=== PATIENT | male | born 1940 | race Caucasian/White ===

== ENCOUNTER 2017-09-29 17:19 | Inpatient (IN) | payer OTHER ==
[2017-09-29] MEDS ORDERED: METHYLPREDNISOLONE 125 MG INJ ONE (17:29)
[2017-09-29] MEDS ORDERED: ASPIRIN 81 MG CHEWABLE TABLET ONE (17:29)
[2017-09-29] MEDS ORDERED: ALBUTEROL 2.5 MG/3 ML NEB SOL ONE (17:29)
[2017-09-29] MEDS ORDERED: IPRATROPIUM BROM 0.5MG/2.5ML ONE (17:30)
[2017-09-29 18:16] LABS: Glucose Level 214 mg/dL (65-120)
[2017-09-29 18:19] LABS: Absolute Lymphocytes (CBC) 0.4 K/uL (0.7-4.9); Absolute Monocytes 0.5 K/uL (0.1-1.3); Absolute Neutrophil 9.7 K/uL (1.8-8.0); Basophils % 0.2 % (0-1.3); Eosinophils % 0.2 % (0-4.4); Hematocrit 40.8 % (39.6-49.0); Lymphocytes % 4.1 % (15.3-44.8); MCH 27.5 pg (27.0-35.0); MCV 87.6 fL (80-100); Monocytes % 4.4 % (3.3-12.3); RBC Red Blood Cell Count 4.66 M/uL (4.33-5.43)
[2017-09-29 18:22] LABS: ALT/SGPT 31 IU/L (10-60); AST/SGOT 24 IU/L (10-42); Albumin 3.8 g/dL (3.2-5.5); Alkaline Phosphatase 102 IU/L (42-121); BUN Blood Urea Nitrogen 16 mg/dL (6-20); Bilirubin Direct < 0.1 mg/dL (0-0.2); Bilirubin Total 0.3 mg/dL (0.3-1.2); Creatine Phosphokinase 76 IU/L (22-269); Magnesium 2.2 mg/dL (1.8-2.5); Protein, Total 8.3 g/dL (6.0-8.3)
[2017-09-29 18:25] LABS: CKMB Creatine Kinase MB 4.7 ng/ml (0.3-4.0)
[2017-09-29 18:26] LABS: Potassium 4.6 mEq/L (3.6-5.0); Sodium Level 143 mEq/L (135-145)
[2017-09-29 18:33] LABS: Bicarbonate 45 mEq/L (21-31)
[2017-09-29 19:01] LABS: Platelet Estimate ADEQ; Urine White Blood Cell Casts OK
[2017-09-29 19:02] LABS: Blood Morphology Comment NOT SEEN (NOT SEEN)
[2017-09-29 19:15] LABS: Arterial Blood Carboxyhemoglob 1.4 % (0-1.5); Blood Gas Oxyhemoglobin 83.7 % (94-97); Blood O2 Saturation 85.5 % (92-98.5)
--- NOTE | 2017-09-29 19:25 | RAD REPORT ---
EXAM DESCRIPTION: RAD - Chest Single View - 09/29/2017 6:45 pm CLINICAL HISTORY: Shortness of breath COMPARISON: October 2016 TECHNIQUE: AP portable chest image was obtained 1752 hours . FINDINGS: Interstitial and alveolar opacification present in the right base along with a small right pleural effusion. Patient has an overall increase in interstitial markings above an already prominen t baseline pattern. Heart size is normal. Pulmonary vasculature within normal limits. Mediastinum is distorted slightly by rotation. Trachea is in the midline. No pneumothorax. No gross bony abnormality seen. No acute aortic findings suspected. IMPRESSION: Increased interstitial and alveolar opacification and small right pleural effusion. Right lung base pneumonia superimposed on chronic interstitial lung disease suspected.
[2017-09-29 19:48] LABS: Urine Blood TRACE (NEG); Urine Glucose 2+ (NEG); Urine Protein 1+ (NEG); Urine Specific Gravity >1.030 (1.005-1.030)
[2017-09-29] MEDS ORDERED: Levofloxacin 750mg IV 750 MG/150 ML BAG IV ONE (20:00)
--- NOTE | 2017-09-29 20:47 | EDPHYS ---
Physician Documentation [facility] Name: Idris San Age: 76 yrs Sex: Male : 1940 Arrival Date: 09/29/2017 Time: 17:25 Bed 6 Private MD: ED Physician Lazaro Nogueira HPI: 09/29 17:35 This 76 yrs old Male presents to ER via EMS with complaints of Respiratory cp Distress. 17:35 The patient has shortness of breath at rest. cp 17:35 Onset: The symptoms/episode began/occurred last 2-3 days. Duration: The symptoms are cp continuous, and are steadily getting worse. Associated signs and symptoms: Pertinent negatives: chest pain, fever, hemoptysis. The patient has experienced similar episodes in the past, multiple times. EMS reports patient oxygen sats were 80 percent on arrival after they were called by patient. Historical: - Allergies: 17:33 Codeine; ae1 - Home Meds: 17:33 Albuterol Inhl [Active]; Prednisone Oral [Active]; ae1 19:08 furosemide 20 mg Oral tab 1 tab once daily [Active]; tamsulosin 0.4 mg Oral cp24 1 cap ak1 twice a day [Active]; finasteride 5 mg Oral tab 1 tab once daily [Active]; - PMHx: 17:33 CHF; COPD; enlarged prostate; Lung Cancer; Pt reports that it cleared up; ae1 - PSHx: 19:08 Appendectomy; ak1 - Immunization history:: Adult Immunizations not up to date. - Social history:: Smoking status: Patient uses tobacco products, smokes one-half pack cigarettes per day. ROS: 17:40 Constitutional: Negative for body aches, chills, fever, poor PO intake. cp 17:40 Eyes: Negative for injury, pain, redness, and discharge. cp 17:40 ENT: Negative for drainage from ear(s), sore throat, difficulty swallowing, difficulty handling secretions. 17:40 Cardiovascular: Negative for chest pain, edema. 17:40 Respiratory: Positive for cough, shortness of breath, at rest. 17:40 Abdomen/GI: Negative for abdominal pain, vomiting, diarrhea, constipation, black/tarry stool, rectal bleeding. 17:40 Skin: Negative for cellulitis, rash. 17:40 Neuro: Negative for altered mental status, seizure activity, speech changes, weakness. 17:40 All other systems are negative. Exam: 17:40 Head/Face: Normocephalic, atraumatic. cp 17:40 Constitutional: The patient appears alert, awake, non-diaphoretic, well developed, well nourished, in obvious distress, moderately distressed. 17:40 Eyes: Periorbital structures: appear normal, Pupils: equal, round, and reactive to light and accomodation, Extraocular movements: intact throughout, Conjunctiva: normal, no exudate, no injection, Sclera: no appreciated abnormality, Lids and lashes: appear normal, bilaterally. 17:40 ENT: External ear(s): are unremarkable, Ear canal(s): are normal, clear, TM's: dullness, bilaterally, Nose: is normal, Mouth: Lips: moist, Oral mucosa: moist, Posterior pharynx: is normal, airway is patent, no erythema, no exudate. 17:40 Neck: ROM/movement: is normal, is supple, without pain, no range of motions limitations, no meningismus, no nuchal rigidity. 17:40 Chest/axilla: Inspection: normal, Palpation: is normal, no crepitus, no tenderness. 17:40 Cardiovascular: Rate: tachycardic, Rhythm: regular, Pulses: Pulses are 2+ in right radial artery and left radial artery. Edema: is not appreciated, JVD: is not appreciated. 17:40 Respiratory: moderate respiratory distress is noted, Respirations: normal, labored breathing, that is moderate, shallow respirations, that is moderate, tachypnea, Breath sounds: decreased breath sounds, that are moderate, throughout, stridor, is not appreciated, wheezing: that is mild, is heard diffusely. 17:40 Abdomen/GI: Inspection: abdomen appears normal, Bowel sounds: active, all quadrants, Palpation: abdomen is soft and non-tender, in all quadrants, rebound tenderness, is not appreciated, voluntary guarding, is not appreciated, involuntary guarding, is not appreciated. 17:40 Back: pain, is absent, ROM is normal. 17:40 Skin: cellulitis, is not appreciated, no rash present. 17:40 Neuro: Orientation: to person, place \T\ time. Mentation: lucid, able to follow commands, Cerebellar function: is grossly normal, Motor: moves all fours, strength is normal, Sensation: no obvious gross deficits. 17:50 ECG was reviewed by the Attending Physician. Vital Signs: 17:28 BP 152 / 61; Pulse 101; Resp 27 S; Pulse Ox 100% on Nebulizer Mask; Weight 65.77 kg ae1 (R); Pain 0/10; 18:00 BP 149 / 73; Pulse 102; Resp 22 A; Pulse Ox 100% on BiPAP; jl7 18:30 BP 145 / 68; Pulse 90; Resp 98 A; Pulse Ox 100% on BiPAP; jl7 18:58 BP 127 / 58; Pulse 90; Resp 22 A; Pulse Ox 100% on BiPAP; jl7 19:03 Temp 99(O); jl7 19:15 BP 123 / 59; Pulse 84; Resp 22; Pulse Ox 96% ; bp 20:00 BP 118 / 60; Pulse 82; Resp 25; Pulse Ox 97% ; bp 20:40 BP 117 / 58; Pulse 88; Resp 23; Pulse Ox 98% on BiPAP; mt 21:30 BP 112 / 56; Pulse 76; Resp 21; Pulse Ox 97% ; bp MDM: 17:26 Patient medically screened. jr8 18:00 Differential diagnosis: Bronchitis CHF exacerbation, Chronic Obstructive Pulmonary cp Disease Myocardial Infarction pneumonia, pulmonary edema, Pulmonary Embolism reactive airway disease, Sepsis Unstable Angina. 20:10 Data reviewed: vital signs, nurses notes, lab test result(s), EKG, radiologic studies, cp plain films. 20:14 Physician consultation: Sameer Roberts MD was called at 20:14, was contacted at 20:14, regarding admission, to the telemetry unit. patient's condition. 09/29 17:30 Order name: Blood Culture Adult (2) 09/29 17:30 Order name: Influenza Screen (a \T\ B); Complete Time: 19:54 cp 09/29 17:30 Order name: Basic Metabolic Panel; Complete Time: 18:53 09/29 17:30 Order name: BNP 09/29 17:30 Order name: CBC with Diff; Complete Time: 19:54 09/29 18:53 Interpretation: Normal except: HGB 12.8; MCV 87.6; MCH 27.5; MCHC 31.5; RDW 18.1; GLADYS% cp 91.1; LYM% 4.1; LYMA 0.4; NEUT A 9.7. 09/29 17:30 Order name: Ckmb; Complete Time: 18:53 cp 09/29 17:30 Order name: CPK; Complete Time: 18:53 cp 09/29 17:30 Order name: LFT's; Complete Time: 18:53 cp 09/29 17:30 Order name: Magnesium; Complete Time: 18:53 cp 09/29 17:30 Order name: PT-INR; Complete Time: 18:53 cp 09/29 17:30 Order name: Ptt, Activated; Complete Time: 18:53 cp 09/29 17:30 Order name: Troponin (emerg Dept Use Only); Complete Time: 18:53 cp 09/29 18:28 Order name: CBC Smear Scan; Complete Time: 19:54 EDMS 09/29 18:54 Order name: ABG cp 09/29 17:30 Order name: XRAY Chest (1 view); Complete Time: 19:54 cp 09/29 17:56 Order name: BIPAP ag 09/29 19:21 Order name: Urine Dipstick--Ancillary (enter results); Complete Time: 19:54 rg2 09/29 19:54 Interpretation: Normal except: USPGR >1.030; UBLD TRACE; UPROT 1+. cp 09/29 20:56 Order name: Basic Metabolic Panel EDMS 09/29 20:56 Order name: Basic Metabolic Panel EDMS 09/29 20:57 Order name: Troponin I EDMS 09/29 20:57 Order name: Troponin I EDMS 09/29 20:57 Order name: Troponin I EDMS 09/29 20:57 Order name: Troponin I EDMS 09/29 20:57 Order name: CBC with Automated Diff EDMS 09/29 20:57 Order name: CBC with Automated Diff EDMS 09/29 20:57 Order name: Lipid Profile EDMS 09/29 20:57 Order name: Lipid Profile EDMS 09/29 20:57 Order name: Magnesium EDMS 09/29 20:57 Order name: Magnesium EDMS 09/29 17:30 Order name: EKG; Complete Time: 17:38 cp 09/29 17:30 Order name: Cardiac monitoring; Complete Time: 17:35 cp 09/29 17:30 Order name: EKG - Nurse/Tech; Complete Time: 19:02 cp 09/29 17:30 Order name: IV Saline Lock; Complete Time: 17:35 cp 09/29 17:30 Order name: Labs collected and sent; Complete Time: 17:35 cp 09/29 17:30 Order name: O2 Per Protocol; Complete Time: 17:35 cp 09/29 17:30 Order name: O2 Sat Monitoring; Complete Time: 17:35 cp 09/29 17:30 Order name: Urine Dipstick-Ancillary (obtain specimen); Complete Time: 19:19 cp 09/29 20:57 Order name: Heart Healthy EDMS 09/29 20:57 Order name: Respiratory Therapy Consult EDMS EC:50 Rate is 104 beats/min. Rhythm is regular. MO interval is normal. QRS interval is cp normal. QT interval is normal. Interpreted by me. Reviewed by me. Administered Medications: 17:35 Drug: Albuterol - atroVENT (3:1) (2.5 mg - 0.5 mg) 3 ml Route: Nebulizer; ae1 19:02 Follow up: Response: No adverse reaction; Marked relief of symptoms jl7 17:35 Drug: Aspirin Chewable Tablet 324 mg Route: PO; ae1 19:03 Follow up: Response: No adverse reaction jl7 17:36 Drug: SOLU-Medrol 125 mg Route: IVP; Site: right antecubital; ae1 19:01 Follow up: Response: No adverse reaction; Marked relief of symptoms jl7 19:05 Drug: NS 0.9% 500 ml Route: IV; Rate: bolus; Site: right antecubital; ak1 20:05 Follow up: IV Status: Completed infusion ak1 20:05 Drug: LevaQUIN 750 mg Volume: 150 ml; Route: IVPB; Infused Over: 90 mins; Site: right ak1 antecubital; 21:36 Follow up: IV Status: Completed infusion bp 21:10 Drug: Magnesium Sulfate 1 grams Route: IVPB; Infused Over: 1 hrs; Site: right bp antecubital; 21:41 Follow up: IV Status: Completed infusion bp Disposition: 23:30 Co-signature as Attending Physician, Lazaro Nogueira MD I agree with the assessment and kdr plan of care. Disposition: 09/29/17 20:46 Hospitalization ordered by Sameer Roberts for Inpatient Admission. Preliminary diagnosis are Pneumonia due to other specified bacteria, Respiratory failure, unspecified with hypoxia, Respiratory failure, unspecified with hypercapnia. - Bed requested for Telemetry/MedSurg (Inpatient). - Status is Inpatient Admission. bp - Condition is Stable. - Problem is new. - Symptoms have improved. UTI on Admission? No Signatures: Dispatcher [employer] EDMS Trinity Trinidad RN RN Lazaro Nogueira MD MD kdr Roszak, Josh, PA PA jr8 Britany Pacheco RN RN ak1 Jeff Henderson PA PA cp Elliott, Andrea, RN RN ae1 Leonides Fuentes RN RN Judy Kaye RN jl7 Corrections: (The following items were deleted from the chart) 18:53 18:53 Normal except: HGB 12.8; MCV 87.6; MCH 27.5; MCHC 31.5; RDW 18.1; GLADYS% 91.1; LYM% cp 4.1. cp
--- NOTE | 2017-09-29 20:47 | ER ---
Nurse's Notes [facility] Name: Idris San Age: 76 yrs Sex: Male : 1940 Arrival Date: 09/29/2017 Time: 17:25 Bed 6 Private MD: Diagnosis: Pneumonia due to other specified bacteria;Respiratory failure, unspecified with hypoxia;Respiratory failure, unspecified with hypercapnia Presentation: 09/29 17:26 Presenting complaint: EMS states: EMS states patient called 911 for not being able to ae1 breathe. Hx of COPD. Transition of care: patient was not received from another setting of care. Onset of symptoms is unknown. Care prior to arrival: Medication(s) given: Albuterol Neb x 1, Atrovent Neb x 1. 17:26 Acuity: LISBETH 2 ae1 17:26 Method Of Arrival: EMS: [facility] ae1 Triage Assessment: 17:33 General: Appears distressed, uncomfortable, Behavior is cooperative, agitated, anxious, ae1 restless. Respiratory: Reports shortness of breath air hunger labored breathing Onset: The symptoms/episode began/occurred gradually, the patient has severe shortness of breath. Historical: - Allergies: 17:33 Codeine; ae1 - Home Meds: 17:33 Albuterol Inhl [Active]; Prednisone Oral [Active]; ae1 19:08 furosemide 20 mg Oral tab 1 tab once daily [Active]; tamsulosin 0.4 mg Oral cp24 1 cap ak1 twice a day [Active]; finasteride 5 mg Oral tab 1 tab once daily [Active]; - PMHx: 17:33 CHF; COPD; enlarged prostate; Lung Cancer; Pt reports that it cleared up; ae1 - PSHx: 19:08 Appendectomy; ak1 - Immunization history:: Adult Immunizations not up to date. - Social history:: Smoking status: Patient uses tobacco products, smokes one-half pack cigarettes per day. Screenin:34 Abuse screen: Denies threats or abuse. Nutritional screening: No deficits noted. ae1 Tuberculosis screening: No symptoms or risk factors identified. Fall Risk None identified. Assessment: 17:20 Reassessment: Respiratory therapy paged to apply Bipap. ae1 17:29 Pain: Denies pain. Neuro: Level of Consciousness is awake, alert, obeys commands, ae1 Oriented to person, place, time, situation. Cardiovascular: Rhythm is regular. Respiratory: Airway is patent Respiratory effort is labored, with nasal flaring, with retractions, shallow, Respiratory pattern is symmetrical, Breath sounds are diminished bilaterally. Breath sounds with wheezes bilaterally. GI: No signs and/or symptoms were reported involving the gastrointestinal system. : No signs and/or symptoms were reported regarding the genitourinary system. EENT: No signs and/or symptoms were reported regarding the EENT system. Derm: Skin is pale. Musculoskeletal: No signs and/or symptoms reported regarding the musculoskeletal system. 18:30 Reassessment: Patient and/or family updated on plan of care and expected duration. Pain jl7 level reassessed. Patient is alert, oriented x 3, equal unlabored respirations, skin warm/dry/pink. Patient states symptoms have improved. 19:00 Reassessment: RECD REPORT FROM PAULIE EVANS. 76YO WM P/W SOB, H/O COPD. PT ON BIPAP, ALL bp CURRENT ORDERS COMPLETED. 20:07 Reassessment: INITIAL ABX INFUSING AFTER BLOOD CX, DISPO PENDING. bp 20:45 Reassessment: ADMIT IN PROCESS, VS STABLE ON MONITOR, PT TOLERATING BIPAP. bp Vital Signs: 17:28 BP 152 / 61; Pulse 101; Resp 27 S; Pulse Ox 100% on Nebulizer Mask; Weight 65.77 kg ae1 (R); Pain 0/10; 18:00 BP 149 / 73; Pulse 102; Resp 22 A; Pulse Ox 100% on BiPAP; jl7 18:30 BP 145 / 68; Pulse 90; Resp 98 A; Pulse Ox 100% on BiPAP; jl7 18:58 BP 127 / 58; Pulse 90; Resp 22 A; Pulse Ox 100% on BiPAP; jl7 19:03 Temp 99(O); jl7 19:15 BP 123 / 59; Pulse 84; Resp 22; Pulse Ox 96% ; bp 20:00 BP 118 / 60; Pulse 82; Resp 25; Pulse Ox 97% ; bp 20:40 BP 117 / 58; Pulse 88; Resp 23; Pulse Ox 98% on BiPAP; mt 21:30 BP 112 / 56; Pulse 76; Resp 21; Pulse Ox 97% ; bp ED Course: 17:20 Initial lab(s) drawn, by me, sent to lab. Inserted saline lock: 20 gauge in right jl7 antecubital area, using aseptic technique. Blood collected. 17:25 Patient arrived in ED. ae1 17:26 Mike Zayas PA is PHCP. jr8 17: Lazaro Nogueira MD is Attending Physician. jr8 17:27 PHCP role handed off by Mike Zayas PA jr8 17:27 Jeff Henderson PA is PHCP. jr8 17:28 Triage completed. ae1 17:30 Bed in low position. Call light in reach. Side rails up X 1. library monitor on. Pulse ae1 ox on. NIBP on. 17:30 EKG done, by ED staff, reviewed by Lazaro Nogueira MD. jl7 17:36 Lane Kessler RN is Primary Nurse. ae1 18:45 XRAY Chest (1 view) In Process Unspecified. EDMS 18:49 Flu and/or RSV swab sent to lab. jl7 19:01 Report given to CRISTINA Garg. jl7 19:06 Arm band placed on Patient placed in an exam room, on a stretcher, Patient notified of ak1 wait time. 19:17 BIPAP Sent. bp 20:45 Sameer Roberts MD is Hospitalizing Provider. cp 21:24 No provider procedures requiring assistance completed. Patient admitted, IV remains in bp place. Administered Medications: 17:35 Drug: Albuterol - atroVENT (3:1) (2.5 mg - 0.5 mg) 3 ml Route: Nebulizer; ae1 19:02 Follow up: Response: No adverse reaction; Marked relief of symptoms jl7 17:35 Drug: Aspirin Chewable Tablet 324 mg Route: PO; ae1 19:03 Follow up: Response: No adverse reaction jl7 17:36 Drug: SOLU-Medrol 125 mg Route: IVP; Site: right antecubital; ae1 19:01 Follow up: Response: No adverse reaction; Marked relief of symptoms jl7 19:05 Drug: NS 0.9% 500 ml Route: IV; Rate: bolus; Site: right antecubital; ak1 20:05 Follow up: IV Status: Completed infusion ak1 20:05 Drug: LevaQUIN 750 mg Volume: 150 ml; Route: IVPB; Infused Over: 90 mins; Site: right ak1 antecubital; 21:36 Follow up: IV Status: Completed infusion bp 21:10 Drug: Magnesium Sulfate 1 grams Route: IVPB; Infused Over: 1 hrs; Site: right bp antecubital; 21:41 Follow up: IV Status: Completed infusion bp Outcome: 20:46 Decision to Hospitalize by Provider. cp 21:24 Condition: stable bp 21:24 Instructed on the need for admit. 21:42 Admitted to Tele accompanied by tech, family with patient, via wheelchair, room 405, bp with oxygen, with chart, Report called to ANTHONY EVANS 21:50 Patient left the ED. bp Signatures: Dispatcher [employer] EDMS Mike Zayas PA PA jr8 Britany Pacheco RN RN ak1 Jeff Henderson PA PA cp Elliott, Andrea, RN RN ae1 Judy Carlos RN RN jl7 Jaclyn Pope mt, Brian RN RN bp Corrections: (The following items were deleted from the chart) 19:00 18:58 BP 127 / 58; Pulse 90bpm; Resp 22bpm; Spontaneous; Pulse Ox 100% BiPAP; jl7 jl7 19:00 18:30 BP 145 / 68; Pulse 90bpm; Resp 98bpm; Spontaneous; Pulse Ox 100% BiPAP; jl7 jl7 19:00 18:00 BP 149 / 73; Pulse 102bpm; Resp 22bpm; Spontaneous; Pulse Ox 100% BiPAP; jl7 jl7
[2017-09-29] MEDS ORDERED: ONDANSETRON 4 MG/2 ML VIAL IV PRN (20:48)
[2017-09-29] MEDS: Levofloxacin 750mg IV 750 MG/150 ML BAG IV SCH (21:00)
[2017-09-29] MEDS ORDERED: MAGNESIUM SULFATE 1 gm IVPB 1 GM/100 ML BAG IV ONE (21:10)
[2017-09-29 22:16] VITALS: BMI 25.2
--- NOTE | 2017-09-29 22:30 | EKG ---
Test Date: 2017-09-29 Test Time: 17:45:30 [employer] Compounding Supervisor: GARIMA MEASUREMENT RESULTS: Intervals: Rate: 104 NM: 98 QRSD: 68 QT: 336 QTc: 441 Reinbeck: P: 88 NM: 98 QRS: 19 T: 61 INTERPRETIVE STATEMENTS: Sinus rhythm Normal ECG Compared to ECG 11/08/2016 no significant change from previous ECG Electronically Signed On 09-29-17 22:29:31 CDT by Nickolas Garibay
[2017-09-29] MEDS: ALBUTEROL 2.5 MG/3 ML NEB SOL NEB SCH (22:37)
[2017-09-30] MEDS: ALBUTEROL 2.5 MG/3 ML NEB SOL NEB SCH ×3 (03:13→08:06)
[2017-09-30 06:20] LABS: Absolute Lymphocytes (CBC) 0.5 K/uL (0.7-4.9); Absolute Monocytes 0.2 K/uL (0.1-1.3); Absolute Neutrophil 9.4 K/uL (1.8-8.0); Eosinophils % 0.1 % (0-4.4); Hematocrit 36.9 % (39.6-49.0); Lymphocytes % 4.5 % (15.3-44.8); MCH 27.1 pg (27.0-35.0); MCV 87.7 fL (80-100); MPV 10.2 fL (7.6-11.3); Monocytes % 1.8 % (3.3-12.3); RBC Red Blood Cell Count 4.21 M/uL (4.33-5.43)
[2017-09-30 06:32] LABS: Magnesium 2.2 mg/dL (1.8-2.5); Potassium 5.2 mEq/L (3.6-5.0)
[2017-09-30] MEDS: ENOXAPARIN 40 MG/0.4 ML SQ SCH (08:12)
[2017-09-30] MEDS ORDERED: MIDAZOLAM HCL 2 MG/2 ML INJ ONE (08:41)
[2017-09-30] MEDS ORDERED: FENTANYL CITR 100 MCG/2 ML ONE (08:41)
[2017-09-30] MEDS ORDERED: ASPIRIN EC 81 MG TAB PO SCH (09:00)
[2017-09-30 09:30] LABS: Anisocytosis SLIGHT; Blood Morphology Comment NOTED (NOT SEEN); Ovalocytes SLIGHT; Platelet Estimate ADEQ
[2017-09-30] MEDS ORDERED: ALBUTEROL 2.5 MG/3 ML NEB SOL IH PRN (10:47)
--- NOTE | 2017-09-30 11:11 | P.HP ---
Certification for Inpatient Patient admitted to: Inpatient With expected LOS: >2 Midnights Patient will require the following post-hospital care: None Practitioner: I am a practitioner with admitting privileges, knowledge of patient current condition, hospital course, and medical plan of care. Services: Services provided to patient in accordance with Admission requirements found in Title 42 Section 412.3 of the Code of Federal Regulations Patient History Date of Service: 09/30/17 Primary Care Provider: Tiffanie Belle Reason for admission: community aquired pneumonia History of Present Illness: Patient is a office patient of Tiffanie Belle. Has a history of lung cancer and severe copd. He has been having trouble getting servicing for his cpap. He was getting more short of breath. Came to the er. Was found to have an infiltrate on his right lower lung lobe. Was admitted on levaquin. He was not complaining of fever, chills or yellow or green sputum. Allergies codeine Allergy (Verified 11/06/16 08:44) AMS No Known Allergi Allergy (Uncoded 11/08/16 08:29) Unknown Home Medications: Albuterol Sulfate [Albuterol Sulfate 0.083% Neb Soln] 2.5 mg IH QIDP PRN Aspirin [Payton Chewable] 81 mg PO DAILY 09/30/17 Clonazepam [Klonopin] 0.5 mg PO DAILY 09/30/17 Cyanocobalamin (Vitamin B-12) [Vitamin B-12] 1,000 mcg PO DAILY 09/30/17 Ferrous Gluconate 324 mg PO DAILY 09/30/17 Fluticasone Propionate [Flovent Diskus] 50 mcg IH BID 09/30/17 Fluticasone/Salmeterol [Advair 250-50 Diskus] 1 each IH BID 09/30/17 Furosemide [Lasix] 20 mg PO DAILY 09/30/17 Montelukast [Singulair] 10 mg PO DAILY 09/30/17 Prednisone [Deltasone*] 10 mg PO BID 09/30/17 - Past Medical/Surgical History Has patient received pneumonia vaccine in the past: Yes Diabetic: No -: Lung cancer radiation treatments three years ago -: 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 -: Sleep Apnea -: Enlarged prostate -: CHF -: appendectomy -: cataract surgery - Family History Father -: Heart disease, Diabetes Notes: [place] Mother -: Lung disease, Cancer Notes: LUng Ca, Breast CA,Brain CA - Social History Smoking Status: Current some day smoker Alcohol use: No CD- Drugs: No Caffeine use: Yes Place of Residence: Home Review of Systems 10-point ROS is otherwise unremarkable Respiratory: SOB with Excertion (which is his baseline) Physical Examination - Vital Signs Temperature: 99 F Blood Pressure: 121/61 Pulse: 82 Respirations: 18 Pulse Ox (%): 99 - Physical Exam General: Alert, In no apparent distress HEENT: Atraumatic, PERRLA, Mucous membr. moist/pink, EOMI, Sclerae nonicteric Neck: Supple, 2+ carotid pulse no bruit, No LAD, Without JVD or thyroid abnormality Respiratory: Diminished, Expiratory wheezes Cardiovascular: Regular rate/rhythm, Normal S1 S2 Gastrointestinal: Normal bowel sounds, No tenderness Musculoskeletal: No tenderness Integumentary: No rashes Neurological: Normal gait, Normal speech, Normal strength at 5/5 x4 extr, Normal tone, Normal affect Lymphatics: No axilla or inguinal lymphadenopathy - Studies Laboratory Data (last 24 hrs) 09/29/17 17:30: PT 11.8, INR 1.00, APTT 29.5 09/29/17 17:30: WBC 10.7, Hgb 12.8 L, Hct 40.8, Plt Count 273 09/29/17 17:30: B-Natriuretic Peptide 296 H 09/29/17 17:30: Sodium 143, Potassium 4.6, BUN 16, Creatinine 0.85, Glucose 214 H, Magnesium 2.2, Total Bilirubin 0.3, AST 24, ALT 31, Alkaline Phosphatase 102 Microbiology Data (last 24 hrs): 09/29/17 18:45 Nasopharnyx Influenza Type A Antigen Screen - Final 09/29/17 18:45 Nasopharnyx Influenza Type B Antigen Screen - Final Assessment and Plan - Problems (Diagnosis) (1) PNA (pneumonia) Onset Date: 09/30/17 Current Visit: Yes Status: Acute Plan: Will continue levaquin. Will continue breathing treatment. Will await blood cultures. Qualifiers: Pneumonia type: due to unspecified organism Laterality: right Lung location: lower lobe of lung Qualified Code(s): J18.1 - Lobar pneumonia, unspecified organism (2) Acute exacerbation of chronic obstructive pulmonary disease (COPD) Current Visit: No Status: Acute Plan: Patient seems at baseline. Will consult Dr. Sanchez. Will continue breathing treatments and home medications (3) History of lung cancer Current Visit: No Status: Acute Plan: stable. Will continue levaquin and treat him as a post obst pneumonia Discharge Plan: Home Plan to discharge in: 48 Hours - Advance Directives Does patient have a Living Will: No Does patient have a Durable POA for Healthcare: No - Code Status/Comfort Care Code Status Assessed: No Code Status: Full Code Physician Review: Patient Assessed, Agree with Above Assessment and Plan Critical Care: No Time Spent Managing Pts Care (In Minutes): 45
--- NOTE | 2017-09-30 12:00 | P.CNS ---
Date of Consult: 09/30/17 Reason for Consult: COPD exacerbation Primary Care Provider: Tiffanie Belle Chief Complaint: COPD exacerbation History of Present Illness: Patient is 76 years of age she has terminal COPD having some problems with his oxygen concentrator became worse treated lack of oxygen and was admitted to the hospital he denies any fever chills cough sputum hemoptysis or chest pain back to his baseline patient is very dyspneic he was at 1 time on hospice care he does have BiPAP at home patient is compliant with his inhalers Allergies codeine Allergy (Verified 11/06/16 08:44) AMS No Known Allergi Allergy (Uncoded 11/08/16 08:29) Unknown Home Medications: Albuterol Sulfate [Albuterol Sulfate 0.083% Neb Soln] 2.5 mg IH QIDP PRN Aspirin [Payton Chewable] 81 mg PO DAILY 09/30/17 Clonazepam [Klonopin] 0.5 mg PO DAILY 09/30/17 Cyanocobalamin (Vitamin B-12) [Vitamin B-12] 1,000 mcg PO DAILY 09/30/17 Ferrous Gluconate 324 mg PO DAILY 09/30/17 Fluticasone Propionate [Flovent Diskus] 50 mcg IH BID 09/30/17 Fluticasone/Salmeterol [Advair 250-50 Diskus] 1 each IH BID 09/30/17 Furosemide [Lasix] 20 mg PO DAILY 09/30/17 Montelukast [Singulair] 10 mg PO DAILY 09/30/17 Prednisone [Deltasone*] 10 mg PO BID 09/30/17 - Past Medical/Surgical History Diabetic: No -: Lung cancer radiation treatments three years ago -: 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 -: Sleep Apnea -: Enlarged prostate -: CHF -: appendectomy -: cataract surgery - Family History Father Medical History: Heart disease, Diabetes Notes: [facility] Mother Medical History: Lung disease, Cancer Notes: LUng Ca, Breast CA,Brain CA - Social History Smoking Status: Current every day smoker Alcohol use: No CD- Drugs: No Caffeine use: Yes Place of Residence: Home Review of Systems General: Weakness Respiratory: Cough, Shortness of Breath Physical Examination Temp Pulse Resp BP Pulse Ox 99 F 82 18 121/61 99 09/30/17 11:11 09/30/17 11:11 09/30/17 11:11 09/30/17 11:11 09/30/17 11:11 General: Alert, Oriented x3, Moderate distress Respiratory: Expiratory wheezes Cardiovascular: No edema, Regular rate/rhythm, Normal S1 S2 Gastrointestinal: Soft and benign Laboratory Data (last 24 hrs) 09/29/17 17:30: PT 11.8, INR 1.00, APTT 29.5 09/29/17 17:30: WBC 10.7, Hgb 12.8 L, Hct 40.8, Plt Count 273 09/29/17 17:30: B-Natriuretic Peptide 296 H 09/29/17 17:30: Sodium 143, Potassium 4.6, BUN 16, Creatinine 0.85, Glucose 214 H, Magnesium 2.2, Total Bilirubin 0.3, AST 24, ALT 31, Alkaline Phosphatase 102 - Problems (1) COPD (chronic obstructive pulmonary disease) Current Visit: Yes Status: Acute Plan: Patient has terminal COPD was admitted to the hospital because problems with his oxygen concentrator labs show hypoxic hypercapnic respiratory failure which is chronic he has a home BiPAP chest x-ray is abnormal slight right lower lobe haziness will repeat a chest x-ray although he denies any symptoms of infection IV cough sputum hemoptysis chest pain fever or chills possible that he has an infection in the right lower lobe and can be discharged home on levofloxacin resume all its baseline home medication sent a note to social economist to check the status of his oxygen concentrator from his [employer] company Qualifiers: COPD type: chronic bronchitis
--- NOTE | 2017-09-30 13:55 | RAD REPORT ---
EXAM DESCRIPTION: RAD - Chest Single View - 09/30/2017 1:33 pm CLINICAL HISTORY: Abnormal chest film for followup, shortness of breath COMPARISON: Portable chest September 29, CT chest July 23, portable chest October 2016 TECHNIQUE: AP portable chest image was obtained 1322 hours . FINDINGS: Patient's baseline fibro emphysematous lung changes are again noted. The focal infiltrativ e changes in the right lung base has substantially improved. There is some remnant infiltrate present . Patient has not yet reached baseline appearance. Heart and vasculature are normal. No measurable pleural effusion and no pneumothorax. No gross bony abnormality seen. No acute aortic findings suspected. IMPRESSION: Significant clearing of the right base infiltrative process. No underlying mass lesions seen.
[2017-09-30] MEDS: predniSONE 10 MG TAB PO SCH (20:16)
[2017-09-30] MEDS: Levofloxacin 750mg IV 750 MG/150 ML BAG IV SCH (20:16)
[2017-09-30] MEDS ORDERED: HOME MED 1 EA UNK (Fluticasone Propionate [Flovent Diskus] 50 MCG) IH SCH (21:00)
[2017-10-01] MEDS: ENOXAPARIN 40 MG/0.4 ML SQ SCH (08:33)
[2017-10-01] MEDS: predniSONE 10 MG TAB PO SCH (08:35)
--- NOTE | 2017-10-01 08:44 | P.PN ---
Subjective Date of Service: 10/01/17 Primary Care Provider: Tiffanie Belle Chief Complaint: COPD exacerbation Subjective: No new changes Review of Systems 10-point ROS is otherwise unremarkable Respiratory: SOB with Excertion Physical Examination - Vital Signs Temperature: 97.7 F Blood Pressure: 132/62 Pulse: 65 Respirations: 16 Pulse Ox (%): 95 - Physical Exam General: Alert, In no apparent distress HEENT: Atraumatic, PERRLA, EOMI Neck: Supple, JVD not distended Respiratory: Clear to auscultation bilaterally, Normal air movement Cardiovascular: Regular rate/rhythm, Normal S1 S2 Gastrointestinal: Normal bowel sounds, No tenderness Musculoskeletal: No tenderness Integumentary: No rashes Neurological: Normal speech, Normal tone, Normal affect Lymphatics: No axilla or inguinal lymphadenopathy Assessment & Plan - Problems (Diagnosis) (1) PNA (pneumonia) Onset Date: 09/30/17 Current Visit: Yes Status: Acute Plan: Will continue levaquin. Will continue breathing treatment. 1 blood culture positive. However patient is asymptomatic. Will await sensitivity. 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 Once that is fixed he can go home (3) History of lung cancer Current Visit: No Status: Acute Plan: stable. Will continue levaquin and treat him as a post obst pneumonia Discharge Plan: Home Plan to discharge in: 24 Hours - Code Status/Comfort Care Code Status Assessed: No Code Status: Full Code Physician Review: Patient Assessed, Agree with Above Assessment and Plan Critical Care: No Time Spent Managing Pts Care (In Minutes): 25
[2017-10-01] MEDS ORDERED: FUROSEMIDE 20 MG TABLET PO SCH (09:00)
[2017-10-01] MEDS ORDERED: CYANOCOBALAMIN 1,000 MCG TAB PO SCH (09:00)
[2017-10-01] MEDS ORDERED: FERROUS GLUCONATE 300 MG TAB PO SCH (09:00)
[2017-10-01] MEDS ORDERED: ASPIRIN 81 MG CHEWABLE TABLET PO SCH (09:00)
[2017-10-01] MEDS ORDERED: clonazePAM 0.5 MG TAB PO SCH (09:00)
[2017-10-01] MEDS ORDERED: MONTELUKAST 10 MG TAB PO SCH (09:00)
[2017-10-01 10:12] VITALS: O2SAT 95
[2017-10-01 12:19] VITALS: BP 125/61; TEMP 98.3
--- NOTE | 2017-10-01 13:15 | P.DS ---
Admission Date: 09/29/17 Discharge Date: 10/01/17 Primary Care Provider: Tiffanie Belle Reason for Admission: COPD exacerbation - Problems (1) PNA (pneumonia) Onset Date: 09/30/17 Current Visit: Yes Status: Acute Qualifiers: Pneumonia type: due to unspecified organism Laterality: right Lung location: lower lobe of lung Qualified Code(s): J18.1 - Lobar pneumonia, unspecified organism (2) Acute exacerbation of chronic obstructive pulmonary disease (COPD) Current Visit: No Status: Acute (3) History of lung cancer Current Visit: No Status: Acute Brief History of Present Illness: Patient is a office patient of Tiffanie Belle. Has a history of lung cancer and severe copd. He has been having trouble getting servicing for his cpap. He was getting more short of breath. Came to the er. Was found to have an infiltrate on his right lower lung lobe. Was admitted on levaquin. He was not complaining of fever, chills or yellow or green sputum. Hospital Course: social sciences chair has gotten his home oxygenator company to come out and fix his machine. He has 1 culture bottle positive. Chest xray is improving. Will send home without antibiotics. Will have him follow up with Dr. Sanchez and Lars Belle. Vital Signs/Physical Exam: Temp Pulse Resp BP Pulse Ox 98.3 F 70 16 125/61 95 10/01/17 12:00 10/01/17 12:00 10/01/17 12:00 10/01/17 12:00 10/01/17 12:00 Laboratory Data at Discharge: WBC 10.1 K/uL (4.3-10.9) 09/30/17 05:24 Hgb 11.4 g/dL (13.6-17.9) L 09/30/17 05:24 Hct 36.9 % (39.6-49.0) L 09/30/17 05:24 Plt Count 269 K/uL (152-406) 09/30/17 05:24 PT 11.8 SECONDS (9.5-12.5) 09/29/17 17:30 INR 1.00 09/29/17 17:30 APTT 29.5 SECONDS (24.3-36.9) 09/29/17 17:30 Sodium 140 mEq/L (135-145) 09/30/17 05:24 Potassium 5.2 mEq/L (3.6-5.0) H 09/30/17 05:24 BUN 17 mg/dL (6-20) 09/30/17 05:24 Creatinine 0.85 mg/dL (0.61-1.24) 09/30/17 05:24 Glucose 214 mg/dL (65-120) H 09/30/17 05:24 Magnesium 2.2 mg/dL (1.8-2.5) 09/30/17 05:24 Total Bilirubin 0.3 mg/dL (0.3-1.2) 09/29/17 17:30 AST 24 IU/L (10-42) 09/29/17 17:30 ALT 31 IU/L (10-60) 09/29/17 17:30 Alkaline Phosphatase 102 IU/L (42-121) 09/29/17 17:30 Troponin I < 0.03 ng/mL (<0.03) 09/30/17 06:33 B-Natriuretic Peptide 296 pg/ml (<=100) H 09/29/17 17:30 Triglycerides 43 mg/dL (35-160) 09/30/17 05:24 Cholesterol 153 mg/dL (<200) 09/30/17 05:24 HDL Cholesterol 67 mg/dL (27-67) 09/30/17 05:24 Cholesterol/HDL Ratio 2.28 09/30/17 05:24 Home Medications: Albuterol Sulfate [Albuterol Sulfate 0.083% Neb Soln] 2.5 mg IH QIDP PRN Aspirin [Payton Chewable] 81 mg PO DAILY 09/30/17 Clonazepam [Klonopin] 0.5 mg PO DAILY 09/30/17 Cyanocobalamin (Vitamin B-12) [Vitamin B-12] 1,000 mcg PO DAILY 09/30/17 Ferrous Gluconate 324 mg PO DAILY 09/30/17 Fluticasone Propionate [Flovent Diskus] 50 mcg IH BID 09/30/17 Fluticasone/Salmeterol [Advair 250-50 Diskus] 1 each IH BID 09/30/17 Furosemide [Lasix] 20 mg PO DAILY 09/30/17 Montelukast [Singulair] 10 mg PO DAILY 09/30/17 Prednisone [Deltasone*] 10 mg PO BID 09/30/17 Diet: Regular Followup: Dayton Valdivia MD [ACTIVE - CAN ADMIT] - (follow up in week, call to schedule appointment) Tiffanie Belle NP [ALLIED HEALTH PROFESSIONAL] - (follow up in one week, call to schedule appointment)
== END 2017-10-01 13:55 | disposition home health service (06) | DRG 190 ==
LOC: ER 17:19 → ERHOLD 20:49 → 4TH 21:24
PROVIDERS: ADMIT Internal Medicine; ATTEND Internal Medicine
PROC: 5A09457 Assistance with Respiratory Ventilation, 24-96 Consecutive Hours, Continuous Positive Airway Pressure (ICD-10-PCS; principal; 2017-09-29)
DX: J44.0 Chronic obstructive pulmonary disease with (acute) lower respiratory infection (principal); J18.9 Pneumonia, unspecified organism; J96.12 Chronic respiratory failure with hypercapnia; J44.1 Chronic obstructive pulmonary disease with (acute) exacerbation; Z85.118 Personal history of other malignant neoplasm of bronchus and lung; I50.9 Heart failure, unspecified; N40.0 Benign prostatic hyperplasia without lower urinary tract symptoms; G47.30 Sleep apnea, unspecified
CPT/HCPCS: 36415; 71045; 80048; 80061; 80076; 81003; 82550; 82553; 82805; 83735; 83880; 84484; 85025; 85610; 85730; 87040; 87205; 87804; 93005; 94640; 94660; 96361; 96365; 96375; 99285; J1650; J2250; J2930; J3010; J3475; J7512

== ENCOUNTER 2017-12-22 20:36 | Inpatient (IN) | payer OTHER ==
--- OUTSIDE RECORDS SUMMARY | 2017-12-22 20:38 | XMS REPORT ---
:1940 Author Organization [employer] Care Team Providers Name Role Phone Sameer Roberts Provider Role Unavailable Allergies No Known Allergies Problems Problem Type Condition Code Onset Dates Condition Status Assessment Osteoarthritis of cervical spine, M47.812 Active unspecified spinal osteoarthritis complication status Problem Dependence on supplemental oxygen Z99.81 Active Problem Chronic obstructive pulmonary J44.9 Active disease, unspecified Problem History of lung cancer Z85.118 Active Assessment Chronic obstructive pulmonary J44.9 Active disease, unspecified Assessment History of lung cancer Z85.118 Active Problem Pulmonary emphysema, unspecified J43.9 Active emphysema type Problem Osteoarthritis of cervical spine, M47.812 Active unspecified spinal osteoarthritis complication status Medications Medication Code Code Instructions Start End Status Dosage System Date Date Ipratropium [facility] [address]-56 0.06 % Nasally Active 2 sprays in [place] Four times a each day nostril Clonazepam [facility] 01384149996 0.5 MG Orally Active 1 tablet at Once a day bedtime Vitamin D3 [facility] 02963197261 2000 UNIT Active 1 capsule Orally Once a day Albuterol [facility] 83232993280 (2.5 MG/3ML) Active 3 ml as Sulfate 0.083% needed Inhalation Three times a day ProAir [facility] 59230167510 108 (90 Base) Active 2 puffs as RespiClick MCG/ACT needed Inhalation every 6 hrs Advair Diskus [facility] 69757557193 500-50 MCG/DOSE Active 1 puff Inhalation Twice a day Flutter ND 0 three times a Active as directed day Furosemide ND 46671535205 20 MG Orally Active 1 tablet Once a day Aspir-81 [facility] 82637200220 81 MG Orally Active 1 tablet Once a day Spiriva [facility] 98666890901 18 MCG Active 1 capsule HandiHaler Inhalation Once a day PredniSONE ND 76011498271 10 MG Orally Active 1 tablet Once a day Results No Known Results Summary Purpose [employer] Submission
--- OUTSIDE RECORDS SUMMARY | 2017-12-22 20:38 | XMS REPORT ---
:1940 Author Organization [employer] Care Team Providers Name Role Phone Pily Belle Provider Role Unavailable Allergies, Adverse Reactions, Alerts Substance Reaction Event Type N.K.D.A. Info Not Available Non Drug Allergy Problems Problem Type Condition Code Onset Dates Condition Status Assessment Rib pain on left side R07.81 Active Problem Dependence on supplemental oxygen Z99.81 Active Problem Chronic obstructive pulmonary J44.9 Active disease, unspecified Problem History of lung cancer Z85.118 Active Assessment Cough R05 Active Problem Pulmonary emphysema, unspecified J43.9 Active emphysema type Problem Osteoarthritis of cervical spine, M47.812 Active unspecified spinal osteoarthritis complication status Medications Medication Code Code Instructions Start End Status Dosage System Date Date Spiriva [facility] 42157243620 18 MCG Active 1 capsule HandiHaler Inhalation Once a day PredniSONE [facility] 30657714924 10 MG Orally Active 1 tablet Once a day ProAir [facility] 37870907362 108 (90 Base) Active 2 puffs as RespiClick MCG/ACT needed Inhalation every 6 hrs Ipratropium [facility] 91864384078 0.06 % Nasally Active 2 sprays in [place] Four times a each day nostril Albuterol ND 73603168501 (2.5 MG/3ML) Active 3 ml as Sulfate 0.083% needed Inhalation Three times a day Vitamin D3 [facility] 09530950360 2000 UNIT Active 1 capsule Orally Once a day Advair Diskus [facility] 96341458659 500-50 MCG/DOSE Active 1 puff Inhalation Twice a day Clonazepam ND 08882203788 0.5 MG Orally Active 1 tablet at Once a day bedtime Furosemide ND 05457032076 20 MG Orally Active 1 tablet Once a day Flutter NDC 0 three times a Active as directed day - [facility] 97934918821 81 MG Orally Active 1 tablet Once a day Montelukast ND 54871227964 10 MG Orally November 07, Active 1 tablet in Sodium Once a day 2018 the evening Results Name Result Date Reference Range Unit Abnormality Flag Ribs Bilateral W/Chest Summary Purpose [employer] Submission
--- OUTSIDE RECORDS SUMMARY | 2017-12-22 20:38 | XMS REPORT ---
:1940 Author Organization [employer] Care Team Providers Name Role Phone Sameer Roberts Provider Role Unavailable Allergies No Known Allergies Problems Problem Type Condition Code Onset Dates Condition Status Problem Dependence on supplemental oxygen Z99.81 Active Problem Chronic obstructive pulmonary J44.9 Active disease, unspecified Problem History of lung cancer Z85.118 Active Problem Pulmonary emphysema, unspecified J43.9 Active emphysema type Problem Osteoarthritis of cervical spine, M47.812 Active unspecified spinal osteoarthritis complication status Medications Medication Code Code Instructions Start End Status Dosage System Date Date Montelukast [facility] 96798514468 10 MG Orally November 07, Active 1 tablet Sodium Once a day 2018 in the evening Results No Known Results Summary Purpose [employer] Submission
--- OUTSIDE RECORDS SUMMARY | 2017-12-22 20:38 | XMS REPORT ---
[...] Active unspecified spinal osteoarthritis complication status Medications No Known Medications Results No Known Results Summary Purpose [employer] Submission
--- OUTSIDE RECORDS SUMMARY | 2017-12-22 20:38 | XMS REPORT ---
:1940 Author Organization [employer] Care Team Providers Name Role Phone Pily Belle Provider Role Unavailable Allergies No Known Allergies [...] Medications Medication Code Code Instructions Start End Date Status Dosage System Date Diclofenac [facility] 40967520696 100 MG Orally November 26, Active 1 tablet Sodium ER Once a day 2018 with food or milk Results No Known Results Summary Purpose [employer] Submission
[2017-12-22] MEDS ORDERED: LEVALBUTEROL 1.25 MG/3 ML NEB ONE (20:45)
[2017-12-22] MEDS ORDERED: IPRATROPIUM BROM 0.5MG/2.5ML ONE (20:45)
[2017-12-22 21:03] LABS: Absolute Lymphocytes (CBC) 1.6 K/uL (0.7-4.9); Absolute Monocytes 1.2 K/uL (0.1-1.3); Absolute Neutrophil 8.9 K/uL (1.8-8.0); Basophils % 0.5 % (0-1.3); Hematocrit 42.1 % (39.6-49.0); MCH 27.7 pg (27.0-35.0); MCV 88.2 fL (80-100); MPV 9.7 fL (7.6-11.3); Monocytes % 9.7 % (3.3-12.3); RBC Red Blood Cell Count 4.77 M/uL (4.33-5.43)
[2017-12-22 21:04] LABS: Protime INR 0.96
[2017-12-22 21:08] LABS: Arterial Blood Carboxyhemoglob 1.3 % (0-1.5); Blood Gas Oxyhemoglobin 95.4 % (94-97); Blood O2 Saturation 97.5 % (92-98.5)
[2017-12-22 21:20] LABS: ALT/SGPT 49 U/L (12-78); AST/SGOT 37 U/L (15-37); Albumin 3.5 g/dL (3.4-5.0); Alkaline Phosphatase 98 U/L (45-117); BUN Blood Urea Nitrogen 17 mg/dL (7-18); Bilirubin Direct < 0.1 mg/dL (0-0.2); Bilirubin Total 0.3 mg/dL (0.2-1.0); CKMB Creatine Kinase MB 2.3 ng/mL (0.3-3.6); Creatine Phosphokinase 70 U/L (39-308); Glucose Level 113 mg/dL (74-106); Magnesium 2.4 mg/dL (1.8-2.4); NT PRO-BNP 113 pg/mL (<450); Potassium 4.8 mmol/L (3.5-5.1); Protein, Total 7.8 g/dL (6.4-8.2); Sodium Level 142 mmol/L (136-145)
[2017-12-22 21:24] LABS: Bicarbonate 41 mmol/L (21-32)
--- NOTE | 2017-12-22 21:42 | RAD REPORT ---
EXAM DESCRIPTION: RAD - Chest Single View - 12/22/2017 9:30 pm CLINICAL HISTORY: Cough;Dyspnea Chest pain. COMPARISON: Chest Single View dated 09/30/2017; Chest Single View dated 09/29/2017; Chest Single View dated 11/08/2016; Chest Pa And Lat (2 Views) dated 09/18/2016; Thorax W/ Con dated 07/23/2017 FINDINGS: Portable technique limits examination quality. Prominent emphysematous changes are again noted with linear scarring in the left mid lung and left hi lar region. No focal infiltrate is detected. The heart is upper limit normal in size. No displaced fr actures. IMPRESSION: Prominent COPD.
[2017-12-22] MEDS ORDERED: CEFTRIAXONE/SWI 1gm 1 GM/10 ML SYR ONE (21:43)
[2017-12-22] MEDS ORDERED: AZITHROMYCIN 500 MG/250 ML BAG ONE (21:43)
[2017-12-22 21:44] LABS: Urine Blood 2+ (NEG); Urine Glucose NEGATIVE (NEG); Urine Protein TRACE (NEG)
--- NOTE | 2017-12-22 21:44 | ER ---
Nurse's Notes [facility] Name: Idris San Age: 77 yrs Sex: Male : 1940 Arrival Date: 12/22/2017 Time: 20:37 Bed 4 Private MD: Diagnosis: Chronic obstructive pulmonary disease with (acute) exacerbation;Pneumonia due to other specified bacteria;Acute respiratory failure Presentation: 12/22 20:35 Presenting complaint: EMS states: that pt has been having resp distress x 3 days. On fc his home bipap he was having sats of 79%. EMS placed pt on there CPAP and he was 98%. Also had heart rate initially of 90-130 but is currently SR of 92. BP 156/91. Transition of care: patient was not received from another setting of care. Onset of symptoms was December 19, 2017. Risk Assessment: Do you want to hurt yourself or someone else? Patient reports no desire to harm self or others. Initial Sepsis Screen: Does the patient meet any 2 criteria? RR > 20 per min. HR > 90 bpm. Does the patient have a suspected source of infection? Yes: Productive cough/pneumonia. Care prior to arrival: Medication(s) given: Normal saline infusion, 100 ml SoluMedrol 125 mg ivp IV initiated. 20 GA, in the left hand. 20:35 Method Of Arrival: EMS: [facility] 20:35 Acuity: LISBETH 2 fc Historical: - Allergies: 21:02 Codeine; fc - Home Meds: 21:02 aspirin 81 mg Oral TbEC 1 tab once daily [Active]; clonazepam 0.5 mg Oral tab 1 tab fc daily [Active]; albuterol sulfate 2.5 mg /3 mL (0.083 %) Nebulizer nebu qid prn [Active]; Vitamin B-12 1,000 mcg Oral tab daily [Active]; furosemide 20 mg Oral tab 1 tab once daily [Active]; Singulair 10 mg Oral tab 1 tab once daily [Active]; prednisone 10 mg Oral tab 1 tab 2 times per day [Active]; Advair Diskus 250-50 mcg/dose Inhl dsdv 1 puff 2 times per day [Active]; - PMHx: 21:02 CHF; enlarged prostate; Lung Cancer; Pt reports that it cleared up; COPD; Emphysema; fc Pneumonia; Anemia; Sleep Apnea; femur fracture; - PSHx: 21:02 Appendectomy; bladder / prostate surg; fc - Immunization history:: Last tetanus immunization: unknown. - Social history:: Smoking status: Patient uses tobacco products, denies chronic smoking, but will smoke occasionally. - Ebola Screening: : Patient negative for fever greater than or equal to 101.5 degrees Fahrenheit, and additional compatible Ebola Virus Disease symptoms Patient denies exposure to infectious person Patient denies travel to an Ebola-affected area in the 21 days before illness onset. Screenin:45 Abuse screen: Denies threats or abuse. Nutritional screening: No deficits noted. fc Tuberculosis screening: No symptoms or risk factors identified. Fall Risk No fall in past 12 months (0 pts). Secondary diagnosis (15 points) impaired mobility, IV access (20 points). Ambulatory Aid- None/Bed Rest/Nurse Assist (0 pts). Gait- Weak (10 pts.). Mental Status- Overestimates/Forgets Limitations (15 pts.). Total [place] Fall Scale indicates High Risk Score (45 or more points). Fall prevention measures have been instituted. Side Rails Up X 2 Placed Close to Nursing Station Frequent Obs/Assessments Occuring As available patient and family educated on Fall Prevention Program and Strategies. Assessment: 20:35 General: Appears distressed, Behavior is calm, cooperative. Pain: Denies pain. Neuro: ak1 No deficits noted. Cardiovascular: No deficits noted. Respiratory: Airway is patent Breath sounds are diminished Onset: The symptoms/episode began/occurred today. GI: No signs and/or symptoms were reported involving the gastrointestinal system. : No signs and/or symptoms were reported regarding the genitourinary system. EENT: No signs and/or symptoms were reported regarding the EENT system. Derm: No signs and/or symptoms reported regarding the dermatologic system. Musculoskeletal: No signs and/or symptoms reported regarding the musculoskeletal system. 22:00 Reassessment: Mamie [phone] notified that pt was being admitted. Vital Signs: 20:35 BP 148 / 80; Pulse 94; Resp 26; Temp 97.6(O); Pulse Ox 97% on 40% BiPAP; Weight 68.04 fc kg (R); Height 5 ft. 6 in. (167.64 cm) (R); Pain 0/10; 20:35 BP 123 / 65; Pulse 89; Resp 22; Temp 98.1(A); Pain 0/10; ak1 22:22 Pulse Ox 88% on BiPAP- resp contacted; ak1 22:29 Pulse Ox 92% on BiPAP resp increased bipap setting.; ak1 20:35 Body Mass Index 24.21 (68.04 kg, 167.64 cm) fc ED Course: 20:35 Arm band placed on Patient placed in an exam room, on a stretcher. fc 20:35 O2 via Bipap. fc 20:37 Patient arrived in ED. rg2 20:38 Jeff Hanley MD is Attending Physician. pricilla 20:40 Mike Zayas PA is PHCP. jr8 20:44 Triage completed. fc 20:45 Patient has correct armband on for positive identification. Bed in low position. Call fc light in reach. Side rails up X2. nuclear monitoring technician on. Pulse ox on. NIBP on. 20:45 Maintain EMS IV. Dressing intact. Good blood return noted. Site clean \T\ dry. Gauge \T\ fc site: 20 gauge to left hand . 21:07 Britany Pacheco, RN is Primary Nurse. ak1 21:28 XRAY Chest (1 view) In Process Unspecified. EDMS 21:43 Sameer Roberts MD is Hospitalizing Provider. jr8 22:35 No provider procedures requiring assistance completed. Patient admitted, IV remains in ak1 place. Administered Medications: 20:41 CANCELLED (Physician Discretion): SOLU-Medrol 125 mg IVP once jr8 20:41 CANCELLED (Physician Discretion): Albuterol - atroVENT (3:1) (2.5 mg - 0.5 mg) 3 ml jr8 Nebulizer once 21:08 Drug: Xopenex 3.75 mg {Note: resp adminitered via bipap.} Route: Inhalation; ak1 21:08 Drug: AtroVENT Aerosol 0.5 mg {Note: resp adminitered via bipap.} Route: Inhalation; ak1 21:45 Drug: Zithromax 500 mg Route: IVPB; Infused Over: 1 hrs; Site: left hand; ak1 22:47 Follow up: IV Status: Completed infusion ak1 21:46 Drug: Rocephin - (cefTRIAXone) 1 grams Route: IVPB; Infused Over: 30 mins; Site: left ak1 hand; 21:46 Follow up: IV Status: Completed infusion ak1 Outcome: 21:43 Decision to Hospitalize by Provider. kenneth 22:35 Condition: stable ak1 22:35 Instructed on the need for admit. 23:09 Admitted to Med/surg accompanied by tech, room 219, with oxygen, with chart, Report ak1 called to myriam junior 23:14 Patient left the ED. ak1 Signatures: Dispatcher [employer] EDMS Ilana Wang rg2 Jeff Hanley MD MD cha Chretien, Felicia, RN RN fc Mike Zayas PA PA jr8 Britany Pacheco RN RN ak1
--- NOTE | 2017-12-22 21:44 | EDPHYS ---
Physician Documentation [facility] Name: Idris San Age: 77 yrs Sex: Male : 1940 Arrival Date: 12/22/2017 Time: 20:37 Bed 4 Private MD: ED Physician Jeff Hanley HPI: 12/22 21:39 This 77 yrs old Male presents to ER via EMS with complaints of shortness of jr8 breath. 21:39 The patient has shortness of breath at rest. Onset: The symptoms/episode began/occurred jr8 gradually, 3 day(s) ago, and became worse and became persistent. Duration: The symptoms are continuous. The patient's shortness of breath is aggravated by talking, walking. Associated signs and symptoms: The patient has no apparent associated signs or symptoms. Severity of symptoms: At their worst the symptoms were moderate in the emergency department the symptoms are unchanged. It is unknown whether or not the patient has had similar symptoms in the past. The patient has not recently seen a physician. EMS reported room air of 79%. Historical: - Allergies: 21:02 Codeine; fc - Home Meds: 21:02 aspirin 81 mg Oral TbEC 1 tab once daily [Active]; clonazepam 0.5 mg Oral tab 1 tab fc daily [Active]; albuterol sulfate 2.5 mg /3 mL (0.083 %) Nebulizer nebu qid prn [Active]; Vitamin B-12 1,000 mcg Oral tab daily [Active]; furosemide 20 mg Oral tab 1 tab once daily [Active]; Singulair 10 mg Oral tab 1 tab once daily [Active]; prednisone 10 mg Oral tab 1 tab 2 times per day [Active]; Advair Diskus 250-50 mcg/dose Inhl dsdv 1 puff 2 times per day [Active]; - PMHx: 21:02 CHF; enlarged prostate; Lung Cancer; Pt reports that it cleared up; COPD; Emphysema; fc Pneumonia; Anemia; Sleep Apnea; femur fracture; - PSHx: 21:02 Appendectomy; bladder / prostate surg; fc - Immunization history:: Last tetanus immunization: unknown. - Social history:: Smoking status: Patient uses tobacco products, denies chronic smoking, but will smoke occasionally. - Ebola Screening: : Patient negative for fever greater than or equal to 101.5 degrees Fahrenheit, and additional compatible Ebola Virus Disease symptoms Patient denies exposure to infectious person Patient denies travel to an Ebola-affected area in the 21 days before illness onset. ROS: 21:39 ENT: Negative for injury, pain, and discharge, Neck: Negative for injury, pain, and jr8 swelling, Cardiovascular: Negative for chest pain, palpitations, and edema, Abdomen/GI: Negative for abdominal pain, nausea, vomiting, diarrhea, and constipation, Back: Negative for injury and pain, MS/Extremity: Negative for injury and deformity, Skin: Negative for injury, rash, and discoloration, Neuro: Negative for headache, weakness, numbness, tingling, and seizure. 21:39 Respiratory: Positive for cough, dyspnea on exertion, shortness of breath, wheezing. Exam: 21:39 Eyes: Pupils equal round and reactive to light, extra-ocular motions intact. Lids and jr8 lashes normal. Conjunctiva and sclera are non-icteric and not injected. Cornea within normal limits. Periorbital areas with no swelling, redness, or edema. ENT: Nares patent. No nasal discharge, no septal abnormalities noted. Tympanic membranes are normal and external auditory canals are clear. Oropharynx with no redness, swelling, or masses, exudates, or evidence of obstruction, uvula midline. Mucous membranes moist. Neck: Trachea midline, no thyromegaly or masses palpated, and no cervical lymphadenopathy. Supple, full range of motion without nuchal rigidity, or vertebral point tenderness. No Meningismus. Cardiovascular: Regular rate and rhythm with a normal S1 and S2. No gallops, murmurs, or rubs. Normal PMI, no JVD. No pulse deficits. Abdomen/GI: Soft, non-tender, with normal bowel sounds. No distension or tympany. No guarding or rebound. No evidence of tenderness throughout. Back: No spinal tenderness. No costovertebral tenderness. Full range of motion. Skin: Warm, dry with normal turgor. Normal color with no rashes, no lesions, and no evidence of cellulitis. MS/ Extremity: Pulses equal, no cyanosis. Neurovascular intact. Full, normal range of motion. Neuro: Awake and alert, GCS 15, oriented to person, place, time, and situation. Cranial nerves II-XII grossly intact. Motor strength 5/5 in all extremities. Sensory grossly intact. Cerebellar exam normal. Normal gait. 21:39 Respiratory: moderate respiratory distress is noted, Respirations: labored breathing, tachypnea, Breath sounds: decreased breath sounds, are located in both bases, wheezing: expiratory that is mild, is heard diffusely. Vital Signs: 20:35 BP 148 / 80; Pulse 94; Resp 26; Temp 97.6(O); Pulse Ox 97% on 40% BiPAP; Weight 68.04 fc kg (R); Height 5 ft. 6 in. (167.64 cm) (R); Pain 0/10; 20:35 BP 123 / 65; Pulse 89; Resp 22; Temp 98.1(A); Pain 0/10; ak1 22:22 Pulse Ox 88% on BiPAP- resp contacted; ak1 22:29 Pulse Ox 92% on BiPAP resp increased bipap setting.; ak1 20:35 Body Mass Index 24.21 (68.04 kg, 167.64 cm) fc MDM: 20:38 Patient medically screened. [facility] 21:39 Data reviewed: vital signs, nurses notes, lab test result(s), EKG, radiologic studies, jr8 plain films, and as a result, I will admit patient. Data interpreted: Pulse oximetry: on room air is 79 %. Interpretation: hypoxia. Counseling: I had a detailed discussion with the patient and/or guardian regarding: the historical points, exam findings, and any diagnostic results supporting the discharge/admit diagnosis, lab results, radiology results, the need for further work-up and treatment in the hospital. Physician consultation: Sameer Robetrs MD was called at 21:42, was contacted at 21:42, regarding admission, to the telemetry unit. consult, patient's condition, and will see patient would like consultation with Dr. Valdivia. 12/22 20:41 Order name: Basic Metabolic Panel; Complete Time: 21:33 [facility] 12/22 20:41 Order name: CBC with Diff; Complete Time: 21: [facility] 12/22 20:41 Order name: Ckmb; Complete Time: :33 [facility] 12/22 20:41 Order name: CPK; Complete Time: :33 [facility] 12/22 20:41 Order name: LFT's; Complete Time: :33 [facility] 12/22 20:41 Order name: Magnesium; Complete Time: :33 [facility] 12/22 20:41 Order name: NT PRO-BNP; Complete Time: 21:33 [facility] 12/22 20:41 Order name: PT-INR; Complete Time: 21:19 [facility] 12/22 20:41 Order name: Ptt, Activated; Complete Time: 21:19 [facility] 12/22 20:41 Order name: Troponin (emerg Dept Use Only); Complete Time: 21:19 [facility] 12/22 20:41 Order name: Blood Culture Adult (2) [facility] 12/22 20:41 Order name: Urine Culture [facility] 12/22 20:42 Order name: TSH; Complete Time: 21:22 [facility] 12/22 21:08 Order name: ABG Arterial Blood Gas; Complete Time: 21:19 [facility] 12/22 20:41 Order name: XRAY Chest (1 view); Complete Time: 21:44 [facility] 12/22 20:41 Order name: EKG; Complete Time: 20:41 [facility] 12/22 20:41 Order name: Cardiac monitoring; Complete Time: 21:09 [facility] 12/22 20:41 Order name: EKG - Nurse/Tech; Complete Time: 21:24 [facility] 12/22 20:41 Order name: IV Saline Lock; Complete Time: 21:09 [facility] 12/22 20:41 Order name: Labs collected and sent; Complete Time: 21:09 [facility] 12/22 20:41 Order name: O2 Per Protocol; Complete Time: 21:09 [facility] 12/22 21:35 Order name: Urine Dipstick--Ancillary (enter results) 12/22 21:35 Order name: Urine Dipstick-Ancillary; Complete Time: 21:45 [facility] 12/22 21:47 Order name: CONS Physician Consult [facility] 12/22 20:41 Order name: O2 Sat Monitoring; Complete Time: 21:09 [facility] 12/22 20:41 Order name: Urine Dipstick-Ancillary (obtain specimen); Complete Time: 21:24 [facility] Administered Medications: 20:41 CANCELLED (Physician Discretion): SOLU-Medrol 125 mg IVP once jr8 20:41 CANCELLED (Physician Discretion): Albuterol - atroVENT (3:1) (2.5 mg - 0.5 mg) 3 ml jr8 Nebulizer once 21:08 Drug: Xopenex 3.75 mg {Note: resp adminitered via bipap.} Route: Inhalation; ak1 21:08 Drug: AtroVENT Aerosol 0.5 mg {Note: resp adminitered via bipap.} Route: Inhalation; ak1 21:45 Drug: Zithromax 500 mg Route: IVPB; Infused Over: 1 hrs; Site: left hand; ak1 22:47 Follow up: IV Status: Completed infusion ak1 21:46 Drug: Rocephin - (cefTRIAXone) 1 grams Route: IVPB; Infused Over: 30 mins; Site: left ak1 hand; 21:46 Follow up: IV Status: Completed infusion ak1 Disposition: 12/23 09:29 Co-signature as Attending Physician, Jeff Hanley MD I agree with the assessment and [facility] plan of care. Disposition: 12/22/17 21:43 Hospitalization ordered by Sameer Roberts for Inpatient Admission. Preliminary diagnosis are Chronic obstructive pulmonary disease with (acute) exacerbation, Pneumonia due to other specified bacteria, Acute respiratory failure. - Bed requested for Telemetry/MedSurg (Inpatient). - Status is Inpatient Admission. ak1 - Condition is Fair. - Problem is new. - Symptoms have improved. UTI on Admission? No Signatures: Dispatcher [employer] EDMS Ilana Wang rg2 Jeff Hanley MD MD cha Chretien, Felicia, RN RN Mike Zayas [place] jr8 Britany Pacheco RN RN ak1 Corrections: (The following items were deleted from the chart) 12/22 20:41 20:41 SOLU-Medrol 125 mg IVP once ordered. jr8 jr8 20:41 20:41 Albuterol - atroVENT (3:1) (2.5 mg - 0.5 mg) 3 ml Nebulizer once ordered. jr8 jr8 21:43 21:43 Hospitalization Ordered by Sameer Roberts MD for Inpatient Admission. Preliminary jr8 diagnosis is Chronic obstructive pulmonary disease with (acute) exacerbation; Pneumonia due to other specified bacteria. Bed requested for Telemetry/MedSurg (Inpatient). Status is Inpatient Admission. Condition is Fair. Problem is new. Symptoms have improved. UTI on Admission? No. jr8 22:18 21:43 12/22/2017 21:43 Hospitalization Ordered by Sameer Roberts MD for Inpatient rg2 Admission. Preliminary diagnosis is Chronic obstructive pulmonary disease with (acute) exacerbation; Pneumonia due to other specified bacteria; Acute respiratory failure. Bed requested for Telemetry/MedSurg (Inpatient). Status is Inpatient Admission. Condition is Fair. Problem is new. Symptoms have improved. UTI on Admission? No. jr8 23:14 22:18 12/22/2017 21:43 Hospitalization Ordered by Sameer Roberts MD for Inpatient ak1 Admission. Preliminary diagnosis is Chronic obstructive pulmonary disease with (acute) exacerbation; Pneumonia due to other specified bacteria; Acute respiratory failure. Bed requested for Telemetry/MedSurg (Inpatient). Status is Inpatient Admission. Condition is Fair. Problem is new. Symptoms have improved. UTI on Admission? No. rg2
[2017-12-22] MEDS ORDERED: ALBUTEROL 2.5 MG/3 ML NEB SOL NEB PRN (23:36)
[2017-12-22] MEDS ORDERED: ACETAMINOPHEN 500 MG TAB PO PRN (23:36)
[2017-12-22] MEDS ORDERED: IPRATROPIUM BROM 0.5MG/2.5ML NEB PRN (23:36)
[2017-12-22] MEDS ORDERED: ONDANSETRON 4 MG/2 ML VIAL IV PRN (23:36)
[2017-12-23 00:14] VITALS: BMI 24.2
[2017-12-23] MEDS: METHYLPREDNISOLONE 40 MG INJ IV SCH ×2 (00:20→09:00)
[2017-12-23] MEDS ORDERED: Levofloxacin500mg IV 500 MG/100 ML BAG IV SCH (01:00)
[2017-12-23 05:56] LABS: Absolute Lymphocytes (CBC) 0.5 K/uL (0.7-4.9); Absolute Monocytes 0.1 K/uL (0.1-1.3); Absolute Neutrophil 6.7 K/uL (1.8-8.0); Basophils % 0.1 % (0-1.3); Eosinophils % 0.2 % (0-4.4); Hematocrit 38.4 % (39.6-49.0); Lymphocytes % 7.1 % (15.3-44.8); MCH 28.1 pg (27.0-35.0); MCV 87.6 fL (80-100); MPV 9.9 fL (7.6-11.3); Monocytes % 0.9 % (3.3-12.3); RBC Red Blood Cell Count 4.38 M/uL (4.33-5.43)
[2017-12-23 06:19] LABS: BUN Blood Urea Nitrogen 17 mg/dL (7-18); Bicarbonate 39 mmol/L (21-32); Glucose Level 182 mg/dL (74-106); NT PRO-BNP 106 pg/mL (<450); Potassium 5.2 mmol/L (3.5-5.1); Sodium Level 139 mmol/L (136-145)
--- NOTE | 2017-12-23 06:33 | EKG ---
Test Date: 2017-12-22 Test Time: 21:18:53 [employer] Pe[employer] Machine Operator: CHELSEA MEASUREMENT RESULTS: Intervals: Rate: 88 IA: 112 QRSD: 76 QT: 334 QTc: 404 Lane: P: 74 IA: 112 QRS: 52 T: 64 INTERPRETIVE STATEMENTS: Normal sinus rhythm Normal ECG Compared to ECG 09/29/2017 17:45:30 No significant changes Electronically Signed On 12-23-17 06:33:09 CDT by Nickolas Garibay
[2017-12-23 06:38] LABS: Blood Morphology Comment NOT SEEN (NOT SEEN); Platelet Estimate ADEQ; Urine White Blood Cell Casts OK
[2017-12-23] MEDS ORDERED: ASPIRIN EC 81 MG TAB PO SCH (09:00)
--- NOTE | 2017-12-23 09:16 | P.HP ---
Certification for Inpatient Patient admitted to: Inpatient With expected LOS: >2 Midnights Patient will require the following post-hospital care: None Practitioner: I am a practitioner with admitting privileges, knowledge of patient current condition, hospital course, and medical plan of care. Services: Services provided to patient in accordance with Admission requirements found in Title 42 Section 412.3 of the Code of Federal Regulations Patient History Date of Service: 12/23/17 Primary Care Provider: Lars Belle Reason for admission: COPD exacerbation History of Present Illness: Patient comes in with complaints of shortness of breath. He has been having this for the past few days. With a few tsp of sputum. The patient came to the Er and was found to have a pulse ox of 79%. He was put on a bipap and recovered. He is doing much better this morning. He has no complaints and is sitting up and eating well. Allergies codeine Allergy (Verified 11/06/16 08:44) AMS No Known Allergi Allergy (Uncoded 11/08/16 08:29) Unknown Home Medications: Albuterol Sulfate [Albuterol Sulfate 0.083% Neb Soln] 2.5 mg NEB QID PRN Aspirin [Aspir-Low] 81 mg PO DAILY 12/23/17 Cyanocobalamin (Vitamin B-12) [Vitamin B-12] 1,000 mcg PO DAILY 12/23/17 Fluticasone/Salmeterol [Advair 250-50 Diskus] 1 each IH BID 12/23/17 Furosemide 20 mg PO DAILY 12/23/17 Montelukast Sodium [Singulair] 10 mg PO DAILY 12/23/17 clonazePAM [Clonazepam] 0.5 mg PO DAILY 12/23/17 predniSONE [Deltasone*] 10 mg PO BID 12/23/17 - Past Medical/Surgical History Has patient received pneumonia vaccine in the past: Yes Diabetic: No -: Lung cancer radiation treatments three years ago -: 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 -: Sleep Apnea -: Enlarged prostate -: CHF -: appendectomy -: cataract surgery - Family History Father -: Heart disease, Diabetes Notes: [place] Mother -: Lung disease, Cancer Notes: LUng Ca, Breast CA,Brain CA - Social History Smoking Status: Current some day smoker Alcohol use: No CD- Drugs: No Caffeine use: Yes Place of Residence: Home Review of Systems 10-point ROS is otherwise unremarkable General: Weakness Respiratory: Shortness of Breath Physical Examination - Vital Signs Temperature: 97.2 F Blood Pressure: 109/55 Pulse: 70 Respirations: 20 Pulse Ox (%): 91 - Physical Exam General: Alert, In no apparent distress HEENT: Atraumatic, PERRLA, Mucous membr. moist/pink, EOMI, Sclerae nonicteric Neck: Supple, 2+ carotid pulse no bruit, No LAD, Without JVD or thyroid abnormality Respiratory: Clear to auscultation bilaterally, Normal air movement Cardiovascular: Regular rate/rhythm, Normal S1 S2 Gastrointestinal: Normal bowel sounds, No tenderness Musculoskeletal: No tenderness Integumentary: No rashes Neurological: Normal gait, Normal speech, Normal strength at 5/5 x4 extr, Normal tone, Normal affect Lymphatics: No axilla or inguinal lymphadenopathy - Studies Laboratory Data (last 24 hrs) 12/22/17 20:45: PT 11.3, INR 0.96, APTT 28.1 12/22/17 20:45: WBC 12.3 H, Hgb 13.2 L, Hct 42.1, Plt Count 260 12/22/17 20:45: Sodium 142, Potassium 4.8, BUN 17, Creatinine 0.90, Glucose 113 H, Magnesium 2.4, Total Bilirubin 0.3, AST 37, ALT 49, Alkaline Phosphatase 98 Assessment and Plan - Problems (Diagnosis) (1) Acute exacerbation of chronic obstructive pulmonary disease (COPD) Current Visit: No Status: Acute Plan: Will switch him to oral steroids and antibiotics. he is improving. Has been seen by Dr. Sanchez. Possible discharge tomorrow if he continues to improve. Discharge Plan: Home Plan to discharge in: 24 Hours - Advance Directives Does patient have a Living Will: No Does patient have a Durable POA for Healthcare: No - Code Status/Comfort Care Code Status Assessed: Yes Code Status: Full Code Physician Review: Patient Assessed, Agree with Above Assessment and Plan Critical Care: No Time Spent Managing Pts Care (In Minutes): 40
[2017-12-23] MEDS: ARFORMOTEROL TARTRATE 15 MCG/2 ML VIAL.NEB NEB SCH ×2 (12:06→20:00)
--- NOTE | 2017-12-23 12:08 | P.CNS ---
Date of Consult: 12/23/17 Reason for Consult: COPD exacerbation Primary Care Provider: Lars Belle Chief Complaint: COPD exacerbation History of Present Illness: Patient is 77 years of age well known to me with a history of terminal COPD became sick about 3 weeks ago started coughing up thick mucus no fever or chills denies any swelling of his lower extremity admitted to the hospital with an exacerbation he is back to his baseline complains of a blockage in his right nostril Allergies codeine Allergy (Verified 11/06/16 08:44) AMS No Known Allergi Allergy (Uncoded 11/08/16 08:29) Unknown Home Medications: Albuterol Sulfate [Albuterol Sulfate 0.083% Neb Soln] 2.5 mg NEB QID PRN Aspirin [Aspir-Low] 81 mg PO DAILY 12/23/17 Cyanocobalamin (Vitamin B-12) [Vitamin B-12] 1,000 mcg PO DAILY 12/23/17 Fluticasone/Salmeterol [Advair 250-50 Diskus] 1 each IH BID 12/23/17 Furosemide 20 mg PO DAILY 12/23/17 Montelukast Sodium [Singulair] 10 mg PO DAILY 12/23/17 clonazePAM [Clonazepam] 0.5 mg PO DAILY 12/23/17 predniSONE [Deltasone*] 10 mg PO BID 12/23/17 - Past Medical/Surgical History Diabetic: No -: Lung cancer radiation treatments three years ago -: 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 -: Sleep Apnea -: Enlarged prostate -: CHF -: appendectomy -: cataract surgery - Family History Father Medical History: Heart disease, Diabetes Notes: [place] Mother Medical History: Lung disease, Cancer Notes: LUng Ca, Breast CA,Brain CA - Social History Smoking Status: Current some day smoker Alcohol use: No CD- Drugs: No Caffeine use: Yes Place of Residence: Home Review of Systems 10-point ROS is otherwise unremarkable General: Weakness Respiratory: Cough, Shortness of Breath Physical Examination Temp Pulse Resp BP Pulse Ox 97.2 F 70 20 109/55 L 91 12/23/17 09:18 12/23/17 09:18 12/23/17 09:18 12/23/17 09:18 12/23/17 09:18 General: Alert, Oriented x3 HEENT: Atraumatic Neck: Supple Respiratory: Diminished, Expiratory wheezes Cardiovascular: No edema, Normal S1 S2 Gastrointestinal: Normal bowel sounds, Soft and benign, Non-distended Musculoskeletal: No clubbing, No swelling Laboratory Data (last 24 hrs) 12/22/17 20:45: PT 11.3, INR 0.96, APTT 28.1 12/22/17 20:45: WBC 12.3 H, Hgb 13.2 L, Hct 42.1, Plt Count 260 12/22/17 20:45: Sodium 142, Potassium 4.8, BUN 17, Creatinine 0.90, Glucose 113 H, Magnesium 2.4, Total Bilirubin 0.3, AST 37, ALT 49, Alkaline Phosphatase 98 - Problems (1) Acute and chronic respiratory failure ([id number]) Current Visit: No Status: Acute Plan: Patient is 77 years of age with a history of terminal COPD admitted with an exacerbation chest x-ray shows some chronic changes patient has hypoxic hypercapnic respiratory failure his white count is declined I recommend adding some Diamox to his Lasix vital signs all reviewed afebrile titrate sat to 90% Qualifiers: Respiratory failure complication: hypoxia and hypercapnia Qualified Code(s) : J96.21 - Acute and chronic respiratory failure with hypoxia
[2017-12-23] MEDS: FUROSEMIDE 20 MG TABLET PO SCH (12:42)
[2017-12-23] MEDS: PANTOPRAZOLE 40MG TABLET PO SCH (12:42)
[2017-12-23] MEDS: clonazePAM 0.5 MG TAB PO SCH (12:43)
[2017-12-23] MEDS: CYANOCOBALAMIN 1,000 MCG TAB PO SCH (12:43)
[2017-12-23] MEDS: MONTELUKAST 10 MG TAB PO SCH (12:43)
[2017-12-23] MEDS: ASPIRIN EC 81 MG TAB PO SCH (12:43)
[2017-12-23] MEDS: predniSONE 20 MG TAB PO SCH ×2 (12:43→20:13)
[2017-12-23] MEDS: IPRATROPIUM BROM 0.5MG/2.5ML NEB SCH ×2 (14:00→20:13)
[2017-12-23] MEDS ORDERED: ALBUTEROL 2.5 MG/3 ML NEB SOL NEB PRN (16:00)
[2017-12-23] MEDS ORDERED: ENOXAPARIN 40 MG/0.4 ML SQ SCH (17:00)
[2017-12-24] MEDS: IPRATROPIUM BROM 0.5MG/2.5ML NEB SCH ×3 (02:06→14:37)
[2017-12-24] MEDS: PANTOPRAZOLE 40MG TABLET PO SCH (05:20)
[2017-12-24] MEDS: ARFORMOTEROL TARTRATE 15 MCG/2 ML VIAL.NEB NEB SCH (08:50)
[2017-12-24] MEDS ORDERED: levoFLOXacin 500 MG TAB PO SCH (09:00)
[2017-12-24] MEDS ORDERED: acetaZOLAMIDE 250 MG TAB PO SCH (09:00)
[2017-12-24] MEDS: CYANOCOBALAMIN 1,000 MCG TAB PO SCH (09:07)
[2017-12-24] MEDS: ASPIRIN EC 81 MG TAB PO SCH (09:07)
[2017-12-24] MEDS: clonazePAM 0.5 MG TAB PO SCH (09:07)
[2017-12-24] MEDS: predniSONE 20 MG TAB PO SCH (09:08)
[2017-12-24] MEDS: FUROSEMIDE 20 MG TABLET PO SCH (09:08)
[2017-12-24] MEDS: MONTELUKAST 10 MG TAB PO SCH (09:08)
--- NOTE | 2017-12-24 12:46 | P.DS ---
Admission Date: 12/22/17 Discharge Date: 12/24/17 Primary Care Provider: Lars Belle Disposition: ROUTINE DISCHARGE Discharge Condition: GOOD Reason for Admission: COPD exacerbation - Problems (1) Acute exacerbation of chronic obstructive pulmonary disease (COPD) Onset Date: 12/24/17 Current Visit: Yes Status: Acute (2) Tobacco abuse counseling Current Visit: Yes Status: Acute Brief History of Present Illness: Patient comes in with complaints of shortness of breath. He has been having this for the past few days. With a few tsp of sputum. The patient came to the Er and was found to have a pulse ox of 79%. He was put on a bipap and recovered. He is doing much better this morning. He has no complaints and is sitting up and eating well. Hospital Course: Patient is here for copd exacerbation. His states he is still smoking. He has been smoking 1-2/week. He has been having sob on any exertion. So is class 4. He has been doing well in the hospital. Will discharge him home if ok with Dr. Sanchez. Vital Signs/Physical Exam: Temp Pulse Resp BP Pulse Ox 97.8 F 59 18 111/60 96 12/24/17 08:00 12/24/17 09:08 12/24/17 08:00 12/24/17 09:08 12/24/17 08:00 General: Alert, In no apparent distress HEENT: Atraumatic, PERRLA, EOMI Neck: Supple, JVD not distended Respiratory: Clear to auscultation bilaterally, Normal air movement Cardiovascular: Regular rate/rhythm, Normal S1 S2 Gastrointestinal: Normal bowel sounds, No tenderness Musculoskeletal: No tenderness Integumentary: No rashes Neurological: Normal speech, Normal tone, Normal affect Lymphatics: No axilla or inguinal lymphadenopathy Laboratory Data at Discharge: WBC 7.4 K/uL (4.3-10.9) D 12/23/17 05:21 Hgb 12.3 g/dL (13.6-17.9) L 12/23/17 05:21 Hct 38.4 % (39.6-49.0) L 12/23/17 05:21 Plt Count 243 K/uL (152-406) 12/23/17 05:21 PT 11.3 SECONDS (9.5-12.5) 07/08/18 20:45 INR 0.96 12/22/17 20:45 APTT 28.1 SECONDS (24.3-36.9) 12/22/17 20:45 Sodium 139 mmol/L (136-145) 12/23/17 05:21 Potassium 5.2 mmol/L (3.5-5.1) H 12/23/17 05:21 BUN 17 mg/dL (7-18) 12/23/17 05:21 Creatinine 0.80 mg/dL (0.55-1.3) 12/23/17 05:21 Glucose 182 mg/dL (74-106) H 12/23/17 05:21 Magnesium 2.4 mg/dL (1.8-2.4) 12/22/17 20:45 Total Bilirubin 0.3 mg/dL (0.2-1.0) 12/22/17 20:45 AST 37 U/L (15-37) 12/22/17 20:45 ALT 49 U/L (12-78) 12/22/17 20:45 Alkaline Phosphatase 98 U/L (45-117) 12/22/17 20:45 Troponin I < 0.02 ng/mL (0.0-0.045) 12/23/17 05:21 Home Medications: Albuterol Sulfate [Albuterol Sulfate 0.083% Neb Soln] 2.5 mg NEB QID PRN Aspirin [Aspir-Low] 81 mg PO DAILY 12/23/17 Cyanocobalamin (Vitamin B-12) [Vitamin B-12] 1,000 mcg PO DAILY 12/23/17 Fluticasone/Salmeterol [Advair 250-50 Diskus] 1 each IH BID 12/23/17 Furosemide 20 mg PO DAILY 12/23/17 Montelukast Sodium [Singulair] 10 mg PO DAILY 12/23/17 clonazePAM [Clonazepam] 0.5 mg PO DAILY 12/23/17 predniSONE [Deltasone*] 10 mg PO BID 12/23/17 Diet: ADA Activity: Ad luna Followup: Dayton Valdivia MD [ACTIVE - CAN ADMIT] - 1-2 Weeks Tiffanie Belle NP [ALLIED HEALTH PROFESSIONAL] - 1-2 Weeks Time spent managing pt's care (in minutes): 40
[2017-12-24 16:32] VITALS: O2SAT 93
[2017-12-24 17:42] VITALS: BP 116/64; TEMP 98.6
== END 2017-12-24 16:16 | disposition home or self-care (01) | DRG 189 ==
LOC: ER 20:36 → ERHOLD 21:46 → 2ND 22:24
PROVIDERS: ADMIT Internal Medicine; ATTEND Internal Medicine
PROC: 5A09357 Assistance with Respiratory Ventilation, Less than 24 Consecutive Hours, Continuous Positive Airway Pressure (ICD-10-PCS; principal; 2017-12-22)
DX: J96.21 Acute and chronic respiratory failure with hypoxia (principal); J44.1 Chronic obstructive pulmonary disease with (acute) exacerbation; J96.22 Acute and chronic respiratory failure with hypercapnia; I50.9 Heart failure, unspecified; N40.0 Benign prostatic hyperplasia without lower urinary tract symptoms; G47.30 Sleep apnea, unspecified; Z71.6 Tobacco abuse counseling; Z79.82 Long term (current) use of aspirin; Z79.52 Long term (current) use of systemic steroids; Z88.5 Allergy status to narcotic agent; Z85.118 Personal history of other malignant neoplasm of bronchus and lung; Z92.3 Personal history of irradiation
CPT/HCPCS: 36415; 71045; 80048; 80076; 81003; 82550; 82553; 82805; 83735; 83880; 84443; 84484; 85025; 85610; 85730; 87040; 87086; 87088; 87205; 93005; 94660; 94760; 96365; 96375; 99285; J0456; J0696; J1650; J2920; J7512; J7605

== ENCOUNTER 2018-01-21 17:39 | Inpatient (IN) | payer OTHER ==
--- OUTSIDE RECORDS SUMMARY | 2018-01-21 17:41 | XMS REPORT ---
[...] End Status Dosage System Date Date Spiriva [facility] [id number] 18 MCG Active 1 capsule HandiHaler Inhalation Once a day PredniSONE [facility] 42776863168 10 MG Orally Active 1 tablet Once a day ProAir [facility] 71690719055 108 (90 Base) Active 2 puffs as RespiClick MCG/ACT needed Inhalation every 6 hrs Ipratropium [facility] [id number] 0.06 % Nasally Active 2 sprays in [place] Four times a each day nostril Albuterol ND 31754432170 (2.5 MG/3ML) Active 3 ml as Sulfate 0.083% needed Inhalation Three times a day Vitamin D3 [facility] [id number] 2000 UNIT Active 1 capsule Orally Once a day Advair Diskus [facility] 23125073797 500-50 MCG/DOSE Active 1 puff Inhalation Twice a day Clonazepam ND 35518127910 0.5 MG Orally Active 1 tablet at Once a day bedtime Furosemide ND 36082915183 20 MG Orally Active 1 tablet Once a day Flutter NDC 0 three times a Active as directed day - [facility] 19513094265 81 MG Orally Active 1 tablet Once a day Montelukast ND 28428267704 10 MG Orally November 07, Active 1 tablet in Sodium Once a day 2018 the evening Results Name Result Date Reference Range Unit Abnormality Flag Ribs Bilateral W/Chest Summary Purpose eClinicalWorks Submission
--- OUTSIDE RECORDS SUMMARY | 2018-01-21 17:41 | XMS REPORT ---
[...] End Status Dosage System Date Date Ipratropium [facility] [id number] 0.06 % Nasally Active 2 sprays in [place] Four times a each day nostril Clonazepam [facility] [id number] 0.5 MG Orally Active 1 tablet at Once a day bedtime Vitamin D3 [facility] [id number] 2000 UNIT Active 1 capsule Orally Once a day Albuterol [facility] [id number] (2.5 MG/3ML) Active 3 ml as Sulfate 0.083% needed Inhalation Three times a day ProAir [facility] [id number] 108 (90 Base) Active 2 puffs as RespiClick MCG/ACT needed Inhalation every 6 hrs Advair Diskus [facility] [id number] 500-50 MCG/DOSE Active 1 puff Inhalation Twice a day Flutter ND 0 three times a Active as directed day Furosemide ND 88141105106 20 MG Orally Active 1 tablet Once a day Aspir-81 [facility] 21903035202 81 MG Orally Active 1 tablet Once a day Spiriva [facility] 27510072780 18 MCG Active 1 capsule HandiHaler Inhalation Once a day PredniSONE ND 63639353196 10 MG Orally Active 1 tablet Once a day Results No Known Results Summary Purpose eClinicalWorks Submission
--- OUTSIDE RECORDS SUMMARY | 2018-01-21 17:41 | XMS REPORT ---
[...] End Date Status Dosage System Date Diclofenac [facility] [id number] 100 MG Orally November 26, Active 1 tablet Sodium ER Once a day 2018 with food or milk Results No Known Results Summary Purpose ProxibleinicalBrandMaker Submission
--- OUTSIDE RECORDS SUMMARY | 2018-01-21 17:41 | XMS REPORT ---
[...] End Status Dosage System Date Date Montelukast [facility] [id number] 10 MG Orally November 07, Active 1 tablet Sodium Once a day 2018 in the evening Results No Known Results Summary Purpose eClinicalWorks Submission
--- NOTE | 2018-01-21 18:18 | EKG ---
Test Date: 2018-01-21 Test Time: 17:41:38 Vegetable I Farmworker: ELY MEASUREMENT RESULTS: Intervals: Rate: 102 UT: 126 QRSD: 74 QT: 322 QTc: 419 [place]: P: 83 UT: 126 QRS: 76 T: 64 INTERPRETIVE STATEMENTS: Sinus tachycardia Otherwise normal ECG Compared to ECG 12/22/2017 21:18:53 Sinus rhythm no longer present Electronically Signed On 01-21-18 18:17:45 CDT by Nickolas Garibay
[2018-01-21] MEDS ORDERED: IPRATROPIUM BROM 0.5MG/2.5ML ONE (18:33)
[2018-01-21] MEDS ORDERED: METHYLPREDNISOLONE 125 MG INJ ONE (18:33)
[2018-01-21] MEDS ORDERED: LEVALBUTEROL 1.25 MG/3 ML NEB ONE ×2 (18:33→21:33)
[2018-01-21 18:53] LABS: Absolute Lymphocytes (CBC) 0.8 K/uL (0.7-4.9); Absolute Neutrophil 11.4 K/uL (1.8-8.0); Basophils % 0.2 % (0-1.3); Eosinophils % 1.1 % (0-4.4); Hematocrit 39.3 % (39.6-49.0); MCH 28.5 pg (27.0-35.0); MCV 89.1 fL (80-100); MPV 9.9 fL (7.6-11.3); Monocytes % 7.7 % (3.3-12.3); RBC Red Blood Cell Count 4.41 M/uL (4.33-5.43)
[2018-01-21 18:54] LABS: Protime INR 1.02
[2018-01-21 19:19] LABS: Albumin 3.2 g/dL (3.4-5.0); Bilirubin Direct 0.1 mg/dL (0-0.2); Bilirubin Total 0.3 mg/dL (0.2-1.0); Magnesium 2.6 mg/dL (1.8-2.4); Potassium 4.4 mmol/L (3.5-5.1); Protein, Total 7.4 g/dL (6.4-8.2)
--- NOTE | 2018-01-21 19:30 | RAD REPORT ---
[facility] 6[facility]36 pm CLINICAL HISTORY: Shortness of breath COMPARISON: December 2016 FINDINGS: Bilateral interstitial lung opacities are without obvious change compatible with pulmonary fibrosis A lung consolidation is not seen. The lungs are hyperaerated. Left hilar lymphadenopathy is unchanged
--- NOTE | 2018-01-21 21:27 | EDPHYS ---
Physician Documentation [facility] Name: Idris San Age: 77 yrs Sex: Male : 1940 Arrival Date: 01/21/2018 Time: 17:41 Bed 3 Private MD: ED Physician David Alvarado HPI: 01/21 19:05 This 77 yrs old Male presents to ER via EMS with complaints of Breathing jr8 Difficulty. 19:05 The patient has shortness of breath at rest. Onset: The symptoms/episode began/occurred jr8 gradually, 2 day(s) ago. Duration: The symptoms are continuous. The patient's shortness of breath is aggravated by walking. Associated signs and symptoms: The patient has no apparent associated signs or symptoms. Severity of symptoms: At their worst the symptoms were moderate in the emergency department the symptoms are unchanged. The patient has experienced similar episodes in the past, a few times. The patient has not recently seen a physician. Patient stated that he has chronic shortness of breath but that for the last tow days has been having more trouble then normal . Historical: - Allergies: 17:46 Codeine; jl7 - Home Meds: 21:46 Advair Diskus 250-50 mcg/dose Inhl dsdv 1 puff 2 times per day [Active]; albuterol lp1 sulfate 2.5 mg /3 mL (0.083 %) Inhl nebu QID PRN [Active]; aspirin 81 mg Oral TbEC 1 tab once daily [Active]; clonazepam 0.5 mg Oral tab 1 tab daily [Active]; furosemide 20 mg Oral tab 1 tab once daily [Active]; prednisone 10 mg Oral tab 1 tab 2 times per day [Active]; Singulair 10 mg Oral tab 1 tab once daily [Active]; Vitamin B-12 1,000 mcg Oral tab daily [Active]; - PMHx: 17:46 Anemia; CHF; COPD; enlarged prostate; Emphysema; femur fracture; Lung Cancer; Pt jl7 reports that it cleared up; Pneumonia; Sleep Apnea; - Immunization history:: Adult Immunizations unknown. - Social history:: Smoking status: Patient/guardian denies using tobacco. - Ebola Screening: : No symptoms or risks identified at this time. ROS: 19:05 Eyes: Negative for injury, pain, redness, and discharge, ENT: Negative for injury, jr8 pain, and discharge, Neck: Negative for injury, pain, and swelling, Cardiovascular: Negative for chest pain, palpitations, and edema, Abdomen/GI: Negative for abdominal pain, nausea, vomiting, diarrhea, and constipation, Back: Negative for injury and pain, MS/Extremity: Negative for injury and deformity, Skin: Negative for injury, rash, and discoloration, Neuro: Negative for headache, weakness, numbness, tingling, and seizure. 19:05 Respiratory: Positive for dyspnea on exertion, shortness of breath, Negative for cough. Exam: 19:05 Eyes: Pupils equal round and reactive to light, extra-ocular motions intact. Lids and jr8 lashes normal. Conjunctiva and sclera are non-icteric and not injected. Cornea within normal limits. Periorbital areas with no swelling, redness, or edema. ENT: Nares patent. No nasal discharge, no septal abnormalities noted. Tympanic membranes are normal and external auditory canals are clear. Oropharynx with no redness, swelling, or masses, exudates, or evidence of obstruction, uvula midline. Mucous membranes moist. Neck: Trachea midline, no thyromegaly or masses palpated, and no cervical lymphadenopathy. Supple, full range of motion without nuchal rigidity, or vertebral point tenderness. No Meningismus. Cardiovascular: Regular rate and rhythm with a normal S1 and S2. No gallops, murmurs, or rubs. Normal PMI, no JVD. No pulse deficits. Abdomen/GI: Soft, non-tender, with normal bowel sounds. No distension or tympany. No guarding or rebound. No evidence of tenderness throughout. Back: No spinal tenderness. No costovertebral tenderness. Full range of motion. Skin: Warm, dry with normal turgor. Normal color with no rashes, no lesions, and no evidence of cellulitis. MS/ Extremity: Pulses equal, no cyanosis. Neurovascular intact. Full, normal range of motion. Neuro: Awake and alert, GCS 15, oriented to person, place, time, and situation. Cranial nerves II-XII grossly intact. Motor strength 5/5 in all extremities. Sensory grossly intact. Cerebellar exam normal. Normal gait. 19:05 Respiratory: the patient does not display signs of respiratory distress, Respirations: tachypnea, that is mild, Breath sounds: decreased breath sounds, that are mild, are scattered. Vital Signs: 17:46 BP 113 / 83; Pulse 95; Resp 24 S; Temp 99(O); Pulse Ox 93% on 4 lpm NC; jl7 19:47 BP 134 / 68; Pulse 101; Resp 24; Pulse Ox 89% on 3 lpm NC; lp1 19:56 Pulse Ox 93% on 40% Venturi mask; lp1 20:00 BP 134 / 66; Pulse 92; Resp 25; Pulse Ox 92% on 40% Venturi mask; lp1 20:49 Pulse Ox 91% on 3 lpm NC; lp1 21:00 BP 131 / 63; Pulse 86; Resp 26; Pulse Ox 91% on 3 lpm NC; lp1 22:15 BP 139 / 66; Pulse 97; Resp 24; Pulse Ox 93% on 3 lpm NC; lp1 MDM: 17:47 Patient medically screened. jr8 21:25 Data reviewed: vital signs, nurses notes, lab test result(s), EKG, radiologic studies, [facility] plain films, and as a result, I will admit patient. Data interpreted: Pulse oximetry: on 3L(s) per nasal canula, is 84 %. Interpretation: hypoxia. Counseling: I had a detailed discussion with the patient and/or guardian regarding: the historical points, exam findings, and any diagnostic results supporting the discharge/admit diagnosis, lab results, radiology results, the need for further work-up and treatment in the hospital. ED course: Patient stated that his baseline on oxygen is between 90-93%. Patient still tachypneic and sitting at 84% on NC. Will admit and continue treatments . 01/21 18:07 Order name: Basic Metabolic Panel [facility] 01/21 18:07 Order name: CBC with Diff [facility] 01/21 18:07 Order name: LFT's [facility] 01/21 18:07 Order name: Magnesium [facility] 01/21 18:07 Order name: NT PRO-BNP [facility] 01/21 18:07 Order name: PT-INR [facility] 01/21 18:07 Order name: Troponin (emerg Dept Use Only) [facility] 01/21 18:54 Order name: CBC with Automated Diff; Complete Time: 18:57 EDMS 01/21 18:55 Order name: Protime (+INR); Complete Time: 18:57 EDMS 01/21 19:12 Order name: Troponin (Emerg Dept Use Only); Complete Time: 19:13 EDMS 01/21 19:27 Order name: Basic Metabolic Panel; Complete Time: 19:45 EDMS 01/21 19:27 Order name: Liver (Hepatic) Function; Complete Time: 19:45 EDMS 01/21 19:27 Order name: NT PRO-BNP; Complete Time: 19:45 EDMS 01/21 19:27 Order name: Magnesium; Complete Time: 19:45 EDMS 01/21 18:07 Order name: XRAY Chest (1 view) 01/21 18:07 Order name: EKG; Complete Time: 18:08 01/21 18:07 Order name: Cardiac monitoring; Complete Time: 19:04 01/21 18:07 Order name: EKG - Nurse/Tech; Complete Time: 19:04 01/21 18:07 Order name: IV Saline Lock; Complete Time: 19:04 01/21 18:07 Order name: Labs collected and sent; Complete Time: 19:04 01/21 18:07 Order name: O2 Per Protocol; Complete Time: 19:04 01/21 18:07 Order name: O2 Sat Monitoring; Complete Time: 19:04 01/21 19:30 Order name: RAD; Complete Time: 19:45 EDMS Administered Medications: 18:30 Drug: AtroVENT Aerosol 0.5 mg Route: Inhalation; jl7 18:30 Drug: SOLU-Medrol 125 mg Route: IVP; Site: left forearm; jl7 19:00 Follow up: Response: No adverse reaction lp1 18:35 Drug: Xopenex (3) 1.25 mg Route: Inhalation; jl7 21:37 Drug: Xopenex (3) 1.25 mg Route: Inhalation; lp1 21:37 Drug: Ativan 0.5 mg Route: IVP; Site: left wrist; lp1 22:01 Follow up: Response: No adverse reaction; Marked relief of symptoms lp1 Disposition: 01/22 07:08 Co-signature as Attending Physician, David Alvarado MD. rn Disposition: 01/21/18 21:27 Hospitalization ordered by Sameer Roberts for Observation. Preliminary diagnosis are Chronic obstructive pulmonary disease with (acute) exacerbation, Chronic respiratory failure with hypoxia. - Bed requested for Telemetry/MedSurg (observation). - Status is Observation. lp1 - Condition is Fair. - Problem is new. - Symptoms have improved. UTI on Admission? No Signatures: Dispatcher [employer] EDIlana Tariq rg2 David Alvarado MD MD rn Pena, Laura RN RN lp1 Mike Zayas, PA PA jr8 Judy Carlos RN RN jl7 Corrections: (The following items were deleted from the chart) 01/21 21:45 21:27 Hospitalization Ordered by Sameer Roberts MD for Observation. Preliminary diagnosis rg2 is Chronic obstructive pulmonary disease with (acute) exacerbation; Chronic respiratory failure with hypoxia. Bed requested for Telemetry/MedSurg (observation). Status is Observation. Condition is Fair. Problem is new. Symptoms have improved. UTI on Admission? No. jr8 22:35 21:45 01/21/2018 21:27 Hospitalization Ordered by Sameer Roberts MD for Observation. lp1 Preliminary diagnosis is Chronic obstructive pulmonary disease with (acute) exacerbation; Chronic respiratory failure with hypoxia. Bed requested for Telemetry/MedSurg (observation). Status is Observation. Condition is Fair. Problem is new. Symptoms have improved. UTI on Admission? No. rg2
--- NOTE | 2018-01-21 21:27 | ER ---
Nurse's Notes [facility] Name: Idris San Age: 77 yrs Sex: Male : 1940 Arrival Date: 01/21/2018 Time: 17:41 Bed 3 Private MD: Diagnosis: Chronic obstructive pulmonary disease with (acute) exacerbation;Chronic respiratory failure with hypoxia Presentation: 01/21 17:41 Presenting complaint: EMS states: Toned out for difficulty breathing x2 days, he was jl7 88% on 4 lpm NC, we gave an A\T\A and came up to 99%. Transition of care: patient was not received from another setting of care. Onset of symptoms was January 19, 2018. Risk Assessment: Do you want to hurt yourself or someone else? Patient reports no desire to harm self or others. Care prior to arrival: IV initiated. 20 GA, in the left forearm, Med neb given. Oxygen administered. via nasal cannula, via a nebulizer mask. 17:41 Method Of Arrival: EMS: [facility] 17:41 Acuity: LISBETH 2 jl7 18:50 Initial Sepsis Screen: Does the patient meet any 2 criteria? No. Patient's initial jl7 sepsis screen is negative. Does the patient have a suspected source of infection? No. Patient's initial sepsis screen is negative. Triage Assessment: 18:50 General: Appears in no apparent distress. uncomfortable, Behavior is calm, cooperative, jl7 appropriate for age. Respiratory: Reports shortness of breath at rest Onset: The symptoms/episode began/occurred 2 days ago, the patient has moderate shortness of breath. Historical: - Allergies: 17:46 Codeine; jl7 - Home Meds: 21:46 Advair Diskus 250-50 mcg/dose Inhl dsdv 1 puff 2 times per day [Active]; albuterol lp1 sulfate 2.5 mg /3 mL (0.083 %) Inhl nebu QID PRN [Active]; aspirin 81 mg Oral TbEC 1 tab once daily [Active]; clonazepam 0.5 mg Oral tab 1 tab daily [Active]; furosemide 20 mg Oral tab 1 tab once daily [Active]; prednisone 10 mg Oral tab 1 tab 2 times per day [Active]; Singulair 10 mg Oral tab 1 tab once daily [Active]; Vitamin B-12 1,000 mcg Oral tab daily [Active]; - PMHx: 17:46 Anemia; CHF; COPD; enlarged prostate; Emphysema; femur fracture; Lung Cancer; Pt jl7 reports that it cleared up; Pneumonia; Sleep Apnea; - Immunization history:: Adult Immunizations unknown. - Social history:: Smoking status: Patient/guardian denies using tobacco. - Ebola Screening: : No symptoms or risks identified at this time. Screenin:00 Abuse screen: Denies threats or abuse. Denies injuries from another. Nutritional jl7 screening: No deficits noted. Tuberculosis screening: No symptoms or risk factors identified. Fall Risk IV access (20 points). Total [place] Fall Scale indicates No Risk (0-24 pts). Assessment: 18:00 General: Appears in no apparent distress. uncomfortable, Behavior is calm, cooperative. jl7 Pain: Denies pain. Neuro: Level of Consciousness is awake, alert, obeys commands, Oriented to person, place, time, situation. Cardiovascular: Rhythm is sinus rhythm. Respiratory: Airway is patent Respiratory effort is even, labored, Respiratory pattern is symmetrical, tachypnea Breath sounds are diminished bilaterally. GI: No signs and/or symptoms were reported involving the gastrointestinal system. : No signs and/or symptoms were reported regarding the genitourinary system. EENT: No signs and/or symptoms were reported regarding the EENT system. Derm: Skin is pink, warm \T\ dry. Musculoskeletal: No signs and/or symptoms reported regarding the musculoskeletal system. 19:46 Neuro: Level of Consciousness is awake, alert, obeys commands. Respiratory: Reports lp1 cough that is productive, Respiratory effort is even, Breath sounds with wheezes bilaterally. Derm: Skin is intact, Skin is dry, Skin is normal. 20:45 Reassessment: Patient appears in no apparent distress at this time. Patient and/or lp1 family updated on plan of care and expected duration. Pain level reassessed. Patient states feeling better. 21:30 Reassessment: Patient back to 3L on NC per provider; O2 dropped to 85% on 3L NC. lp1 Vital Signs: 17:46 BP 113 / 83; Pulse 95; Resp 24 S; Temp 99(O); Pulse Ox 93% on 4 lpm NC; jl7 19:47 BP 134 / 68; Pulse 101; Resp 24; Pulse Ox 89% on 3 lpm NC; lp1 19:56 Pulse Ox 93% on 40% Venturi mask; lp1 20:00 BP 134 / 66; Pulse 92; Resp 25; Pulse Ox 92% on 40% Venturi mask; lp1 20:49 Pulse Ox 91% on 3 lpm NC; lp1 21:00 BP 131 / 63; Pulse 86; Resp 26; Pulse Ox 91% on 3 lpm NC; lp1 22:15 BP 139 / 66; Pulse 97; Resp 24; Pulse Ox 93% on 3 lpm NC; lp1 ED Course: 17:41 Patient arrived in ED. jl7 17:45 Triage completed. jl7 17:47 Mike Zayas PA is PHCP. jr8 17:47 David Alvarado MD is Attending Physician. jr8 18:00 Maintain EMS IV. Dressing intact. Good blood return noted. Site clean \T\ dry. Gauge \T\ jl 7 site: 20 Left FA. 18:00 Patient has correct armband on for positive identification. Placed in gown. Bed in low jl7 position. Call light in reach. Side rails up X 1. laboratory monitor on. Pulse ox on. NIBP on. Warm blanket given. 18:05 EKG done, by plant technician. reviewed by Mike SANTANA. 3 18:33 X-ray completed. Portable x-ray completed in exam room. Patient tolerated procedure bb2 well. 18:35 Initial lab(s) drawn, by wv, sent to lab. jl7 18:51 Arm band placed on right wrist. jl7 19:04 Troponin (emerg Dept Use Only) Sent. jl7 19:04 NT PRO-BNP Sent. jl7 19:05 PT-INR Sent. jl7 19:05 Magnesium Sent. jl7 19:05 CBC with Diff Sent. jl7 19:05 LFT's Sent. jl7 19:05 Basic Metabolic Panel Sent. jl7 19:27 Notified Nurse Practitioner and/or Physician Safety Officer of a critical lab result(s), lp1 Bicarb 42. 19:46 Sol Bojorquez, CRISTINA is Primary Nurse. lp1 19:48 No provider procedures requiring assistance completed. lp1 21:26 Sameer Roberts MD is Hospitalizing Provider. jr8 21:38 Patient admitted, IV remains in place. lp1 Administered Medications: 18:30 Drug: AtroVENT Aerosol 0.5 mg Route: Inhalation; jl7 18:30 Drug: SOLU-Medrol 125 mg Route: IVP; Site: left forearm; jl7 19:00 Follow up: Response: No adverse reaction lp1 18:35 Drug: Xopenex (3) 1.25 mg Route: Inhalation; jl7 21:37 Drug: Xopenex (3) 1.25 mg Route: Inhalation; lp1 21:37 Drug: Ativan 0.5 mg Route: IVP; Site: left wrist; lp1 22:01 Follow up: Response: No adverse reaction; Marked relief of symptoms lp1 Outcome: 21:27 Decision to Hospitalize by Provider. jr8 21:38 Condition: stable lp1 21:38 Instructed on the need for admit. 21:57 Admitted to Med/surg via wheelchair, room 216, with oxygen, with chart, Report called lp1 to Loree Love RN 22:35 Patient left the ED. 1 Signatures: Sol Bojorquez RN RN lp1 Mike Zayas PA PA jr8 Judy Carlos RN RN jl7 Tamara Marcos 2 Julita Vazquez 3 Corrections: (The following items were deleted from the chart) 21:47 21:00 BP 131 / 63; Pulse 26bpm; Resp 26bpm; Pulse Ox 91% 3 lpm Nasal Cannula; lp1 lp1
[2018-01-21] MEDS ORDERED: LORazepam 2 MG/ML VIAL ONE (21:32)
[2018-01-21] MEDS ORDERED: ACETAMINOPHEN 500 MG TAB PO PRN (22:04)
[2018-01-21] MEDS ORDERED: ONDANSETRON 4 MG/2 ML VIAL IV PRN (22:04)
[2018-01-21] MEDS: ALBUTEROL 2.5 MG/3 ML NEB SOL NEB PRN (23:54)
[2018-01-21] MEDS: IPRATROPIUM BROM 0.5MG/2.5ML NEB PRN (23:54)
[2018-01-22] MEDS: METHYLPREDNISOLONE 40 MG INJ IV SCH ×3 (00:52→17:30)
[2018-01-22 01:24] VITALS: BMI 23.5
[2018-01-22 05:15] LABS: Absolute Lymphocytes (CBC) 0.3 K/uL (0.7-4.9); Absolute Monocytes 0.2 K/uL (0.1-1.3); Absolute Neutrophil 13.5 K/uL (1.8-8.0); Basophils % 0.1 % (0-1.3); Hematocrit 38.6 % (39.6-49.0); Lymphocytes % 2.2 % (15.3-44.8); MCH 28.7 pg (27.0-35.0); MCV 89.1 fL (80-100); MPV 10.4 fL (7.6-11.3); Monocytes % 1.1 % (3.3-12.3); RBC Red Blood Cell Count 4.33 M/uL (4.33-5.43)
[2018-01-22 05:53] LABS: Potassium 4.9 mmol/L (3.5-5.1)
[2018-01-22] MEDS: ALBUTEROL 2.5 MG/3 ML NEB SOL NEB PRN ×2 (07:56→13:54)
[2018-01-22] MEDS: IPRATROPIUM BROM 0.5MG/2.5ML NEB PRN ×2 (07:56→13:54)
[2018-01-22] MEDS ORDERED: ASPIRIN EC 81 MG TAB PO SCH (09:00)
[2018-01-22 10:25] LABS: Blood Morphology Comment NOT SEEN (NOT SEEN); Platelet Estimate ADEQ
--- NOTE | 2018-01-22 13:06 | P.HP ---
Certification for Inpatient Patient admitted to: Inpatient With expected LOS: >2 Midnights Patient will require the following post-hospital care: Home Health Services Practitioner: I am a practitioner with admitting privileges, knowledge of patient current condition, hospital course, and medical plan of care. Services: Services provided to patient in accordance with Admission requirements found in Title 42 Section 412.3 of the Code of Federal Regulations Patient History Date of Service: 01/22/18 Primary Care Provider: Lars Belle Reason for admission: Copd exacerbation. History of Present Illness: Patient is here with complaints of shortness of breath. The patient has a history of very advanced copd. Needs a bipap nightly. He states that it does not work. This is what happened last admission. He had his bipap evaluated and replaced at the time. Allergies codeine Allergy (Verified 11/06/16 08:44) AMS Home Medications: Albuterol Neb [Proventil 0.083% Neb Soln] 1 amp IH QID PRN 01/21/18 Aspirin [Aspir-Low] 1 tab PO DAILY 01/21/18 Fluticasone/Salmeterol [Advair 250-50 Diskus] 1 puff IH BID 01/21/18 Furosemide [Lasix*] 0.5 tab PO DAILY 01/21/18 Montelukast [Singulair*] 1 tab PO DAILY 01/21/18 Tiotropium [place] [Spiriva Respimat] 1 puff IH BID 01/21/18 Vit B Comp No.3/Folic/C/Biotin [Nephro-Saige Rx Tablet] 1 tab PO DAILY 01/21/18 predniSONE [Deltasone*] 1 tab PO TID 01/21/18 - Past Medical/Surgical History Has patient received pneumonia vaccine in the past: Yes Diabetic: No -: Lung cancer radiation treatments three years ago -: 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 -: Sleep Apnea -: Enlarged prostate -: CHF -: appendectomy -: cataract surgery - Family History Father -: Heart disease, Diabetes Notes: SD Mother -: Lung disease, Cancer Notes: LUng Ca, Breast CA,Brain CA - Social History Smoking Status: Former smoker Alcohol use: No CD- Drugs: No Caffeine use: Yes Place of Residence: Home Review of Systems 10-point ROS is otherwise unremarkable General: Weakness Respiratory: Shortness of Breath Physical Examination - Vital Signs Temperature: 97.5 F Blood Pressure: 132/67 Pulse: 90 Respirations: 18 Pulse Ox (%): 91 - Physical Exam General: Alert, In no apparent distress HEENT: Atraumatic, PERRLA, Mucous membr. moist/pink, EOMI, Sclerae nonicteric Neck: Supple, 2+ carotid pulse no bruit, No LAD, Without JVD or thyroid abnormality Respiratory: Clear to auscultation bilaterally, Diminished (chronic finding) Cardiovascular: Regular rate/rhythm, Normal S1 S2 Gastrointestinal: Normal bowel sounds, No tenderness Musculoskeletal: No tenderness Integumentary: No rashes Neurological: Normal gait, Normal speech, Normal strength at 5/5 x4 extr, Normal tone, Normal affect Lymphatics: No axilla or inguinal lymphadenopathy - Studies Laboratory Data (last 24 hrs) 01/21/18 18:37: PT 12.0, INR 1.02 01/21/18 18:37: WBC 13.4 H, Hgb 12.6 L, Hct 39.3 L, Plt Count 219 01/21/18 18:37: Sodium 139, Potassium 4.4, BUN 24 H, Creatinine 0.90, Glucose 155 H, Magnesium 2.6 H, Total Bilirubin 0.3, AST 20, ALT 21, Alkaline Phosphatase 84 Assessment and Plan - Problems (Diagnosis) (1) COPD exacerbation Onset Date: 01/22/18 Current Visit: Yes Status: Acute Plan: Patient on steroids and breathing treatments. Will consult Dr. Sanchez. Will have his machine evaluated. (2) Anxiety about health Current Visit: Yes Status: Acute Plan: Patient does have severe lung disease. Anxiety is normal when he can't breath. Will need some form of anxiolytic. Will start the patient on a low dose of seroquel. Will avoid and benzodiazepams. Discharge Plan: Home Plan to discharge in: 48 Hours - Advance Directives Does patient have a Living Will: Yes Does patient have a Durable POA for Healthcare: Yes - Code Status/Comfort Care Code Status Assessed: Yes Code Status: Full Code Physician Review: Patient Assessed, Agree with Above Assessment and Plan Critical Care: No Time Spent Managing Pts Care (In Minutes): 40
[2018-01-22] MEDS ORDERED: HOME MED 1 EA UNK (Tiotropium Bromide [Spiriva Respimat] 1 PUFF) IH SCH (21:00)
[2018-01-22] MEDS ORDERED: HOME MED 1 EA UNK (Fluticasone/Salmeterol [Advair 250-50 Diskus] 1 PUFF) IH SCH (21:00)
[2018-01-22] MEDS: QUETIAPINE 25 MG TAB PO SCH (21:36)
[2018-01-23] MEDS: METHYLPREDNISOLONE 40 MG INJ IV SCH ×3 (00:23→17:15)
[2018-01-23] MEDS: MULTIVITAMINS,THERAPEUT 1 TAB PO SCH (10:46)
[2018-01-23] MEDS: FUROSEMIDE 20 MG TABLET PO SCH (10:46)
[2018-01-23] MEDS: MONTELUKAST 10 MG TAB PO SCH (10:46)
[2018-01-23] MEDS: ASPIRIN EC 81 MG TAB PO SCH (10:47)
--- NOTE | 2018-01-23 10:58 | P.PN ---
Subjective Date of Service: 01/23/18 Primary Care Provider: Lars Belle Chief Complaint: Copd exacerbation. Subjective: Improving Review of Systems 10-point ROS is otherwise unremarkable General: Malaise Respiratory: Shortness of Breath Physical Examination - Vital Signs Temperature: 97.1 F Blood Pressure: 147/66 Pulse: 90 Respirations: 28 Pulse Ox (%): 90 - Physical Exam General: Alert, In no apparent distress HEENT: Atraumatic, PERRLA, EOMI Neck: Supple, JVD not distended Respiratory: Expiratory wheezes Cardiovascular: Regular rate/rhythm, Normal S1 S2 Gastrointestinal: Normal bowel sounds, No tenderness Musculoskeletal: No tenderness Integumentary: No rashes Neurological: Normal speech, Normal tone, Normal affect Lymphatics: No axilla or inguinal lymphadenopathy Assessment And Plan - Current Problems (Diagnosis) (1) COPD exacerbation Onset Date: 01/22/18 Current Visit: Yes Status: Acute Plan: Patient on steroids and breathing treatments. Will consult Dr. Sanchez. Will have his machine evaluated. (2) Anxiety about health Current Visit: Yes Status: Acute Plan: Patient does have severe lung disease. Anxiety is normal when he can't breath. Will need some form of anxiolytic. Will start the patient on a low dose of seroquel. Will avoid and benzodiazepams. Discharge Plan: Home Plan to discharge in: 48 Hours - Code Status/Comfort Care Code Status Assessed: No Code Status: Full Code Physician Review: Patient Assessed, Agree with Above Assessment and Plan Critical Care: No Time Spent Managing PTS Care (In Minutes): 20
[2018-01-23] MEDS: ALBUTEROL 2.5 MG/3 ML NEB SOL NEB PRN ×3 (13:59→22:19)
[2018-01-23] MEDS: IPRATROPIUM BROM 0.5MG/2.5ML NEB PRN ×3 (13:59→22:19)
[2018-01-23] MEDS: QUETIAPINE 25 MG TAB PO SCH (20:30)
[2018-01-24] MEDS: METHYLPREDNISOLONE 40 MG INJ IV SCH ×2 (00:36→08:52)
[2018-01-24] MEDS: IPRATROPIUM BROM 0.5MG/2.5ML NEB PRN (03:13)
[2018-01-24] MEDS: ALBUTEROL 2.5 MG/3 ML NEB SOL NEB PRN (03:13)
[2018-01-24 05:39] LABS: BUN Blood Urea Nitrogen 24 mg/dL (7-18); Glucose Level 200 mg/dL (74-106); Potassium 4.8 mmol/L (3.5-5.1); Sodium Level 139 mmol/L (136-145)
[2018-01-24 05:41] LABS: Bicarbonate 41 mmol/L (21-32)
--- NOTE | 2018-01-24 08:47 | P.DS ---
Admission Date: 01/23/18 Discharge Date: 01/24/18 Primary Care Provider: Lars Belle Disposition: ROUTINE DISCHARGE Discharge Condition: FAIR Reason for Admission: Copd exacerbation. - Problems (1) COPD exacerbation Onset Date: 01/22/18 Current Visit: Yes Status: Acute (2) Anxiety about health Onset Date: 01/24/18 Current Visit: Yes Status: Acute Brief History of Present Illness: Patient is here with complaints of shortness of breath. The patient has a history of very advanced copd. Needs a bipap nightly. He states that it does not work. This is what happened last admission. He had his bipap evaluated and replaced at the time. Hospital Course: Patient was admitted for copd exacerbation. He has multiple visits for this, has severe copd. He has a lot of anxiety. Was started on seroquel for this which may have made him a bit sleepy. He was seen by Dr. Sanchez. Patient was treated with steroids, breathing treatments and cpap. He has an elevated bicarb. However he chronically is in this range. Will have him follow up with Lars Belle his primary Vital Signs/Physical Exam: Temp Pulse Resp BP Pulse Ox 97.0 F 95 H 20 114/63 97 01/24/18 04:00 01/24/18 04:00 01/24/18 04:00 01/24/18 04:00 01/24/18 04:00 General: Alert, In no apparent distress HEENT: Atraumatic, PERRLA, EOMI Neck: Supple, JVD not distended Respiratory: Normal air movement, Expiratory wheezes (chronic) Cardiovascular: Regular rate/rhythm, Normal S1 S2 Gastrointestinal: Normal bowel sounds, No tenderness Musculoskeletal: No tenderness Integumentary: No rashes Neurological: Normal speech, Normal tone, Normal affect Lymphatics: No axilla or inguinal lymphadenopathy Laboratory Data at Discharge: WBC 14.0 K/uL (4.3-10.9) H 01/22/18 04:17 Hgb 12.4 g/dL (13.6-17.9) L 01/22/18 04:17 Hct 38.6 % (39.6-49.0) L 01/22/18 04:17 Plt Count 198 K/uL (152-406) 01/22/18 04:17 PT 12.0 SECONDS (9.5-12.5) 01/21/18 18:37 INR 1.02 01/21/18 18:37 Sodium 139 mmol/L (136-145) 01/24/18 05:00 Potassium 4.8 mmol/L (3.5-5.1) 01/24/18 05:00 BUN 24 mg/dL (7-18) H 01/24/18 05:00 Creatinine 0.70 mg/dL (0.55-1.3) 01/24/18 05:00 Glucose 200 mg/dL (74-106) H 01/24/18 05:00 Magnesium 2.6 mg/dL (1.8-2.4) H 01/21/18 18:37 Total Bilirubin 0.3 mg/dL (0.2-1.0) 01/21/18 18:37 AST 20 U/L (15-37) 01/21/18 18:37 ALT 21 U/L (12-78) 01/21/18 18:37 Alkaline Phosphatase 84 U/L (45-117) 01/21/18 18:37 Home Medications: Albuterol Neb [Proventil 0.083% Neb Soln] 1 amp IH QID PRN 01/21/18 Aspirin [Aspir-Low] 1 tab PO DAILY 01/21/18 Fluticasone/Salmeterol [Advair 250-50 Diskus] 1 puff IH BID 01/21/18 Furosemide [Lasix*] 0.5 tab PO DAILY 01/21/18 Montelukast [Singulair*] 1 tab PO DAILY 01/21/18 Tiotropium [place] [Spiriva Respimat] 1 puff IH BID 01/21/18 Vit B Comp No.3/Folic/C/Biotin [Nephro-Saige Rx Tablet] 1 tab PO DAILY 01/21/18 predniSONE [Deltasone*] 1 tab PO TID 01/21/18 Quetiapine [Seroquel*] 50 mg PO BEDTIME 30 Days #30 tab 01/24/18 New Medications: Quetiapine [Seroquel*] 50 mg PO BEDTIME 30 Days #30 tab Diet: Regular Activity: Ad luna Followup: Tiffanie Belle, QA TEST LEAD [[employer] HE[employer] PROFESSIONAL] - 1-2 Weeks Physician Review: Patient Assessed, Agree with Above Assessment and Plan Time spent managing pt's care (in minutes): 40
[2018-01-24] MEDS: MULTIVITAMINS,THERAPEUT 1 TAB PO SCH (08:49)
[2018-01-24] MEDS: FUROSEMIDE 20 MG TABLET PO SCH (08:49)
[2018-01-24] MEDS: MONTELUKAST 10 MG TAB PO SCH (08:49)
[2018-01-24] MEDS: ASPIRIN EC 81 MG TAB PO SCH (08:52)
[2018-01-24 08:57] VITALS: BP 153/67
[2018-01-24 09:50] VITALS: O2SAT 91
[2018-01-24 10:26] VITALS: TEMP 97.7
== END 2018-01-24 11:25 | disposition home health service (06) | DRG 191 ==
LOC: ER 17:39 → ERHOLD 21:33 → 2ND 21:49 → OBSVTOIN 01-23 08:19
PROVIDERS: ADMIT Internal Medicine; ATTEND Internal Medicine
PROC: 5A09357 Assistance with Respiratory Ventilation, Less than 24 Consecutive Hours, Continuous Positive Airway Pressure (ICD-10-PCS; principal; 2018-01-21)
DX: J44.1 Chronic obstructive pulmonary disease with (acute) exacerbation (principal); J96.11 Chronic respiratory failure with hypoxia; N40.0 Benign prostatic hyperplasia without lower urinary tract symptoms; I50.9 Heart failure, unspecified; G47.30 Sleep apnea, unspecified; F41.9 Anxiety disorder, unspecified; Z79.82 Long term (current) use of aspirin; Z79.52 Long term (current) use of systemic steroids; Z85.118 Personal history of other malignant neoplasm of bronchus and lung; Z92.3 Personal history of irradiation; Z87.891 Personal history of nicotine dependence
CPT/HCPCS: 36415; 71045; 80048; 80076; 83735; 83880; 84484; 85025; 85610; 93005; 94640; 94660; 94760; 99285; G0378; J2920; J2930

== ENCOUNTER 2018-11-15 18:18 | Inpatient (IN) | payer OTHER ==
--- OUTSIDE RECORDS SUMMARY | 2018-11-15 18:21 | XMS REPORT ---
:1940 [facility] Address [address] [place] [address] Dr. Jauregui [address] [place] [id number] Care Team Providers Name Role Phone Unavailable Unavailable Unavailable Problems This patient has no known problems. Allergies, Adverse Reactions, Alerts This patient has no known allergies or adverse reactions. Medications This patient has no known medications.
--- OUTSIDE RECORDS SUMMARY | 2018-11-15 18:21 | XMS REPORT ---
[...] End Status Dosage System Date Date Ipratropium [facility] [address]-97 0.06 % Nasally Active 2 sprays in [place] Four times a each day nostril Clonazepam [facility] 48896101705 0.5 MG Orally Active 1 tablet at Once a day bedtime Vitamin D3 [facility] 87601339295 2000 UNIT Active 1 capsule Orally Once a day Albuterol [facility] 74270742274 (2.5 MG/3ML) Active 3 ml as Sulfate 0.083% needed Inhalation Three times a day ProAir [facility] 07464533433 108 (90 Base) Active 2 puffs as RespiClick MCG/ACT needed Inhalation every 6 hrs Advair Diskus [facility] 64998391584 500-50 MCG/DOSE Active 1 puff Inhalation Twice a day Flutter ND 0 three times a Active as directed day Furosemide ND 45967278589 20 MG Orally Active 1 tablet Once a day Aspir-81 [facility] 91513980468 81 MG Orally Active 1 tablet Once a day Spiriva [facility] 84271516395 18 MCG Active 1 capsule HandiHaler Inhalation Once a day PredniSONE ND 56748588841 10 MG Orally Active 1 tablet Once a day Results No Known Results Summary Purpose [employer] Submission
--- OUTSIDE RECORDS SUMMARY | 2018-11-15 18:21 | XMS REPORT ---
[...] End Date Status Dosage System Date Diclofenac [facility] 60734736950 100 MG Orally November 26, Active 1 tablet Sodium ER Once a day 2018 with food or milk Results No Known Results Summary Purpose [employer] Submission
--- OUTSIDE RECORDS SUMMARY | 2018-11-15 18:21 | XMS REPORT ---
[...] End Status Dosage System Date Date Montelukast [facility] 18837673135 10 MG Orally November 07, Active 1 tablet Sodium Once a day 2018 in the evening Results No Known Results Summary Purpose [employer]ClinicalWorks Submission
--- OUTSIDE RECORDS SUMMARY | 2018-11-15 18:21 | XMS REPORT ---
[...] End Status Dosage System Date Date Spiriva [facility] 32194028762 18 MCG Active 1 capsule HandiHaler Inhalation Once a day PredniSONE [facility] 29149305122 10 MG Orally Active 1 tablet Once a day ProAir [facility] 21007958423 108 (90 Base) Active 2 puffs as RespiClick MCG/ACT needed Inhalation every 6 hrs Ipratropium [facility] 18454311764 0.06 % Nasally Active 2 sprays in [place] Four times a each day nostril Albuterol ND 04457968061 (2.5 MG/3ML) Active 3 ml as Sulfate 0.083% needed Inhalation Three times a day Vitamin D3 [facility] 37062020225 2000 UNIT Active 1 capsule Orally Once a day Advair Diskus [facility] 74773974316 500-50 MCG/DOSE Active 1 puff Inhalation Twice a day Clonazepam ND 10433723671 0.5 MG Orally Active 1 tablet at Once a day bedtime Furosemide ND 97786851709 20 MG Orally Active 1 tablet Once a day Flutter NDC 0 three times a Active as directed day - [facility] 45114225277 81 MG Orally Active 1 tablet Once a day Montelukast ND 49378919700 10 MG Orally November 07, Active 1 tablet in Sodium Once a day 2018 the evening Results Name Result Date Reference Range Unit Abnormality Flag Ribs Bilateral W/Chest Summary Purpose [employer] Submission
--- NOTE | 2018-11-15 18:34 | RAD REPORT ---
EXAM DESCRIPTION: RAD - Chest Single View - 11/15/2018 6:26 pm CLINICAL HISTORY: DYSPNEA Chest pain. COMPARISON: <Comparisons> FINDINGS: Portable technique limits examination quality. Prominent emphysema is present. Linear opacity is noted in the left mid lung likely scarring. Rounded opacity is seen in the right mid lung which could be infectious or inflammatory in nature. Neoplasti c etiology is not completely excluded but felt to be less likely. The heart is normal in size. No dis placed fractures.
[2018-11-15] MEDS ORDERED: NA CHLORIDE 0.9% 2,000 ML ONE (18:44)
[2018-11-15] MEDS ORDERED: CEFTRIAXONE/SWI 1gm 1 GM/10 ML SYR ONE (18:44)
[2018-11-15] MEDS ORDERED: VANCOMYCIN 1.75 GM in NA CHLORIDE 0.9% 500 ML IVPB ONE (19:00)
[2018-11-15 19:07] LABS: Protime INR 1.09
[2018-11-15] MEDS ORDERED: ACETAMINOPHEN 500 MG TAB ONE (19:08)
[2018-11-15 19:19] LABS: Absolute Lymphocytes (CBC) 1.6 K/uL (0.7-4.9); Absolute Monocytes 1.9 K/uL (0.1-1.3); Absolute Neutrophil 24.1 K/uL (1.8-8.0); Basophils % 0.2 % (0-1.3); Eosinophils % 0.1 % (0-4.4); Hematocrit 35.6 % (39.6-49.0); Lymphocytes % 5.7 % (15.3-44.8); MPV 9.3 fL (7.6-11.3); RBC Red Blood Cell Count 4.52 M/uL (4.33-5.43)
[2018-11-15 19:25] LABS: ALT/SGPT 17 U/L (12-78); AST/SGOT 15 U/L (15-37); Albumin 3.3 g/dL (3.4-5.0); Alkaline Phosphatase 98 U/L (45-117); BUN Blood Urea Nitrogen 21 mg/dL (7-18); Bicarbonate 35 mmol/L (21-32); Bilirubin Direct 0.1 mg/dL (0-0.2); Bilirubin Total 0.5 mg/dL (0.2-1.0); CKMB Creatine Kinase MB < 1.0 ng/mL (0.3-3.6); Creatine Phosphokinase 50 U/L (39-308); Glucose Level 122 mg/dL (74-106); Lipase 139 U/L (73-393); Potassium 4.6 mmol/L (3.5-5.1); Protein, Total 7.9 g/dL (6.4-8.2); Sodium Level 140 mmol/L (136-145); Troponin (Emerg Dept Use Only) < 0.02 ng/mL (0.0-0.045)
[2018-11-15 19:42] LABS: Arterial Blood Carboxyhemoglob 1.6 % (0-1.5); Blood Gas Oxyhemoglobin 95.9 % (94-97); Blood O2 Saturation 98.5 % (92-98.5)
[2018-11-15] MEDS ORDERED: ALBUTEROL 2.5 MG/3 ML NEB SOL ONE (19:51)
[2018-11-15] MEDS ORDERED: IPRATROPIUM BROM 0.5MG/2.5ML ONE (19:51)
[2018-11-15 20:11] LABS: Anisocytosis 1+; Blood Morphology Comment NOTED (NOT SEEN); Ovalocytes 1+; Platelet Estimate ADEQ; Urine White Blood Cell Casts OK
--- NOTE | 2018-11-15 20:44 | EDPHYS ---
Physician Documentation [facility] Name: Idris San Age: 78 yrs Sex: Male : 1940 Arrival Date: 11/15/2018 Time: 18:19 Bed 4 Private MD: ED Physician John Boyd HPI: 11/15 20:59 This 78 yrs old Male presents to ER via EMS with complaints of Respiratory gs Distress. 20:59 The patient has shortness of breath at rest. Onset: The symptoms/episode began/occurred gs gradually, this morning. Duration: The symptoms are continuous, and are steadily getting worse. The patient's shortness of breath is aggravated by coughing, exertion. Associated signs and symptoms: Pertinent positives: chest pain, non-productive cough, productive cough, fever. Severity of symptoms: At their worst the symptoms were incapacitating in the emergency department the symptoms are unchanged. The patient has experienced similar episodes in the past, a few times. Historical: - Allergies: 18:22 Codeine; la1 - PMHx: 18:22 Anemia; CHF; COPD; Emphysema; enlarged prostate; femur fracture; Lung Cancer; Pt la1 reports that it cleared up; Pneumonia; Sleep Apnea; - Immunization history:: Adult Immunizations up to date. - Social history:: Smoking status: Patient uses tobacco products, smokes one pack cigarettes per day. - Ebola Screening: : No symptoms or risks identified at this time. ROS: 20:59 All other systems are negative. gs Exam: 20:59 Head/Face: Normocephalic, atraumatic. Eyes: Pupils equal round and reactive to light, gs extra-ocular motions intact. Lids and lashes normal. Conjunctiva and sclera are non-icteric and not injected. Cornea within normal limits. Periorbital areas with no swelling, redness, or edema. ENT: Nares patent. No nasal discharge, no septal abnormalities noted. Tympanic membranes are normal and external auditory canals are clear. Oropharynx with no redness, swelling, or masses, exudates, or evidence of obstruction, uvula midline. Mucous membranes moist. Neck: Trachea midline, no thyromegaly or masses palpated, and no cervical lymphadenopathy. Supple, full range of motion without nuchal rigidity, or vertebral point tenderness. No Meningismus. Chest/axilla: Normal chest wall appearance and motion. Nontender with no deformity. No lesions are appreciated. 20:59 Abdomen/GI: Soft, non-tender, with normal bowel sounds. No distension or tympany. No guarding or rebound. No evidence of tenderness throughout. Back: No spinal tenderness. No costovertebral tenderness. Full range of motion. Skin: Warm, dry with normal turgor. Normal color with no rashes, no lesions, and no evidence of cellulitis. MS/ Extremity: Pulses equal, no cyanosis. Neurovascular intact. Full, normal range of motion. Neuro: Awake and alert, GCS 15, oriented to person, place, time, and situation. Cranial nerves II-XII grossly intact. Motor strength 5/5 in all extremities. Sensory grossly intact. Cerebellar exam normal. Normal gait. 20:59 Constitutional: The patient appears alert, awake, in obvious distress, severely distressed. 20:59 Cardiovascular: Rate: tachycardic, Rhythm: regular, Pulses: no pulse deficits are appreciated. 20:59 ECG was reviewed by the Attending Physician. 20:59 Respiratory: severe repiratory distress is noted, Respirations: shallow respirations, tachypnea, Breath sounds: decreased breath sounds, that are severe, are heard in the left upper lobe. Vital Signs: 18:23 BP 137 / 74; Pulse 127; Resp 30; Temp 103.7(A); Pulse Ox 100% on 50% BiPAP; la1 18:26 Weight 66.68 kg; ss 19:06 BP 124 / 59; Pulse 115; Resp 26; Pulse Ox 100% on 50% BiPAP; la1 19:41 Temp 100; la1 20:24 BP 109 / 61; Pulse 100; Resp 23; Pulse Ox 96% on 35% BiPAP; la1 20:58 BP 118 / 64; Pulse 92; Resp 26; Pulse Ox 94% on 35% BiPAP; la1 21:47 Temp 97.8(O); la1 MDM: 19:27 Patient medically screened. gs 20:59 Differential diagnosis: CHF exacerbation, Chronic Obstructive Pulmonary Disease gs Myocardial Infarction pneumonia, Pneumothorax. Data reviewed: vital signs, nurses notes, lab test result(s), EKG, radiologic studies. Counseling: I had a detailed discussion with the patient and/or guardian regarding: the historical points, exam findings, and any diagnostic results supporting the discharge/admit diagnosis, the need for further work-up and treatment in the hospital. 11/15 18:22 Order name: Basic Metabolic Panel; Complete Time: 19:27 kdr 11/15 18:22 Order name: Blood Culture Adult (2) kdr 11/15 18:22 Order name: CBC with Diff; Complete Time: 20:31 kdr 11/15 18:22 Order name: Ckmb; Complete Time: 19:27 kdr 11/15 18:22 Order name: CPK; Complete Time: 19:27 kdr 11/15 18:22 Order name: Lactate; Complete Time: 19:27 kdr 11/15 18:22 Order name: LFT's; Complete Time: 19:27 kdr 11/15 18:22 Order name: Lipase; Complete Time: 19:27 kdr 11/15 18:22 Order name: Procalcitonin; Complete Time: 20:31 kdr 11/15 18:22 Order name: Protime (+inr); Complete Time: 19:27 kdr 11/15 18:22 Order name: Ptt, Activated; Complete Time: 19:27 kdr 11/15 18:22 Order name: Troponin (emerg Dept Use Only); Complete Time: 19:27 kdr 11/15 18:22 Order name: Urine Microscopic Only kdr 11/15 18:40 Order name: Flu; Complete Time: 20:31 ss 11/15 18:22 Order name: Chest Single View XRAY; Complete Time: 19:27 kdr 11/15 18:22 Order name: Accucheck; Complete Time: 18:43 kdr 11/15 18:22 Order name: Cardiac monitoring; Complete Time: 19:05 kdr 11/15 18:22 Order name: EKG - Nurse/Tech; Complete Time: 19:05 kdr 11/15 18:22 Order name: IV Saline Lock - Large Bore; Complete Time: 19:05 kdr 11/15 18:22 Order name: Labs collected and sent; Complete Time: 19:05 kdr 11/15 18:55 Order name: Glucose, Ancillary Testing; Complete Time: 19:27 EDMS 11/15 19:28 Order name: ABG; Complete Time: 20:31 gs 11/15 19:42 Order name: CBC Smear Scan; Complete Time: 20:31 EDMS 11/15 18:22 Order name: O2 Per Protocol; Complete Time: 19:05 kdr 11/15 18:22 Order name: O2 Sat Monitoring; Complete Time: 19:05 kdr EC:59 Rate is 125 beats/min. Rhythm is regular. NV interval is normal. QRS interval is gs normal. QT interval is normal. Clinical impression: NSR w/ Non-specific ST/T Changes. Interpreted by me. Administered Medications: 18:38 Drug: NS 0.9% (30 ml/kg) 30 ml/kg {Note: 2L.} Route: IV; Rate: bolus; Site: right la1 forearm; 21:20 Follow up: IV Status: Completed infusion la1 18:38 Drug: Rocephin - (cefTRIAXone) 1 grams Route: IVPB; Infused Over: 30 mins; Site: right la1 forearm; 18:45 Follow up: IV Status: Completed infusion la1 19:00 Drug: Tylenol 1000 mg Route: PO; la1 20:24 Follow up: Response: No adverse reaction; Temperature is decreased la1 19:03 Drug: vancoMYCIN 1 grams Route: IVPB; Infused Over: 2 hrs; Site: right forearm; la1 21:21 Follow up: IV Status: Completed infusion; IV Intake: 200ml la1 19:41 Drug: Albuterol - atroVENT (3:1) (2.5 mg - 0.5 mg) 3 ml Route: Nebulizer; la1 20:24 Follow up: Response: No adverse reaction la1 19:41 Drug: AtroVENT Aerosol 0.5 mg Route: Inhalation; la1 20:24 Follow up: Response: No adverse reaction la1 21:19 Drug: predniSONE 40 mg Route: PO; la1 21:20 Follow up: Response: No adverse reaction la1 Point of Care Testing: Blood Glucose: 18:40 Blood Glucose: 127 mg/dL; ss Ranges: Critical Glucose Levels:Adult <50 mg/dl or >400 mg/dl <40 mg/dl or >180 mg/dl Disposition: 20:59 Critical Care:. Disposition: 11/15/18 20:44 Hospitalization ordered by Daphne Gilbert for Inpatient Admission. Preliminary diagnosis are Lobar pneumonia, unspecified organism, Acute respiratory failure with hypercapnia. - Bed requested for Telemetry/MedSurg (Inpatient). - Status is Inpatient Admission. la1 - Condition is Stable. - Problem is new. - Symptoms have improved. UTI on Admission? No Critical care time excluding procedures: 20:59 Critical care time: Bedside Care: 10 minutes, Consultation: 10 minutes, Family gs Intervention: 10 minutes. Total time: 30 minutes Signatures: Dispatcher [employer] Lazaro Knight MD MD [facility] Vick Nielsen RN RN la1 Cherry Cm RN RN John Boyd MD MD gs Corrections: (The following items were deleted from the chart) 21:09 20:44 Hospitalization Ordered by Daphne Gilbert MD for Inpatient Admission. Preliminary cg diagnosis is Lobar pneumonia, unspecified organism; Acute respiratory failure with hypercapnia. Bed requested for Telemetry/MedSurg (Inpatient). Status is Inpatient Admission. Condition is Stable. Problem is new. Symptoms have improved. UTI on Admission? No. gs 21:48 21:09 11/15/2018 20:44 Hospitalization Ordered by Daphne Gilbert MD for Inpatient la1 Admission. Preliminary diagnosis is Lobar pneumonia, unspecified organism; Acute respiratory failure with hypercapnia. Bed requested for Telemetry/MedSurg (Inpatient). Status is Inpatient Admission. Condition is Stable. Problem is new. Symptoms have improved. UTI on Admission? No. cg
--- NOTE | 2018-11-15 20:44 | ER ---
Nurse's Notes [facility] Name: Idris San Age: 78 yrs Sex: Male : 1940 Arrival Date: 11/15/2018 Time: 18:19 Bed 4 Private MD: Diagnosis: Lobar pneumonia, unspecified organism;Acute respiratory failure with hypercapnia Presentation: 11/15 18:20 Presenting complaint: EMS states: Increasing SOB since Saturday, has been on home CPAP la1 without improvement, 02 sats at home around 79%. Transition of care: patient was not received from another setting of care. Onset of symptoms was November 15, 2018. Risk Assessment: Do you want to hurt yourself or someone else? Patient reports no desire to harm self or others. Initial Sepsis Screen: Does the patient meet any 2 criteria? RR > 20 per min. Temp <36.0*C (96.8*F)) or > 38.3*C (100.9*F). Yes Does the patient have a suspected source of infection? Yes: Productive cough/pneumonia. Care prior to arrival: CPAP Medication(s) given: Albuterol Neb Atrovent Neb Solu medrol 125mg IV IV initiated. 22 GA, in the right forearm. 18:20 Method Of Arrival: EMS: [facility] la1 18:20 Acuity: LISBETH 2 la1 Historical: - Allergies: 18:22 Codeine; la1 - PMHx: 18:22 Anemia; CHF; COPD; Emphysema; enlarged prostate; femur fracture; Lung Cancer; Pt la1 reports that it cleared up; Pneumonia; Sleep Apnea; - Immunization history:: Adult Immunizations up to date. - Social history:: Smoking status: Patient uses tobacco products, smokes one pack cigarettes per day. - Ebola Screening: : No symptoms or risks identified at this time. Screenin:06 Abuse screen: Denies threats or abuse. Nutritional screening: No deficits noted. la1 Tuberculosis screening: No symptoms or risk factors identified. Fall Risk None identified. Assessment: 19:07 General: Appears uncomfortable, Behavior is calm, cooperative. Pain: Denies pain. la1 Neuro: Level of Consciousness is awake, alert, obeys commands, Oriented to person, place, time, situation. Cardiovascular: Capillary refill < 3 seconds Patient's skin is warm and dry. Rhythm is sinus tachycardia. Respiratory: Airway is patent Respiratory effort is even, labored, Respiratory pattern is regular, tachypnea Breath sounds are diminished bilaterally. GI: No signs and/or symptoms were reported involving the gastrointestinal system. : No signs and/or symptoms were reported regarding the genitourinary system. 20:25 Reassessment: Patient appears in no apparent distress at this time. No changes from la1 previously documented assessment. Patient and/or family updated on plan of care and expected duration. Pain level reassessed. Patient is alert, oriented x 3, equal unlabored respirations, skin warm/dry/pink. Vital Signs: 18:23 BP 137 / 74; Pulse 127; Resp 30; Temp 103.7(A); Pulse Ox 100% on 50% BiPAP; la1 18:26 Weight 66.68 kg; ss 19:06 BP 124 / 59; Pulse 115; Resp 26; Pulse Ox 100% on 50% BiPAP; la1 19:41 Temp 100; la1 20:24 BP 109 / 61; Pulse 100; Resp 23; Pulse Ox 96% on 35% BiPAP; la1 20:58 BP 118 / 64; Pulse 92; Resp 26; Pulse Ox 94% on 35% BiPAP; la1 21:47 Temp 97.8(O); la1 ED Course: 18:19 Patient arrived in ED. la1 18:21 Triage completed. la1 18:21 Arm band placed on left wrist. la1 18:22 Lazaro Nogueira MD is Attending Physician. kdr 18:28 Chest Single View XRAY In Process Unspecified. EDMS 18:34 First set of blood cultures drawn. Inserted saline lock: 22 gauge in left antecubital ss area, using aseptic technique. Blood collected. 19:03 Vick Nielsen, CRISTINA is Primary Nurse. la1 19:08 Maintain EMS IV. Dressing intact. Site clean \T\ dry. Gauge \T\ site: 22 RFA. la 1 19:27 Attending Physician role handed off by Lazaro Nogueira MD gs 19:27 John Boyd MD is Attending Physician. gs 19:40 Notified ED physician of a critical lab result(s). WBC's of 27.7 Dr Boyd notified. bb 20:43 Daphne Gilbert MD is Hospitalizing Provider. gs 20:59 Bed in low position. Call light in reach. la1 21:47 No provider procedures requiring assistance completed. Patient admitted, IV remains in la1 place. Administered Medications: 18:38 Drug: NS 0.9% (30 ml/kg) 30 ml/kg {Note: 2L.} Route: IV; Rate: bolus; Site: right la1 forearm; 21:20 Follow up: IV Status: Completed infusion la1 18:38 Drug: Rocephin - (cefTRIAXone) 1 grams Route: IVPB; Infused Over: 30 mins; Site: right la1 forearm; 18:45 Follow up: IV Status: Completed infusion la1 19:00 Drug: Tylenol 1000 mg Route: PO; la1 20:24 Follow up: Response: No adverse reaction; Temperature is decreased la1 19:03 Drug: vancoMYCIN 1 grams Route: IVPB; Infused Over: 2 hrs; Site: right forearm; la1 21:21 Follow up: IV Status: Completed infusion; IV Intake: 200ml la1 19:41 Drug: Albuterol - atroVENT (3:1) (2.5 mg - 0.5 mg) 3 ml Route: Nebulizer; la1 20:24 Follow up: Response: No adverse reaction la1 19:41 Drug: AtroVENT Aerosol 0.5 mg Route: Inhalation; la1 20:24 Follow up: Response: No adverse reaction la1 21:19 Drug: predniSONE 40 mg Route: PO; la1 21:20 Follow up: Response: No adverse reaction la1 Point of Care Testing: Blood Glucose: 18:40 Blood Glucose: 127 mg/dL; ss Ranges: Intake: 21:21 IV: 200ml; Total: 200ml. la1 Outcome: 20:44 Decision to Hospitalize by Provider. gs 21:47 Admitted to Med/surg accompanied by tech, with oxygen. la1 21:47 Condition: stable 21:47 Instructed on the need for admit. 21:48 Patient left the ED. la1 Signatures: Dispatcher [employer] EDMS Lazaro Nogueira MD MD [facility] Lynne Garcia RN RN bb Smirch, Shelby, RN RN ss Attema, Lee, RN RN [facility] John Boyd MD MD Corrections: (The following items were deleted from the chart) 18:25 18:23 BP 137 / 74; Pulse 127bpm; Resp 30bpm; Pulse Ox 100% 02 100% BiPAP; Temp 103.7F la1 Axillary; la1
--- NOTE | 2018-11-15 21:01 | P.HP ---
Certification for Inpatient Patient admitted to: Inpatient With expected LOS: >2 Midnights Practitioner: I am a practitioner with admitting privileges, knowledge of patient current condition, hospital course, and medical plan of care. Services: Services provided to patient in accordance with Admission requirements found in Title 42 Section 412.3 of the Code of Federal Regulations Patient History Date of Service: 11/15/18 Reason for admission: acute on chronic respiratory failure History of Present Illness: Mr San is a 78 years old male with history of COPD on Home oxygen / and BiPAP at night, lung cancer, chronic diastolic CHF, still smoking some days, who start yesterday with progressive SOB. He also increased his cough, but did not changed sputum color. Today, the patient was feeling worse, O2 sat at home 79%. Subjective fever. At arrival the patient was febrile, 103.4 F, Lab work remarkable for leukocytosis 27.7, elevated procalcitonin with normal lactate. CXR shows rounded opacity on the right lung (inflamatory vs malignancy) and linear scarring on the left. ABG shows PCO2 69.4 PH 7.31 Allergies codeine Allergy (Verified 11/06/16 08:44) AMS Home medications list reviewed: Yes Home Medications: Albuterol Neb [Proventil 0.083% Neb Soln] 1 amp IH QID PRN 01/21/18 Aspirin [Aspir-Low] 1 tab PO DAILY 01/21/18 Fluticasone/Salmeterol [Advair 250-50 Diskus] 1 puff IH BID 01/21/18 Furosemide [Lasix*] 0.5 tab PO DAILY 01/21/18 Montelukast [Singulair*] 1 tab PO DAILY 01/21/18 Tiotropium Sylvester [Spiriva Respimat] 1 puff IH BID 01/21/18 Vit B Comp No.3/Folic/C/Biotin [Nephro-Saige Rx Tablet] 1 tab PO DAILY 01/21/18 predniSONE [Deltasone*] 1 tab PO TID 01/21/18 Quetiapine [Seroquel*] 50 mg PO BEDTIME 30 Days #30 tab 01/24/18 - Past Medical/Surgical History Diabetic: No -: Lung cancer radiation treatments three years ago -: 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 -: Sleep Apnea -: Enlarged prostate -: CHF -: appendectomy -: cataract surgery - Family History Father -: Heart disease, Diabetes Notes: [place] Mother -: Lung disease, Cancer Notes: LUng Ca, Breast CA,Brain CA - Social History Smoking Status: Current some day smoker Counseled patient to stop smoking for: less than 10 minutes Alcohol use: No CD- Drugs: No Caffeine use: Yes Place of Residence: Home Review of Systems 10-point ROS is otherwise unremarkable Physical Examination - Physical Exam General: Alert, In no apparent distress HEENT: Atraumatic, PERRLA, Mucous membr. moist/pink, EOMI, Sclerae nonicteric Neck: Supple, 2+ carotid pulse no bruit, No LAD, Without JVD or thyroid abnormality Respiratory: Diminished, Expiratory wheezes (bilateral) Cardiovascular: Regular rate/rhythm, Normal S1 S2 Gastrointestinal: Normal bowel sounds, No tenderness Musculoskeletal: No tenderness Integumentary: No rashes Neurological: Normal speech, Normal strength at 5/5 x4 extr, Normal tone, Normal affect Lymphatics: No axilla or inguinal lymphadenopathy - Studies Laboratory Data (last 24 hrs) 11/15/18 18:34: PT 12.8 H, INR 1.09, APTT 29.9 11/15/18 18:34: WBC 27.7 H*, Hgb 10.5 L, Hct 35.6 L, Plt Count 312 11/15/18 18:34: Sodium 140, Potassium 4.6, BUN 21 H, Creatinine 1.06, Glucose 122 H, Total Bilirubin 0.5, AST 15, ALT 17, Alkaline Phosphatase 98, Lipase 139 Microbiology Data (last 24 hrs): 11/15/18 18:57 Nasopharnyx Influenza Type A Antigen Screen - Final 11/15/18 18:57 Nasopharnyx Influenza Type B Antigen Screen - Final Assessment and Plan - Problems (Diagnosis) (1) Acute and chronic respiratory failure ([id number]) Current Visit: No Status: Acute Qualifiers: Respiratory failure complication: hypoxia and hypercapnia Qualified Code(s) : J96.21 - Acute and chronic respiratory failure with hypoxia (2) Acute exacerbation of chronic obstructive pulmonary disease (COPD) Onset Date: 12/24/17 Current Visit: No Status: Acute (3) History of lung cancer Current Visit: No Status: Acute (4) PNA (pneumonia) Onset Date: 09/30/17 Current Visit: No Status: Acute Qualifiers: Pneumonia type: due to unspecified organism Laterality: right Lung location: lower lobe of lung Qualified Code(s): J18.1 - Lobar pneumonia, unspecified organism - Plan The patient will be admitted to the hospital due to acute on chronic respiratory failure secondary to COPD exacerbation due to pneumonia. Blood cultures in process, order empiric antibiotic treatment, IV steroids and breathing treatments. He may need a CT chest once acute problem resolve to evaluate progress of right rounded opacity. Consult Dr Valdivia. - Advance Directives Does patient have a Living Will: Yes Does patient have a Durable POA for Healthcare: Yes - Code Status/Comfort Care Code Status Assessed: Yes Code Status: Full Code
[2018-11-15] MEDS ORDERED: predniSONE 20 MG TAB ONE (21:32)
[2018-11-15] MEDS ORDERED: ACETAMINOPHEN 500 MG TAB PO PRN (21:51)
[2018-11-15] MEDS ORDERED: IPRATROPIUM BROM 0.5MG/2.5ML NEB PRN (21:51)
[2018-11-15] MEDS ORDERED: ONDANSETRON 4 MG/2 ML VIAL IV PRN (21:51)
[2018-11-15] MEDS ORDERED: ALBUTEROL 2.5 MG/3 ML NEB SOL NEB PRN (21:51)
[2018-11-15 22:10] VITALS: BMI 24.7
[2018-11-16] MEDS ORDERED: PIPER/TAZO/NS 3.375gm 6.750 GM/200 ML BAG ONE (00:25)
[2018-11-16] MEDS: NA CHLORIDE 0.9% 1,000 ML IV SCH ×3 (00:38→08:43)
[2018-11-16] MEDS: METHYLPREDNISOLONE 40 MG INJ IV SCH ×2 (00:39→05:10)
[2018-11-16] MEDS: PIPER/TAZO/NS 3.375gm 3.375 GM/100 ML BAG IVPB SCH ×3 (00:39→16:52)
[2018-11-16 05:41] LABS: Arterial Blood Carboxyhemoglob 2.1 % (0-1.5); Blood Gas Oxyhemoglobin 93.8 % (94-97); Blood O2 Saturation 96.4 % (92-98.5)
[2018-11-16 06:22] LABS: Absolute Lymphocytes (CBC) 0.5 K/uL (0.7-4.9); Absolute Monocytes 0.2 K/uL (0.1-1.3); Absolute Neutrophil 19.1 K/uL (1.8-8.0); Basophils % 0.1 % (0-1.3); Hematocrit 31.5 % (39.6-49.0); Lymphocytes % 2.6 % (15.3-44.8); Monocytes % 1.1 % (3.3-12.3); RBC Red Blood Cell Count 4.02 M/uL (4.33-5.43)
[2018-11-16 06:45] LABS: Magnesium 2.4 mg/dL (1.8-2.4); Potassium 4.4 mmol/L (3.5-5.1)
[2018-11-16] MEDS: ENOXAPARIN 40 MG/0.4 ML SQ SCH (08:39)
[2018-11-16] MEDS ORDERED: BENZONATATE 100 MG CAP PO PRN (08:59)
[2018-11-16] MEDS ORDERED: FUROSEMIDE 20 MG TABLET PO SCH (09:00)
[2018-11-16] MEDS ORDERED: VANCOMYCIN 1 GM in NA CHLORIDE 0.9% 500 ML IVPB SCH (09:00)
[2018-11-16] MEDS ORDERED: ACIDOPHILUS PO SCH (09:00)
[2018-11-16] MEDS ORDERED: BIFIDO LONGUM PO SCH (09:00)
--- NOTE | 2018-11-16 09:11 | P.PN ---
Subjective Date of Service: 11/16/18 Primary Care Provider: Dr. Quesada([facility]); Pulmonary-Dr. Arshad Chief Complaint: acute on chronic respiratory failure Subjective: Other (Mild shortness of breath noted overall stable. Patient off BiPAP.) Physical Examination - Vital Signs Temperature: 96.8 F Blood Pressure: 116/57 Pulse: 68 Respirations: 19 Pulse Ox (%): 97 - Physical Exam General: Alert, In no apparent distress, Cooperative HEENT: Atraumatic Neck: Supple Respiratory: Crackles/rales (To the right base), Expiratory wheezes Cardiovascular: Normal pulses, Regular rate/rhythm Gastrointestinal: Normal bowel sounds, Soft and benign, Non-distended, No masses , No rebound, No guarding Musculoskeletal: No tenderness, No warmth Integumentary: No erythema, No warmth, No cyanosis Neurological: Normal speech, Normal strength at 5/5 x4 extr, Normal tone, Normal affect - Studies Laboratory Data (last 24 hrs) 11/15/18 18:34: PT 12.8 H, INR 1.09, APTT 29.9 11/15/18 18:34: WBC 27.7 H*, Hgb 10.5 L, Hct 35.6 L, Plt Count 312 11/15/18 18:34: Sodium 140, Potassium 4.6, BUN 21 H, Creatinine 1.06, Glucose 122 H, Total Bilirubin 0.5, AST 15, ALT 17, Alkaline Phosphatase 98, Lipase 139 Microbiology Data (last 24 hrs): 11/15/18 18:57 Nasopharnyx Influenza Type A Antigen Screen - Final 11/15/18 18:57 Nasopharnyx Influenza Type B Antigen Screen - Final Medications List Reviewed: Yes Assessment & Plan Discharge Plan: Home Plan to discharge in: Greater than 2 days Physician Review Additional Text: Impression: Acute on chronic respiratory failure with hypoxia and hypercapnia secondary to end-stage COPD exacerbation, oxygen/steroid dependent complicated with right middle lobe pneumonia and history of lung cancer Obstructive sleep apnea, uses CPAP at home Former tobacco use Anemia of chronic disease likely underlying iron and B12 deficiency GERD Plan: Acute on chronic respiratory failure with hypoxia and hypercapnia secondary to end-stage COPD exacerbation, oxygen/steroid dependent complicated with right middle lobe pneumonia and history of lung cancer: Continue IV antibiotic therapy-Zosyn and vancomycin. Will also continue with COPD medication but will make changes. Will add his Spiriva. Add Brovana. Change steroid treatment to oral. Will provide medication for cough and congestion. Continue with oxygen to maintain sats above 90%. Patient now off BiPAP. Pulmonology consulted. Await further recommendation. Patient may require CT scan to evaluate lung further. Will need to rule out cancer as patient has history of lung cancer. Prior CT scan done July 2018 shows development of 32 mm opacity in the right upper lobe. It was recommended that he have repeat CT scan or PET scan in 3 months. Will need to determine if patient has followed up on this. Await pulmonology recommendation. Continue DVT prophylaxis-Lovenox. Recheck chest x- ray tomorrow. Patient also uses CPAP at night. Patient understands COPD is end -stage. Patient desires home health and physical therapy at discharge. I will turn the service over to Dr. Valerio tomorrow. I will go over the plan of care with her. Obstructive sleep apnea, uses CPAP at home: Patient may continue with CPAP at night. Aspiration precaution in place Anemia of chronic disease likely underlying iron and B12 deficiency: Will check iron and B12 studies. Patient takes B12 low dose. Will increase B12 medication. Monitor hemoglobin closely. Former tobacco use: Patient says that he has quit but from time to time smokes. Tobacco cessation addressed in detail. Will provide nicotine patch. GERD with hiatal hernia: Prior CT scan revealed hiatal hernia. Will start medication. Time Spent Managing Pts Care (In Minutes): 55
--- NOTE | 2018-11-16 09:47 | EKG ---
Test Date: 2018-11-15 Test Time: 18:26:57 Final Touch Up Painter: WILLIAM MEASUREMENT RESULTS: Intervals: Rate: 125 CO: 100 QRSD: 72 QT: 276 QTc: 398 [place]: P: 74 CO: 100 QRS: 105 T: 69 INTERPRETIVE STATEMENTS: Sinus tachycardia with short CO Pulmonary disease pattern Right ventricular hypertrophy Abnormal ECG Compared to ECG 01/21/2018 17:41:38 Short CO interval now present Right ventricular hypertrophy now present Electronically Signed On 11-16-18 09:46:51 CDT by Nickolas Garibay
[2018-11-16] MEDS: NICOTINE 21 MG/PAT TD SCH (10:19)
[2018-11-16] MEDS: LACTOBACILLUS/ACIDOPHILUS TAB PO SCH (10:20)
[2018-11-16] MEDS: CYANOCOBALAMIN 1,000 MCG TAB PO SCH (10:20)
[2018-11-16] MEDS: ASPIRIN 81 MG CHEWABLE TABLET PO SCH (10:20)
[2018-11-16] MEDS: predniSONE 20 MG TAB PO SCH ×2 (10:20→21:06)
[2018-11-16] MEDS: GUAIFENESIN 600 MG SA TAB PO SCH ×2 (10:20→21:06)
[2018-11-16] MEDS: FOLIC ACID 1 MG TABLET PO SCH (10:20)
[2018-11-16] MEDS: TIOTROPIUM 5 SPRAYS/INHALER IH SCH (10:20)
[2018-11-16] MEDS: FAMOTIDINE 20 MG TAB PO SCH ×2 (10:20→21:06)
[2018-11-16 10:25] LABS: Ferritin 64.3 ng/mL (26-388); Thyroid Stimulating Hormone 0.11 uIU/mL (0.360-3.740)
--- NOTE | 2018-11-16 10:26 | P.CNS ---
Primary Care Provider: Dr. Quesada([facility]); Pulmonary-Dr. Arshad Chief Complaint: acute on chronic respiratory failure History of Present Illness: Patient is 78 years of age well known to me with a history of terminal COPD admitted with worsening shortness of breath cough congestion for the past few days he has white count was very elevated patient is compliant with his medication has not had an exacerbation for quite some time patient has a noninvasive vent/BiPAP at home no change since admission on broad-spectrum antibiotics denies any edema Allergies codeine Allergy (Verified 11/15/18 22:12) AMS Home Medications: Acidophilus/Bifido Longum [Lactobacillus Capsule] 1 cap PO DAILY 11/15/18 Aspirin 81 mg PO DAILY 11/15/18 Cyanocobalamin (Vitamin B-12) [Vitamin B-12] 100 mcg PO DAILY 11/15/18 Furosemide [Lasix] 20 mg PO DAILY 11/15/18 Prednisone [Deisy] 5 mg PO BID 11/15/18 Tiotropium [Spiriva Handihaler] 18 mcg IH BID 11/15/18 - Past Medical/Surgical History Diabetic: No -: Lung cancer radiation treatments three years ago -: 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 -: Sleep Apnea -: Enlarged prostate -: CHF -: Appendectomy -: Cataract surgery -: Prostate surgery - Family History Father Medical History: Heart disease, Diabetes Notes: [place] Mother Medical History: Lung disease, Cancer Notes: LUng Ca, Breast CA,Brain CA - Social History Smoking Status: Current every day smoker Alcohol use: No CD- Drugs: No Caffeine use: Yes Place of Residence: Home Review of Systems 10-point ROS is otherwise unremarkable General: Weakness Respiratory: Cough, Shortness of Breath Physical Examination Temp Pulse Resp BP Pulse Ox 96.8 F 68 19 116/57 L 97 11/16/18 09:16 11/16/18 09:16 11/16/18 09:16 11/16/18 09:16 11/16/18 09:16 General: Alert, Oriented x3 HEENT: Atraumatic Neck: Supple Respiratory: Diminished, Expiratory wheezes Cardiovascular: No edema, Regular rate/rhythm, Normal S1 S2 Gastrointestinal: Normal bowel sounds, Soft and benign Musculoskeletal: No clubbing, No swelling Integumentary: No rashes, No breakdown Laboratory Data (last 24 hrs) 11/15/18 18:34: PT 12.8 H, INR 1.09, APTT 29.9 11/15/18 18:34: WBC 27.7 H*, Hgb 10.5 L, Hct 35.6 L, Plt Count 312 11/15/18 18:34: Sodium 140, Potassium 4.6, BUN 21 H, Creatinine 1.06, Glucose 122 H, Total Bilirubin 0.5, AST 15, ALT 17, Alkaline Phosphatase 98, Lipase 139 - Problems (1) Acute and chronic respiratory failure ([id number]) Current Visit: No Status: Acute Plan: Patient is 78 years of age with a history of terminal COPD very debilitated at baseline admitted with worsening dyspnea elevated white count hypoxemia hypercapnia which is at his baseline cultures are pending chest x-ray shows some chronic changes he has a history of lung cancer continue with vancomycin Zosyn until is white count is back down to normal probably has an underlying infection vital signs stable Qualifiers: Respiratory failure complication: hypoxia and hypercapnia Qualified Code(s) : J96.21 - Acute and chronic respiratory failure with hypoxia
[2018-11-16] MEDS: ARFORMOTEROL TARTRATE 15 MCG/2 ML VIAL.NEB NEB SCH ×2 (10:50→20:00)
[2018-11-16] MEDS: VANCOMYCIN 1.25 GM in NA CHLORIDE 0.9% 250 ML IVPB SCH (21:06)
[2018-11-17] MEDS: PIPER/TAZO/NS 3.375gm 3.375 GM/100 ML BAG IVPB SCH ×2 (00:47→08:32)
[2018-11-17 06:25] LABS: Absolute Lymphocytes (CBC) 0.4 K/uL (0.7-4.9); Absolute Monocytes 0.9 K/uL (0.1-1.3); Absolute Neutrophil 16.9 K/uL (1.8-8.0); Hematocrit 27.8 % (39.6-49.0); Lymphocytes % 2.3 % (15.3-44.8); MPV 9.4 fL (7.6-11.3); Monocytes % 4.8 % (3.3-12.3); RBC Red Blood Cell Count 3.59 M/uL (4.33-5.43)
[2018-11-17 06:39] LABS: BUN Blood Urea Nitrogen 25 mg/dL (7-18); Bicarbonate 34 mmol/L (21-32); Glucose Level 145 mg/dL (74-106); Magnesium 2.4 mg/dL (1.8-2.4); Potassium 4.4 mmol/L (3.5-5.1); Sodium Level 145 mmol/L (136-145)
[2018-11-17] MEDS: ARFORMOTEROL TARTRATE 15 MCG/2 ML VIAL.NEB NEB SCH ×2 (07:50→20:00)
[2018-11-17] MEDS: ENOXAPARIN 40 MG/0.4 ML SQ SCH (08:29)
[2018-11-17] MEDS: LACTOBACILLUS/ACIDOPHILUS TAB PO SCH (08:29)
[2018-11-17] MEDS: NICOTINE 21 MG/PAT TD SCH (08:30)
[2018-11-17] MEDS: ASPIRIN 81 MG CHEWABLE TABLET PO SCH (08:30)
[2018-11-17] MEDS: FAMOTIDINE 20 MG TAB PO SCH ×2 (08:31→22:54)
[2018-11-17] MEDS: predniSONE 20 MG TAB PO SCH ×2 (08:31→22:54)
[2018-11-17] MEDS: GUAIFENESIN 600 MG SA TAB PO SCH ×2 (08:31→22:55)
[2018-11-17] MEDS: FOLIC ACID 1 MG TABLET PO SCH (08:31)
[2018-11-17] MEDS: TIOTROPIUM 5 SPRAYS/INHALER IH SCH (08:32)
[2018-11-17] MEDS: CYANOCOBALAMIN 1,000 MCG TAB PO SCH (08:35)
--- NOTE | 2018-11-17 08:57 | RAD REPORT ---
EXAM DESCRIPTION: RAD - Chest Pa And Lat (2 Views) - 11/17/2018 7:03 am CLINICAL HISTORY: Follow up pneumonia/COPD Chest pain. COMPARISON: Chest Single View dated 11/15/2018; Chest Single View dated 01/21/2018; Chest Single View da tim 12/22/2017; Chest Single View dated 09/30/2017 FINDINGS: Linear scarring in the left mid lung and vague right mid lung peripheral lung opacities ap pear stable. The heart is normal in size. Mild bilateral pleural effusions are present, slightly larg er on the right and mildly increased since prior study.
--- NOTE | 2018-11-17 17:18 | P.PN ---
Subjective Date of Service: 11/17/18 Primary Care Provider: Dr. Quesada([facility]); Pulmonary-Dr. Arshad Chief Complaint: acute on chronic respiratory failure Patient seen and examined at bedside with RN. Chart reviewed. Case discussed with pulmonology at this time. Patient this morning wants to go home. States that his daughter is coming in town after 24 years and would like for him to be seen at the house. Patient educated on the need to stay here in the hospital due to respiratory status. Will monitor for next 24-48 hr. Case discussed at length with the over the phone in agreement with plan of care at this time Review of Systems 10-point ROS is otherwise unremarkable Physical Examination - Vital Signs Temperature: 98.1 F Blood Pressure: 121/63 Pulse: 88 Respirations: 19 Pulse Ox (%): 92 - Physical Exam General: Alert, Oriented x3, Mild distress HEENT: Atraumatic, PERRLA, EOMI Neck: Supple, JVD not distended Respiratory: Normal air movement, Expiratory wheezes, Inspiratory wheezes Cardiovascular: Regular rate/rhythm, Normal S1 S2 Gastrointestinal: Normal bowel sounds, No tenderness Musculoskeletal: No tenderness Integumentary: No rashes Neurological: Normal speech, Normal tone, Normal affect Lymphatics: No axilla or inguinal lymphadenopathy - Studies Medications List Reviewed: Yes Assessment And Plan - Current Problems (Diagnosis) (1) Sepsis Current Visit: Yes Status: Acute Plan: Sepsis most likely secondary to bilateral pneumonia -currently on IV antibiotics. Will continue that here in the hospital -blood culture and sputum culture pending at this time -hemodynamically stable at this time Qualifiers: Sepsis type: sepsis due to unspecified organism Qualified Code(s): A41.9 - Sepsis, unspecified organism (2) PNA (pneumonia) Onset Date: 09/30/17 Current Visit: No Status: Acute Plan: Patient with elevated pro calcitonin and x-ray consistent with bilateral pneumonia -currently on IV antibiotics. -we will switch to oral doxycycline along with Levaquin tomorrow upon discharge Qualifiers: Pneumonia type: due to unspecified organism Laterality: right Lung location: lower lobe of lung Qualified Code(s): J18.1 - Lobar pneumonia, unspecified organism (3) Acute and chronic respiratory failure ([id number]) Current Visit: No Status: Acute Plan: Acute on chronic respiratory failure with acute worsening secondary to infection -currently patient on 4 L of nasal cannula. Will wean to 3 L which patient needs at home -pulmonology consulted. Appreciated recommendations at this time -duo nebs, steroids, oxygenation on BiPAP at night time Qualifiers: Respiratory failure complication: hypoxia and hypercapnia Qualified Code(s) : J96.21 - Acute and chronic respiratory failure with hypoxia (4) Acute exacerbation of chronic obstructive pulmonary disease (COPD) Onset Date: 12/24/17 Current Visit: No Status: Acute Plan: COPD exacerbation most likely secondary to pneumonia -DuoNeb, steroids, BiPAP p.r.n. and oxygen at this time -patient does have home oxygenation which he uses of 3 L. (5) History of lung cancer Current Visit: No Status: Chronic (6) Tobacco abuse counseling Current Visit: No Status: Acute - Plan Patient currently pending clinical improvement at this time. Will monitor for next 24-48 hr. If improvement the patient can be discharged home under stable condition. Will need to have p.o. Levaquin and doxycycline on discharge along with prednisone 20 mg b.i.d.. Discharge Plan: Home Plan to discharge in: 48 Hours - Code Status/Comfort Care Code Status Assessed: Yes Critical Care: No
[2018-11-17] MEDS: VANCOMYCIN 1.25 GM in NA CHLORIDE 0.9% 250 ML IVPB SCH (22:55)
[2018-11-18 05:36] VITALS: BP 114/58; TEMP 97.3
[2018-11-18 06:24] LABS: Absolute Lymphocytes (CBC) 0.4 K/uL (0.7-4.9); Absolute Monocytes 0.7 K/uL (0.1-1.3); Absolute Neutrophil 12.7 K/uL (1.8-8.0); Basophils % 0.2 % (0-1.3); Eosinophils % 0.2 % (0-4.4); Hematocrit 28.2 % (39.6-49.0); Lymphocytes % 3.2 % (15.3-44.8); MPV 9.2 fL (7.6-11.3); Monocytes % 5.1 % (3.3-12.3); RBC Red Blood Cell Count 3.63 M/uL (4.33-5.43)
[2018-11-18 06:34] LABS: BUN Blood Urea Nitrogen 20 mg/dL (7-18); Bicarbonate 37 mmol/L (21-32); Glucose Level 147 mg/dL (74-106); Magnesium 2.3 mg/dL (1.8-2.4); Potassium 4.6 mmol/L (3.5-5.1); Sodium Level 144 mmol/L (136-145)
[2018-11-18] MEDS: ARFORMOTEROL TARTRATE 15 MCG/2 ML VIAL.NEB NEB SCH (07:35)
[2018-11-18] MEDS: TIOTROPIUM 5 SPRAYS/INHALER IH SCH (08:28)
[2018-11-18] MEDS: predniSONE 20 MG TAB PO SCH (08:30)
[2018-11-18] MEDS: CYANOCOBALAMIN 1,000 MCG TAB PO SCH (08:30)
[2018-11-18] MEDS: LACTOBACILLUS/ACIDOPHILUS TAB PO SCH (08:30)
[2018-11-18] MEDS: ASPIRIN 81 MG CHEWABLE TABLET PO SCH (08:30)
[2018-11-18] MEDS: FOLIC ACID 1 MG TABLET PO SCH (08:30)
[2018-11-18] MEDS: GUAIFENESIN 600 MG SA TAB PO SCH (08:30)
[2018-11-18] MEDS: FAMOTIDINE 20 MG TAB PO SCH (08:30)
[2018-11-18] MEDS: ENOXAPARIN 40 MG/0.4 ML SQ SCH (08:30)
[2018-11-18] MEDS: NICOTINE 21 MG/PAT TD SCH (08:30)
--- NOTE | 2018-11-18 08:36 | P.PN ---
Subjective Date of Service: 11/17/18 Primary Care Provider: Dr. Quesada([facility]); Pulmonary-Dr. Arshad Chief Complaint: acute on chronic respiratory failure Subjective: Improving Patient is doing better is white count is declining still has shortness of breath on mild exertion add cultures are also positive id pending Review of Systems General: Weakness Respiratory: Cough, Shortness of Breath Physical Examination - Vital Signs Temperature: 97.3 F Blood Pressure: 114/58 Pulse: 67 Respirations: 20 Pulse Ox (%): 93 - Physical Exam General: Alert, Oriented x3, Mild distress Respiratory: Clear to auscultation bilaterally, Diminished Cardiovascular: No edema, Regular rate/rhythm - Studies Medications List Reviewed: Yes Assessment & Plan - Problems (Diagnosis) (1) Acute and chronic respiratory failure ([id number]) Current Visit: No Status: Acute Plan: Patient admitted with acute on chronic respiratory failure he has terminal COPD white count is declining clinically improving continue with broad-spectrum antibiotics weighed id from the blood cultures before discharge patient has all bronchodilators BiPAP an oxygen at home he is very keen to go home to meet his daughter after 23 years patient's vital signs are stable this organism should be susceptible to cephalosporins Zosyn has been discontinued Qualifiers: Respiratory failure complication: hypoxia and hypercapnia Qualified Code(s) : J96.21 - Acute and chronic respiratory failure with hypoxia Physician Review Additional Text: Impression: Acute on chronic respiratory failure with hypoxia and hypercapnia secondary to end-stage COPD exacerbation, oxygen/steroid dependent complicated with right middle lobe pneumonia and history of lung cancer Obstructive sleep apnea, uses CPAP at home Former tobacco use Anemia of chronic disease likely underlying iron and B12 deficiency GERD Plan: Acute on chronic respiratory failure with hypoxia and hypercapnia secondary to end-stage COPD exacerbation, oxygen/steroid dependent complicated with right middle lobe pneumonia and history of lung cancer: Continue IV antibiotic therapy-Zosyn and vancomycin. Will also continue with COPD medication but will make changes. Will add his Spiriva. Add Brovana. Change steroid treatment to oral. Will provide medication for cough and congestion. Continue with oxygen to maintain sats above 90%. Patient now off BiPAP. Pulmonology consulted. Await further recommendation. Patient may require CT scan to evaluate lung further. Will need to rule out cancer as patient has history of lung cancer. Prior CT scan done July 2018 shows development of 32 mm opacity in the right upper lobe. It was recommended that he have repeat CT scan or PET scan in 3 months. Will need to determine if patient has followed up on this. Await pulmonology recommendation. Continue DVT prophylaxis-Lovenox. Recheck chest x- ray tomorrow. Patient also uses CPAP at night. Patient understands COPD is end -stage. Patient desires home health and physical therapy at discharge. I will turn the service over to Dr. Valerio tomorrow. I will go over the plan of care with her. Obstructive sleep apnea, uses CPAP at home: Patient may continue with CPAP at night. Aspiration precaution in place Anemia of chronic disease likely underlying iron and B12 deficiency: Will check iron and B12 studies. Patient takes B12 low dose. Will increase B12 medication. Monitor hemoglobin closely. Former tobacco use: Patient says that he has quit but from time to time smokes. Tobacco cessation addressed in detail. Will provide nicotine patch. GERD with hiatal hernia: Prior CT scan revealed hiatal hernia. Will start medication.
[2018-11-18 12:32] VITALS: O2SAT 94
--- NOTE | 2018-11-18 18:30 | P.DS ---
Admission Date: 11/15/18 Discharge Date: 11/18/18 Primary Care Provider: Dr. Quesada([facility]); Pulmonary-Dr. Arshad Disposition: DC HOME/HOME HEALTH CARE Discharge Condition: FAIR Reason for Admission: acute on chronic respiratory failure Consultations: Pulmonology - Problems (1) Sepsis Status: Acute Qualifiers: Sepsis type: sepsis due to unspecified organism Qualified Code(s): A41.9 - Sepsis, unspecified organism (2) PNA (pneumonia) Onset Date: 09/30/17 Status: Acute Qualifiers: Pneumonia type: due to unspecified organism Laterality: right Lung location: lower lobe of lung Qualified Code(s): J18.1 - Lobar pneumonia, unspecified organism (3) Acute and chronic respiratory failure ([id number]) Status: Acute Qualifiers: Respiratory failure complication: hypoxia and hypercapnia Qualified Code(s) : J96.21 - Acute and chronic respiratory failure with hypoxia (4) Acute exacerbation of chronic obstructive pulmonary disease (COPD) Onset Date: 12/24/17 Status: Acute (5) History of lung cancer Status: Chronic (6) Tobacco abuse counseling Status: Acute Brief History of Present Illness: Mr San is a 78 years old male with history of COPD on Home oxygen 24/7 and BiPAP at night, lung cancer, chronic diastolic CHF, still smoking some days, who start yesterday with progressive SOB. He also increased his cough, but did not changed sputum color. Today, the patient was feeling worse, O2 sat at home 79%. Subjective fever. At arrival the patient was febrile, 103.4 F, Lab work remarkable for leukocytosis 27.7, elevated procalcitonin with normal lactate. CXR shows rounded opacity on the right lung (inflamatory vs malignancy) and linear scarring on the left. ABG shows PCO2 69.4 PH 7.31 Hospital Course: Overall during the hospital stay patient remained stable Patient was initially admitted to the hospital for acute on chronic respiratory failure most likely secondary to bilateral pneumonia and COPD exacerbation secondary to bilateral pneumonia as well. Patient does have end-stage COPD for which she uses home oxygenation at 3 L. On admission here in the hospital patient was placed on BiPAP and was successfully weaned off to 3 L of nasal cannula here in the hospital. Pulmonology was consulted. Patient was initially started on IV antibiotics which were switched to oral antibiotics once patient had marked improvement. Patient also continued to get duo nebs along with steroids while here in the hospital. Patient had marked improvement in his symptoms and 48 hr after being hospitalized and thus was discharged home under stable condition was asked to continue taking Levaquin and doxycycline for next 14 days along with prednisone 20 mg daily for 10 days. Patient was also asked to follow up with pulmonology in about 1-2 days post discharge. Patient was asked to continue using his oxygenation as required at home. Patient demonstrated understanding and thus was discharged home under stable condition. Vital Signs/Physical Exam: Temp Pulse Resp BP Pulse Ox 97.3 F 67 20 114/58 L 93 11/18/18 08:36 11/18/18 08:36 11/18/18 08:36 11/18/18 08:36 11/18/18 08:36 General: Alert, In no apparent distress HEENT: Atraumatic, PERRLA, EOMI Neck: Supple, JVD not distended Respiratory: Normal air movement, Expiratory wheezes, Inspiratory wheezes Cardiovascular: Regular rate/rhythm, Normal S1 S2 Gastrointestinal: Normal bowel sounds, No tenderness Musculoskeletal: No tenderness Integumentary: No rashes Neurological: Normal speech, Normal tone, Normal affect Lymphatics: No axilla or inguinal lymphadenopathy Laboratory Data at Discharge: WBC 13.9 K/uL (4.3-10.9) H D 11/18/18 06:00 Hgb 9.0 g/dL (13.6-17.9) L 11/18/18 06:00 Hct 28.2 % (39.6-49.0) L 11/18/18 06:00 Plt Count 283 K/uL (152-406) 11/18/18 06:00 PT 12.8 SECONDS (9.5-12.5) H 11/15/18 18:34 INR 1.09 11/15/18 18:34 APTT 29.9 SECONDS (24.3-36.9) 11/15/18 18:34 Sodium 144 mmol/L (136-145) 11/18/18 06:00 Potassium 4.6 mmol/L (3.5-5.1) 11/18/18 06:00 BUN 20 mg/dL (7-18) H 11/18/18 06:00 Creatinine 0.70 mg/dL (0.55-1.3) 11/18/18 06:00 Glucose 147 mg/dL (74-106) H 11/18/18 06:00 Magnesium 2.3 mg/dL (1.8-2.4) 11/18/18 06:00 Total Bilirubin 0.5 mg/dL (0.2-1.0) 11/15/18 18:34 AST 15 U/L (15-37) 11/15/18 18:34 ALT 17 U/L (12-78) 11/15/18 18:34 Alkaline Phosphatase 98 U/L (45-117) 11/15/18 18:34 Lipase 139 U/L (73-393) 11/15/18 18:34 Home Medications: Acidophilus/Bifido Longum [Lactobacillus Capsule] 1 cap PO DAILY 11/15/18 Aspirin 81 mg PO DAILY 11/15/18 Cyanocobalamin (Vitamin B-12) [Vitamin B-12] 100 mcg PO DAILY 11/15/18 Furosemide [Lasix] 20 mg PO DAILY 11/15/18 Tiotropium [Spiriva Handihaler*] 18 mcg IH BID 11/15/18 Doxycycline Monohydrate 100 mg PO BID #28 capsule 11/18/18 levoFLOXacin [Levaquin] 500 mg PO DAILY #14 tab 11/18/18 predniSONE [Prednisone*] 20 mg PO BID #20 tab 11/18/18 New Medications: Doxycycline Monohydrate 100 mg PO BID #28 capsule levoFLOXacin [Levaquin] 500 mg PO DAILY #14 tab predniSONE [Prednisone*] 20 mg PO BID #20 tab Patient Discharge Instructions: Please f.u with PCP and Pulmonology in 1 to 2 days post discharge. New medication. Levaquin and doxycycline. Diet: Regular Activity: Ad luna
== END 2018-11-18 11:51 | disposition home health service (06) | DRG 871 ==
LOC: ER 18:18 → ERHOLD 20:45 → 2ND 21:33
PROVIDERS: ADMIT Internal Medicine; ATTEND Family Medicine
DX: A41.9 Sepsis, unspecified organism (principal); J96.21 Acute and chronic respiratory failure with hypoxia; J18.1 Lobar pneumonia, unspecified organism; J96.22 Acute and chronic respiratory failure with hypercapnia; J44.0 Chronic obstructive pulmonary disease with (acute) lower respiratory infection; J44.1 Chronic obstructive pulmonary disease with (acute) exacerbation; I50.32 Chronic diastolic (congestive) heart failure; F17.210 Nicotine dependence, cigarettes, uncomplicated; Z99.81 Dependence on supplemental oxygen; G47.33 Obstructive sleep apnea (adult) (pediatric); N40.0 Benign prostatic hyperplasia without lower urinary tract symptoms; D63.8 Anemia in other chronic diseases classified elsewhere; D50.9 Iron deficiency anemia, unspecified; D51.3 Other dietary vitamin B12 deficiency anemia; K21.9 Gastro-esophageal reflux disease without esophagitis; K44.9 Diaphragmatic hernia without obstruction or gangrene; Z79.82 Long term (current) use of aspirin; Z79.51 Long term (current) use of inhaled steroids; Z79.52 Long term (current) use of systemic steroids; Z85.118 Personal history of other malignant neoplasm of bronchus and lung; Z88.5 Allergy status to narcotic agent
CPT/HCPCS: 36415; 71045; 71046; 80048; 80076; 80202; 82550; 82553; 82607; 82728; 82805; 82962; 83540; 83605; 83690; 83735; 84145; 84439; 84443; 84466; 84484; 85025; 85610; 85730; 87040; 87077; 87186; 87205; 87804; 93005; 94640; 94660; 94760; 96365; 96366; 96375; 97162; 99285; J0696; J1650; J2543; J2920; J7030; J7512; J7605

== ENCOUNTER 2019-05-25 00:48 | Inpatient (IN) | payer OTHER ==
--- OUTSIDE RECORDS SUMMARY | 2019-05-25 00:51 | XMS REPORT ---
:1940 [facility] Organization [facility] Address [address] [place] [address] Dr. Jauregui [address] [place] [id number] Care Team Providers Name Role Phone Unavailable Unavailable Unavailable Problems This patient has no known problems. Allergies, Adverse Reactions, Alerts This patient has no known allergies or adverse reactions. Medications This patient has no known medications.
--- OUTSIDE RECORDS SUMMARY | 2019-05-25 00:52 | XMS REPORT ---
:1940 Author Organization [employer] Care Team Providers Name Role Phone Teodora Gray Provider Role Unavailable Allergies, Adverse Reactions, Alerts Substance Reaction Event Type N.K.D.A. Info Not Available Non Drug Allergy Problems Problem Type Condition Code Onset Dates Condition Status Assessment Allergic rhinitis, unspecified J30.9 Active seasonality, unspecified trigger Problem History of lung cancer Z85.118 Active Problem Dependence on supplemental oxygen Z99.81 Active Problem Allergic rhinitis, unspecified J30.9 Active seasonality, unspecified trigger Problem Osteoarthritis of cervical spine, M47.812 Active unspecified spinal osteoarthritis complication status Problem Chronic obstructive pulmonary J44.9 Active disease, unspecified Problem Pulmonary emphysema, unspecified J43.9 Active emphysema type Medications Medication Code Code Instructions Start End Status Dosage System Date Date Clonazepam [facility] 29206283952 0.5 MG Orally Active 1 tablet at Once a day bedtime ProAir [facility] 39494104306 108 (90 Base) Active 2 puffs as RespiClick MCG/ACT needed Inhalation every 6 hrs Albuterol [facility] 62961448945 (2.5 MG/3ML) Active 3 ml as Sulfate 0.083% needed Inhalation Three times a day Diclofenac ND 33806960243 100 MG Orally November 26, Active 1 tablet Sodium ER Once a day 2017 with food or milk Spiriva [facility] 53184160773 18 MCG Active 1 capsule HandiHaler Inhalation Once a day Furosemide [facility] 34394875750 20 MG Orally Active 1 tablet Once a day Ipratropium [facility] 06504108874 0.06 % Nasally Active 2 sprays in [place] Four times a each day nostril Vitamin D3 [facility] 77007470686 2000 UNIT Active 1 capsule Orally Once a day -81 [facility] 09577942462 81 MG Orally Active 1 tablet Once a day Montelukast ND 54103117086 10 MG Orally November 07, Active 1 tablet in Sodium Once a day 2018 the evening PredniSONE ND 13637964049 10 MG Orally Active 1 tablet Once a day Advair Diskus AZC 04101501529 500-50 MCG/DOSE Active 1 puff Inhalation Twice a day Flutter NDC 0 three times a Active as directed day Results No Known Results Summary Purpose [employer] Submission
[2019-05-25 01:09] LABS: Arterial Blood Carboxyhemoglob 1.3 % (0-1.5); Blood Gas Oxyhemoglobin 92.5 % (94-97); Blood O2 Saturation 94.2 % (92-98.5)
[2019-05-25] MEDS ORDERED: ALBUTEROL 2.5 MG/3 ML NEB SOL ONE (01:09)
[2019-05-25] MEDS ORDERED: IPRATROPIUM BROM 0.5MG/2.5ML ONE (01:09)
--- NOTE | 2019-05-25 01:45 | ER ---
Nurse's Notes [facility] Name: Idris San Age: 78 yrs Sex: Male : 1940 Arrival Date: 05/25/2019 Time: 00:51 Bed 2 Private MD: Diagnosis: Chronic obstructive pulmonary disease with (acute) exacerbation Presentation: 05/25 00:56 Presenting complaint: EMS states: they were toned out for report of pt with respiratory bb distress pt O2 sats were 70% at home on 4 Lpm they started an IV gave solu-medrol and breathing treatment then placed pt on c-pap. Transition of care: patient was not received from another setting of care. Onset of symptoms was May 23, 2019. Risk Assessment: Do you want to hurt yourself or someone else? Patient reports no desire to harm self or others. Initial Sepsis Screen: Does the patient meet any 2 criteria? No. Patient's initial sepsis screen is negative. Does the patient have a suspected source of infection? No. Patient's initial sepsis screen is negative. Care prior to arrival: None. 00:56 Method Of Arrival: EMS: [facility] bb 00:56 Acuity: LISBETH 1 bb Triage Assessment: 01:15 Respiratory: Reports shortness of breath at rest on exertion Onset: The ak1 symptoms/episode began/occurred today, the patient has severe shortness of breath. Historical: - Allergies: 01:00 Codeine; bb 01:00 Morphine; bb - PMHx: 01:00 Anemia; CHF; COPD; Emphysema; enlarged prostate; femur fracture; Lung Cancer; Pt bb reports that it cleared up; Pneumonia; Sleep Apnea; - Immunization history:: Adult Immunizations unknown. - Social history:: Smoking status: Patient/guardian denies using tobacco. - Ebola Screening: : No symptoms or risks identified at this time. Screenin:02 Abuse screen: Denies threats or abuse. Denies injuries from another. Nutritional ak1 screening: No deficits noted. Tuberculosis screening: No symptoms or risk factors identified. Fall Risk None identified. Assessment: 01:02 General: Appears slender, Behavior is cooperative. Pain: Denies pain. Neuro: Level of ak1 Consciousness is awake, alert, obeys commands, Oriented to person, place, time, situation, Appropriate for age Moves all extremities. Speech is normal. Cardiovascular: Heart tones S1 S2 Rhythm is sinus tachycardia. Respiratory: Airway is patent Respiratory effort is labored, gasping, Breath sounds are diminished Breath sounds with wheezes bilaterally. GI: Abdomen is non-distended. : No signs and/or symptoms were reported regarding the genitourinary system. EENT: No signs and/or symptoms were reported regarding the EENT system. Derm: No signs and/or symptoms reported regarding the dermatologic system. Musculoskeletal: No signs and/or symptoms reported regarding the musculoskeletal system. 02:55 Reassessment: Patient appears in no apparent distress at this time. Patient and/or ak1 family updated on plan of care and expected duration. Pain level reassessed. Patient states symptoms have improved. 03:23 Reassessment: Patient appears in no apparent distress at this time. pt drowsy but ak1 arousable. RT at bedside to adjust bi pap mask. pt informed of ICU admission. 04:30 Reassessment: Patient appears in no apparent distress at this time. patient drowsy but cc3 arousable. Patient left ER for admission to ICU room 2 escorted by wi, ARABELLA Henson and the RT. No valuables left in the patient's room. Vital Signs: 01:00 BP 171 / 82; Pulse 102; Resp 32 S; Temp 97.9(TE); Pulse Ox 98% on R/A; Weight 72.57 kg bb (R); Height 5 ft. 4 in. (162.56 cm) (R); 01:14 BP 145 / 77; Pulse 93; Resp 15; Pulse Ox 97% on 45% BiPAP; ak1 01:37 BP 122 / 70; Pulse 94; Resp 26; Pulse Ox 99% on 45% BiPAP; ak1 02:08 BP 111 / 64; Pulse 89; Resp 24; Temp 97.9; Pulse Ox 99% on 45% BiPAP; ak1 02:55 BP 108 / 59; Pulse 89; Resp 24; Temp 98; Pulse Ox 97% on 45% BiPAP; ak1 03:07 BP 106 / 65; Pulse 87; Resp 24; Temp 98; Pulse Ox 96% on 45% BiPAP; ak1 03:33 BP 107 / 61; Pulse 85; Resp 19; Temp 98.3; Pulse Ox 93% on 45% BiPAP; ak1 04:30 BP 103 / 67; Pulse 88; Resp 21 S; Pulse Ox 95% on 45% BiPAP; cc3 01:00 Body Mass Index 27.46 (72.57 kg, 162.56 cm) bb ED Course: 00:51 Patient arrived in ED. ds1 00:53 Femi Vasquez MD is Attending Physician. tw4 00:58 Britany Pacheco, RN is Primary Nurse. ak1 00:59 Triage completed. bb 01:00 Arm band placed on Patient placed in an exam room, on a stretcher, on oxygen, on bb cardiac cath lab manager, on pulse oximetry, on bipap. EKG completed in triage. Results shown to MD. 01:02 Patient has correct armband on for positive identification. Placed in gown. Bed in low ak1 position. Call light in reach. Side rails up X2. cardiac monitor technician on. Pulse ox on. NIBP on. 01:02 Initial lab(s) drawn, by me, sent to lab. EKG done, by ED staff, reviewed by Femi Vasquez MD X-ray(s) taken. Inserted saline lock: 22 gauge in right forearm, using aseptic technique. Blood collected. Maintain EMS IV. Dressing intact. Site clean \T\ dry. Gauge \T\ site: 22g left wrist. O2 via bi-pap. 01:06 XRAY CXR (1 view) Sent. ak1 01:06 BIPAP Sent. ak1 01:16 First set of blood cultures drawn by lab staff. Second set of blood cultures drawn by ak1 lab staff. 01:18 XRAY CXR (1 view) In Process Unspecified. EDMS 01:26 Lab(s) recollected, by me, sent to lab. ak1 01:43 Katarzyna Montemayor MD is Hospitalizing Provider. tw4 02:58 No provider procedures requiring assistance completed. Patient admitted, IV remains in ak1 place. Administered Medications: 01:13 Drug: DuoNeb (3:1) (2.5 mg - 0.5 mg) 3 ml Route: Nebulizer; ak1 02:56 Follow up: Response: No adverse reaction ak1 Outcome: 01:44 Decision to Hospitalize by Provider. tw4 02:58 Admitted to ICU accompanied by nurse, accompanied by tech, via stretcher, room icu 2, ak1 with oxygen, on monitor, with chart. 02:58 Condition: improved 02:58 Instructed on the need for admit. 04:55 Patient left the ED. cc3 Signatures: Dispatcher [employer] Jihan Rahman Brenda, RN RN bb Britany Pacheco RN RN ak1 Femi Vasquez MD MD tw4 Padmini Babcock cc3
--- NOTE | 2019-05-25 01:46 | EDPHYS ---
Physician Documentation [facility] Name: Idris San Age: 78 yrs Sex: Male : 1940 Arrival Date: 05/25/2019 Time: 00:51 Bed 2 Private MD: ED Physician Femi Vasquez HPI: 05/25 00:59 This 78 yrs old Male presents to ER via EMS with complaints of Respiratory tw4 Distress. 00:59 The patient has shortness of breath at rest. Onset: The symptoms/episode began/occurred tw4 1 week(s) ago. Duration: The symptoms are continuous, and are steadily getting worse. The patient's shortness of breath has no apparent modifying factors. Severity of symptoms: At their worst the symptoms were severe in the emergency department the symptoms are unchanged. The patient has not experienced similar symptoms in the past. Historical: - Allergies: 01:00 Codeine; bb 01:00 Morphine; bb - PMHx: 01:00 Anemia; CHF; COPD; Emphysema; enlarged prostate; femur fracture; Lung Cancer; Pt bb reports that it cleared up; Pneumonia; Sleep Apnea; - Immunization history:: Adult Immunizations unknown. - Social history:: Smoking status: Patient/guardian denies using tobacco. - Ebola Screening: : No symptoms or risks identified at this time. ROS: 00:59 Constitutional: Negative for fever, chills, and weight loss, Eyes: Negative for injury, tw4 pain, redness, and discharge, Cardiovascular: Negative for chest pain, palpitations, and edema, Abdomen/GI: Negative for abdominal pain, nausea, vomiting, diarrhea, and constipation, Back: Negative for injury and pain, MS/Extremity: Negative for injury and deformity, Skin: Negative for injury, rash, and discoloration, Neuro: Negative for headache, weakness, numbness, tingling, and seizure. 00:59 Respiratory: Positive for cough, shortness of breath, wheezing, Negative for dyspnea on exertion, hemoptysis, pleurisy. Exam: 00:59 Head/Face: Normocephalic, atraumatic. Eyes: Pupils equal round and reactive to light, tw4 extra-ocular motions intact. Lids and lashes normal. Conjunctiva and sclera are non-icteric and not injected. Cornea within normal limits. Periorbital areas with no swelling, redness, or edema. Chest/axilla: Normal chest wall appearance and motion. Nontender with no deformity. No lesions are appreciated. Cardiovascular: Regular rate and rhythm with a normal S1 and S2. No gallops, murmurs, or rubs. Normal PMI, no JVD. No pulse deficits. 00:59 Abdomen/GI: Soft, non-tender, with normal bowel sounds. No distension or tympany. No guarding or rebound. No evidence of tenderness throughout. Back: No spinal tenderness. No costovertebral tenderness. Full range of motion. MS/ Extremity: Pulses equal, no cyanosis. Neurovascular intact. Full, normal range of motion. Neuro: Awake and alert, GCS 15, oriented to person, place, time, and situation. Cranial nerves II-XII grossly intact. Motor strength 5/5 in all extremities. Sensory grossly intact. Cerebellar exam normal. Normal gait. Psych: Awake, alert, with orientation to person, place and time. Behavior, mood, and affect are within normal limits. 00:59 Constitutional: The patient appears in obvious distress, moderately distressed. 00:59 Respiratory: moderate respiratory distress is noted, Respirations: labored breathing, that is moderate, accessory muscle usage, that is moderate, Breath sounds: decreased breath sounds, that are moderate, wheezing: is heard diffusely. Vital Signs: 01:00 BP 171 / 82; Pulse 102; Resp 32 S; Temp 97.9(TE); Pulse Ox 98% on R/A; Weight 72.57 kg bb (R); Height 5 ft. 4 in. (162.56 cm) (R); 01:14 BP 145 / 77; Pulse 93; Resp 15; Pulse Ox 97% on 45% BiPAP; ak1 01:37 BP 122 / 70; Pulse 94; Resp 26; Pulse Ox 99% on 45% BiPAP; ak1 02:08 BP 111 / 64; Pulse 89; Resp 24; Temp 97.9; Pulse Ox 99% on 45% BiPAP; ak1 02:55 BP 108 / 59; Pulse 89; Resp 24; Temp 98; Pulse Ox 97% on 45% BiPAP; ak1 03:07 BP 106 / 65; Pulse 87; Resp 24; Temp 98; Pulse Ox 96% on 45% BiPAP; ak1 03:33 BP 107 / 61; Pulse 85; Resp 19; Temp 98.3; Pulse Ox 93% on 45% BiPAP; ak1 04:30 BP 103 / 67; Pulse 88; Resp 21 S; Pulse Ox 95% on 45% BiPAP; cc3 01:00 Body Mass Index 27.46 (72.57 kg, 162.56 cm) bb MDM: 00:53 Patient medically screened. tw4 03:40 Antibiotic administration: Not indicated. Data reviewed: vital signs, nurses notes. tw Data interpreted: Pulse oximetry: Interpretation: normal. 05/25 00:57 Order name: ABG tw4 05/25 00:57 Order name: Blood Culture Adult (2) tw4 05/25 00:57 Order name: BMP tw4 05/25 00:57 Order name: CBC with Diff tw4 05/25 00:57 Order name: Ckmb tw4 05/25 00:57 Order name: CPK tw4 05/25 00:57 Order name: D-Dimer tw4 05/25 00:57 Order name: Hepatic Function tw4 05/25 00:57 Order name: Lipase tw4 05/25 00:57 Order name: Magnesium tw4 05/25 00:57 Order name: NT PRO-BNP tw4 05/25 00:57 Order name: PT-INR tw4 05/25 00:57 Order name: Ptt, Activated tw4 05/25 00:57 Order name: Troponin (emerg Dept Use Only) tw4 05/25 00:57 Order name: BIPAP tw4 05/25 00:57 Order name: XRAY CXR (1 view) tw4 05/25 02:19 Order name: Comprehensive Metabolic Panel EDMS 05/25 02:19 Order name: Comprehensive Metabolic Panel EDMS 05/25 02:19 Order name: Comprehensive Metabolic Panel EDMS 05/25 02:22 Order name: ABG Arterial Blood Gas EDMS 05/25 02:22 Order name: ABG Arterial Blood Gas EDMS 05/25 02:23 Order name: CBC with Automated Diff EDMS 05/25 02:23 Order name: CBC with Automated Diff EDMS 05/25 02:23 Order name: CBC with Automated Diff EDMS 05/25 02:23 Order name: Lipid Profile EDMS 05/25 02:23 Order name: Lipid Profile EDMS 05/25 02:23 Order name: Magnesium EDMS 05/25 02:23 Order name: Magnesium EDMS 05/25 02:23 Order name: Phosphorus EDMS 05/25 02:23 Order name: Phosphorus EDMS 05/25 00:57 Order name: Call for Old EKG tw4 05/25 00:57 Order name: EKG; Complete Time: 01:00 tw4 05/25 00:57 Order name: Cardiac monitoring; Complete Time: 00:58 tw4 05/25 00:57 Order name: EKG - Nurse/Tech; Complete Time: 00:58 tw4 05/25 00:57 Order name: IV Saline Lock; Complete Time: 00:58 tw4 05/25 00:57 Order name: Labs collected and sent; Complete Time: 00:58 tw4 05/25 00:57 Order name: O2 Per Protocol; Complete Time: 00:59 tw4 05/25 00:57 Order name: O2 Sat Monitoring; Complete Time: 00:59 tw4 05/25 02:22 Order name: CONS Physician Consult EDMS 05/25 02:22 Order name: Heart Healthy EDSD Administered Medications: 01:13 Drug: DuoNeb (3:1) (2.5 mg - 0.5 mg) 3 ml Route: Nebulizer; ak1 02:56 Follow up: Response: No adverse reaction ak1 Disposition: 05/25/19 01:44 Hospitalization ordered by Katarzyna Montemayor for Inpatient Admission. Preliminary diagnosis is Chronic obstructive pulmonary disease with (acute) exacerbation. - Bed requested for Intensive Care Unit. - Status is Inpatient Admission. cc3 - Condition is Stable. - Problem is new. - Symptoms have improved. UTI on Admission? No Signatures: Dispatcher [employer] EDSD Lynne Garcia RN RN Britany Pacheco RN RN ak1 Cherry Cm RN RN Femi Cantu MD MD tw4 Padmini Babcock cc3 Corrections: (The following items were deleted from the chart) 02:10 01:44 Hospitalization Ordered by Katarzyna Montemayor MD for Inpatient Admission. Preliminary tw4 diagnosis is Chronic obstructive pulmonary disease with (acute) exacerbation. Bed requested for Telemetry/MedSurg (Inpatient). Status is Inpatient Admission. Condition is Stable. Problem is new. Symptoms have improved. UTI on Admission? No. tw4 02:56 02:10 05/25/2019 01:44 Hospitalization Ordered by Katarzyna Montemayor MD for Inpatient cg Admission. Preliminary diagnosis is Chronic obstructive pulmonary disease with (acute) exacerbation. Bed requested for Intensive Care Unit. Status is Inpatient Admission. Condition is Stable. Problem is new. Symptoms have improved. UTI on Admission? No. tw4 04:55 02:56 05/25/2019 01:44 Hospitalization Ordered by Katarzyna Montemayor MD for Inpatient cc3 Admission. Preliminary diagnosis is Chronic obstructive pulmonary disease with (acute) exacerbation. Bed requested for Intensive Care Unit. Status is Inpatient Admission. Condition is Stable. Problem is new. Symptoms have improved. UTI on Admission? No. cg
[2019-05-25 01:53] LABS: Absolute Lymphocytes (CBC) 1.3 K/uL (0.7-4.9); Basophils % 0.2 % (0-1.3); Hematocrit 42.3 % (39.6-49.0); Lymphocytes % 9.2 % (15.3-44.8); RBC Red Blood Cell Count 4.71 M/uL (4.33-5.43)
[2019-05-25 01:55] LABS: Protime INR 0.88
[2019-05-25 02:11] LABS: ALT/SGPT 30 U/L (12-78); AST/SGOT 20 U/L (15-37); Albumin 3.5 g/dL (3.4-5.0); Alkaline Phosphatase 95 U/L (45-117); BUN Blood Urea Nitrogen 14 mg/dL (7-18); Bicarbonate 39 mmol/L (21-32); Bilirubin Direct 0.1 mg/dL (0-0.2); Bilirubin Total 0.3 mg/dL (0.2-1.0); CKMB Creatine Kinase MB 2.2 ng/mL (0.3-3.6); Creatine Phosphokinase 54 U/L (39-308); Glucose Level 161 mg/dL (74-106); Lipase 137 U/L (73-393); Magnesium 2.5 mg/dL (1.8-2.4); NT PRO-BNP 1123 pg/mL (<450); Potassium 4.1 mmol/L (3.5-5.1); Protein, Total 7.2 g/dL (6.4-8.2); Sodium Level 141 mmol/L (136-145); Troponin (Emerg Dept Use Only) < 0.02 ng/mL (0.0-0.045)
[2019-05-25] MEDS ORDERED: ACETAMINOPHEN 500 MG TAB PO PRN (02:12)
[2019-05-25] MEDS ORDERED: ONDANSETRON 4 MG/2 ML VIAL IV PRN (02:12)
[2019-05-25] MEDS ORDERED: MAGNESIUM HYDROXIDE 8% 30 ML PO PRN (02:12)
[2019-05-25] MEDS: ALBUTEROL 2.5 MG/3 ML NEB SOL NEB SCH ×3 (04:00→13:20)
[2019-05-25] MEDS: IPRATROPIUM BROM 0.5MG/2.5ML NEB SCH ×4 (04:00→20:15)
[2019-05-25 04:33] LABS: Absolute Lymphocytes (CBC) 0.2 K/uL (0.7-4.9); Basophils % 0.1 % (0-1.3); Hematocrit 41.3 % (39.6-49.0); Lymphocytes % 1.7 % (15.3-44.8); MPV 10.4 fL (7.6-11.3); RBC Red Blood Cell Count 4.57 M/uL (4.33-5.43)
[2019-05-25 05:04] LABS: ALT/SGPT 28 U/L (12-78); AST/SGOT 15 U/L (15-37); Albumin 3.3 g/dL (3.4-5.0); Alkaline Phosphatase 88 U/L (45-117); BUN Blood Urea Nitrogen 15 mg/dL (7-18); Bilirubin Total 0.3 mg/dL (0.2-1.0); Glucose Level 150 mg/dL (74-106); Magnesium 2.5 mg/dL (1.8-2.4); Phosphorus 3.3 mg/dL (2.5-4.9); Potassium 4.5 mmol/L (3.5-5.1); Protein, Total 6.7 g/dL (6.4-8.2); Sodium Level 144 mmol/L (136-145)
[2019-05-25 05:07] LABS: Bicarbonate 41 mmol/L (21-32)
[2019-05-25 05:13] LABS: Blood Morphology Comment NOT SEEN (NOT SEEN); Platelet Estimate ADEQ
[2019-05-25] MEDS: Levofloxacin 750mg IV 750 MG/150 ML BAG IV SCH (05:23)
[2019-05-25] MEDS ORDERED: METHYLPREDNISOLONE 125 MG INJ IV SCH (06:00)
--- NOTE | 2019-05-25 07:18 | P.HP ---
Certification for Inpatient Patient admitted to: Inpatient With expected LOS: >2 Midnights Patient will require the following post-hospital care: None Practitioner: I am a practitioner with admitting privileges, knowledge of patient current condition, hospital course, and medical plan of care. Services: Services provided to patient in accordance with Admission requirements found in Title 42 Section 412.3 of the Code of Federal Regulations Patient History Date of Service: 05/25/19 Reason for admission: Hypercapnic respiratory failure History of Present Illness: Patient is a 78-year-old gentleman who came into the hospital with respiratory distress. Code sepsis was initially called on him. Patient was found to be hypercapnic. Patient's history of COPD. Patient has been admitted of couple months prior with similar issues. Patient had hypercapnia and a pneumonia. Patient was placed on a BiPAP in the emergency room because his pCO2 was over 100. PH was 7.24. Will repeated this morning. Hopefully we can wean off the BiPAP as long as his blood gases are improving. Pulmonary consultation as well. Allergies codeine Allergy (Verified 11/15/18 22:12) AMS Home Medications: Acidophilus/Bifido Longum [Lactobacillus Capsule] 1 cap PO DAILY 11/15/18 Aspirin 81 mg PO DAILY 11/15/18 Cyanocobalamin (Vitamin B-12) [Vitamin B-12] 100 mcg PO DAILY 11/15/18 Furosemide [Lasix] 20 mg PO DAILY 11/15/18 Tiotropium [Spiriva Handihaler*] 18 mcg IH BID 11/15/18 Doxycycline Monohydrate 100 mg PO BID #28 capsule 11/18/18 levoFLOXacin [Levaquin] 500 mg PO DAILY #14 tab 11/18/18 predniSONE [Prednisone*] 20 mg PO BID #20 tab 11/18/18 - Past Medical/Surgical History Has patient received pneumonia vaccine in the past: Yes Diabetic: No -: Lung cancer radiation treatments three years ago -: 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 -: Sleep Apnea -: Enlarged prostate -: CHF -: femur Fx -: Appendectomy -: Cataract surgery -: Prostate surgery - Family History Father Medical History: Heart disease, Diabetes Notes: [place] Mother Medical History: Lung disease, Cancer Notes: LUng Ca, Breast CA,Brain CA - Social History Smoking Status: Current every day smoker Alcohol use: No CD- Drugs: No Caffeine use: Yes Place of Residence: Home Review of Systems 10-point ROS is otherwise unremarkable Physical Examination - Vital Signs Temperature: 98.2 F Blood Pressure: 92/69 Pulse: 88 Respirations: 24 Pulse Ox (%): 95 - Physical Exam General: Alert, In no apparent distress, Oriented x2, Severe distress, Confused HEENT: Atraumatic, PERRLA, Mucous membr. moist/pink, EOMI, Sclerae nonicteric Neck: Supple, 2+ carotid pulse no bruit, No LAD, Without JVD or thyroid abnormality Respiratory: Diminished, Expiratory wheezes Cardiovascular: Regular rate/rhythm, Normal S1 S2, Systolic murmur Gastrointestinal: Normal bowel sounds, Soft and benign, Non-distended, No tenderness Musculoskeletal: No clubbing, No swelling, No tenderness Integumentary: No rashes Neurological: Normal gait, Normal speech, Normal tone, Sensation intact, Cranial nerves 3-12 intact, Normal affect, Abnormal strength Lymphatics: No axilla or inguinal lymphadenopathy - Studies Laboratory Data (last 24 hrs) 05/25/19 01:23: PT 10.4, INR 0.88, APTT 24.0 L 05/25/19 01:23: WBC 14.6 H, Hgb 13.2 L, Hct 42.3, Plt Count 240 05/25/19 01:23: Sodium 141, Potassium 4.1, BUN 14, Creatinine 0.88, Glucose 161 H, Magnesium 2.5 H, Total Bilirubin 0.3, AST 20, ALT 30, Alkaline Phosphatase 95 , Lipase 137 Assessment & Plan - Problems (Diagnosis) (1) Hypercapnic respiratory failure Current Visit: Yes Status: Acute (2) Acute exacerbation of chronic obstructive pulmonary disease (COPD) Onset Date: 12/24/17 Current Visit: No Status: Acute (3) Hypoxia Onset Date: 08/12/15 Current Visit: No Status: Acute (4) History of lung cancer Current Visit: No Status: Chronic - Plan Plan: 1. Continue with albuterol and Atrovent nebs 2. Continue with IV steroids 3. Wean off of BiPAP 4. Pulmonary consultation 5. Repeat ABGs 6. Repeat chest x-ray in the morning 7. GI and DVT prophylaxis Discharge Plan: Home Plan to discharge in: Greater than 2 days - Advance Directives Does patient have a Living Will: No Does patient have a Durable POA for Healthcare: No - Code Status/Comfort Care Code Status Assessed: Yes Code Status: Full Code Critical Care: No Time Spent Managing PTS Care (In Minutes): 45
--- NOTE | 2019-05-25 07:38 | EKG ---
Test Date: 2019-05-25 Test Time: 00:52:20 [employer]: MEASUREMENT RESULTS: Intervals: Rate: 101 [place]: 128 QRSD: 76 QT: 332 QTc: 430 [place]: P: 65 IL: 128 QRS: 250 T: 64 INTERPRETIVE STATEMENTS: Sinus tachycardia with occasional premature ventricular complexes Right superior axis deviation Pulmonary disease pattern Right ventricular hypertrophy Abnormal ECG Compared to ECG 11/15/2018 18:26:57 Ventricular premature complex(es) now present Right superior axis now present Short IL interval no longer present Electronically Signed On 05-25-19 07:37:36 MOTHER BABY RN by Nickolas Garibay
--- NOTE | 2019-05-25 07:45 | RAD REPORT ---
EXAM DESCRIPTION: [place] Single View05/25/2019 1:17 am CLINICAL HISTORY: Shortness of breath COMPARISON: November 2018 FINDINGS: Small bilateral pleural effusions are present. Right lung opacities are without obvious change. Opacities within the left lung probably represent scarring. The heart is normal size
[2019-05-25 07:49] LABS: Arterial Blood Carboxyhemoglob 1.9 % (0-1.5); Blood Gas Oxyhemoglobin 90.1 % (94-97); Blood O2 Saturation 92.5 % (92-98.5)
--- NOTE | 2019-05-25 08:34 | P.CNS ---
Date of Consult: 05/25/19 Chief Complaint: Hypercapnic respiratory failure History of Present Illness: Patient is 78 years of age with a history of terminal COPD admitted with worsening shortness of breath for the past 2 days had no fever chills or productive cough he has a BiPAP at home apparently compliant with his medications Allergies codeine Allergy (Verified 11/15/18 22:12) AMS Home Medications: Acidophilus/Bifido Longum [Lactobacillus Capsule] 1 cap PO DAILY 11/15/18 Aspirin 81 mg PO DAILY 11/15/18 Cyanocobalamin (Vitamin B-12) [Vitamin B-12] 100 mcg PO DAILY 11/15/18 Furosemide [Lasix] 20 mg PO DAILY 11/15/18 Tiotropium [Spiriva Handihaler*] 18 mcg IH BID 11/15/18 Doxycycline Monohydrate 100 mg PO BID #28 capsule 11/18/18 levoFLOXacin [Levaquin] 500 mg PO DAILY #14 tab 11/18/18 predniSONE [Prednisone*] 20 mg PO BID #20 tab 11/18/18 - Past Medical/Surgical History Diabetic: No -: Lung cancer radiation treatments three years ago -: 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 -: Sleep Apnea -: Enlarged prostate -: CHF -: femur Fx -: Appendectomy -: Cataract surgery -: Prostate surgery - Family History Father Medical History: Heart disease, Diabetes Notes: [place] Mother Medical History: Lung disease, Cancer Notes: LUng Ca, Breast CA,Brain CA - Social History Smoking Status: Current every day smoker Alcohol use: No CD- Drugs: No Caffeine use: Yes Place of Residence: Home Review of Systems General: Weakness Respiratory: Shortness of Breath Integumentary: Lesions (Patient has skin breakdown on the bridge of his nose) Physical Examination Temp Pulse Resp BP Pulse Ox 98.2 F 88 24 H 92/69 95 05/25/19 07:23 05/25/19 07:23 05/25/19 07:23 05/25/19 07:23 05/25/19 07:23 General: Alert, Moderate distress Neck: Supple Respiratory: Clear to auscultation bilaterally, Diminished Cardiovascular: No edema, Regular rate/rhythm, Normal S1 S2 Laboratory Data (last 24 hrs) 05/25/19 01:23: PT 10.4, INR 0.88, APTT 24.0 L 05/25/19 01:23: WBC 14.6 H, Hgb 13.2 L, Hct 42.3, Plt Count 240 05/25/19 01:23: Sodium 141, Potassium 4.1, BUN 14, Creatinine 0.88, Glucose 161 H, Magnesium 2.5 H, Total Bilirubin 0.3, AST 20, ALT 30, Alkaline Phosphatase 95 , Lipase 137 - Problems (1) Acute exacerbation of chronic obstructive pulmonary disease (COPD) Onset Date: 12/24/17 Current Visit: No Status: Acute Plan: Patient is 78 years of age she has cut terminal COPD admitted with an exacerbation hypoxic hypercapnic white count is mildly elevated patient has problem using a BiPAP due to her nasal bridge ulceration cannot exclude a pneumonia is chest x-rays abnormal possible bibasilar infiltrates DC ROCEPHIN CONTINUE WITH LEVOFLOXACIN HAD ALSO DOXYCYCLINE HE IS AT RISK FOR RESISTANT INFECTIONS. Change to schedule Atrovent blood cultures so far negative he will need nasal oral mass
[2019-05-25] MEDS ORDERED: CEFTRIAXONE/SWI 1gm 1 GM/10 ML SYR IV SCH (09:00)
[2019-05-25] MEDS ORDERED: CEFTRIAXONE 1 GM/NS 50 ML 1 GM/50 ML BAG IV SCH (09:00)
[2019-05-25] MEDS: METHYLPREDNISOLONE 40 MG INJ IV SCH ×2 (11:30→16:24)
[2019-05-25] MEDS: ENOXAPARIN 40 MG/0.4 ML SQ SCH (11:31)
[2019-05-25] MEDS: FORMOTEROL FUMARATE 20 MCG/2 ML VIAL.NEB IH SCH ×2 (13:20→20:15)
--- NOTE | 2019-05-25 15:17 | P.PN ---
Subjective Date of Service: 05/25/19 Primary Care Provider: [facility] Chief Complaint: Hypercapnic respiratory failure Subjective: Improving Physical Examination - Vital Signs Temperature: 98.2 F Blood Pressure: 97/61 Pulse: 92 Respirations: 21 Pulse Ox (%): 96 - Physical Exam General: Alert, In no apparent distress HEENT: Atraumatic Neck: Supple Respiratory: Expiratory wheezes, Inspiratory wheezes Cardiovascular: Normal pulses, Regular rate/rhythm Gastrointestinal: No tenderness, No masses, No rebound, No guarding Neurological: Normal speech, Normal strength at 5/5 x4 extr, Normal tone - Studies Laboratory Data (last 24 hrs) 05/25/19 01:23: PT 10.4, INR 0.88, APTT 24.0 L 05/25/19 01:23: WBC 14.6 H, Hgb 13.2 L, Hct 42.3, Plt Count 240 05/25/19 01:23: Sodium 141, Potassium 4.1, BUN 14, Creatinine 0.88, Glucose 161 H, Magnesium 2.5 H, Total Bilirubin 0.3, AST 20, ALT 30, Alkaline Phosphatase 95 , Lipase 137 Microbiology Data (last 24 hrs): 05/25/19 01:14 Blood - Blood Anaerobic Blood Culture - Final Medications List Reviewed: Yes Assessment & Plan Discharge Plan: Other (prison placement) Plan to discharge in: 72 Hours Physician Review Additional Text: Impression: Acute on chronic respiratory failure with hypercapnia secondary to COPD exacerbation with terminal COPD Plan: Patient remains in ICU. Pulmonology consulted. Await further recommendation. Continue COPD medication treatment. Respiratory to maintain sats above 93%. Patient uses BiPAP at home. Patient would benefit with skilled placement if slow to improve. Will continue to monitor closely. Will discuss further with pulmonology on plan of care. Time Spent Managing Pts Care (In Minutes): 55
[2019-05-26] MEDS: IPRATROPIUM BROM 0.5MG/2.5ML NEB SCH ×3 (01:55→13:06)
[2019-05-26] MEDS: Levofloxacin 750mg IV 750 MG/150 ML BAG IV SCH (02:06)
[2019-05-26] MEDS: METHYLPREDNISOLONE 40 MG INJ IV SCH ×2 (02:06→08:09)
[2019-05-26 05:45] LABS: Absolute Lymphocytes (CBC) 0.4 K/uL (0.7-4.9); Hematocrit 38.9 % (39.6-49.0); Lymphocytes % 2.6 % (15.3-44.8); MPV 10.3 fL (7.6-11.3); RBC Red Blood Cell Count 4.34 M/uL (4.33-5.43)
[2019-05-26 05:55] LABS: ALT/SGPT 20 U/L (12-78); AST/SGOT 10 U/L (15-37); Albumin 2.8 g/dL (3.4-5.0); Alkaline Phosphatase 74 U/L (45-117); BUN Blood Urea Nitrogen 19 mg/dL (7-18); Bicarbonate 39 mmol/L (21-32); Bilirubin Total 0.2 mg/dL (0.2-1.0); Glucose Level 137 mg/dL (74-106); HDL Cholesterol 84 mg/dL (40-60); LDL Cholesterol, Calculated 68 (<130); Sodium Level 141 mmol/L (136-145)
[2019-05-26 06:20] VITALS: BMI 24.9
[2019-05-26 07:35] LABS: Platelet Estimate ADEQ; Urine White Blood Cell Casts OK
[2019-05-26 07:36] LABS: Anisocytosis 1+; Blood Morphology Comment NOTED (NOT SEEN); Platelets, Giant PRESENT
[2019-05-26] MEDS: ASPIRIN 81 MG CHEWABLE TABLET PO SCH (08:09)
[2019-05-26] MEDS: ENOXAPARIN 40 MG/0.4 ML SQ SCH (08:09)
[2019-05-26] MEDS: ALBUTEROL 2.5 MG/3 ML NEB SOL NEB PRN ×2 (08:17→15:55)
[2019-05-26] MEDS: FORMOTEROL FUMARATE 20 MCG/2 ML VIAL.NEB IH SCH ×2 (08:17→20:00)
[2019-05-26] MEDS: DOXYCYCLINE 100 MG CAP PO SCH ×2 (09:50→21:17)
--- NOTE | 2019-05-26 13:45 | P.PN ---
Subjective Date of Service: 05/26/19 Primary Care Provider: [facility] Chief Complaint: Hypercapnic respiratory failure Subjective: Improving, Doing well Physical Examination - Vital Signs Temperature: 98.3 F Blood Pressure: 110/66 Pulse: 85 Respirations: 24 Pulse Ox (%): 94 - Physical Exam General: Alert, In no apparent distress, Oriented x3, Cooperative HEENT: Atraumatic Neck: Supple Respiratory: Expiratory wheezes (Improving) Cardiovascular: Normal pulses, Regular rate/rhythm Gastrointestinal: Normal bowel sounds, Soft and benign, Non-distended, No masses , No rebound, No guarding Musculoskeletal: No tenderness, No warmth Neurological: Normal speech, Normal strength at 5/5 x4 extr, Normal tone, Normal affect - Studies Microbiology Data (last 24 hrs): 05/25/19 01:14 Blood - Blood Anaerobic Blood Culture - Final Medications List Reviewed: Yes Assessment & Plan Discharge Plan: Home Plan to discharge in: 24 Hours Physician Review Additional Text: Impression: Acute on chronic respiratory failure with hypercapnia secondary to COPD exacerbation with terminal COPD Plan: Patient currently stable this time. Continue with antibiotic therapy. Await sputum and blood culture results. Case discussed at length with pulmonology. Will transfer patient to the medical floor. Will have physical therapy assess ambulation. Social work consulted to continue home health and physical therapy at discharge. Patient will require a new mask at home for his BiPAP machine. This will likely need to be arranged as an outpatient. Await physical therapy recommendation. If his progress is slow patient may benefit with skilled placement. Patient will require antibiotic therapy and COPD medication at discharge. Patient has home oxygen and BiPAP at home. I will turn the service over to the hospital team tomorrow. I will go over the plan of care. Anticipate discharge likely tomorrow with clinical improvement. Time Spent Managing Pts Care (In Minutes): 55
[2019-05-26] MEDS: predniSONE 20 MG TAB PO SCH (21:17)
[2019-05-27] MEDS: Levofloxacin 750mg IV 750 MG/150 ML BAG IV SCH (03:38)
[2019-05-27] MEDS: ASPIRIN 81 MG CHEWABLE TABLET PO SCH (09:23)
[2019-05-27] MEDS: ENOXAPARIN 40 MG/0.4 ML SQ SCH (09:23)
[2019-05-27] MEDS: DOXYCYCLINE 100 MG CAP PO SCH ×2 (09:23→21:48)
[2019-05-27] MEDS: predniSONE 20 MG TAB PO SCH ×2 (09:24→21:48)
[2019-05-27] MEDS: ALBUTEROL 2.5 MG/3 ML NEB SOL NEB PRN ×2 (09:52→15:19)
[2019-05-27] MEDS: IPRATROPIUM BROM 0.5MG/2.5ML NEB PRN ×3 (09:52→20:30)
[2019-05-27] MEDS: FORMOTEROL FUMARATE 20 MCG/2 ML VIAL.NEB IH SCH ×2 (09:52→20:30)
--- NOTE | 2019-05-27 15:59 | P.PN ---
Subjective Date of Service: 05/27/19 Primary Care Provider: [facility] Chief Complaint: Hypercapnic respiratory failure Continues to be short of breath and tachypneic. Per patient, this is his baseline. He is at 2lnc and at 92%. Ambulating with NC was at 85-89% Still with productive cough Wants to go home Physical Examination - Vital Signs Temperature: 98.2 F Blood Pressure: 157/70 Pulse: 100 Respirations: 26 Pulse Ox (%): 94 - Physical Exam General: Alert, Oriented x3 HEENT: Atraumatic, Normocephalic Neck: Supple, 2+ carotid pulse no bruit Respiratory: Diminished, Other (Barrel chested) Cardiovascular: Normal pulses, Normal S1 S2 Gastrointestinal: Hypoactive, Soft and benign, Non-distended Musculoskeletal: No swelling, Clubbing Integumentary: No rashes, No breakdown - Studies Medications List Reviewed: Yes Assessment & Plan Physician Review Additional Text: Impression: Acute on chronic respiratory failure with hypercapnia secondary to COPD exacerbation with terminal COPD Plan: Patient remains SOB significantly. Aware of low lung reserve if any. Continue with antibiotic therapy. Await sputum and blood culture results. - Will have physical therapy assess ambulation. Social work consulted to continue home health and physical therapy at discharge. Patient will require a new mask at home for his BiPAP machine. This will likely need to be arranged as an outpatient. -wants to go home to his . - Patient will require antibiotic therapy and COPD medication at discharge. Patient has home oxygen and BiPAP at home. -increase steriod use. -Duoneb -Possible dc in a.m pending clinical improvement.
[2019-05-28] MEDS: Levofloxacin 750mg IV 750 MG/150 ML BAG IV SCH (02:07)
[2019-05-28] MEDS: ALBUTEROL 2.5 MG/3 ML NEB SOL NEB PRN (07:55)
[2019-05-28] MEDS: IPRATROPIUM BROM 0.5MG/2.5ML NEB PRN (07:55)
[2019-05-28] MEDS: FORMOTEROL FUMARATE 20 MCG/2 ML VIAL.NEB IH SCH (07:55)
--- NOTE | 2019-05-28 08:48 | P.PN ---
Subjective Date of Service: 05/28/19 Primary Care Provider: [facility] Chief Complaint: Hypercapnic respiratory failure Subjective: Improving (Patient is doing better he is complaining of problem with his right nasal passage) Review of Systems General: Weakness Respiratory: Shortness of Breath Physical Examination - Vital Signs Temperature: 97.9 F Blood Pressure: 105/57 Pulse: 76 Respirations: 18 Pulse Ox (%): 94 - Physical Exam General: Alert, Oriented x3, Mild distress Respiratory: Clear to auscultation bilaterally, Diminished Cardiovascular: No edema, Regular rate/rhythm - Studies Medications List Reviewed: Yes Assessment & Plan - Problems (Diagnosis) (1) Acute exacerbation of chronic obstructive pulmonary disease (COPD) Onset Date: 12/24/17 Current Visit: No Status: Acute Plan: Patient admitted with COPD exacerbation he years back at his baseline planing of right nasal passage problem may be seen by ENT apparently has deviated nasal septum very high risk for surgery patient is hypoxic hypercapnic which is at his baseline has a BiPAP nasal bridge ulceration and is requested different mask blood cultures are negative vital signs are stable patient can be discharged home to reduce his prednisone to 10 mg once a day use nasal Flonase and Astelin he has terminal COPD Physician Review Additional Text: Impression: Acute on chronic respiratory failure with hypercapnia secondary to COPD exacerbation with terminal COPD Plan: Patient remains SOB significantly. Aware of low lung reserve if any. Continue with antibiotic therapy. Await sputum and blood culture results. - Will have physical therapy assess ambulation. Social work consulted to continue home health and physical therapy at discharge. Patient will require a new mask at home for his BiPAP machine. This will likely need to be arranged as an outpatient. -wants to go home to his . - Patient will require antibiotic therapy and COPD medication at discharge. Patient has home oxygen and BiPAP at home. -increase steriod use. -Duoneb -Possible dc in a.m pending clinical improvement.
[2019-05-28] MEDS: ENOXAPARIN 40 MG/0.4 ML SQ SCH (09:00)
[2019-05-28] MEDS: DOXYCYCLINE 100 MG CAP PO SCH (09:03)
[2019-05-28] MEDS: ASPIRIN 81 MG CHEWABLE TABLET PO SCH (09:03)
[2019-05-28] MEDS: predniSONE 20 MG TAB PO SCH (09:03)
[2019-05-28 09:41] VITALS: O2SAT 92
--- NOTE | 2019-05-28 11:21 | P.DS ---
Admission Date: 05/25/19 Discharge Date: 05/28/19 Primary Care Provider: [facility] Disposition: DC HOME/HOME HEALTH CARE Discharge Condition: FAIR Reason for Admission: Hypercapnic respiratory failure Consultations: Pulmonary medicine Brief History of Present Illness: Patient is a 78-year-old gentleman who came into the hospital with respiratory distress. Patient has a history of End stage COPD and uses BIPAP at home PRN. Patient has been admitted of couple months prior with similar issues. Hospital Course: Mr. San was admitted for acute on chronic respiratory failure with COPD exacerbation. Patient has end-stage COPD and was significantly hypoxic with hypercapnic on presentation. He received BiPAP therapy and his blood gas did improve. He has a history of for right nasal passage problem which has been evaluated by ENT. He was diagnosed with a deviated nasal septum and was deemed very high risk for surgery. He was treated with steroids and supplemental oxygen. He was evaluated by business education professor given terminal COPD. He improved to his baseline and remained hemodynamically stable for discharge. Vital Signs/Physical Exam: Temp Pulse Resp BP Pulse Ox 97.9 F 76 18 105/57 L 94 05/28/19 08:48 05/28/19 08:48 05/28/19 08:48 05/28/19 08:48 05/28/19 08:48 General: Alert, In no apparent distress HEENT: Atraumatic, Normocephalic Neck: Supple Respiratory: Diminished, Other (Barrel chested) Cardiovascular: No edema, Normal pulses, Regular rate/rhythm Gastrointestinal: Normal bowel sounds, Hypoactive Musculoskeletal: Clubbing, Swelling Integumentary: No rashes, Skin breakdown (Nasal bridge due to bipap) Neurological: Normal speech Laboratory Data at Discharge: WBC 15.3 K/uL (4.3-10.9) H D 05/26/19 04:54 Hgb 12.2 g/dL (13.6-17.9) L 05/26/19 04:54 Hct 38.9 % (39.6-49.0) L 05/26/19 04:54 Plt Count 196 K/uL (152-406) 05/26/19 04:54 PT 10.4 SECONDS (9.5-12.5) 05/25/19 01:23 INR 0.88 05/25/19 01:23 APTT 24.0 SECONDS (24.3-36.9) L 05/25/19 01:23 Sodium 141 mmol/L (136-145) 05/26/19 04:54 Potassium 5.0 mmol/L (3.5-5.1) 05/26/19 04:54 BUN 19 mg/dL (7-18) H 05/26/19 04:54 Creatinine 0.74 mg/dL (0.55-1.3) 05/26/19 04:54 Glucose 137 mg/dL (74-106) H 05/26/19 04:54 Phosphorus 3.3 mg/dL (2.5-4.9) 05/25/19 03:58 Magnesium 2.5 mg/dL (1.8-2.4) H 05/25/19 03:58 Total Bilirubin 0.2 mg/dL (0.2-1.0) 05/26/19 04:54 AST 10 U/L (15-37) L 05/26/19 04:54 ALT 20 U/L (12-78) 05/26/19 04:54 Alkaline Phosphatase 74 U/L (45-117) 05/26/19 04:54 Triglycerides 79 mg/dL (<150) 05/26/19 04:54 Cholesterol 168 mg/dL (<200) 05/26/19 04:54 HDL Cholesterol 84 mg/dL (40-60) H 05/26/19 04:54 Cholesterol/HDL Ratio 2.00 05/26/19 04:54 Lipase 137 U/L (73-393) 05/25/19 01:23 Home Medications: Acidophilus/Bifido Longum [Lactobacillus Capsule] 1 cap PO DAILY 11/15/18 Aspirin 81 mg PO DAILY 11/15/18 Cyanocobalamin (Vitamin B-12) [Vitamin B-12] 100 mcg PO DAILY 11/15/18 Furosemide [Lasix] 20 mg PO DAILY 11/15/18 Tiotropium [Spiriva Handihaler*] 18 mcg IH BID 11/15/18 Acetaminophen [Tylenol] 325 mg PO Q4HR PRN 05/25/19 Benzonatate [Tessalon Perle*] 100 mg PO TID 05/25/19 Bismuth Subsalicylate [Kaopectate] 262 mg PO Q1H PRN MDD 8 05/25/19 Cetirizine HCl [Zyrtec*] 10 mg PO DAILY 05/25/19 Ergocalciferol (Vitamin D2) [Vitamin D2] 1 cap PO SEECOM 05/25/19 Ferrous Sulfate [Ferrous Sulfate*] 1 tab PO DAILY 05/25/19 Fluticasone/Salmeterol [Advair 250-50 Diskus] 1 puff IH BID 05/25/19 Ipratropium Harmony 2.5 ml IH BID 05/25/19 Polyethylene Glycol 3350 [Miralax] 17 gm PO DAILY PRN 05/25/19 Azithromycin Tab [Zithromax*] 250 mg PO ZPAK #1 milady 05/28/19 Fluticasone Furoate [Flonase Sensimist] 9.1 ml NS DAILY #1 spray.susp 05/28/19 predniSONE [Deltasone*] 10 mg PO DAILY 30 Days #30 tab 05/28/19 New Medications: Azithromycin Tab [Zithromax*] 250 mg PO ZPAK #1 milady Fluticasone Furoate [Flonase Sensimist] 9.1 ml NS DAILY #1 spray.susp predniSONE [Deltasone*] 10 mg PO DAILY 30 Days #30 tab Diet: Regular Activity: Fall precautions Followup: Dayton Valdivia MD [ACTIVE - CAN ADMIT] - Yocasta Short MD [ACTIVE - CAN ADMIT] - Unknown,U [Primary Care Provider] - 1-2 Days
[2019-05-28 13:09] VITALS: BP 115/57; TEMP 97.7
== END 2019-05-28 13:00 | disposition home health service (06) | DRG 190 ==
LOC: ER 00:48 → ERHOLD 02:22 → 3RD-ICU 04:16 → 2ND 05-26 12:10
PROVIDERS: ADMIT Hospitalist; ATTEND Hospitalist
PROC: 5A09357 Assistance with Respiratory Ventilation, Less than 24 Consecutive Hours, Continuous Positive Airway Pressure (ICD-10-PCS; principal; 2019-05-25)
DX: J44.1 Chronic obstructive pulmonary disease with (acute) exacerbation (principal); J96.22 Acute and chronic respiratory failure with hypercapnia; J96.21 Acute and chronic respiratory failure with hypoxia; J34.2 Deviated nasal septum; M95.4 Acquired deformity of chest and rib
CPT/HCPCS: 36415; 71045; 80048; 80053; 80061; 80076; 82550; 82553; 82805; 82947; 83690; 83735; 83880; 84100; 84484; 85025; 85379; 85610; 85730; 87040; 93005; 94640; 94660; 94760; 97112; 97116; 97161; 97530; 99291; J0696; J1650; J2920; J2930; J7512

== ENCOUNTER 2019-07-28 06:38 | Emergency (ER) | payer OTHER ==
--- OUTSIDE RECORDS SUMMARY | 2019-07-28 06:40 | XMS REPORT ---
:1940 [facility] Address [address] [place] [address] Dr. Jauregui [address] [place] [id number] Care Team Providers Name Role Phone Unavailable Unavailable Unavailable Problems This patient has no known problems. Allergies, Adverse Reactions, Alerts This patient has no known allergies or adverse reactions. Medications This patient has no known medications.
--- OUTSIDE RECORDS SUMMARY | 2019-07-28 06:41 | XMS REPORT ---
[...] End Status Dosage System Date Date Clonazepam [facility] 14115570554 0.5 MG Orally Active 1 tablet at Once a day bedtime ProAir [facility] 31656167404 108 (90 Base) Active 2 puffs as RespiClick MCG/ACT needed Inhalation every 6 hrs Albuterol [facility] 66614666792 (2.5 MG/3ML) Active 3 ml as Sulfate 0.083% needed Inhalation Three times a day Diclofenac ND 58094760958 100 MG Orally November 26, Active 1 tablet Sodium ER Once a day 2017 with food or milk Spiriva [facility] 03079583860 18 MCG Active 1 capsule HandiHaler Inhalation Once a day Furosemide [facility] 76096099525 20 MG Orally Active 1 tablet Once a day Ipratropium [facility] 57242670318 0.06 % Nasally Active 2 sprays in [place] Four times a each day nostril Vitamin D3 [facility] 39066044282 2000 UNIT Active 1 capsule Orally Once a day -81 [facility] 80380826567 81 MG Orally Active 1 tablet Once a day Montelukast ND 79498658387 10 MG Orally November 07, Active 1 tablet in Sodium Once a day 2018 the evening PredniSONE ND 08924861337 10 MG Orally Active 1 tablet Once a day Advair Diskus N[facility] 27275740211 500-50 MCG/DOSE Active 1 puff Inhalation Twice a day Flutter NDC 0 three times a Active as directed day Results No Known Results Summary Purpose eClinicalWorks Submission
[2019-07-28 07:15] LABS: Absolute Lymphocytes (CBC) 1.6 K/uL (0.7-4.9); Basophils % 0.5 % (0-1.3); Lymphocytes % 14.5 % (15.3-44.8); MPV 9.7 fL (7.6-11.3); RBC Red Blood Cell Count 4.32 M/uL (4.33-5.43)
[2019-07-28 07:22] LABS: Protime INR 0.96
[2019-07-28] MEDS ORDERED: ALBUTEROL 2.5 MG/3 ML NEB SOL ONE (07:27)
[2019-07-28] MEDS ORDERED: IPRATROPIUM BROM 0.5MG/2.5ML ONE (07:27)
[2019-07-28] MEDS ORDERED: METHYLPREDNISOLONE 125 MG INJ ONE (07:27)
[2019-07-28] MEDS ORDERED: FENTANYL CITR 100 MCG/2 ML ONE (07:28)
[2019-07-28 07:38] LABS: ALT/SGPT 14 U/L (12-78); AST/SGOT 13 U/L (15-37); Alkaline Phosphatase 77 U/L (45-117); BUN Blood Urea Nitrogen 15 mg/dL (7-18); Bicarbonate 35 mmol/L (21-32); Bilirubin Direct 0.1 mg/dL (0-0.2); Bilirubin Total 0.4 mg/dL (0.2-1.0); Glucose Level 165 mg/dL (74-106); Magnesium 2.3 mg/dL (1.8-2.4); NT PRO-BNP 169 pg/mL (<450); Potassium 3.7 mmol/L (3.5-5.1); Protein, Total 6.7 g/dL (6.4-8.2); Sodium Level 142 mmol/L (136-145); Troponin (Emerg Dept Use Only) < 0.02 ng/mL (0.0-0.045)
--- NOTE | 2019-07-28 07:39 | RAD REPORT ---
EXAM DESCRIPTION: RAD - Chest Single View - 07/28/2019 7:09 am CLINICAL HISTORY: COUGH Chest pain. COMPARISON: Chest Single View dated 05/25/2019; Chest Pa And Lat (2 Views) dated 11/17/2018; Chest Sing le View dated 11/15/2018; Chest Single View dated 01/21/2018; Thorax W/ Con dated 07/31/2018 FINDINGS: Portable technique limits examination quality. 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 Interstitial markings are diffu sely prominent, but appearing similar to prior study. Vague opacities in the right upper lobe appear similar to prior study. The heart is upper limit normal size. No displaced fractures.
--- NOTE | 2019-07-28 08:45 | EKG ---
Test Date: 2019-07-28 Test Time: 06:35:50 Oceanography Professor: DANIELLE MEASUREMENT RESULTS: Intervals: Rate: 84 LA: 112 QRSD: 82 QT: 368 QTc: 434 [place]: P: 62 LA: 112 QRS: 84 T: 64 INTERPRETIVE STATEMENTS: Sinus rhythm with premature atrial complexes Otherwise normal ECG Compared to ECG 05/25/2019 00:52:20 Atrial premature complex(es) now present Sinus tachycardia no longer present Ventricular premature complex(es) no longer present Right superior axis no longer present Right ventricular hypertrophy no longer present Electronically Signed On 07-28-19 08:44:53 AUTO BODY MECHANIC APPRENTICE by Nickolas Garibay
--- NOTE | 2019-07-28 09:18 | RAD REPORT ---
EXAM DESCRIPTION: CT - Thorax W/ Con CLINICAL HISTORY: Chest pain PAIN COMPARISON: Thorax W/ Con dated 07/31/2018; Chest Single View dated 07/28/2019; Thorax W/ Con dated 07/23/2017 FINDINGS: Advanced emphysematous changes are present throughout the lungs. Again noted is soft tissu e density in the posterior aspect of the right upper lobe measuring 3.1 cm with adjacent pleural thic kening, unchanged. Clanton opacity in the left lung base measuring 3.4 cm with small left pleural effu torrey is unchanged. Small spiculated nodule in the right middle lobe medially shows interval increase in size since prior study. Currently, measures 16 x 9 mm, previously 10 x 7 mm. Small calcified granuloma is present in right lung base. Mild ill-defined lung opacities in the poste rior gutter with trace right pleural effusion noted. Irregular soft tissue density seen superior segm ent right lower lobe measuring 2.1 x 1.3 cm, appearing new since prior study. Left hilar soft tissue is present likely representing left hilar lymphadenopathy. Moderate hiatal hernia is present. No lytic or blastic bone lesion. All CT scans are performed using dose optimization technique as appropriate and may include automated exposure control or mA/KV adjustment according to patient size. IMPRESSION: Advanced fibro emphysematous changes are present throughout the lungs. Multiple areas of poorly defined lung opacifications present bilaterally as detailed, the majority of which appears un changed since comparative study.However, a new 21 x 13 mm lesion along the posterior aspect of the hernandez perior segment right lower lobe is seen as well as small spiculated nodule which demonstrates interva l enlargement medial right middle lobe. If clinically indicated, follow-up PET-CT assessment may be o f value.
--- NOTE | 2019-07-28 10:35 | ER ---
Nurse's Notes [facility] Name: Idris San Age: 78 yrs Sex: Male : 1940 Arrival Date: 07/28/2019 Time: 06:41 Bed 18 Private MD: Diagnosis: Chest pain, unspecified;Chronic obstructive pulmonary disease, unspecified;Abnormal findings on diagnostic imaging of lung Presentation: 07/28 06:30 Presenting complaint: Patient states: that for the past 2 days he has been having chest fc pain and shortness of breath. He has also had increased coughing and wheezing. Transition of care: patient was not received from another setting of care. Onset of symptoms was July 26, 2019. Risk Assessment: Do you want to hurt yourself or someone else? Patient reports no desire to harm self or others. Initial Sepsis Screen: Does the patient meet any 2 criteria? RR > 20 per min. No. Patient's initial sepsis screen is negative. Does the patient have a suspected source of infection? No. Patient's initial sepsis screen is negative. Care prior to arrival: Medication(s) given: Albuterol Neb x 1, ASA, 81 mg, x 4, Atrovent Neb x 1, Nitroglycerin, 0.4 mg SL x 1, IV initiated. 22 GA, in the left forearm. 06:43 Method Of Arrival: EMS: [facility] 06:43 Acuity: LISBETH 3 fc Historical: - Allergies: 06:48 Codeine; fc 06:48 Morphine; fc - PMHx: 06:48 Anemia; Emphysema; enlarged prostate; femur fracture; Lung Cancer; Pt reports that it fc cleared up; Pneumonia; COPD; CHF; Sleep Apnea; - Immunization history:: Last tetanus immunization: unknown, Flu vaccine is up to date. - Coronavirus screen:: The patient has NOT traveled to [place], [place], or [place] in the past 14 days. Proceed with normal triage process as indicated. The patient has NOT had contact with known/suspected case of Coronavirus? Proceed with normal triage procedures. - Social history:: Smoking status: Patient/guardian denies using tobacco, but has a distant history of tobacco abuse, Patient/guardian denies using alcohol, street drugs. - Ebola Screening: : Patient negative for fever greater than or equal to 101.5 degrees Fahrenheit, and additional compatible Ebola Virus Disease symptoms Patient denies exposure to infectious person Patient denies travel to an Ebola-affected area in the 21 days before illness onset. Screenin:30 Abuse screen: Denies threats or abuse. Nutritional screening: No deficits noted. fc Tuberculosis screening: No symptoms or risk factors identified. Assessment: 06:50 General: Appears distressed, uncomfortable, Behavior is calm, cooperative, appropriate jb4 for age. Pain: Complains of pain in chest Pain does not radiate. Pain currently is 2 out of 10 on a pain scale. at worst was 10 out of 10 on a pain scale. Quality of pain is described as pressure, Pain began 2-3 days ago. Is continuous. Neuro: Level of Consciousness is awake, alert, obeys commands, Oriented to person, place, time, situation. Cardiovascular: Rhythm is sinus rhythm. Respiratory: Airway is patent Respiratory effort is even, labored, Respiratory pattern is symmetrical, tachypnea Breath sounds are clear in left posterior upper lobe, right posterior upper lobe, left posterior lower lobe, right posterior middle lobe and right posterior lower lobe Breath sounds are diminished in left posterior upper lobe, right posterior upper lobe, left posterior lower lobe, right posterior middle lobe and right posterior lower lobe Breath sounds with wheezes in right upper lobe, left upper lobe, right middle lobe, left lower lobe and right lower lobe. GI: No signs and/or symptoms were reported involving the gastrointestinal system. : No signs and/or symptoms were reported regarding the genitourinary system. EENT: No signs and/or symptoms were reported regarding the EENT system. Derm: Skin is intact, Skin is pink, warm \T\ dry. Musculoskeletal: Circulation, motion, and sensation intact. Range of motion: intact in all extremities. 07:00 General: RECD REPORT FROM SHARITA EVANS. 78YO WM P/W CP AND SOB. Pain: Complains of pain in bp chest Pain does not radiate. Pain began 2-3 days ago. Cardiovascular: Rhythm is sinus rhythm. 08:37 Reassessment: PT TO CT WITH ROOM SERVICE MANAGER. bp 08:48 Reassessment: PT RETURNED FROM RADIOLOGY. bp 10:25 Reassessment: PROVIDER AT B/S FOR RE-EVAL. VS STABLE ON MONITOR. bp 10:51 Reassessment: D/C ON HOLD FOR FAMILY TRANSPORT, PT IS 02 DEPENDENT AND DOES NOT HAVE bp OWN O2 CANISTER. 12:27 Reassessment: PER PT, TRANSPORT STILL IN ROUTE. bp 13:17 Reassessment: PT MARITA WITH FAMILY TRANSPORT. bp Vital Signs: 06:30 BP 119 / 67; Pulse 86; Resp 24; Temp 97.7(O); Pulse Ox 98% on R/A; Weight 63.96 kg (R); fc Height 5 ft. 6 in. (167.64 cm) (R); Pain 2/10; 07:30 BP 111 / 63; Pulse 64; Resp 18; Pulse Ox 100% ; bp 08:38 BP 111 / 68; Pulse 73; Resp 14; Pulse Ox 96% on 4 lpm NC; bp 09:30 BP 116 / 50; Pulse 73; Resp 14; Pulse Ox 96% ; bp 10:26 BP 111 / 66; Pulse 75; Resp 20; Pulse Ox 92% on 3 lpm NC; bp 06:30 Body Mass Index 22.76 (63.96 kg, 167.64 cm) ED Course: 06:30 Arm band placed on Patient placed in an exam room, on a stretcher. 06:30 Patient has correct armband on for positive identification. Bed in low position. Call light in reach. Side rails up X2. court recording monitor on. Pulse ox on. NIBP on. 06:30 Maintain EMS IV. Dressing intact. Good blood return noted. Site clean \T\ dry. Gauge \T\ fc site: 22 gauge to left f/a. 06:41 Patient arrived in ED. 06:46 Triage completed. 06:50 Initial lab(s) drawn, by pa, sent to lab. Maintain EMS IV. Dressing intact. Good blood jb4 return noted. Site clean \T\ dry. IV is patent, is intact, with fluids infusing freely, with good blood return, Flushed left forearm with 5 ml normal saline. Oxygen administration via nasal cannula \T\ 4L/min. 06:51 Mike Zayas PA is PHCP. jr8 06:51 Femi Vasquez MD is Attending Physician. jr8 07:00 Leonides Fuentes, CRISTINA is Primary Nurse. bp 07:07 EKG done, by ED staff, reviewed by Femi Vasquez MD. ds4 10:33 Fernando Aguirre MD is Referral Physician. jr8 10:52 No provider procedures requiring assistance completed. IV discontinued, intact, bp bleeding controlled, No redness/swelling at site. Pressure dressing applied. Administered Medications: 07:20 Drug: SOLU-Medrol 125 mg Route: IVP; Site: left forearm; bp 08:39 Follow up: Response: No adverse reaction bp 07:20 Drug: Albuterol - atroVENT (3:1) (2.5 mg - 0.5 mg) 3 ml Route: Nebulizer; bp 08:39 Follow up: Response: Marked relief of symptoms bp 07:20 Drug: fentaNYL (PF) 25 mcg Route: IVP; Site: left forearm; bp 08:39 Follow up: Response: Pain is decreased bp Outcome: 10:34 Discharge ordered by . kenneth 13:17 Discharged to home via wheelchair, with family. bp 13:17 Condition: stable 13:17 Discharge instructions given to patient, Instructed on discharge instructions, follow up and referral plans. medication usage, Demonstrated understanding of instructions, follow-up care, medications, Prescriptions given X 3. 13:17 Patient left the ED. bp Signatures: Nadia Levine, RN RN Mike Musa PA PA jr8 Kalin Maynard ds4 Jose Martin Ac RN RN jb4 Leonides Fuentes RN RN bp Corrections: (The following items were deleted from the chart) 07:05 07:00 General: SEE TRIAGE NOTE. bp bp
--- NOTE | 2019-07-28 10:35 | EDPHYS ---
Physician Documentation [facility] Name: Idris San Age: 78 yrs Sex: Male : 1940 Arrival Date: 07/28/2019 Time: 06:41 Bed 18 Private MD: ED Physician Femi Vasquez HPI: 07/28 08:05 This 78 yrs old Male presents to ER via EMS with complaints of Chest Pain. jr8 08:05 The patient or guardian reports chest pain that is located primarily in the anterior jr8 chest wall, left. Onset: gradually, 2 day(s) ago. The pain radiates to the left shoulder. Associated signs and symptoms: The patient has no apparent associated signs or symptoms. The chest pain is described as sharp. Duration: The patient or guardian reports multiple episodes. Modifying factors: The symptoms are alleviated by nothing. the symptoms are aggravated by deep breath, movement, palpation of area. Severity of pain: At its worst the pain was moderate in the emergency department the pain is unchanged. The patient has not experienced similar symptoms in the past. The patient has not recently seen a physician. History of COPD. Stated that his shortness of breath is the same but now having chest pain which is new . Historical: - Allergies: 06:48 Codeine; fc 06:48 Morphine; fc - PMHx: 06:48 Anemia; Emphysema; enlarged prostate; femur fracture; Lung Cancer; Pt reports that it fc cleared up; Pneumonia; COPD; CHF; Sleep Apnea; - Immunization history:: Last tetanus immunization: unknown, Flu vaccine is up to date. - Coronavirus screen:: The patient has NOT traveled to [place], [place], or [place] in the past 14 days. Proceed with normal triage process as indicated. The patient has NOT had contact with known/suspected case of Coronavirus? Proceed with normal triage procedures. - Social history:: Smoking status: Patient/guardian denies using tobacco, but has a distant history of tobacco abuse, Patient/guardian denies using alcohol, street drugs. - Ebola Screening: : Patient negative for fever greater than or equal to 101.5 degrees Fahrenheit, and additional compatible Ebola Virus Disease symptoms Patient denies exposure to infectious person Patient denies travel to an Ebola-affected area in the 21 days before illness onset. ROS: 08:05 Eyes: Negative for injury, pain, redness, and discharge, ENT: Negative for injury, jr8 pain, and discharge, Neck: Negative for injury, pain, and swelling, Respiratory: Negative for shortness of breath, cough, wheezing, and pleuritic chest pain, Abdomen/GI: Negative for abdominal pain, nausea, vomiting, diarrhea, and constipation, Back: Negative for injury and pain, MS/Extremity: Negative for injury and deformity, Skin: Negative for injury, rash, and discoloration, Neuro: Negative for headache, weakness, numbness, tingling, and seizure. 08:05 Cardiovascular: Positive for chest pain, Negative for edema, orthopnea, palpitations, paroxysmal nocturnal dyspnea. Exam: 08:05 Eyes: Pupils equal round and reactive to light, extra-ocular motions intact. Lids and jr8 lashes normal. Conjunctiva and sclera are non-icteric and not injected. Cornea within normal limits. Periorbital areas with no swelling, redness, or edema. ENT: Nares patent. No nasal discharge, no septal abnormalities noted. Tympanic membranes are normal and external auditory canals are clear. Oropharynx with no redness, swelling, or masses, exudates, or evidence of obstruction, uvula midline. Mucous membranes moist. Neck: Trachea midline, no thyromegaly or masses palpated, and no cervical lymphadenopathy. Supple, full range of motion without nuchal rigidity, or vertebral point tenderness. No Meningismus. Cardiovascular: Regular rate and rhythm with a normal S1 and S2. No gallops, murmurs, or rubs. Normal PMI, no JVD. No pulse deficits. Abdomen/GI: Soft, non-tender, with normal bowel sounds. No distension or tympany. No guarding or rebound. No evidence of tenderness throughout. Back: No spinal tenderness. No costovertebral tenderness. Full range of motion. Skin: Warm, dry with normal turgor. Normal color with no rashes, no lesions, and no evidence of cellulitis. MS/ Extremity: Pulses equal, no cyanosis. Neurovascular intact. Full, normal range of motion. Neuro: Awake and alert, GCS 15, oriented to person, place, time, and situation. Cranial nerves II-XII grossly intact. Motor strength 5/5 in all extremities. Sensory grossly intact. Cerebellar exam normal. Normal gait. 08:05 Chest/axilla: Inspection: normal, Palpation: tenderness, that is mild, of the left clavicle and anterior aspect of left upper chest. 08:05 Respiratory: the patient does not display signs of respiratory distress, Respirations: tachypnea, Breath sounds: decreased breath sounds, that are mild, are scattered, wheezing: expiratory that is mild, is heard diffusely. Vital Signs: 06:30 BP 119 / 67; Pulse 86; Resp 24; Temp 97.7(O); Pulse Ox 98% on R/A; Weight 63.96 kg (R); fc Height 5 ft. 6 in. (167.64 cm) (R); Pain 2/10; 07:30 BP 111 / 63; Pulse 64; Resp 18; Pulse Ox 100% ; bp 08:38 BP 111 / 68; Pulse 73; Resp 14; Pulse Ox 96% on 4 lpm NC; bp 09:30 BP 116 / 50; Pulse 73; Resp 14; Pulse Ox 96% ; bp 10:26 BP 111 / 66; Pulse 75; Resp 20; Pulse Ox 92% on 3 lpm NC; bp 06:30 Body Mass Index 22.76 (63.96 kg, 167.64 cm) fc MDM: 07:00 Patient medically screened. [facility] 10:31 Data reviewed: vital signs, nurses notes, lab test result(s), EKG, radiologic studies, [facility] CT scan, plain films. Data interpreted: Pulse oximetry: on 2L(s) per nasal canula, is 93 %. Interpretation: acceptable. Counseling: I had a detailed discussion with the patient and/or guardian regarding: the historical points, exam findings, and any diagnostic results supporting the discharge/admit diagnosis, lab results, radiology results, the need for outpatient follow up, Radiation Oncologist, to return to the emergency department if symptoms worsen or persist or if there are any questions or concerns that arise at home. ED course: Discussed with family and patient that the pain he is experiencing today is most likely muscle or arthritic pain. No suspicious cardiac findings at this time. That we are concerned for some suspicious changes in the lungs from CT scan today. Needs to see Dr. Aguirre and schedule PET scan soon. Family and patient good with this and will f/u. Knows to come back if worse . 07/28 06:51 Order name: Basic Metabolic Panel jr8 07/28 06:51 Order name: CBC with Diff jr8 07/28 06:51 Order name: LFT's 07/28 06:51 Order name: Magnesium 07/28 06:51 Order name: NT PRO-BNP 07/28 06:51 Order name: PT-INR 07/28 06:51 Order name: Troponin (emerg Dept Use Only) 07/28 07:18 Order name: CBC with Automated Diff; Complete Time: 08:18 EDMS 07/28 07:23 Order name: Protime (+INR); Complete Time: 08:18 EDMS 07/28 07:39 Order name: Basic Metabolic Panel; Complete Time: 08:18 EDMS 07/28 07:39 Order name: Liver (Hepatic) Function; Complete Time: 08:18 EDMS 07/28 07:39 Order name: Troponin (Emerg Dept Use Only); Complete Time: 08:18 EDMS 07/28 07:39 Order name: NT PRO-BNP; Complete Time: 08:18 EDMS 07/28 07:39 Order name: Magnesium; Complete Time: 08:18 EDMS 07/28 06:51 Order name: XRAY Chest (1 view) 07/28 06:51 Order name: EKG; Complete Time: 06:53 07/28 06:51 Order name: Cardiac monitoring; Complete Time: 07:06 07/28 06:51 Order name: EKG - Nurse/Tech; Complete Time: 06:59 07/28 06:51 Order name: IV Saline Lock; Complete Time: 07:06 07/28 06:51 Order name: Labs collected and sent; Complete Time: 07:06 07/28 06:51 Order name: O2 Per Protocol; Complete Time: 07:06 07/28 06:51 Order name: O2 Sat Monitoring; Complete Time: 07:06 07/28 07:41 Order name: RAD; Complete Time: 08:18 EDMS 07/28 08:22 Order name: CT Chest W/ Con 07/28 09:22 Order name: CT; Complete Time: 09:47 EDMS Administered Medications: 07:20 Drug: SOLU-Medrol 125 mg Route: IVP; Site: left forearm; bp 08:39 Follow up: Response: No adverse reaction bp 07:20 Drug: Albuterol - atroVENT (3:1) (2.5 mg - 0.5 mg) 3 ml Route: Nebulizer; bp 08:39 Follow up: Response: Marked relief of symptoms bp 07:20 Drug: fentaNYL (PF) 25 mcg Route: IVP; Site: left forearm; bp 08:39 Follow up: Response: Pain is decreased bp Disposition: 07/28/19 10:34 Discharged to Home. Impression: Chest pain, unspecified, Chronic obstructive pulmonary disease, unspecified, Abnormal findings on diagnostic imaging of lung. - Condition is Stable. - Discharge Instructions: Nonspecific Chest Pain, Chest Wall Pain. - Prescriptions for meloxicam 7.5 mg Oral tablet - take 1 tablet by ORAL route once daily As needed; 20 tablet. Medrol (Dima) 4 mg Oral Tablets, Dose Pack - take 1 tablet by ORAL route as directed - follow package instructions; 1 packet. Albuterol Sulfate 90 mcg/actuation - inhale 1-2 puff by INHALATION route every 4-6 hours; 1 Inhaler. - Medication Reconciliation Form, Thank You Letter, Antibiotic Education, Prescription Opioid Use form. - Follow up: Fernando Aguirre MD; When: 2 - 3 days; Reason: Recheck today's complaints, Continuance of care, Re-evaluation by your physician. - Problem is new. - Symptoms have improved. Addendum: 07/30/2019 08:24 Co-signature as Attending Physician, Femi Vasquez MD I agree with the assessment and t w4 plan of care. Signatures: Dispatcher [employer] EDSD Nadia Levine RN RN fc Roszak, Josh, PA PA jr8 Leonides Fuentes RN RN bp Wadley, Terrence, MD MD tw4 Corrections: (The following items were deleted from the chart) 07/28 13:17 10:34 07/28/2019 10:34 Discharged to Home. Impression: Chest pain, unspecified; Chronic bp obstructive pulmonary disease, unspecified; Abnormal findings on diagnostic imaging of lung. Condition is Stable. Forms are Medication Reconciliation Form, Thank You Letter, Antibiotic Education, Prescription Opioid Use. Follow up: Fernando Aguirre; When: 2 - 3 days; Reason: Recheck today's complaints, Continuance of care, Re-evaluation by your physician. Problem is new. Symptoms have improved. kenneth
[2019-07-30 06:07] VITALS: BP 111/66; O2SAT 92
== END 2019-07-28 13:17 | disposition home or self-care (01) ==
LOC: ER 06:38
DX: R07.9 Chest pain, unspecified (principal); J44.9 Chronic obstructive pulmonary disease, unspecified; R91.8 Other nonspecific abnormal finding of lung field; Z88.6 Allergy status to analgesic agent
CPT/HCPCS: 93005; 85025; 80048; 36415; 83735; 85610; 80076; 84484; 83880; 71260; 71045; 94640; 96375; 96374; 99285; Q9967; J3010; J2930

== ENCOUNTER 2019-09-24 | Emergency (ER) | payer OTHER | END 2019-09-24 18:44 | disposition home or self-care (01) | CPT/HCPCS: 93005 ×2; 85025; 80048; 36415; 83735; 85610; 80076; 84484 ×2; 83690; 83880; 71275; 74175; 71045; 99285; Q9967; J3475; J2930; 96365; 96375 ==

== ENCOUNTER 2019-10-10 23:49 | Inpatient (IN) | payer OTHER ==
--- OUTSIDE RECORDS SUMMARY | 2019-10-10 23:52 | XMS REPORT ---
:1940 Author Organization [facility] t Address 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, spine, unspecified unspecified spinal spinal osteoarthri osteoarthri tis tis complicatio complicatio n status n status Dependence Dependence Problem Active on on supplementa supplementa l oxygen l oxygen Chronic Chronic Problem Active obstructive obstructive pulmonary pulmonary disease, disease, unspecified unspecified History of History of Problem Active lung cancer lung cancer Pulmonary Pulmonary Problem Active emphysema, emphysema, unspecified unspecified emphysema emphysema type type Allergic Allergic Problem Active rhinitis, rhinitis, unspecified unspecified seasonality seasonality , , unspecified unspecified trigger trigger Allergies, Adverse Reactions, Alerts This patient has no known allergies or adverse reactions. Medications Ordered Filled Start Stop Current Ordering Indication Dosage Frequency Signature Comments Components Medication Medication Date Date Medication? Clinician (SIG) Name Name Diclofenac Diclofenac Yes Teodora 1 tablet Sodium ER Sodium ER 6-12 Gray with food 00:00: or milk 00 Montelukast Montelukast Yes Teodora 1 tabl et Sodium Sodium 5-24 Gray in the 00:00: evening 00 Spiriva Spiriva Yes Teodora 1 capsule HandiHaler HandiHaler Gray PredniSONE PredniSONE Yes Teodora 1 tablet Gray ProAir ProAir Yes Teodora 2 puffs as RespiClick RespiClick Gray needed Ipratropium Ipratropium Yes Teodora 2 spray s [place] Gray in each nostril Vitamin D3 Vitamin D3 Yes Teodora 1 capsule Gray Advair Advair Yes Teodora 1 puff Diskus Diskus Gray Furosemide Furosemide Yes Teodora 1 tablet Gray Flutter Flutter Yes Teodora as Gray directed Aspir-81 Aspir-81 Yes Teodora 1 tablet Gray Clonazepam Clonazepam Yes Teodora 1 tablet Gray at bedtime Albuterol Albuterol Yes Teodora 3 ml as Sulfate Sulfate Gray needed Encounters Start End Encounter Admission Attending Care Care Encounter Date/Time Date/Time Type Type Clinicians Facility Department ID 2019-04-02 2019-04-02 [id number] 10:20:00 10:20:00 [facility] 2017-11-26 2017-11-26 [facility] [id number] 16:19:00 16:19:00 [facility] 2017-11-25 2017-11-25 [facility] [id number] 10:30:00 10:30:00 [facility] 2017-11-07 2017-11-07 [facility] [id number] 16:46:00 16:46:00 [facility] 2017-10-31 2017-10-31 [facility] [id number] 13:09:00 13:09:00 [facility] 2017-10-23 2017-10-23 [facility] [id number] 14:30:00 14:30:00 [facility]
--- OUTSIDE RECORDS SUMMARY | 2019-10-10 23:54 | XMS REPORT ---
:1940 Author Organization eClinicalWorks Care Team Providers Name Role Phone Teodora Gray Provider Role Unavailable Allergies, Adverse Reactions, Alerts Substance Reaction Event Type N.K.D.A. Info Not Available Non Drug Allergy Problems Problem Type Condition Code Onset Dates Condition Statu s Assessment Allergic rhinitis, unspecified J30.9 Active seasonality, unspecified trigger Problem History of lung cancer Z85.118 Activ e Problem Dependence on supplemental oxygen Z99.81 Active Problem Allergic rhinitis, unspecified J30.9 Active seasonality, unspecified trigger Problem Osteoarthritis of cervical spine, M47.812 Active unspecified spinal osteoarthritis complication status Problem Chronic obstructive pulmonary J44.9 Active disease, unspecified Problem Pulmonary emphysema, unspecified J43.9 Active emphysema type Medications Medication Code Code Instructions Start End Status Dosage System Date Date Clonazepam [facility] 54214700183 0.5 MG Orally Active 1 t ablet at Once a day bedtime ProAir [facility] 47014186759 108 (90 Base) Active 2 puff s as RespiClick MCG/ACT needed Inhalation every 6 hrs Albuterol [facility] 65341402353 (2.5 MG/3ML) Active 3 ml as Sulfate 0.083% needed Inhalation Three times a day Diclofenac ND 29219896822 100 MG Orally November 26, Active 1 tablet Sodium ER Once a day 2018 with food or milk Spiriva [facility] 25571050221 18 MCG Active 1 capsule HandiHaler Inhalation Once a day Furosemide ND 00483201158 20 MG Orally Active 1 ta blet Once a day Ipratropium [facility] 32074847865 0.06 % Nasally Active 2 sprays in [place] Four times a each day nostril Vitamin D3 [facility] 26340926385 2000 UNIT Active 1 capsu le Orally Once a day -81 [facility] 85107447418 81 MG Orally Active 1 tabl et Once a day Montelukast ND 66488552242 10 MG Orally November 07, Active 1 t ablet in Sodium Once a day 2018 the evening PredniSONE ND 78808764881 10 MG Orally Active 1 ta blet Once a day Advair Diskus [facility] 68964262112 500-50 MCG/DOSE Active 1 puff Inhalation Twice a day Flutter NDC 0 three times a Active as direc Results No Known Results Summary Purpose eClinicalWorks Submission
--- OUTSIDE RECORDS SUMMARY | 2019-10-11 00:02 | XMS REPORT | Summary of Care ---
:1940 Author Organization [facility] Address [address] [place] [address] Care Team Providers Name Role Phone MD Lavell Primary Care Provider Reason for Visit Reason Comments Notification New Medication Encounter Details Date Type Department Care Team Description 10/01/2019 Telephone [facility] Pediatric Steffen Monte N otification (New and Adult Primary MD Medication ) Care- [address] [facility] , [facility] [address] [place] [address] [place], [place] [phone] [address] [phone] Allergies Active Allergy Reactions Severity Noted Date Comments Rejiarwood Unknown - See comments 02/05/2018 Codeine Unknown - See comments 02/05/2018 documented as of this encounter (statuses as of 10/01/2019) Medications Medication Sig Dispensed Refills Start Date End Date Status aspirin 81 mg Take 81 mg by mouth 0 Active chewable tablet daily. IPRATROPIUM BROMIDE Use 0.06 % in each 0 Active NASAL nostril as needed. Ferrous Gluconate Take 324 mg by mouth 0 Active 324 mg (36 mg iron) 2 (two) times daily. tablet famotidine 20 mg Take 1 tablet by 60 tablet 0 02/15/2018 Active tablet mouth 2 (two) times daily. montelukast 10 mg Take 10 mg by mouth. 0 Active tablet ipratropium Use 2 Sprays in each 15 mL 3 07/25/2018 Active (ATROVENT) 42 mcg nostril 4 (four) (0.06 %) nasal times daily. sprayIndications: Rhinorrhea vitamin B-12 100 mcg Take 100 mcg by 0 Active tablet mouth daily. benzonatate 100 mg Take 1 capsule by 90 capsule 0 08/25/2018 Active capsuleIndications: mouth 3 (three) Acute exacerbation times daily. of chronic obstructive pulmonary disease (COPD) amoxicillin-pot Take 1 tablet by 14 tablet 0 08/25/2018 Active clavulanate 500 mg mouth 2 (two) times (AUGMENTIN) 500-125 daily. mg tabletIndications: Acute exacerbation of chronic obstructive pulmonary disease (COPD) Lactobacillus Take 1 tablet by 20 capsule 0 08/25/2018 Active acidophilus 1 mouth 2 (two) times billion cell daily. CapIndications: Acute exacerbation of chronic obstructive pulmonary disease (COPD) Miscellaneous J40: Brochitis - 1 Kit 0 06/01/2019 Active Medical Supply Dispense # 1 Carlos KitIndications: Respironics ([place] Acute exacerbation for alternative of chronic brand) for nebulizer obstructive treatment pulmonary disease (COPD), Hospital discharge follow-up docusate 100 mg Take 1 capsule by 90 capsule 3 06/01/2019 Active capsuleIndications: mouth daily. Constipation, unspecified constipation type sennosides-docusate Take 1 tablet by 90 tablet 3 06/01/2019 Active sodium (SENOKOT-S) mouth daily. 8.6-50 mg per tabletIndications: Constipation, unspecified constipation type fluticasone Inhale 1 Puff every 180 Each 3 06/04/2019 Active propion-salmeterol 12 (twelve) hours. 250-50 mcg/dose inhalation diskIndications: Acute exacerbation of chronic obstructive pulmonary disease (COPD) tiotropium 18 mcg Inhale 1 capsule 90 capsule 3 06/04/2019 Active inhalationIndication daily. Indications: s: Stage 4 very Stage 4 very severe severe COPD by GOLD COPD by GOLD classification J44.9 classification J44.9 predniSONE 20 mg Take 1 tablet by 30 tablet 11 06/26/2019 Active tablet mouth daily. guaiFENesin Take 1 tablet by 60 tablet 1 07/01/2019 Active (MUCINEX) 600 mg mouth every 12 tablet (twelve) hours. doxycycline 100 mg Take 1 tablet by 20 tablet 0 07/02/2019 Active tabletIndications: mouth 2 (two) times Subacute maxillary daily. sinusitis fluticasone Use 1 [place] in each 16 g 0 07/02/2019 Active propionate 50 nostril daily. mcg/actuation nasal sprayIndications: Subacute maxillary sinusitis carbamide peroxide Place 5 Drops in 15 mL 0 07/02/2019 Active 6.5 % otic right ear 2 (two) solutionIndications: times daily. Impacted cerumen of right ear ipratropium 0.02 % Inhale 2.5 mL every 90 Vial 11 07/02/2019 Active nebulizer 4 (four) hours as solutionIndications: needed for Wheezing, Stage 4 very severe Shortness of Breath COPD by GOLD or Bronchospasm classification (Acute on Chronic COPD Exacerbation). albuterol 2.5 mg /3 Inhale 3 mL every 4 90 Vial 11 07/02/2019 Active mL (0.083 %) (four) hours as nebulizer needed for Wheezing solutionIndications: or Shortness of Stage 4 very severe Breath. COPD by GOLD classification furosemide 20 mg Take 1 tablet by 30 tablet 5 09/10/2019 Active tablet mouth daily. cetirizine (ZYRTEC) Take 1 tablet by 30 tablet 1 09/15/2019 Active 10 mg mouth daily. tabletIndications: Seasonal allergic rhinitis, unspecified trigger ibuprofen 800 mg Take 1 tablet by 30 tablet 0 09/28/2019 Active tabletIndications: mouth every 8 Chronic pain (eight) hours as disorder needed for Pain (scale 4-6) (Chronic Pain). pregabalin (LYRICA) Take 1 capsule by 90 capsule 0 09/28/2019 Active 50 mg mouth 3 (three) capsuleIndications: times daily. Chronic pain disorder tiZANidine 2 mg Take 1 tablet by 30 tablet 1 09/28/2019 Active tabletIndications: mouth every 8 Chronic pain (eight) hours as disorder, Muscle needed (muscle spasm spasms). acetaminophen 650 mg Take 1 tablet by 20 tablet 0 09/28/2019 Active CR mouth every 8 tabletIndications: (eight) hours as Chronic pain needed for Pain or disorder, Muscle Fever. 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 04/07/2018 Malignant neoplasm of left lung, unspecified part of l les 04/07/2018 Seasonal allergic rhinitis, unspecified trigger 2017 Respiratory distress 02/05/2018 documented as of this encounter (statuses as of 10/01/2019) Immunizations Name Administration Dates Next Due Influenza High Dose 02/15/2018 Influenza Virus Vaccine - Whole 03/17/2017 Pneumococcal 13 Conjugate, PCV13 (Prevnar 13) 01/15/2017 Pneumococcal Polysaccharide, PPSV23 (PNEUMOVAX) 02/15/2018 documented as of this encounter Social History Tobacco Use Types Packs/Day Years Used Date Former Smoker 1 55 Smokeless Tobacco: Never Used Comments: Quit 2013. states he will occ asionally smoke (~1 pack over 2-3 months) Alcohol Use Drinks/Week oz/Week Comments No Sex Assigned at Date Recorded Not on file Job Start Date Occupation Industry Not on file Not on file Not on file Travel History Travel Start Travel End No recent travel history available. documented as of this encounter Last Filed Vital Signs Not on filedocumented in this encounter Plan of Treatment Date Type Specialty Care Team Description 10/02/2019 Telemedicine Visit Pulmonary Disease Darnell Arshad n, DO [address] [place] [address] [phone] 10/22/2019 Telemedicine Visit Family Medicine Jordy Monte MD [address] [place] [address] Dr [address] [place], [place] [address] 15 [phone] 11/16/2019 Office Visit Allergy & Immunology: Annia Hernandes Internal Medicine MD [place] [address] [place] [address] Health Maintenance Due Date Last Done Comments DTaP,Tdap,and Td Vaccines (1 1952 - Tdap) Zoster Recombinant Vaccine 11/14/1991 (SHINGRIX) (1 of 2) Medicare Wellness Visit 2006 INFLUENZA VACCINE (#1) 2020 02/15/2018, Postponed from 03/17/2017 02/15/2019 ([place] Guidelines) PNEUMOCOCCAL VACCINES 65+ Completed 02/15/2018, 01/15/2017 LUNG CANCER SCREEN: Discontinued 06/10/2018, Recommended for age 55-80 02/05/2018 with 30 + pack year history documented as of this encounter Results Not on filedocumented in this encounter Insurance Payer Benefit Plan / Subscriber ID Effective Phone Address T e Group Dates MEDICARE MEDICARE PART A xxxxxxxxxxx 2006-Pr [phone] Medicare & B esent [phone] [id number] ESTHER PADRON [phone] FOR LIFE [id number] 2018-Pr Lanette richardson esent Supplement [employer] [id number] 1998-P HMO/PPO/ POS ADMINISTRATION ADMINISTRATION resent documented as of this encounter
--- OUTSIDE RECORDS SUMMARY | 2019-10-11 00:03 | XMS REPORT | Summary of Care ---
:1940 Author Organization [facility] Address [address] [place] [address] Care Team Providers Name Role Phone MD Lavell Primary Care Provider Reason for Visit Reason Comments Rx Concern/Question Encounter Details Date Type Department Care Team Description 10/02/2019 Telephone [facility] Pediatric Steffen Monte MD Rx Concern/Question and Adult Primary Care- [address] [place] [facility] 205 146 [facility] [place] [address] [address] [place] [address] [phone] Allergies Active Allergy Reactions Severity Noted Date Comments Rejiarwood Unknown - See comments 02/05/2018 Codeine Unknown - See comments 02/05/2018 documented as of this encounter (statuses as of 10/02/2019) Medications Medication Sig Dispensed Refills Start Date [...] Supply Dispense # 1 Carlos KitIndications: Respironics ([place] Acute exacerbation for alternative of chronic brand) [...] Subacute maxillary daily. sinusitis fluticasone Use 1 [place] in each 16 g 0 07/02/2019 Active [...] as of this encounter (statuses as of 10/02/2019) Active Problems Problem Noted Date Chronic pain [...] as of this encounter (statuses as of 10/02/2019) Immunizations Name Administration Dates Next Due Influenza [...] Treatment Date Type Specialty Care Team Description 10/22/2019 Telemedicine Visit Family Medicine Jordy Monte MD [address] [place] [address] [place] [address] 15 [phone] 11/16/2019 Office Visit Allergy & Immunology: Annia Hernandes Internal Medicine MD [place] [address] [place] [address] 555 Health Maintenance Due Date Last Done [...] O. [address] Medicare & B esent [id number] ESTHER PADRON [phone] FOR LIFE [id number] 2018-Pr Lanette richardson esent Supplement [employer] [id number] 1998-P HMO/PPO/ POS ADMINISTRATION ADMINISTRATION resent documented as of this encounter
--- OUTSIDE RECORDS SUMMARY | 2019-10-11 00:04 | XMS REPORT | Summary of Care ---
:1940 Author Organization [facility] Address [address] [place] [address] Care Team Providers Name Role Phone MD Lavell Primary Care Provider Reason for Visit Reason Comments Cancellation Encounter Details Date Type Department Care Team Description 10/02/2019 Telemedicine Visit [facility] Kristi Arshad DO [facility] [address] [facility] (Primary Dx) [address] [place] [address] , [facility] [address] [place] [address] [phone] Allergies Active Allergy Reactions Severity Noted Date Comments Cedarwood Unknown - See comments 02/05/2018 Codeine Unknown [...] Supply Dispense # 1 Carlos KitIndications: Respironics ([place] Acute exacerbation for alternative of chronic brand) [...] Subacute maxillary daily. sinusitis fluticasone Use 1 [place] in each 16 g 0 07/02/2019 Active [...] Signs Not on filedocumented in this encounter Progress Notes Kristi Arshad DO - 10/02/2019 11:40 AM CDTUnable to get a hold of patient documented in this encounter Plan of Treatment Date Type Specialty Care Team Description 10/22/2019 Telemedicine Visit Family Medicine Jordy Monte MD [address] [place] [address] Dr [address] [place], [place] [address] 15 [phone] 11/16/2019 Office Visit Allergy & Immunology: Annia Hernandes Internal Medicine MD [place] [address] [place] [address] 555 Health Maintenance Due Date Last Done [...] Results Not on filedocumented in this encounter Visit Diagnoses Diagnosis CANCELLATION - Primary documented in this encounter Insurance Payer Benefit Plan / Subscriber ID Effective Phone Address T ype Group Dates MEDICARE MEDICARE PART A xxxxxxxxxxx 2006-Pr [phone] Medicare & B esent -[id number] ESTHER PADRON [phone] FOR LIFE [id number] 2018-Pr Lanette richardson esent Supplement [employer] [id number] 1998-P HMO/PPO/ POS ADMINISTRATION ADMINISTRATION resent documented as of this encounter
--- OUTSIDE RECORDS SUMMARY | 2019-10-11 00:05 | XMS REPORT | Summary of Care ---
:1940 Author Organization [facility] Address [address] [place] [address] Care Team Providers Name Role Phone MD Lavell Primary Care Provider Reason for Visit Reason Comments Notification ESTHER [id number] Encounter Details Date Type Department Care Team Description 09/30/2019 Telephone [facility] Pediatric Steffen Monte N otification (ESTHER and Adult Primary [id number]) Care- [address] [place] [address] [facility] [address] [place] [address] [place], [place] [phone] [address] [phone] Allergies Active Allergy Reactions Severity Noted Date Comments Yamilet Unknown - See comments 02/05/2018 Codeine Unknown - See comments 02/05/2018 documented as of this encounter (statuses as of 10/05/2019) Medications Medication Sig Dispensed Refills Start End Status Date Date aspirin 81 mg Take 81 mg by 0 Ac tive chewable tablet mouth daily. IPRATROPIUM Use 0.06 % in each 0 Active BROMIDE NASAL nostril as needed. Ferrous Gluconate Take 324 mg by 0 Active 324 mg (36 mg mouth 2 (two) iron) tablet times daily. famotidine 20 mg Take 1 tablet by 60 tablet 0 02/16/20 Active tablet mouth 2 (two) 18 times daily. montelukast 10 mg Take 10 mg by 0 Active tablet mouth. ipratropium Use 2 Sprays in 15 mL 3 07/25/19 Ac tive (ATROVENT) 42 mcg each nostril 4 19 (0.06 %) nasal (four) times sprayIndications: daily. Rhinorrhea vitamin B-12 100 Take 100 mcg by 0 Active mcg tablet mouth daily. benzonatate 100 mg Take 1 capsule by 90 capsule 0 08/26/19 Active capsuleIndications mouth 3 (three) 19 : Acute times daily. exacerbation of chronic obstructive pulmonary disease (COPD) amoxicillin-pot Take 1 tablet by 14 tablet 0 08/26/19 Active clavulanate 500 mg mouth 2 (two) 19 (AUGMENTIN) times daily. 500-125 mg tabletIndications: Acute exacerbation of chronic obstructive pulmonary disease (COPD) Lactobacillus Take 1 tablet by 20 capsule 0 08/26/19 Active acidophilus 1 mouth 2 (two) 19 billion cell times daily. CapIndications: Acute exacerbation of chronic obstructive pulmonary disease (COPD) Miscellaneous J40: Brochitis - 1 Kit 0 06/01/20 Active Medical Supply Dispense # 1 19 KitIndications: Carlos Acute exacerbation Respironics ([facility] for alternative obstructive brand) for pulmonary disease nebulizer (COPD), Hospital treatment discharge follow-up docusate 100 mg Take 1 capsule by 90 capsule 3 06/01/20 Active capsuleIndications mouth daily. 19 : Constipation, unspecified constipation type sennosides-docusat Take 1 tablet by 90 tablet 3 06/01/20 Active e sodium mouth daily. 19 (SENOKOT-S) 8.6-50 mg per tabletIndications: Constipation, unspecified constipation type fluticasone Inhale 1 Puff 180 Each 3 06/04/20 Acti ve propion-salmeterol every 12 (twelve) 19 250-50 mcg/dose hours. inhalation diskIndications: Acute exacerbation of chronic obstructive pulmonary disease (COPD) tiotropium 18 mcg Inhale 1 capsule 90 capsule 3 06/04/20 Active inhalationIndicati daily. 19 ons: Stage 4 very Indications: Stage severe COPD by 4 very severe COPD GOLD by GOLD classification classification J44.9 J44.9 predniSONE 20 mg Take 1 tablet by 30 tablet 11 06/26/19 Active tablet mouth daily. 20 guaiFENesin Take 1 tablet by 60 tablet 1 07/01/19 A ctive (MUCINEX) 600 mg mouth every 12 20 tablet (twelve) hours. doxycycline 100 mg Take 1 tablet by 20 tablet 0 07/02/19 Active tabletIndications: mouth 2 (two) 20 Subacute maxillary times daily. sinusitis fluticasone Use 1 [place] in 16 g 0 01/16/20 Act carmela propionate 50 each nostril 20 mcg/actuation daily. nasal sprayIndications: Subacute maxillary sinusitis carbamide peroxide Place 5 Drops in 15 mL 0 07/02/19 Active 6.5 % otic right ear 2 (two) 20 solutionIndication times daily. s: Impacted cerumen of right ear ipratropium 0.02 % Inhale 2.5 mL 90 Vial 11 07/02/19 Active nebulizer every 4 (four) 20 solutionIndication hours as needed s: Stage 4 very for Wheezing, severe COPD by Shortness of GOLD Breath or classification Bronchospasm (Acute on Chronic COPD Exacerbation). albuterol 2.5 mg Inhale 3 mL every 90 Vial 11 07/02/19 Active /3 mL (0.083 %) 4 (four) hours as 20 nebulizer needed for solutionIndication Wheezing or s: Stage 4 very Shortness of severe COPD by Breath. GOLD classification furosemide 20 mg Take 1 tablet by 30 tablet 5 09/10/19 Active tablet mouth daily. 20 cetirizine Take 1 tablet by 30 tablet 1 09/15/19 Ac tive (ZYRTEC) 10 mg mouth daily. 20 tabletIndications: Seasonal allergic rhinitis, unspecified trigger ibuprofen 800 mg Take 1 tablet by 30 tablet 0 09/28/19 Active tabletIndications: mouth every 8 20 Chronic pain (eight) hours as disorder needed for Pain (scale 4-6) (Chronic Pain). tiZANidine 2 mg Take 1 tablet by 30 tablet 1 09/28/19 Active tabletIndications: mouth every 8 20 Chronic pain (eight) hours as disorder, Muscle needed (muscle spasm spasms). acetaminophen 650 Take 1 tablet by 20 tablet 0 09/28/19 Active mg CR mouth every 8 20 tabletIndications: (eight) hours as Chronic pain needed for Pain or disorder, Muscle Fever. spasm pregabalin Take 1 capsule by 90 capsule 0 10/05/19 Active (LYRICA) 50 mg mouth 3 (three) 20 capsuleIndications times daily. : Chronic pain disorder pregabalin Take 1 capsule by 90 capsule 0 09/28/1910/04/ Discontinued (LYRICA) 50 mg mouth 3 (three) 20 020 (Reorder) capsuleIndications times daily. : Chronic pain disorder documented as of this encounter (statuses as of 10/05/2019) Active Problems Problem Noted Date Chronic pain [...] as of this encounter (statuses as of 10/05/2019) Immunizations Name Administration Dates Next Due Influenza [...] Telemedicine Visit Family Medicine Jordy Monte MD [address] [place] [address] Dr Mcdowell [address] [place], [place] [address] 15 [phone] 11/16/2019 Office Visit Allergy & Immunology: Annia Hernandes Internal Medicine MD [place] [address] [place] [address] [phone] Health Maintenance Due Date Last Done Comments [...] filedocumented in this encounter Visit Diagnoses Diagnosis Chronic pain disorder Chronic pain syndrome documented in this encounter Insurance Payer Benefit Plan / Subscriber ID Effective Phone Address T ype Group Dates MEDICARE MEDICARE PART A xxxxxxxxxxx 2006-Pr [phone] Medicare & B esent -[phone] [id number] ESTHER P[place]RON [address] FOR LIFE [id number] 2018-Pr Lanette richardson esent Supplement [employer] [id number] 1998-P HMO/PPO/ POS ADMINISTRATION ADMINISTRATION resent documented as of this encounter
--- OUTSIDE RECORDS SUMMARY | 2019-10-11 00:06 | XMS REPORT | Summary of Care ---
:1940 Author Organization [facility] Address [address] [place] [address] Care Team Providers Name Role Phone MD Lavell Primary Care Provider Reason for Visit Reason Comments Notification Medication change Encounter Details Date Type Department Care Team Description 10/06/2019 Telephone [facility] Pediatric Steffen Monte N otification and Adult Primary MD (Medication change) Care- [address] 146 [facility] , [facility] [address] [place] [address] [place] [phone] [address] [phone] Allergies Active Allergy Reactions Severity Noted Date Comments Rejiarwood Unknown - See comments 02/05/2018 Codeine Unknown - See comments 02/05/2018 documented as of this encounter (statuses as of 10/06/2019) Medications Medication Sig Dispensed Refills Start Date [...] Supply Dispense # 1 Carlos KitIndications: Respironics ([place] Acute exacerbation for alternative of chronic brand) [...] Pain or disorder, Muscle Fever. spasm pregabalin (LYRICA) Take 1 capsule by 90 capsule 0 10/05/2019 Active 50 mg mouth 3 (three) capsuleIndications: times daily. Chronic pain disorder documented as of this encounter (statuses as of 10/06/2019) Active Problems Problem Noted Date Chronic pain [...] as of this encounter (statuses as of 10/06/2019) Immunizations Name Administration Dates Next Due Influenza [...] Telemedicine Visit Family Medicine Jordy Monte MD [address] [place] [address] Dr Mcdowell [address] [place], [place] [address] 15 [phone] 11/16/2019 Office Visit Allergy & Immunology: Annia Hernandes Internal Medicine MD [place] [address] [place] [address] 555 Health Maintenance Due Date Last Done [...] O. BOX Medicare & B esent [phone] [id number] ESTHER PADRON [phone] 8 FOR LIFE [id number] 2018-Manas richardson esent Supplement [employer] [id number] 1998-P HMO/PPO/ POS ADMINISTRATION ADMINISTRATION resent documented as of this encounter
--- OUTSIDE RECORDS SUMMARY | 2019-10-11 00:06 | XMS REPORT | Summary of Care ---
:1940 Author Organization [facility] Address [address] [place] [id number] Care Team Providers Name Role Phone MD Lavell Primary Care Provider Reason for Visit Reason Comments Notification Medication change Encounter Details Date Type Department Care Team Description 10/06/2019 Telephone [facility] Pediatric Steffen Monte N otification and Adult Primary MD (Medication change) Care- [address] [facility] , [facility] [address] [place] [address] [place] [phone] [address] [phone] Allergies Active Allergy Reactions Severity Noted Date [...] Supply Dispense # 1 Carlos KitIndications: Respironics (seminole Acute exacerbation for alternative of chronic brand) [...] Subacute maxillary daily. sinusitis fluticasone Use 1 [place] in each 16 g 0 07/02/2019 Active [...] Telemedicine Visit Family Medicine Jordy Monte MD [address] [place] [address] Dr Mcdowell [address] [place], [place] [address] 15 [phone] 11/16/2019 Office Visit Allergy & Immunology: Annia Hernandes Internal Medicine MD [place] [address] [place] [address] 555 Health Maintenance Due Date Last Done [...] O. BOX Medicare & B esent [id number] ESTHER PADRON [phone] FOR LIFE [id number] 2018-Manas richardson esent Supplement [employer] [id number] 1998-P HMO/PPO/ POS ADMINISTRATION ADMINISTRATION resent documented as of this encounter
--- OUTSIDE RECORDS SUMMARY | 2019-10-11 00:07 | XMS REPORT | Summary of Care ---
:1940 Author Organization [facility] Address [address] [place] [address] Care Team Providers Name Role Phone MD Lavell Primary Care Provider Reason for Visit Reason Comments Notification New Medication notification Encounter Details Date Type Department Care Team Description 09/30/2019 Telephone [facility] Pediatric Steffen Monte N otification (New and Adult Primary MD Medication Care- [address] sharifa) [address] [place] [address] , [facility] [address] [place] [address] [place] [phone] [address] [phone] Allergies Active Allergy Reactions Severity Noted Date Comments Yamilet Unknown - See comments 02/05/2018 Codeine Unknown - See comments 02/05/2018 documented as of this encounter (statuses as of 10/08/2019) Medications Medication Sig Dispensed Refills Start Date [...] Supply Dispense # 1 Carlos KitIndications: Respironics (roland Acute exacerbation for alternative of chronic brand) [...] Subacute maxillary daily. sinusitis fluticasone Use 1 [place] in each 16 g 0 07/02/2019 Active [...] as of this encounter (statuses as of 10/08/2019) Active Problems Problem Noted Date Chronic pain [...] as of this encounter (statuses as of 10/08/2019) Immunizations Name Administration Dates Next Due Influenza [...] Treatment Date Type Specialty Care Team Description 10/27/2019 Telemedicine Visit Family Medicine Jordy Monte MD [address] [place] [address] Dr Mcdowell [address] [place], [place] [address] 15 [phone] 11/16/2019 Office Visit Allergy & Immunology: Annia Hernandes Internal Medicine MD [place] [address] [place] [address] 555 [phone] Health Maintenance Due Date Last Done Comments [...] [phone] [address] Medicare & B [phone] [id number] ESTHER PADRON [phone] FOR LIFE [id number] 2018-Manas richardson esent Supplement [facility] [employer] [id number] 1998-P HMO/PPO/ POS ADMINISTRATION ADMINISTRATION resent documented as of this encounter
--- OUTSIDE RECORDS SUMMARY | 2019-10-11 00:08 | XMS REPORT | Summary of Care ---
:1940 Author Organization [facility] - Health Address [address] [place] [address] Care Team Providers Name Role Phone MD Lavell Primary Care Provider Encounter Details Date Type Department Care Team Description 10/06/2019 Orders Only [facility] Doctor Unassigned, No 301 [facility] [place] [address] [address] [place] [address] Allergies Active Allergy Reactions Severity Noted Date Comments Cedarwood Unknown - See comments 02/05/2018 Codeine Unknown - See comments 02/05/2018 documented as of this encounter (statuses as of 10/09/2019) Medications Medication Sig Dispensed Refills Start Date [...] Supply Dispense # 1 Carlos KitIndications: Respironics (okay Acute exacerbation for alternative of chronic brand) [...] Subacute maxillary daily. sinusitis fluticasone Use 1 [place] in each 16 g 0 07/02/2019 Active [...] as of this encounter (statuses as of 10/09/2019) Active Problems Problem Noted Date Chronic pain [...] as of this encounter (statuses as of 10/09/2019) Immunizations Name Administration Dates Next Due Influenza [...] Telemedicine Visit Family Medicine Jordy Monte MD [address] [place] [address] Dr Mcdowell [address] [place], [place] [address] 15 [phone] 11/16/2019 Office Visit Allergy & Immunology: Annia Hernandes Internal Medicine MD [place] [address] [place] [address] 555 Health Maintenance Due Date Last Done [...] year history documented as of this encounter Procedures Procedure Name Priority Date/Time Associated Diagnosis Comme nts HOME HEALTH - OTHER Routine 10/06/2019 12:01 AM CDT documented in this encounter Results Not on filedocumented in this encounter Insurance Payer Benefit Plan / Subscriber ID Effective Phone Address T ype Group Dates MEDICARE MEDICARE PART A xxxxxxxxxxx 2006-Pr [phone] Medicare & B esent [id number] ESTHER PADRON [phone] [id number] FOR LIFE [id number] 2018-Manas richardson esent Supplement [employer] [id number] 1998-P HMO/PPO/ POS ADMINISTRATION ADMINISTRATION resent documented as of this encounter
[2019-10-11 01:11] LABS: Absolute Lymphocytes (CBC) 0.6 K/uL (0.7-4.9); Basophils % 0.4 % (0-1.3); Hematocrit 34.7 % (39.6-49.0); Lymphocytes % 4.1 % (15.3-44.8); MPV 9.5 fL (7.6-11.3); RBC Red Blood Cell Count 3.78 M/uL (4.33-5.43)
[2019-10-11 01:15] LABS: Protime INR 0.98
[2019-10-11 01:22] LABS: Arterial Blood Carboxyhemoglob 1.8 % (0-1.5); Blood Gas Oxyhemoglobin 90.8 % (94-97); Blood O2 Saturation 93.3 % (92-98.5)
[2019-10-11 01:33] LABS: ALT/SGPT 25 U/L (12-78); AST/SGOT 22 U/L (15-37); Albumin 3.1 g/dL (3.4-5.0); Alkaline Phosphatase 151 U/L (45-117); BUN Blood Urea Nitrogen 19 mg/dL (7-18); Bicarbonate 40 mmol/L (21-32); Bilirubin Direct 0.1 mg/dL (0-0.2); Bilirubin Total 0.3 mg/dL (0.2-1.0); Glucose Level 129 mg/dL (74-106); Magnesium 2.2 mg/dL (1.8-2.4); NT PRO-BNP 3795 pg/mL (<450); Potassium 4.3 mmol/L (3.5-5.1); Protein, Total 6.9 g/dL (6.4-8.2); Sodium Level 146 mmol/L (136-145); Troponin (Emerg Dept Use Only) < 0.02 ng/mL (0.0-0.045)
--- NOTE | 2019-10-11 01:37 | ER ---
Nurse's Notes [facility] Name: Idris San Age: 78 yrs Sex: Male : 1940 Arrival Date: 10/10/2019 Time: 23:54 Bed 2 Private MD: Dayton Valdivia K Diagnosis: Acute respiratory failure. Pneumonia. Hypoxia. Acute COPD exacerbation Presentation: 10/09 23:54 Chief complaint: EMS states: "Patient was SOB around noon, his home health nurse came vc and his oxygen saturation was 50% she put him on bipap. When we arrived he was on a long nasal canula, his O2 saturation was in the low 70's.". Coronavirus screen: Proceed with normal triage. Patient denies a cough. Patient reports shortness of breath or difficulty breathing. Patient denies measured and/or subjective temperature greater than 100.4F prior to today's visit. Patient denies travel on a cruise ship or to a country the [facility] currently lists as an affected area. Patient denies contact with known and/or suspected case of COVID-19. Ebola Screen: No symptoms or risks identified at this time. 23:54 Method Of Arrival: EMS: [facility] vc 10/10 00:00 Care prior to arrival: Medication(s) given: Albuterol Neb x 2, Atrovent Neb x 1, 125mg vc solumedrol IV initiated. 18 GA, in the right hand, Glucose check: 141 Med neb given. Oxygen administered. via CPAP or BiPAP. 00:01 Initial Sepsis Screen: Does the patient meet any 2 criteria? RR > 20 per min. No. vc Patient's initial sepsis screen is negative. Does the patient have a suspected source of infection? No. Patient's initial sepsis screen is negative. Risk Assessment: Do you want to hurt yourself or someone else? Patient reports no desire to harm self or others. Onset of symptoms was October 10, 2019 at 12:00. 00:01 Acuity: LISBETH 2 vc Triage Assessment: 00:04 General: Appears distressed, uncomfortable, Behavior is anxious. Pain: Denies pain. vc EENT: Eyes are tearing on right inner canthus and left inner canthus. Neuro: Level of Consciousness is awake, alert, Oriented to person, Patient on bipap, unable to speak. Cardiovascular: Heart tones present Respiratory: Breath sounds are coarse Breath sounds with rhonchi. Respiratory: Respiratory effort is even, labored, Respiratory pattern is. GI: Abdomen is round obese, noted to have ascites, Bowel sounds present X 4 quads. : No signs and/or symptoms were reported regarding the genitourinary system. Derm: small skin tear to left hand. Musculoskeletal: Amputation of. Historical: - Allergies: 00:03 Codeine; vc 00:03 Morphine; vc - Home Meds: 00:58 Flovent Inhl 110 mcg as needed [Active]; tizanidine 2 mg oral tab 1 tabs every 8 hours vc for Muscle Spasm [Active]; hydrocodone-acetaminophen 5-325 mg oral tab every 6 hours for Pain [Active]; ibuprofen 800 mg Oral tab 1 tab 3 times per day for chronic pain [Active]; Stool Softener 50 mg oral cap 1 cap once daily [Active]; tramadol 50 mg Oral tab 1 1-2 tabs every 6-8 hrs PRN [Active]; meloxicam 7.5 mg oral tab 1 tab once daily for Pain [Active]; 00:59 cyanocobalamin (vitamin B-12) 1,000 mcg oral tab 2 tabs daily [Active]; vc - PMHx: 00:03 Anemia; CHF; COPD; Emphysema; enlarged prostate; Lung Cancer; Pt reports that it vc cleared up; femur fracture; Pneumonia; Sleep Apnea; - Immunization history:: Adult Immunizations up to date. - Social history:: Smoking status: unknown. Screenin:04 Abuse screen: Denies threats or abuse. Nutritional screening: No deficits noted. vc Tuberculosis screening: No symptoms or risk factors identified. Fall Risk None identified. Assessment: 01:00 Reassessment: No pain or apparent distress is noted at this time. Pt awakens to verbal jb4 stimuli, Respirations are assisted by bi-pap. PT follows commands but does not respond. Respiratory effort is even, labored, symmetrical, and tachypneic. Breath sounds are clear but diminished on the right with rhonchi noted on the left. 02:00 Reassessment: Patient appears in no apparent distress at this time. No changes from jb4 previously documented assessment. Patient and/or family updated on plan of care and expected duration. Pain level reassessed. 03:00 Reassessment: Patient appears in no apparent distress at this time. No changes from jb4 previously documented assessment. Patient and/or family updated on plan of care and expected duration. Pain level reassessed. 03:30 Reassessment: Pt resting in bed without s/s of pain or distress noted. Respirations are jb4 even, labored, symmetrical, and tachypneic, remains on BiPAP. Crackles noted LISSA. 05:00 Reassessment: Patient appears in no apparent distress at this time. Patient and/or jb4 family updated on plan of care and expected duration. Pain level reassessed. Patient is alert, oriented x 3, equal unlabored respirations, skin warm/dry/pink. PT is awake, alert, requesting a urinal. 06:00 Reassessment: Patient appears in no apparent distress at this time. Patient and/or jb4 family updated on plan of care and expected duration. Pain level reassessed. Patient is alert, oriented x 3, equal unlabored respirations, skin warm/dry/pink. PT remains on bi-pap. 06:06 Reassessment: pt requesting a phone number be left on the chart, please note [phone]. 07:00 Reassessment: Patient appears in no apparent distress at this time. No changes from jb4 previously documented assessment. Patient and/or family updated on plan of care and expected duration. Pain level reassessed. Vital Signs: 00:45 BP 153 / 77; Pulse 108; Resp 32 A; Temp 98.1(TE); Pulse Ox 100% on BiPAP; Weight 106.59 vc kg; Height 5 ft. 5 in. (165.10 cm); 01:00 BP 109 / 53; Pulse 95; Resp 28; Pulse Ox 89% on 40% BiPAP; jb4 02:00 BP 116 / 55; Pulse 92; Resp 22; Pulse Ox 97% on 60% BiPAP; jb4 03:00 BP 117 / 64; Pulse 87; Resp 20; Pulse Ox 95% on 45% BiPAP; jb4 04:00 BP 109 / 93; Pulse 87; Resp 22; Temp 98.1(TE); Pulse Ox 96% on 40% BiPAP; jb4 05:00 BP 107 / 55; Pulse 81; Resp 22; Pulse Ox 98% on 40% BiPAP; jb4 06:00 BP 106 / 56; Pulse 78; Resp 22; Temp 98.5(TE); Pulse Ox 98% on 40% BiPAP; Pain 0/10; jb4 07:20 BP 92 / 45; Pulse 75; Resp 22; Temp 97.8; Pulse Ox 100% on 40% BiPAP; ph 00:45 Body Mass Index 39.11 (106.59 kg, 165.10 cm) vc ED Course: 10/09 00:40 Inserted saline lock: 20 gauge in left forearm, using aseptic technique. Blood sg collected. 23:54 Patient arrived in ED. vc 23:54 Isaac Walker MD is Attending Physician. pkl 10/10 00:00 Arm band placed on. vc 00:00 Patient has correct armband on for positive identification. Bed in low position. Side vc rails up X2. watch parts inspector on. Pulse ox on. NIBP on. 00:01 Triage completed. vc 00:13 Loly Harden RN is Primary Nurse. vc 00:30 Report given to Padilla Ac RN. vc 00:40 First set of blood cultures drawn by me. sg 00:54 XRAY Chest (1 view) In Process Unspecified. EDMS 01:00 Initial lab(s) drawn, by me, sent to lab. sg 01:34 Katarzyna Montemayor MD is Hospitalizing Provider. pkl 01:44 Primary Nurse role handed off by Loly Harden RN jb4 01:44 Jose Martin Ac, CRISTINA is Primary Nurse. jb4 06:37 Dayton Valdivia MD is Private Physician. sg Administered Medications: 02:53 CANCELLED (Duplicate Order): Meropenem 500 mg IV at calculated rate once; (mix in NS sg 100 mL) 03:30 Drug: Meropenem 500 mg Route: IV; Rate: calculated rate; Site: left forearm; jb4 04:00 Follow up: Response: No adverse reaction; IV Status: Completed infusion; IV Intake: jb4 100ml Intake: 04:00 IV: 100ml; Total: 100ml. jb4 Outcome: 01:36 Decision to Hospitalize by Provider. pkl 10:03 Patient left the ED. ph Signatures: Dispatcher [employer] EDAR Marc Ron RN RN Isaac Walker MD MD pkl Cinthya Ignacio RN RN Jose Martin Ac RN RN jb4 Loly Harden, RN RN vc
--- NOTE | 2019-10-11 01:37 | EDPHYS ---
Physician Documentation [facility] Name: Idris San Age: 78 yrs Sex: Male : 1940 Arrival Date: 10/10/2019 Time: 23:54 Bed 2 Private MD: Dayton Valdivia K ED Physician Isaac Walker HPI: 10/10 00:43 This 78 yrs old Male presents to ER via EMS with unknown complaint. pkl 00:43 The patient has shortness of breath at rest. Onset: The symptoms/episode began/occurred pkl today. Associated signs and symptoms: Pertinent positives: productive cough. The patient has experienced similar episodes in the past, several times. Historical: - Allergies: 00:03 Codeine; vc 00:03 Morphine; vc - Home Meds: 00:58 Flovent Inhl 110 mcg as needed [Active]; tizanidine 2 mg oral tab 1 tabs every 8 hours vc for Muscle Spasm [Active]; hydrocodone-acetaminophen 5-325 mg oral tab every 6 hours for Pain [Active]; ibuprofen 800 mg Oral tab 1 tab 3 times per day for chronic pain [Active]; Stool Softener 50 mg oral cap 1 cap once daily [Active]; tramadol 50 mg Oral tab 1 1-2 tabs every 6-8 hrs PRN [Active]; meloxicam 7.5 mg oral tab 1 tab once daily for Pain [Active]; 00:59 cyanocobalamin (vitamin B-12) 1,000 mcg oral tab 2 tabs daily [Active]; vc - PMHx: 00:03 Anemia; CHF; COPD; Emphysema; enlarged prostate; Lung Cancer; Pt reports that it vc cleared up; femur fracture; Pneumonia; Sleep Apnea; - Immunization history:: Adult Immunizations up to date. - Social history:: Smoking status: unknown. ROS: 00:43 Eyes: Negative for injury, pain, redness, and discharge, ENT: Negative for injury, pkl pain, and discharge, Neck: Negative for injury, pain, and swelling, Cardiovascular: Negative for chest pain, palpitations, and edema. 00:43 Respiratory: Positive for cough, with clear sputum, shortness of breath, wheezing. 00:43 Abdomen/GI: Negative for abdominal pain, nausea, vomiting, and diarrhea. 00:43 Back: Negative for acute changes. 00:43 : Negative for urinary symptoms. 00:43 MS/extremity: Negative for acute changes. 00:43 Skin: Negative for rash. 00:43 Neuro: Negative for altered mental status. Exam: 00:43 Head/Face: Normocephalic, atraumatic. Eyes: Pupils equal round and reactive to light, pkl extra-ocular motions intact. Lids and lashes normal. Conjunctiva and sclera are non-icteric and not injected. Cornea within normal limits. Periorbital areas with no swelling, redness, or edema. ENT: Nares patent. No nasal discharge, no septal abnormalities noted. Tympanic membranes are normal and external auditory canals are clear. Oropharynx with no redness, swelling, or masses, exudates, or evidence of obstruction, uvula midline. Mucous membranes moist. Neck: Trachea midline, no thyromegaly or masses palpated, and no cervical lymphadenopathy. Supple, full range of motion without nuchal rigidity, or vertebral point tenderness. No Meningismus. Chest/axilla: Normal chest wall appearance and motion. Nontender with no deformity. No lesions are appreciated. Cardiovascular: Regular rate and rhythm with a normal S1 and S2. No gallops, murmurs, or rubs. Normal PMI, no JVD. No pulse deficits. 00:43 Respiratory: moderate respiratory distress is noted, Respirations: labored breathing, that is moderate, Breath sounds: rales, that are moderate, are scattered, rhonchi, that are moderate, are scattered. 00:43 Abdomen/GI: Bowel sounds: normal, Palpation: abdomen is soft and non-tender, in all quadrants. 00:43 Back: Exam negative for acute changes. 00:43 : Exam negative for acute changes. 00:43 Musculoskeletal/extremity: Exam is negative for acute changes. 00:43 Skin: Exam negative for rash. 00:43 Neuro: Orientation: appropriate for stated age, Mentation: appropriate for stated age, Cranial nerves: grossly normal, Motor: moves all fours. Vital Signs: 00:45 BP 153 / 77; Pulse 108; Resp 32 A; Temp 98.1(TE); Pulse Ox 100% on BiPAP; Weight 106.59 vc kg; Height 5 ft. 5 in. (165.10 cm); 01:00 BP 109 / 53; Pulse 95; Resp 28; Pulse Ox 89% on 40% BiPAP; jb4 02:00 BP 116 / 55; Pulse 92; Resp 22; Pulse Ox 97% on 60% BiPAP; jb4 03:00 BP 117 / 64; Pulse 87; Resp 20; Pulse Ox 95% on 45% BiPAP; jb4 04:00 BP 109 / 93; Pulse 87; Resp 22; Temp 98.1(TE); Pulse Ox 96% on 40% BiPAP; jb4 05:00 BP 107 / 55; Pulse 81; Resp 22; Pulse Ox 98% on 40% BiPAP; jb4 06:00 BP 106 / 56; Pulse 78; Resp 22; Temp 98.5(TE); Pulse Ox 98% on 40% BiPAP; Pain 0/10; jb4 07:20 BP 92 / 45; Pulse 75; Resp 22; Temp 97.8; Pulse Ox 100% on 40% BiPAP; ph 00:45 Body Mass Index 39.11 (106.59 kg, 165.10 cm) vc MDM: 10/09 23:54 Patient medically screened. pkl 10/10 00:50 Data reviewed: vital signs, nurses notes. ED course: Patient examined with full PPE.. pkl 01:20 Data reviewed: lab test result(s), EKG, radiologic studies, plain films. ED course: EKG pkl shows sinus rhythm with PVC, right taylor axis, T wave abnormality. 01:33 ED course: Talked to Dr. Montemayor, admit to ICU. pkl 01:43 ED course: Patient admitted to ICU for acute respiratory failure, pneumonia and COPD pkl exacerbation. PCO2 101, FIO2 adjusted from 100% to 60%. Patient conscious level and respiration improved.. 10/10 00:29 Order name: Basic Metabolic Panel; Complete Time: 01:36 pkl 10/10 00:29 Order name: CBC with Diff; Complete Time: 01:25 pkl 10/10 00:29 Order name: LFT's; Complete Time: :36 pkl 10/10 00:29 Order name: Magnesium; Complete Time: : pkl 10/10 00:29 Order name: NT PRO-BNP; Complete Time: :36 pkl 10/10 00:29 Order name: PT-INR; Complete Time: : pkl 10/10 00:29 Order name: Troponin (emerg Dept Use Only); Complete Time: 01:36 pkl 10/10 00:29 Order name: ABG; Complete Time: 01:25 pkl 10/10 00:29 Order name: Lactate; Complete Time: 01:36 pkl 10/10 00:29 Order name: Procalcitonin; Complete Time: 02:32 pkl 10/10 00:29 Order name: Blood Culture Adult (2) pkl 10/10 00:29 Order name: COVID-19 pkl 10/10 00:29 Order name: Flu; Complete Time: 02:32 pkl 10/10 00:29 Order name: Strep; Complete Time: 02:32 pkl 10/10 02:15 Order name: Throat Culture EDMS 10/10 02:23 Order name: Lipid Profile EDMS 10/10 02:25 Order name: ABG Arterial Blood Gas EDMS 10/10 02:25 Order name: ABG Arterial Blood Gas; Complete Time: 19:08 EDMS 10/10 02:25 Order name: Lipid Profile; Complete Time: 19:08 EDMS 10/10 02:26 Order name: CBC with Automated Diff; Complete Time: 19:08 EDMS 10/10 02:26 Order name: Comprehensive Metabolic Panel; Complete Time: 19:08 EDMS 10/10 02:26 Order name: Lactate; Complete Time: 19:08 EDMS 10/10 02:26 Order name: Magnesium; Complete Time: 19:08 EDMS 10/10 02:26 Order name: Phosphorus; Complete Time: 19:08 EDMS 10/10 02:26 Order name: Procalcitonin; Complete Time: 19:08 EDMS 10/10 02:27 Order name: T4 Free; Complete Time: 19:08 EDMS 10/10 02:27 Order name: Thyroid Stimulating Hormone; Complete Time: 19:08 EDMS 10/10 02:27 Order name: Troponin I; Complete Time: 19:08 EDMS 10/10 02:27 Order name: Vitamin B12 Level; Complete Time: 19:08 EDMS 10/10 07:37 Order name: Manual Differential; Complete Time: 19:08 EDMS 10/10 00:29 Order name: XRAY Chest (1 view); Complete Time: 19:08 pkl 10/10 00:29 Order name: EKG; Complete Time: 00:31 pkl 10/10 00:29 Order name: Cardiac monitoring; Complete Time: 01:02 pkl 10/10 00:29 Order name: EKG - Nurse/Tech; Complete Time: 01:03 pkl 10/10 00:29 Order name: IV Saline Lock; Complete Time: 01:02 pkl 10/10 00:29 Order name: Labs collected and sent; Complete Time: 01:02 pkl 10/10 00:29 Order name: O2 Per Protocol; Complete Time: 01: pkl 10/10 00:29 Order name: O2 Sat Monitoring; Complete Time: 01: pkl 10/10 00:29 Order name: Document PUI#; Complete Time: 02:12 pkl 10/10 00:29 Order name: Droplet/Contact Precautions; Complete Time: 01:43 pkl 10/10 00:29 Order name: Notify Health Dept [phone]/ ; Complete Time: 02:12 pkl 10/10 01:02 Order name: BIPAP 10/10 02:24 Order name: CONS Pharmacy Consult [facility] 10/10 02:24 Order name: CONS Physician Consult [facility] 10/10 02:24 Order name: [facility] 10/10 07:08 Order name: Labs - recollect needed bd Administered Medications: 02:53 CANCELLED (Duplicate Order): Meropenem 500 mg IV at calculated rate once; (mix in NS sg 100 mL) 03:30 Drug: Meropenem 500 mg Route: IV; Rate: calculated rate; Site: left forearm; jb4 04:00 Follow up: Response: No adverse reaction; IV Status: Completed infusion; IV Intake: jb4 100ml Disposition: :41 Critical Care:. pkl Disposition: 10/11/19 01:36 Hospitalization ordered by Katarzyna Montemayor for Inpatient Admission. Preliminary diagnosis is Acute respiratory failure. Pneumonia. Hypoxia. Acute COPD exacerbation. - Bed requested for Intensive Care Unit. - Status is Inpatient Admission. ph - Condition is Stable. - Problem is new. - Symptoms have improved. Critical care time excluding procedures: :41 Critical care time: Bedside Care: 30 minutes. Total time: 30 minutes pkl Signatures: Dispatcher [employer] [facility] Karrie Palacios Martha, RN RN Marc Ron RN RN sg Isaac Walker MD MD pkl Cinthya Ignacio RN RN Jose Martin Ac, RN RN jb4 Loly Harden RN RN Corrections: (The following items were deleted from the chart) 01:42 01:40 Critical Care: pkl pkl 01:42 01:40 Critical Care: pkl pkl 02:53 02:48 Meropenem 500 mg IV at calculated rate once; (mix in NS 100 mL) ordered. jb4 05:39 01:36 Hospitalization Ordered by Katarzyna Montemayor MD for Inpatient Admission. Preliminary mw diagnosis is Acute respiratory failure. Pneumonia. Hypoxia. Acute COPD exacerbation. Bed requested for Intensive Care Unit. Status is Inpatient Admission. Condition is Stable. Problem is new. Symptoms have improved. pkl 10:03 05:39 10/11/2019 01:36 Hospitalization Ordered by Katarzyna Montemayor MD for Inpatient Admission. Preliminary diagnosis is Acute respiratory failure. Pneumonia. Hypoxia. Acute COPD exacerbation. Bed requested for Intensive Care Unit. Status is Inpatient Admission. Condition is Stable. Problem is new. Symptoms have improved. mw
[2019-10-11] MEDS ORDERED: ONDANSETRON 4 MG/2 ML VIAL IV PRN (02:15)
[2019-10-11] MEDS ORDERED: ACETAMINOPHEN 500 MG TAB PO PRN (02:15)
[2019-10-11] MEDS: NA CHLORIDE 0.9% 1,000 ML IV SCH ×2 (03:30→10:06)
[2019-10-11] MEDS ORDERED: NA CHLORIDE 0.9% 1,000 ML ONE (03:36)
[2019-10-11] MEDS ORDERED: VANCOMYCIN 2.5 GM in NA CHLORIDE 0.9% 500 ML IVPB ONE ×2 (05:00→08:00)
[2019-10-11] MEDS: METHYLPREDNISOLONE 125 MG INJ IV SCH ×2 (06:00→10:19)
[2019-10-11] MEDS ORDERED: VANCOMYCIN 1.25 GM in NA CHLORIDE 0.9% 250 ML IVPB SCH (06:00)
[2019-10-11 06:05] LABS: Arterial Blood Carboxyhemoglob 1.8 % (0-1.5); Blood Gas Oxyhemoglobin 90.2 % (94-97); Blood O2 Saturation 92.7 % (92-98.5)
--- NOTE | 2019-10-11 06:48 | EKG ---
Test Date: 2019-10-11 Test Time: 01:03:32 Studio Model: CHELSEY MEASUREMENT RESULTS: Intervals: Rate: 93 GA: 116 QRSD: 84 QT: 334 QTc: 415 Steinauer: P: 56 GA: 116 QRS: 101 T: 59 INTERPRETIVE STATEMENTS: Sinus rhythm with premature supraventricular complexes Rightward axis T wave abnormality, consider anterior ischemia Abnormal ECG Compared to ECG 09/24/2019 16:51:44 T-wave abnormality now present Possible ischemia now present ST (T wave) deviation no longer present Electronically Signed On 10-11-19 06:48:20 CDT by Pepe España
--- NOTE | 2019-10-11 06:58 | P.HP ---
Certification for Inpatient Patient admitted to: Inpatient With expected LOS: >2 Midnights Patient will require the following post-hospital care: None Practitioner: I am a practitioner with admitting privileges, knowledge of patient current condition, hospital course, and medical plan of care. Services: Services provided to patient in accordance with Admission requirements found in Title 42 Section 412.3 of the Code of Federal Regulations Patient History Date of Service: 10/11/19 Allergies codeine Allergy (Verified 11/15/18 22:12) AMS Home Medications: Acidophilus/Bifido Longum [Lactobacillus Capsule] 1 cap PO DAILY 11/15/18 Aspirin 81 mg PO DAILY 11/15/18 Cyanocobalamin (Vitamin B-12) [Vitamin B-12] 100 mcg PO DAILY 11/15/18 Furosemide [Lasix] 20 mg PO DAILY 11/15/18 Tiotropium [Spiriva Handihaler*] 18 mcg IH BID 11/15/18 Acetaminophen [Tylenol] 325 mg PO Q4HR PRN 05/25/19 Benzonatate [Tessalon Perle*] 100 mg PO TID 05/25/19 Bismuth Subsalicylate [Kaopectate] 262 mg PO Q1H PRN MDD 8 05/25/19 Cetirizine HCl [Zyrtec*] 10 mg PO DAILY 05/25/19 Ergocalciferol (Vitamin D2) [Vitamin D2] 1 cap PO SEECOM 05/25/19 Ferrous Sulfate [Ferrous Sulfate*] 1 tab PO DAILY 05/25/19 Fluticasone/Salmeterol [Advair 250-50 Diskus] 1 puff IH BID 05/25/19 Ipratropium Union 2.5 ml IH BID 05/25/19 Polyethylene Glycol 3350 [Miralax] 17 gm PO DAILY PRN 05/25/19 Azithromycin Tab [Zithromax*] 250 mg PO ZPAK #1 milady 05/28/19 Fluticasone Furoate [Flonase Sensimist] 9.1 ml NS DAILY #1 spray.susp 05/28/19 predniSONE [Deltasone*] 10 mg PO DAILY 30 Days #30 tab 05/28/19 - Past Medical/Surgical History Has patient received pneumonia vaccine in the past: No Diabetic: No -: Lung cancer radiation treatments three years ago -: 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 -: Sleep Apnea -: Enlarged prostate -: CHF -: femur Fx -: Appendectomy -: Cataract surgery -: Prostate surgery - Family History Father Medical History: Heart disease, Diabetes Notes: [place] Mother Medical History: Lung disease, Cancer Notes: LUng Ca, Breast CA,Brain CA - Social History Smoking Status: Former smoker Alcohol use: No CD- Drugs: No Caffeine use: Yes Place of Residence: Home Physical Examination - Vital Signs Temperature: 97.7 F Blood Pressure: 109/93 Pulse: 87 Respirations: 22 Pulse Ox (%): 96 - Studies Laboratory Data (last 24 hrs) 10/11/19 01:00: PT 11.6, INR 0.98 10/11/19 01:00: WBC 14.7 H D, Hgb 10.8 L, Hct 34.7 L, Plt Count 287 10/11/19 01:00: Sodium 146 H, Potassium 4.3, BUN 19 H, Creatinine 0.78, Glucose 129 H, Magnesium 2.2, Total Bilirubin 0.3, AST 22, ALT 25, Alkaline Phosphatase 151 H Microbiology Data (last 24 hrs): 10/11/19 01:25 Nasopharnyx Influenza Type A Antigen Screen - Final 10/11/19 01:25 Nasopharnyx Influenza Type B Antigen Screen - Final 10/11/19 01:25 Throat Group A Streptococcus Rapid Screen - Final Assessment & Plan - Advance Directives Does patient have a Living Will: No Does patient have a Durable POA for Healthcare: Yes
[2019-10-11 07:14] LABS: Absolute Lymphocytes (CBC) 0.4 K/uL (0.7-4.9); Basophils % 0.2 % (0-1.3); Lymphocytes % 3.4 % (15.3-44.8); MPV 10.3 fL (7.6-11.3); RBC Red Blood Cell Count 3.71 M/uL (4.33-5.43)
[2019-10-11 07:37] LABS: Blood Morphology Comment NOT SEEN (NOT SEEN); Platelet Estimate ADEQ
[2019-10-11] MEDS: IPRATROPIUM BROM 0.5MG/2.5ML NEB SCH ×3 (08:00→19:20)
[2019-10-11] MEDS: ALBUTEROL 2.5 MG/3 ML NEB SOL NEB SCH ×3 (08:00→19:20)
--- NOTE | 2019-10-11 08:23 | RAD REPORT ---
EXAM DESCRIPTION: RAD - Chest Single View - 10/11/2019 12:53 am CLINICAL HISTORY: Cough;Dyspnea COMPARISON: Portable chest September 23 TECHNIQUE: AP portable chest image was obtained 10/11/2019 12:53 am . FINDINGS: Lung volumes match comparison. Patient has baseline chronic interstitial lung disease. Rig ht midlung field opacification has not changed. Spiculated parenchyma at the left hilum stable from c omparison. New left base opacification from pleural fluid, atelectasis and/or infiltrate. Right base opacificati on has increased as well. Heart and vasculature are normal. No pneumothorax. No acute bony abnormality seen. No acute aortic f indings suspected. IMPRESSION: New bilateral lung base pleural fluid with atelectasis and/or infiltrate. Overall interstitial opacification has increased suggesting failure or developing pulmonary edema. Chronic lung parenchymal scarring changes similar to comparison.
[2019-10-11] MEDS ORDERED: ENOXAPARIN 40 MG/0.4 ML SQ SCH (09:00)
[2019-10-11] MEDS ORDERED: Meropenem 1000 MG/VIAL IV SCH (09:00)
[2019-10-11] MEDS: Meropenem 500 MG in NA CHLORIDE 0.9% 100 ML IV SCH ×2 (10:06→18:21)
[2019-10-11 10:08] LABS: ALT/SGPT 20 U/L (12-78); AST/SGOT 16 U/L (15-37); Albumin 2.6 g/dL (3.4-5.0); Alkaline Phosphatase 140 U/L (45-117); BUN Blood Urea Nitrogen 16 mg/dL (7-18); Bilirubin Total 0.3 mg/dL (0.2-1.0); Glucose Level 159 mg/dL (74-106); HDL Cholesterol 80 mg/dL (40-60); LDL Cholesterol, Calculated 93 (<130); Magnesium 2.1 mg/dL (1.8-2.4); Phosphorus 2.3 mg/dL (2.5-4.9); Potassium 4.7 mmol/L (3.5-5.1); Protein, Total 6.2 g/dL (6.4-8.2); Sodium Level 144 mmol/L (136-145); Thyroid Stimulating Hormone 0.521 uIU/mL (0.360-3.740); Troponin I < 0.02 ng/mL (0.0-0.045)
[2019-10-11 10:10] LABS: Bicarbonate 41 mmol/L (21-32)
--- NOTE | 2019-10-11 15:13 | P.CNS ---
Date of Consult: 10/11/19 Reason for Consult: Respiratory failure Chief Complaint: Shortness of breath History of Present Illness: Patient is 78 years of age well known to me with a history of terminal COPD has home BiPAP became acutely worse and appeared in the hospital denies nausea vomiting abdominal pain diarrhea cough for sputum currently on BiPAP desatting his baseline functioning is very poor recurrent hospital admissions currently is compliant with his bronchodilators in sees a insurance risk manager in [place] Allergies codeine Allergy (Verified 11/15/18 22:12) AMS Home Medications: Acidophilus/Bifido Longum [Lactobacillus Capsule] 1 cap PO DAILY 11/15/18 Aspirin 81 mg PO DAILY 11/15/18 Cyanocobalamin (Vitamin B-12) [Vitamin B-12] 100 mcg PO DAILY 11/15/18 Furosemide [Lasix] 20 mg PO DAILY 11/15/18 Tiotropium [Spiriva Handihaler*] 18 mcg IH BID 11/15/18 Acetaminophen [Tylenol] 325 mg PO Q4HR PRN 05/25/19 Benzonatate [Tessalon Perle*] 100 mg PO TID 05/25/19 Bismuth Subsalicylate [Kaopectate] 262 mg PO Q1H PRN MDD 8 05/25/19 Cetirizine HCl [Zyrtec*] 10 mg PO DAILY 05/25/19 Ergocalciferol (Vitamin D2) [Vitamin D2] 1 cap PO SEECOM 05/25/19 Ferrous Sulfate [Ferrous Sulfate*] 1 tab PO DAILY 05/25/19 Fluticasone/Salmeterol [Advair 250-50 Diskus] 1 puff IH BID 05/25/19 Ipratropium Avery 2.5 ml IH BID 05/25/19 Polyethylene Glycol 3350 [Miralax] 17 gm PO DAILY PRN 05/25/19 Azithromycin Tab [Zithromax*] 250 mg PO ZPAK #1 milady 05/28/19 Fluticasone Furoate [Flonase Sensimist] 9.1 ml NS DAILY #1 spray.susp 05/28/19 predniSONE [Deltasone*] 10 mg PO DAILY 30 Days #30 tab 05/28/19 - Past Medical/Surgical History Diabetic: No -: Lung cancer radiation treatments three years ago -: 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 -: Sleep Apnea -: Enlarged prostate -: CHF -: femur Fx -: Appendectomy -: Cataract surgery -: Prostate surgery - Family History Father Medical History: Heart disease, Diabetes Notes: [place] Mother Medical History: Lung disease, Cancer Notes: LUng Ca, Breast CA,Brain CA - Social History Smoking Status: Unknown if ever smoked Alcohol use: No CD- Drugs: No Caffeine use: Yes Place of Residence: Home Review of Systems 10-point ROS is otherwise unremarkable General: Weakness Respiratory: Shortness of Breath Physical Examination Temp Pulse Resp BP Pulse Ox 99.1 F 86 18 107/58 L 91 10/11/19 12:00 10/11/19 13:00 10/11/19 13:00 10/11/19 13:00 10/11/19 13:00 General: Alert, Moderate distress Respiratory: Clear to auscultation bilaterally, Diminished Cardiovascular: No edema, Regular rate/rhythm Gastrointestinal: Normal bowel sounds, Soft and benign Musculoskeletal: No clubbing, No swelling Integumentary: No rashes, No breakdown Neurological: Normal speech Laboratory Data (last 24 hrs) 10/11/19 01:00: PT 11.6, INR 0.98 10/11/19 01:00: WBC 14.7 H D, Hgb 10.8 L, Hct 34.7 L, Plt Count 287 10/11/19 01:00: Sodium 146 H, Potassium 4.3, BUN 19 H, Creatinine 0.78, Glucose 129 H, Magnesium 2.2, Total Bilirubin 0.3, AST 22, ALT 25, Alkaline Phosphatase 151 H - Problems (1) Acute and chronic respiratory failure ([id number]) Current Visit: No Status: Acute Plan: Patient is 78 years of age terminal COPD admitted with worsening dyspnea he may have some element of congestive heart failure chest x-rays abnormal will repeat echo continue with bronchodilator treatment patient's pro calcitonin significantly elevated patient was hypercarbic on admission white count is also elevated blood cultures are pending borderline temperature agree with vancomycin and meropenem for now Dc IV fluids echocardiogram Qualifiers: Respiratory failure complication: hypoxia and hypercapnia Qualified Code(s): J96.21 - Acute and chronic respiratory failure with hypoxia; J96.22 - Acute and chronic respiratory failure with hypercapnia
[2019-10-11] MEDS: METHYLPREDNISOLONE 40 MG INJ IV SCH (18:21)
[2019-10-11] MEDS: ENOXAPARIN 40 MG/0.4 ML SQ SCH (18:21)
[2019-10-11] MEDS ORDERED: PNEUMOCOCCAL VACCINE 0.5 ML IMVAC ONE (21:00)
[2019-10-12] MEDS: Meropenem 500 MG in NA CHLORIDE 0.9% 100 ML IV SCH ×3 (00:42→16:00)
[2019-10-12] MEDS: METHYLPREDNISOLONE 40 MG INJ IV SCH ×2 (00:42→08:29)
[2019-10-12] MEDS ORDERED: VANCOMYCIN 1.75 GM in NA CHLORIDE 0.9% 500 ML IVPB SCH ×2 (02:00→05:00)
[2019-10-12] MEDS ORDERED: VANCOMYCIN 2 GM in NA CHLORIDE 0.9% 500 ML IVPB SCH ×2 (02:00→08:00)
[2019-10-12] MEDS: IPRATROPIUM BROM 0.5MG/2.5ML NEB SCH ×4 (03:30→20:00)
[2019-10-12] MEDS: ALBUTEROL 2.5 MG/3 ML NEB SOL NEB SCH ×4 (03:30→20:00)
[2019-10-12 05:35] LABS: Absolute Lymphocytes (CBC) 0.3 K/uL (0.7-4.9); Basophils % 0.2 % (0-1.3); Hematocrit 32.6 % (39.6-49.0); Lymphocytes % 2.2 % (15.3-44.8); MPV 10.6 fL (7.6-11.3); RBC Red Blood Cell Count 3.58 M/uL (4.33-5.43)
[2019-10-12 05:47] LABS: BUN Blood Urea Nitrogen 18 mg/dL (7-18); Bicarbonate 40 mmol/L (21-32); Glucose Level 138 mg/dL (74-106); Magnesium 2.3 mg/dL (1.8-2.4); Phosphorus 2.3 mg/dL (2.5-4.9); Potassium 4.7 mmol/L (3.5-5.1); Sodium Level 144 mmol/L (136-145)
[2019-10-12] MEDS: POTASS/SODIUM PHOSPHATE 1 PKT POWD.PACK PO SCH ×3 (08:30→10:59)
--- NOTE | 2019-10-12 12:35 | P.PN ---
Subjective Date of Service: 10/12/19 Chief Complaint: Chronic respiratory failure Patient's condition is stable he has terminal COPD has home BiPAP hemodynamically stable he is alert responsive cooperative cultures are so far negative Review of Systems General: Weakness Respiratory: Shortness of Breath Physical Examination - Vital Signs Temperature: 98.8 F Blood Pressure: 105/59 Pulse: 74 Respirations: 24 Pulse Ox (%): 90 - Physical Exam General: Alert, Oriented x3 Respiratory: Diminished Cardiovascular: No edema Gastrointestinal: Normal bowel sounds - Studies Microbiology Data (last 24 hrs): 10/11/19 00:40 Blood - Blood Anaerobic Blood Culture - Final Assessment & Plan - Problems (Diagnosis) (1) Acute and chronic respiratory failure ([id number]) Current Visit: No Status: Acute Plan: Patient admitted with acute on chronic respiratory failure he has terminal COPD chest x-ray ordered titrate sat to around 80 8-90% change to p.o. prednisone Dc vancomycin continue with meropenem he is at risk for resistant infections change to oral prednisone stable to be transferred to the floor he is was on hospice care before has a noninvasive ventilator at home Qualifiers: Respiratory failure complication: hypoxia and hypercapnia Qualified Code(s): J96.21 - Acute and chronic respiratory failure with hypoxia; J96.22 - Acute and chronic respiratory failure with hypercapnia
--- NOTE | 2019-10-12 15:21 | P.PN ---
Subjective Date of Service: 10/12/19 Chief Complaint: Chronic respiratory failure Subjective: No new changes, No C/O voiced Physical Examination - Vital Signs Temperature: 98.8 F Blood Pressure: 105/59 Pulse: 74 Respirations: 24 Pulse Ox (%): 90 - Physical Exam General: Alert, In no apparent distress, Oriented x3, Other (on bipap) HEENT: Atraumatic, Normocephalic, PERRLA Neck: Supple, 2+ carotid pulse no bruit, JVD not distended Respiratory: Normal air movement, Diminished Cardiovascular: No edema, Normal pulses, Regular rate/rhythm Gastrointestinal: Normal bowel sounds, Soft and benign, Non-distended Musculoskeletal: No clubbing, No swelling Integumentary: No rashes, No breakdown Neurological: Normal speech, Normal strength at 5/5 x4 extr - Studies Laboratory Last Values WBC 14.7 K/uL (4.3-10.9) H D 10/11/19 01:00 RBC 3.78 M/uL (4.33-5.43) L 10/11/19 01:00 Hgb 10.8 g/dL (13.6-17.9) L 10/11/19 01:00 Hct 34.7 % (39.6-49.0) L 10/11/19 01:00 MCV 91.8 fL (80-100) 10/11/19 01:00 MCH 28.5 pg (27.0-35.0) 10/11/19 01:00 MCHC 31.0 g/dL (32.0-36.0) L 10/11/19 01:00 RDW 16.3 % (12.1-15.2) H 10/11/19 01:00 Plt Count 287 K/uL (152-406) 10/11/19 01:00 MPV 9.5 fL (7.6-11.3) D 10/11/19 01:00 Neutrophils % 90.7 % (41.7-73.7) H 10/11/19 01:00 Lymphocytes % 4.1 % (15.3-44.8) L 10/11/19 01:00 Monocytes % 4.6 % (3.3-12.3) 10/11/19 01:00 Eosinophils % 0.2 % (0-4.4) 10/11/19 01:00 Basophils % 0.4 % (0-1.3) 10/11/19 01:00 Absolute Neutrophils 13.3 K/uL (1.8-8.0) H 10/11/19 01:00 Absolute Lymphocytes 0.6 K/uL (0.7-4.9) L 10/11/19 01:00 Absolute Monocytes 0.7 K/uL (0.1-1.3) 10/11/19 01:00 Absolute Eosinophils 0.0 K/uL (0-0.5) 10/11/19 01:00 Absolute Basophils 0.1 K/uL (0-0.5) 10/11/19 01:00 PT 11.6 SECONDS (9.5-12.5) 10/11/19 01:00 INR 0.98 10/11/19 01:00 pH 7.28 (7.35-7.45) L 10/11/19 01:05 pCO2 101.0 mmHG (35-45) H 10/11/19 01:05 pO2 71.5 mmHG (75-100) L 10/11/19 01:05 HCO3 45.5 mmol/L (22-28) H 10/11/19 01:05 Base Excess 18.0 mmol/L 10/11/19 01:05 Oxyhemoglobin 90.8 % (94-97) L 10/11/19 01:05 ABG O2 Sat (Measured) 93.3 % (92-98.5) 10/11/19 01:05 ABG Carboxyhemoglobin 1.8 % (0-1.5) H 10/11/19 01:05 ABG Methemoglobin 0.9 % (0-1.5) 10/11/19 01:05 Other Total Hgb 10.9 g/dl (12-18) L 10/11/19 01:05 Inspired O2 60.0 % 10/11/19 01:05 Sodium 146 mmol/L (136-145) H 10/11/19 01:00 Potassium 4.3 mmol/L (3.5-5.1) 10/11/19 01:00 Chloride 99 mmol/L (98-107) 10/11/19 01:00 Carbon Dioxide 40 mmol/L (21-32) H 10/11/19 01:00 BUN 19 mg/dL (7-18) H 10/11/19 01:00 Creatinine 0.78 mg/dL (0.55-1.3) 10/11/19 01:00 Estimated GFR > 90 mL/min (=/>90) 10/11/19 01:00 Glucose 129 mg/dL (74-106) H 10/11/19 01:00 Lactic Acid 0.9 mmol/L (0.4-2.0) 10/11/19 01:00 Calcium 8.7 mg/dL (8.5-10.1) 10/11/19 01:00 Magnesium 2.2 mg/dL (1.8-2.4) 10/11/19 01:00 Total Bilirubin 0.3 mg/dL (0.2-1.0) 10/11/19 01:00 Direct Bilirubin 0.1 mg/dL (0-0.2) 10/11/19 01:00 AST 22 U/L (15-37) 10/11/19 01:00 ALT 25 U/L (12-78) 10/11/19 01:00 Alkaline Phosphatase 151 U/L (45-117) H 10/11/19 01:00 Rapid Troponin I < 0.02 ng/mL (0.0-0.045) 10/11/19 01:00 NT-Pro-B Natriuret Pep 3795 pg/mL (<450) H 10/11/19 01:00 Serum Total Protein 6.9 g/dL (6.4-8.2) 10/11/19 01:00 Albumin 3.1 g/dL (3.4-5.0) L 10/11/19 01:00 Globulin 3.8 g/dL (2.3-3.5) H 10/11/19 01:00 Albumin/Globulin Ratio 0.8 (1.1-1.8) L 10/11/19 01:00 Procalcitonin 134.42 ng/mL (<0.50) H 10/11/19 01:00 Microbiology Data (last 24 hrs): 10/11/19 00:40 Blood - Blood Anaerobic Blood Culture - Final Assessment And Plan - Current Problems (Diagnosis) (1) COPD exacerbation Onset Date: 01/22/18 Current Visit: No Status: Acute (2) Dyspnea Onset Date: 11/08/16 Current Visit: No Status: Acute Qualifiers: Dyspnea type: shortness of breath Qualified Code(s): R06.02 - Shortness of breath (3) Hypercapnic respiratory failure Current Visit: No Status: Acute (4) Hypoxia Onset Date: 08/12/15 Current Visit: No Status: Acute (5) PNA (pneumonia) Onset Date: 09/30/17 Current Visit: No Status: Acute Qualifiers: Pneumonia type: due to unspecified organism Laterality: right Lung location: lower lobe of lung (6) History of lung cancer Current Visit: No Status: Chronic Physician Review: Patient Assessed, Agree with Above Assessment and Plan Physician Review Additional Text: Hypoxic respiratory failure-on BiPAP -patient previously on home hospice with nocturnal non invasive ventilation -continue BiPAP weaning -appreciate Pulmonary evaluation -on steroids and antibiotic History of lung cancer-previously on home hospice -follow with case management DVT prophylaxis - subcutaneous hep Time Spent Managing PTS Care (In Minutes): 35
[2019-10-12] MEDS: ENOXAPARIN 40 MG/0.4 ML SQ SCH (16:00)
[2019-10-12] MEDS: predniSONE 20 MG TAB PO SCH (21:20)
[2019-10-13] MEDS: Meropenem 500 MG in NA CHLORIDE 0.9% 100 ML IV SCH ×2 (00:52→08:00)
[2019-10-13] MEDS: IPRATROPIUM BROM 0.5MG/2.5ML NEB SCH ×4 (02:09→20:23)
[2019-10-13] MEDS: ALBUTEROL 2.5 MG/3 ML NEB SOL NEB SCH ×4 (02:09→20:23)
[2019-10-13 05:50] LABS: BUN Blood Urea Nitrogen 18 mg/dL (7-18); Bicarbonate 37 mmol/L (21-32); Glucose Level 108 mg/dL (74-106); Phosphorus 2.6 mg/dL (2.5-4.9); Potassium 4.9 mmol/L (3.5-5.1); Sodium Level 145 mmol/L (136-145)
[2019-10-13] MEDS: predniSONE 20 MG TAB PO SCH ×2 (08:00→20:32)
--- NOTE | 2019-10-13 11:35 | P.PN ---
Subjective Date of Service: 10/13/19 Chief Complaint: Chronic respiratory failure Subjective: No new changes, No C/O voiced (- feels better, on nasal cannula O2 now, weaned off BiPAP to nasal cannula now) Physical Examination - Vital Signs Temperature: 97.1 F Blood Pressure: 106/68 Pulse: 95 Respirations: 28 Pulse Ox (%): 94 - Physical Exam General: Alert, Oriented x3, Other (On 4 L nasal cannula-increased to 5 l) HEENT: Atraumatic, Normocephalic Neck: Supple, 2+ carotid pulse no bruit, JVD not distended Respiratory: Diminished, Crackles/rales Cardiovascular: Normal pulses, Regular rate/rhythm, Normal S1 S2 Gastrointestinal: Normal bowel sounds, Soft and benign, Non-distended Musculoskeletal: No clubbing, No swelling Integumentary: No rashes, No breakdown Neurological: Normal speech, Cranial nerves 3-12 intact - Studies Laboratory Last Values WBC 14.7 K/uL (4.3-10.9) H D 10/11/19 01:00 RBC 3.78 M/uL (4.33-5.43) L 10/11/19 01:00 Hgb 10.8 g/dL (13.6-17.9) L 10/11/19 01:00 Hct 34.7 % (39.6-49.0) L 10/11/19 01:00 MCV 91.8 fL (80-100) 10/11/19 01:00 MCH 28.5 pg (27.0-35.0) 10/11/19 01:00 MCHC 31.0 g/dL (32.0-36.0) L 10/11/19 01:00 RDW 16.3 % (12.1-15.2) H 10/11/19 01:00 Plt Count 287 K/uL (152-406) 10/11/19 01:00 MPV 9.5 fL (7.6-11.3) D 10/11/19 01:00 Neutrophils % 90.7 % (41.7-73.7) H 10/11/19 01:00 Lymphocytes % 4.1 % (15.3-44.8) L 10/11/19 01:00 Monocytes % 4.6 % (3.3-12.3) 10/11/19 01:00 Eosinophils % 0.2 % (0-4.4) 10/11/19 01:00 Basophils % 0.4 % (0-1.3) 10/11/19 01:00 Absolute Neutrophils 13.3 K/uL (1.8-8.0) H 10/11/19 01:00 Absolute Lymphocytes 0.6 K/uL (0.7-4.9) L 10/11/19 01:00 Absolute Monocytes 0.7 K/uL (0.1-1.3) 10/11/19 01:00 Absolute Eosinophils 0.0 K/uL (0-0.5) 10/11/19 01:00 Absolute Basophils 0.1 K/uL (0-0.5) 10/11/19 01:00 PT 11.6 SECONDS (9.5-12.5) 10/11/19 01:00 INR 0.98 10/11/19 01:00 pH 7.28 (7.35-7.45) L 10/11/19 01:05 pCO2 101.0 mmHG (35-45) H 10/11/19 01:05 pO2 71.5 mmHG (75-100) L 10/11/19 01:05 HCO3 45.5 mmol/L (22-28) H 10/11/19 01:05 Base Excess 18.0 mmol/L 10/11/19 01:05 Oxyhemoglobin 90.8 % (94-97) L 10/11/19 01:05 ABG O2 Sat (Measured) 93.3 % (92-98.5) 10/11/19 01:05 ABG Carboxyhemoglobin 1.8 % (0-1.5) H 10/11/19 01:05 ABG Methemoglobin 0.9 % (0-1.5) 10/11/19 01:05 Other Total Hgb 10.9 g/dl (12-18) L 10/11/19 01:05 Inspired O2 60.0 % 10/11/19 01:05 Sodium 146 mmol/L (136-145) H 10/11/19 01:00 Potassium 4.3 mmol/L (3.5-5.1) 10/11/19 01:00 Chloride 99 mmol/L (98-107) 10/11/19 01:00 Carbon Dioxide 40 mmol/L (21-32) H 10/11/19 01:00 BUN 19 mg/dL (7-18) H 10/11/19 01:00 Creatinine 0.78 mg/dL (0.55-1.3) 10/11/19 01:00 Estimated GFR > 90 mL/min (=/>90) 10/11/19 01:00 Glucose 129 mg/dL (74-106) H 10/11/19 01:00 Lactic Acid 0.9 mmol/L (0.4-2.0) 10/11/19 01:00 Calcium 8.7 mg/dL (8.5-10.1) 10/11/19 01:00 Magnesium 2.2 mg/dL (1.8-2.4) 10/11/19 01:00 Total Bilirubin 0.3 mg/dL (0.2-1.0) 10/11/19 01:00 Direct Bilirubin 0.1 mg/dL (0-0.2) 10/11/19 01:00 AST 22 U/L (15-37) 10/11/19 01:00 ALT 25 U/L (12-78) 10/11/19 01:00 Alkaline Phosphatase 151 U/L (45-117) H 10/11/19 01:00 Rapid Troponin I < 0.02 ng/mL (0.0-0.045) 10/11/19 01:00 NT-Pro-B Natriuret Pep 3795 pg/mL (<450) H 10/11/19 01:00 Serum Total Protein 6.9 g/dL (6.4-8.2) 10/11/19 01:00 Albumin 3.1 g/dL (3.4-5.0) L 10/11/19 01:00 Globulin 3.8 g/dL (2.3-3.5) H 10/11/19 01:00 Albumin/Globulin Ratio 0.8 (1.1-1.8) L 10/11/19 01:00 Procalcitonin 134.42 ng/mL (<0.50) H 10/11/19 01:00 Microbiology Data (last 24 hrs): 10/11/19 01:25 Nasopharnyx Coronavirus COVID-19 PCR - Final Medications List Reviewed: Yes Assessment And Plan - Current Problems (Diagnosis) (1) COPD exacerbation Onset Date: 01/22/18 Current Visit: No Status: Acute (2) Dyspnea Onset Date: 11/08/16 Current Visit: No Status: Acute Qualifiers: Dyspnea type: shortness of breath Qualified Code(s): R06.02 - Shortness of breath (3) Hypercapnic respiratory failure Current Visit: No Status: Acute (4) Hypoxia Onset Date: 08/12/15 Current Visit: No Status: Acute (5) PNA (pneumonia) Onset Date: 09/30/17 Current Visit: No Status: Acute Qualifiers: Pneumonia type: due to unspecified organism Laterality: right Lung location: lower lobe of lung (6) History of lung cancer Current Visit: No Status: Chronic Physician Review Additional Text: Hypoxic respiratory failure-wing to D 10 nasal cannula O2 now-similar to home u se -will transfer to floor to date -continue BiPAP at night - if stable over the next 24 hr will consider Dc planning on BiPAP -patient previously on home hospice with nocturnal non invasive ventilation -on steroids and antibiotic -blood cultured negative till date -follow pending throat culture Leukocytosis-mild WBC elevation due to steroid use, continue to monitor History of lung cancer-previously on home hospice -follow with case management DVT prophylaxis - subcutaneous hep
--- NOTE | 2019-10-13 12:16 | P.PN ---
Subjective Date of Service: 10/14/19 Chief Complaint: Chronic respiratory failure Patient is doing fine no new complaints he does have a lung mass not aware of the diagnosis of lung cancer still complains of shortness of breath on minimal exertion Review of Systems General: Weakness Respiratory: Shortness of Breath Physical Examination - Vital Signs Temperature: 97.1 F Blood Pressure: 106/66 Pulse: 95 Respirations: 25 Pulse Ox (%): 92 - Physical Exam General: Alert, Oriented x3 Respiratory: Diminished, Expiratory wheezes Cardiovascular: No edema, Regular rate/rhythm - Studies Microbiology Data (last 24 hrs): 10/11/19 01:25 Nasopharnyx Coronavirus COVID-19 PCR - Final Medications List Reviewed: Yes Assessment & Plan - Problems (Diagnosis) (1) Acute and chronic respiratory failure ([id number]) Current Visit: No Status: Acute Plan: Patient has terminal COPD planing of dyspnea on mild exertion trial of theophylline continue with prednisone Dc meropenem pro calcitonin is extremely high up to this is sepsis related white count is minimally elevated change to p.o. levofloxacin 2D echo with Doppler his overall prognosis is very poor he is not a candidate for any biopsy or treatment patient has BiPAP at home titrate sat 88-90% Qualifiers: Respiratory failure complication: hypoxia and hypercapnia Qualified Code(s): J96.21 - Acute and chronic respiratory failure with hypoxia; J96.22 - Acute and chronic respiratory failure with hypercapnia Discharge Plan: Home Plan to discharge in: 48 Hours Physician Review: Patient Assessed, Agree with Above Assessment and Plan
--- NOTE | 2019-10-13 12:31 | RAD REPORT ---
EXAM DESCRIPTION: RAD - Chest Single View - 10/13/2019 11:56 am CLINICAL HISTORY: CHF versus pneumonia COMPARISON: Portable chest October 10 and September 23, CT chest July 2019 TECHNIQUE: AP portable chest image was obtained 10/13/2019 11:56 am . FINDINGS: Lungs are extensively fibrotic as a baseline. Interstitial and alveolar opacities in the l ower lung aguiar are improved from October 10. There is increased focal density in the right midlung fi eld. Patient has a known irregular spiculated parenchymal or mass in this region. Spiculation at the left hilum has not clearly changed. Bullous cavity change in the left upper lung field also unchanged . Heart and vasculature are normal. No pneumothorax. No acute bony abnormality seen. No acute aortic f indings suspected. IMPRESSION: Increased focal density lateral right midlung field. This is suspicious for pneumonia hernandez perimposed on chronic lung parenchymal change. Bilateral lower lung aguiar are better aerated. As clinical findings warrant, CT chest imaging could be performed for more sensitive assessment of jose de jesus ng parenchymal findings.
[2019-10-13] MEDS: THEOPHYLLINE SR 100 MG TAB PO SCH (13:04)
[2019-10-13] MEDS: ENOXAPARIN 40 MG/0.4 ML SQ SCH (16:38)
[2019-10-14] MEDS: IPRATROPIUM BROM 0.5MG/2.5ML NEB SCH ×4 (02:45→19:45)
[2019-10-14] MEDS: ALBUTEROL 2.5 MG/3 ML NEB SOL NEB SCH ×4 (02:45→19:45)
[2019-10-14 04:54] LABS: BUN Blood Urea Nitrogen 14 mg/dL (7-18); Bicarbonate 39 mmol/L (21-32); Glucose Level 135 mg/dL (74-106); Magnesium 2.3 mg/dL (1.8-2.4); Phosphorus 2.4 mg/dL (2.5-4.9); Potassium 4.7 mmol/L (3.5-5.1); Sodium Level 141 mmol/L (136-145)
[2019-10-14] MEDS: POTASS/SODIUM PHOSPHATE 1 PKT POWD.PACK PO SCH ×4 (10:59→13:00)
[2019-10-14] MEDS: predniSONE 20 MG TAB PO SCH ×3 (11:00→20:51)
[2019-10-14] MEDS: THEOPHYLLINE SR 100 MG TAB PO SCH (11:00)
[2019-10-14] MEDS ORDERED: FUROSEMIDE 40 MG/4 ML VIAL IV ONE (13:48)
[2019-10-14] MEDS ORDERED: POTASSIUM PHOS 20 MM in NA CHLORIDE 0.9% 500 ML IV ONE (13:49)
--- NOTE | 2019-10-14 13:55 | P.PN ---
Subjective Date of Service: 10/14/19 Chief Complaint: Chronic respiratory failure Subjective: No new changes, No C/O voiced, Worsening ( on facemask O2 this morning. Stay low O2 sat while talking -poor appetite but able to eat) Physical Examination - Vital Signs Temperature: 97.1 F Blood Pressure: 106/66 Pulse: 95 Respirations: 25 Pulse Ox (%): 92 - Physical Exam General: Oriented x3, Mild distress, Other (On facemask O2) HEENT: Atraumatic, Normocephalic, PERRLA Neck: 2+ carotid pulse no bruit, JVD not distended Respiratory: Diminished (At bases), Crackles/rales, Expiratory wheezes, Rhonchi/gurgles Cardiovascular: Normal pulses, Regular rate/rhythm, Normal S1 S2 Gastrointestinal: Normal bowel sounds, Soft and benign, Non-distended Musculoskeletal: No clubbing, No swelling Integumentary: No rashes, No breakdown Neurological: Normal speech, Normal strength at 5/5 x4 extr, Normal tone - Studies Medications List Reviewed: Yes Assessment And Plan - Current Problems (Diagnosis) (1) COPD exacerbation Onset Date: 01/22/18 Current Visit: No Status: Acute (2) Dyspnea Onset Date: 11/08/16 Current Visit: No Status: Acute Qualifiers: Dyspnea type: shortness of breath Qualified Code(s): R06.02 - Shortness of breath (3) Hypercapnic respiratory failure Current Visit: No Status: Acute (4) Hypoxia Onset Date: 08/12/15 Current Visit: No Status: Acute (5) PNA (pneumonia) Onset Date: 09/30/17 Current Visit: No Status: Acute Qualifiers: Pneumonia type: due to unspecified organism Laterality: right Lung location: lower lobe of lung (6) History of lung cancer Current Visit: No Status: Chronic Physician Review: Patient Assessed, Agree with Above Assessment and Plan Physician Review Additional Text: Hypoxic respiratory failure- continue fix conway drain daytime, continue as much as tolerated Continue BiPAP use nocturnally -we increase steroids to 40 mg b.i.d. 4th and 60 persistent wheeze -we dose Lasix x1 given mild bibasilar crepitations -continue antibiotics-restart Levaquin -elevated serum bicarb noted -if able to wean down O2 need over the next 24 hr we planned for Dc home --blood cultured negative till date -follow pending throat culture Leukocytosis-follow repeat today -prior mild WBC elevation due to steroid use, continue to monitor History of lung cancer-previously on home hospice, not candidate for biopsy -follow with case management DVT prophylaxis - subcutaneous hep Time Spent Managing PTS Care (In Minutes): 35
[2019-10-14] MEDS: levoFLOXacin 500 MG TAB PO SCH (14:40)
[2019-10-14] MEDS: acetaZOLAMIDE 250 MG TAB PO ONE (14:41)
[2019-10-14] MEDS ORDERED: NA CHLORIDE 0.9% 250 ML ONE (15:00)
[2019-10-14] MEDS: ENOXAPARIN 40 MG/0.4 ML SQ SCH (16:16)
[2019-10-15] MEDS: IPRATROPIUM BROM 0.5MG/2.5ML NEB SCH ×3 (01:10→13:50)
[2019-10-15] MEDS: ALBUTEROL 2.5 MG/3 ML NEB SOL NEB SCH ×3 (01:10→13:50)
[2019-10-15 04:18] LABS: Absolute Lymphocytes (CBC) 0.3 K/uL (0.7-4.9); Basophils % 0.1 % (0-1.3); Hematocrit 35.8 % (39.6-49.0); Lymphocytes % 2.8 % (15.3-44.8); MPV 10.1 fL (7.6-11.3); RBC Red Blood Cell Count 3.97 M/uL (4.33-5.43)
[2019-10-15 04:33] LABS: ALT/SGPT 232 U/L (12-78); AST/SGOT 126 U/L (15-37); Albumin 2.8 g/dL (3.4-5.0); Alkaline Phosphatase 154 U/L (45-117); BUN Blood Urea Nitrogen 15 mg/dL (7-18); Bicarbonate 38 mmol/L (21-32); Bilirubin Total 0.4 mg/dL (0.2-1.0); Glucose Level 197 mg/dL (74-106); Phosphorus 3.7 mg/dL (2.5-4.9); Potassium 4.5 mmol/L (3.5-5.1); Protein, Total 6.3 g/dL (6.4-8.2); Sodium Level 139 mmol/L (136-145)
[2019-10-15 05:03] LABS: Basophilic Stippling 2+; Blood Morphology Comment NOTED (NOT SEEN); Platelet Estimate ADEQ
[2019-10-15 05:07] VITALS: BMI 21.6
--- NOTE | 2019-10-15 07:53 | ECHO ---
HEIGHT: 5 ft 5 in WEIGHT: 130 lb 0 oz DATE OF STUDY: 10/14/[address]: Dayton Valdivia MD 2-DIMENSIONAL: YES M.MODE: YES DOPPLER: YES COLOR FLOW: YES TDS: NO PORTABLE: NO DEFINITY: NO BUBBLE STUDY: NO DIAGNOSIS: SHORTNESS OF BREATH CARDIAC HISTORY: CATHERIZATION: NO SURGERY: NO PROSTHETIC VALVE: NO PACEMAKER: NO MEASUREMENTS (cm) DIASTOLIC (NORMALS) SYSTOLIC (NORMALS) IVSd 0.8 (0.6-1.2) LA Diam 3.3 (1.9-4.0) LVEF 68% LVIDd 3.8 (3.5-5.7) LVIDs 2.4 (2.0-3.5) %FS 37% LVPWd 1.0 (0.6-1.2) Ao Diam 3.0 (2.0-3.7) 2 DIMENSIONAL ASSESSMENT: RIGHT ATRIUM: NORMAL LEFT ATRIUM: NORMAL RIGHT VENTRICLE: DILATED LEFT VENTRICLE: NORMAL TRICUSPID VALVE: NORMAL MITRAL VALVE: MITRAL ANNULAR CALCIFICATION PULMONIC VALVE: NORMAL AORTIC VALVE: MILD STENOSIS PERICARDIAL EFFUSION: NONE AORTIC ROOT: NORMAL LEFT VENTRICULAR WALL MOTION: NORMAL. DOPPLER/COLOR FLOW: MILD TRICUSPID REGURGITATION - RIGHT VENTRICULAR SYSTOLIC PRESSURE 39mmHg. MILD AORTIC STENOSIS - AREA 1.8 CENTIMETERS SQUARED. COMMENTS: MILD AORTIC STENOSIS - AREA 1.8 CENTIMETERS SQUARED. MILD TRICUSPID REGURGITATION - RIGHT VENTRICULAR SYSTOLIC PRESSURE 39mmHg. NORMAL LEFT VENTRICULAR SIZE AND FUNCTION - EJECTION FRACTION 68%. TECHNOLOGIST: ALMAZ COOPER
[2019-10-15] MEDS: THEOPHYLLINE SR 100 MG TAB PO SCH (08:19)
[2019-10-15] MEDS: predniSONE 20 MG TAB PO SCH (08:19)
[2019-10-15] MEDS: levoFLOXacin 500 MG TAB PO SCH (08:19)
[2019-10-15] MEDS: acetaZOLAMIDE 250 MG TAB PO ONE (08:20)
[2019-10-15 10:16] VITALS: BP 95/57; TEMP 97.3
[2019-10-15 11:58] VITALS: O2SAT 94
--- NOTE | 2019-10-15 12:19 | P.PN ---
Subjective Date of Service: 10/17/19 Chief Complaint: Chronic respiratory failure Patient is back to his baseline stable to be discharged he has terminal COPD presumed lung cancer Review of Systems General: Weakness Respiratory: Shortness of Breath Physical Examination - Vital Signs Temperature: 97.3 F Blood Pressure: 95/57 Pulse: 69 Respirations: 20 Pulse Ox (%): 93 - Physical Exam General: Alert, Oriented x3 Respiratory: Expiratory wheezes Cardiovascular: No edema, Normal pulses, Regular rate/rhythm Gastrointestinal: Normal bowel sounds - Studies Medications List Reviewed: Yes Assessment & Plan - Problems (Diagnosis) (1) Acute and chronic respiratory failure ([id number]) Status: Acute Plan: Patient is back to his baseline he has terminal COPD uses prednisone 10 mg twice a day agree with levofloxacin with a severe exacerbation of COPD echocardiogram shows normal left ventricular ejection fraction probably has underlying diastolic dysfunction and titrate to sat of 88-90% patient has a home noninvasive ventilator continue with low-dose theophylline agree with low-dose Diamox stable for discharge Qualifiers: Respiratory failure complication: hypoxia and hypercapnia Qualified Code(s): J96.21 - Acute and chronic respiratory failure with hypoxia; J96.22 - Acute and chronic respiratory failure with hypercapnia (2) Lung cancer Status: Acute Plan: Presumed lung cancer he has a right lung mass and form the patient that he is not a candidate for biopsy chemo radiation he has very poor functional status unable to take care of himself due to dyspnea S terminal COPD Qualifiers: Laterality: right Physician Review: Patient Assessed, Agree with Above Assessment and Plan
--- NOTE | 2019-10-15 12:58 | P.DS ---
Admission Date: 10/11/19 Discharge Date: 10/15/19 Disposition: MA HOME/HOME HEALTH CARE Discharge Condition: FAIR Reason for Admission: Chronic respiratory failure - Problems (1) COPD exacerbation Onset Date: 01/22/18 Current Visit: No Status: Acute (2) Dyspnea Onset Date: 11/08/16 Current Visit: No Status: Acute Qualifiers: Dyspnea type: shortness of breath Qualified Code(s): R06.02 - Shortness of breath (3) Hypercapnic respiratory failure Current Visit: No Status: Acute (4) Hypoxia Onset Date: 08/12/15 Current Visit: No Status: Acute (5) PNA (pneumonia) Onset Date: 09/30/17 Current Visit: No Status: Acute Qualifiers: Pneumonia type: due to unspecified organism Laterality: right Lung location: lower lobe of lung (6) History of lung cancer Current Visit: No Status: Chronic Brief History of Present Illness: History of Present Illness: Patient is 78 years of age with a history of terminal COPD has home BiPAP became acutely worse and appeared in the hospital denies nausea vomiting abdominal pain diarrhea cough for sputum currently on BiPAP desatting his baseline functioning is very poor recurrent hospital admissions currently is compliant with his bronchodilators in sees a cna instructor in [facility] Course: Patient was admitted for acute on chronic respiratory failure to the intensive care unit. He was placed on BiPAP started on empirical antibiotics with high- dose prednisone. He slowly started to improve but after 48 hr into admission, was still requiring high flow nasal cannula/facemask O2 during the daytime and continued on nocturnal BiPAP use. He received Lasix as well as Diamox with increase in his prednisone and his shortness of breath significantly improved. He has been weaned back to 4 L nasal cannula use during the daytime now and his O2 sat is maintaining above 90. Patient will be discharged home with slow tapering doses of prednisone and advice to follow with his cna instructor within 1 week. Of note patient has a history of lung cancer but unable to get biopsy due to his poor functional status Vital Signs/Physical Exam: Temp Pulse Resp BP Pulse Ox 97.3 F 69 20 95/57 L 93 10/15/19 12:21 10/15/19 12:21 10/15/19 12:21 10/15/19 12:21 10/15/19 12:21 General: Alert, In no apparent distress (on nc 4 L ), Oriented x3 HEENT: Atraumatic, Normocephalic, PERRLA Neck: 2+ carotid pulse no bruit, JVD not distended Respiratory: Diminished (at bases ), Crackles/rales, Expiratory wheezes Gastrointestinal: Normal bowel sounds, Soft and benign, Non-distended Musculoskeletal: No clubbing, No swelling Neurological: Normal speech, Normal strength at 5/5 x4 extr Laboratory Data at Discharge: WBC 9.1 K/uL (4.3-10.9) D 10/15/19 03:51 Hgb 11.5 g/dL (13.6-17.9) L 10/15/19 03:51 Hct 35.8 % (39.6-49.0) L 10/15/19 03:51 Plt Count 273 K/uL (152-406) 10/15/19 03:51 PT 11.6 SECONDS (9.5-12.5) 10/11/19 01:00 INR 0.98 10/11/19 01:00 Sodium 139 mmol/L (136-145) 10/15/19 03:51 Potassium 4.5 mmol/L (3.5-5.1) 10/15/19 03:51 BUN 15 mg/dL (7-18) 10/15/19 03:51 Creatinine 0.68 mg/dL (0.55-1.3) 10/15/19 03:51 Glucose 197 mg/dL (74-106) H 10/15/19 03:51 Phosphorus 3.7 mg/dL (2.5-4.9) D 10/15/19 03:51 Magnesium 2.3 mg/dL (1.8-2.4) 10/14/19 04:01 Total Bilirubin 0.4 mg/dL (0.2-1.0) 10/15/19 03:51 AST 126 U/L (15-37) H D 10/15/19 03:51 ALT 232 U/L (12-78) H D 10/15/19 03:51 Alkaline Phosphatase 154 U/L (45-117) H 10/15/19 03:51 Troponin I < 0.02 ng/mL (0.0-0.045) 10/11/19 08:20 Triglycerides 102 mg/dL (<150) 10/11/19 08:20 Cholesterol 193 mg/dL (<200) 10/11/19 08:20 HDL Cholesterol 80 mg/dL (40-60) H 10/11/19 08:20 Cholesterol/HDL Ratio 2.41 10/11/19 08:20 Home Medications: Aspirin 81 mg PO DAILY 11/15/18 Cyanocobalamin (Vitamin B-12) [Vitamin B-12] 100 mcg PO DAILY 11/15/18 Furosemide [Lasix] 20 mg PO DAILY 11/15/18 Tiotropium [Spiriva Handihaler*] 18 mcg IH BID 11/15/18 Cetirizine HCl [Zyrtec*] 10 mg PO DAILY 05/25/19 Ergocalciferol (Vitamin D2) [Vitamin D2] 1 cap PO SEECOM 05/25/19 Ferrous Sulfate [Ferrous Sulfate*] 1 tab PO DAILY 05/25/19 Fluticasone/Salmeterol [Advair 250-50 Diskus] 1 puff IH BID 05/25/19 Ipratropium [place] 2.5 ml IH BID 05/25/19 Polyethylene Glycol 3350 [Miralax] 17 gm PO DAILY PRN 05/25/19 Fluticasone Furoate [Flonase Sensimist] 9.1 ml NS DAILY #1 spray.susp 05/28/19 Hydrocodone/Acetaminophen [Hydrocodone-Acetamin 5-325 mg] 0.5 tab PO BID 10/11/19 Phenylephrine/Dm/Acetaminop/GG [Mucinex Fast-Max Cold-Flu Cap] 1 each PO DAILY 10/11/19 Theophylline [Fritz-Dur*] 200 mg PO DAILY #30 tab 10/15/19 levoFLOXacin [Levaquin*] 500 mg PO DAILY #7 tab 10/15/19 predniSONE [Deltasone*] 40 mg PO DAILY 30 Days #48 tab 10/15/19 New Medications: predniSONE [Deltasone*] 40 mg PO DAILY 30 Days #48 tab levoFLOXacin [Levaquin*] 500 mg PO DAILY #7 tab Theophylline [Fritz-Dur*] 200 mg PO DAILY #30 tab Diet: Regular Time spent managing pt's care (in minutes): 35
[2019-10-15] MEDS ORDERED: predniSONE 20 MG TAB PO SCH (21:00)
== END 2019-10-15 14:59 | disposition home health service (06) | DRG 189 ==
LOC: ER 23:49 → ERHOLD 10-11 02:36 → 3RD-ICU 10-11 08:11 → 2ND 10-13 17:02
PROVIDERS: ADMIT Hospitalist; ATTEND Internal Medicine
DX: J96.22 Acute and chronic respiratory failure with hypercapnia (principal); J18.9 Pneumonia, unspecified organism; J44.1 Chronic obstructive pulmonary disease with (acute) exacerbation; J44.0 Chronic obstructive pulmonary disease with (acute) lower respiratory infection; J96.21 Acute and chronic respiratory failure with hypoxia; Z85.118 Personal history of other malignant neoplasm of bronchus and lung; Z20.828 Contact with and (suspected) exposure to other viral communicable diseases; Z79.82 Long term (current) use of aspirin; Z79.899 Other long term (current) drug therapy; Z79.52 Long term (current) use of systemic steroids; Z79.890 Hormone replacement therapy; Z79.891 Long term (current) use of opiate analgesic; D72.829 Elevated white blood cell count, unspecified; Z88.5 Allergy status to narcotic agent; Z90.49 Acquired absence of other specified parts of digestive tract; Z87.891 Personal history of nicotine dependence
CPT/HCPCS: 36415; 71045; 80048; 80053; 80061; 80076; 82607; 82805; 82947; 83605; 83735; 83880; 84100; 84145; 84439; 84443; 84484; 85025; 85610; 87040; 87081; 87804; 93005; 93306; 94660; 94760; 96365; 99285; J1650; J1940; J2920; J2930; J7030; J7040; J7512; U0002

== ENCOUNTER 2019-10-29 22:14 | Inpatient (IN) | payer OTHER ==
--- OUTSIDE RECORDS SUMMARY | 2019-10-29 22:17 | XMS REPORT ---
:1940 Author Organization [facility] t Address [facility] [address] [place] [address] Care Team Providers Name Role Phone Asked, Pcp Primary Care Physician Unavailable Lavell SORIA Attending Clinician Doctor Unassigned, Name Attending Clinician Unavailable Stalin Valentine MD Attending Clinician Gillian Huber MD Attending Clinician Payers Payer Name Policy Policy Number Effective Expiration Source Type Date Date TRICARETRICARE FOR xxxxxxxxx 2018 [place] [employer] M[employer] 00:00:00 Evangelical SUPPLEMENTxxxxxxxxx-[facility] MEDICAREMEDICARE PART xxxxxxxxxxx 2006 [facility] AND 00:00:00 [employer] [place] [facility] Problems Condition Condition Condition Status Onset Resolution Last Treating Co mments Source Name Details Category Date Date Treatment Clinician Date Pseudophak Pseudophak Disease Active Last [place] ia 6-24 Assessmen Methodi 00:00: t & Plan: st 00 PCIOL OU, monofocal . Done in [place] years ago. 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 At low At low Disease Active [facility] risk for risk for 6-24 Assessmen Met hodi open-angle open-angle 00:00: t & Plan: st glaucoma glaucoma 00 C/D in both in both increase, eyes eyes PPA, [place], difficult to assess ON. IOP 16/17.Uns ure of utility of OCT and HVF, will refer to Dr. Valentine for eval/dorothy casas. Osteoarthr Osteoarthr Problem Active [facility] - cervical cervical Memori a spine, spine, l unspecifie unspecifie Ou tpati d spinal d spinal ent osteoarthr osteoarthr Cl inics itis itis complicati complicati on status on status Dependence Dependence Problem Active [facility] - supplement supplement Me moria al oxygen al oxygen l Outpati ent Clinics Chronic Chronic Problem Active [facility] obstructiv obstructiv [facility] - e e Memoria pulmonary pulmonary l disease, disease, Outpat i unspecifie unspecifie en t d d Clinics History of History of Problem Active [facility] lung lung [facility] - cancer cancer Memoria l Outpati ent Clinics Pulmonary Pulmonary Problem Active [facility] emphysema, emphysema, [place] - unspecifie unspecifie Me moria d d l emphysema emphysema Outp ati type type ent Clinics Allergic Allergic Problem Active [facility] rhinitis, rhinitis, Luke s - unspecifie unspecifie Me moria d d l seasonalit seasonalit Ou tpati y, y, ent unspecifie unspecifie Cl inics d trigger d trigger Allergies, Adverse Reactions, Alerts This patient has no known allergies or adverse reactions. Social History Social Habit Start Date Stop Date Quantity Comments Source Sex Assigned At [place] normanbridgette Anna Smoking Status Start Date Stop Date Source Current some day smoker 2018-12-31 00:00:00 Luda Anna Medications Ordered Filled Start Stop Current Ordering Indication Dosage Frequency Signature Comments Components Source Medication Medication Date Date Medication? Clinician (SIG) Name Name cyanocobala Yes 100ug Take 100 [place] min 100 MCG 6-24 mcg by Method i tablet 19:26: mouth. st 40 aspirin 81 2019-0 Yes 81mg Chew 81 [place] mg chewable 6-24 mg. Methodi tablet 19:26: st 40 furosemide 2019-0 Yes 20mg Take 20 mg [place] (LASIX) 20 6-24 by mouth. Meth beny mg tablet 19:26: st 40 montelukast 0 Yes 10mg Take 10 mg [place] (SINGULAIR) 6-24 by mouth. Met hodi 10 mg 19:26: st tablet 40 predniSONE 2018-0 Yes 10mg Take 10 mg [place] (DELTASONE) 5-31 by mouth. Met hodi 10 mg 00:00: st tablet 00 budesonide- 2018-0 Yes 2{puff} Inhale 2 [place] formoterol 4-11 puffs. Methodi (SYMBICORT) 00:00: st 160-4.5 00 mcg/actuati on inhaler ipratropium 0 Yes .5mg Inhale 0.5 [place] (ATROVENT) 3-11 mg. Methodi 0.02 % 00:00: st nebulizer 00 solution fluticasone 0 Yes 1{puff} Inhale 1 [place] propion-stiven 3-11 puff. Methodi meterol 00:00: st (ADVAIR 00 DISKUS) 250-50 mcg/dose DISKUS ipratropium 0 Yes 2{spray 2 sprays [place] (ATROVENT) 2-08 } into each Meth beny 42 mcg 00:00: nostril. st (0.06 %) 00 nasal spray azelastine- Yes 1{dose} 1 Dose [place] fluticasone 2-08 into each Met hodi (DYMISTA) 00:00: nostril. st 137-50 00 mcg/spray spray,non-a erosol Diclofenac Diclofenac Yes [place] [address] [facility] Sodium ER Sodium ER 6-12 [place] with food [facility] - 00:00: or milk Memoria 00 l Outpati ent Clinics Montelukast Montelukast 2017-0 Yes [place] [address] [facility] [address] Sodium Sodium 5-24 [place] in the [facility] - 00:00: evening Memoria 00 l Outpati ent Clinics Spiriva Spiriva Yes [place] [address] HandiHaler HandiHaler Gray [facility] - [facility] l Outpati ent Clinics PredniSONE PredniSONE Yes [place] [address] [facility] Clinics ProAir ProAir Yes [place] [address] [facility] RespiClick RespiClick [facility] needed [facility] Clinics Ipratropium Ipratropium Yes [place] [address] [facility] [place] in each [facility] - nostril [facility] Clinics Vitamin D3 Vitamin D3 Yes [place] [address] [facility] Advair Advair Yes [place] [address] Diskus Diskus Gray [facility] Furosemide Furosemide Yes [place] [address] [facility] Flutter Flutter Yes [place] as [facility] directed [facility] Aspir-81 Aspir-81 Yes [place] [address] [facility]ics Clonazepam Clonazepam Yes [place] [address] [facility] Gray at bedtime [facility] Albuterol Albuterol Yes [place] [address] [facility] Sulfate Sulfate [place] needed [facility] Clin[facility] Procedures This patient has no known procedures. Plan of Care Planned Activity Planned Date Details Comments Source Future Scheduled Test [code = ] Future Scheduled Test [code = ] Encounters Start End Encounter Admission Attending Care Care Encounter Source Date/Time Date/Time Type Type Clinicians Facility Department ID 2019-10-27 2019-10-27 Telephone [facility] [id number] 00:00:00 00:00:00 Steffen Arroyo [id number] [place] [id number] Professio [id number] [address] 2019-10-26 2019-10-26 Telephone [facility] [id number] 00:00:00 00:00:00 Steffen Arroyo [id number] [place] [id number] Professio [id number] [address] 2019-10-22 2019-10-22 Telephone [facility] [id number] 00:00:00 00:00:00 Steffen Arroyo [id number] [place] [id number] [place] [id number] [address] 2019-10-20 2019-10-20 Orders Doctor BAILEY [id number] 00:00:00 00:00:00 Only Unassigned, DIXIE [id number] [place] [facility] [id number] 2019-04-02 2019-04-02 [facility] [id number] [facility] 10:20:00 10:20:00 [facility] Outpati ent Clinics 2017-11-26 2017-11-26 [facility] [id number] [address] 16:19:00 16:19:00 [facility] Outpati ent Clinics 2017-11-25 2017-11-25 [facility] [id number] 10:30:00 10:30:00 [facility] Outpati ent Clinics 2017-11-07 2017-11-07 [facility] [id number] 16:46:00 16:46:00 [facility] Outpati ent Clinics 2017-10-31 2017-10-31 [facility] [id number] 13:09:00 13:09:00 [facility] Outpati ent Clinics 2017-10-23 2017-10-23 [facility] [id number] 14:30:00 14:30:00 [facility] Outpati ent Clinics Results Test Description Test Time Test Comments Results Result Comments Source SARS-COV2/RT-PCR ([facility]) 2019-10-11 11:53:00 Test Item Value Reference Range Interpretation Comme nts SARS-COV2/RT-PCR (test code = [id number]) Not Detected Not Detected, N egative SARS-COV-2 PERFORMING LAB (test code = [id number]) Negative results do not preclude SARS-CoV-2 infection and should not be used as the sole basis for patient management decisions. Negative results must be combined with clinical observations, patient history, and epidemiological information. A false negative result may occur if a specimen is improperly collected, transported or handled.The limit of detection for this assay is 250 copies/mL.This SARS CoV-2 test is a rapid, real-time RT-PCR test intended for the qualitative detection of nucleic acid from SARS-CoV-2 in a nasopharyngeal swab specimen collected from individuals suspected of COVID-19 by their healthcare provider.This test has not been Food and Drug Administration (FDA) cleared or approved and has been authorized by FDA under an Emergency Use Authorization (EUA). This EUA will be effective until the declaration that circumstances exist justifying the authorization of the emergency use of in vitro diagnostic tests for detection and/or diagnosis of COVID-19 is terminated under Section 564(b)(2) of the Act or the EUA is revoked under Section 564(g) of the Act.Fact Sheet for Healthcare Pro viders:https://www.Explorra.timeplazza/Documents/Xpert%20Xpress%20SARS%20CoV-2/Fact%20Sh eets/302-3802%56AAZI-HPV-6%20HEALTHCARE%20PROVIDERS%20FACT%20SHEET.pdfFact Sheet for Healthcare Patients:https://www.Storelift.timeplazza/Documents/Xpert%20Xpress%20SARS%20CoV-2/Fact%20Sheets/302-3801%20SARS-COV -2%20PATIENT%20FACT%20SHEET.pdfPerforming Laboratory:[facility] [place] [address]
--- OUTSIDE RECORDS SUMMARY | 2019-10-29 22:17 | XMS REPORT | Clinical Summary ---
:1940 Author Organization [facility] Address [address] [place] [address] Care Team Providers Name Role Phone Asked, No Pcp Primary Care Provider Unavailable Allergies No Known Allergies Medications Medication Sig Dispensed Refills Start Date End Date Status ipratropium (ATROVENT) Inhale 0.5 mg. 0 08/25/2018 Active 0.02 % nebulizer solution budesonide-formoterol Inhale 2 puffs. 0 09/25/2018 Active (SYMBICORT) 160-4.5 mcg/actuation inhaler fluticasone Inhale 1 puff. 0 08/25/2018 Ac tive propion-salmeterol (ADVAIR DISKUS) 250-50 mcg/dose DISKUS predniSONE (DELTASONE) Take 10 mg by 0 11/14/2018 Active 10 mg tablet mouth. cyanocobalamin 100 MCG Take 100 mcg by 0 Active tablet mouth. aspirin 81 mg chewable Chew 81 mg. 0 Active tablet ipratropium (ATROVENT) 2 sprays into 0 07/25/2018 Active 42 mcg (0.06 %) nasal each nostril. spray azelastine-fluticasone 1 Dose into each 0 07/25/2018 Active (DYMISTA) 137-50 nostril. mcg/spray spray,non-aerosol furosemide (LASIX) 20 mg Take 20 mg by 0 Active tablet mouth. montelukast (SINGULAIR) Take 10 mg by 0 Active 10 mg tablet mouth. 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. 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 Not a candidate for telescope exchange ( [place]). Can return to primary eye care specialis t for ongoing care. At low risk for open-angle glaucoma in both eyes 12/08 Last Assessment & Plan: C/D increase, PPA, [place], difficult to assess ON. IOP 16/17. Unsure of utility of OCT and HVF, will r efer to Dr. Valentine for eval/management. 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 (Primary Dx); MD At low risk for open-angle glaucoma in both eyes 12/08/2018 Office Visit Ophthalmology Emil Huber MD Advanc ed atrophic nonexudative age-related macular degeneration of both eyes with subfoveal involvement (Primary Dx); At low risk for open-angle glaucoma in both eyes after 10/28/2018 Social History Tobacco Use Types Packs/Day Years Used Date Current Some Day Smoker Smokeless Tobacco: Never Used Sex Assigned at Date Recorded Not on file Job Start Date Occupation Industry Not on file Not on file Not on file Travel History Travel Start Travel End No recent travel history available. Last Filed Vital Signs Not on file Plan of Treatment Health Maintenance Due Date Last Done Comments SHINGLES VACCINES (#1) 11/14/1991 INFLUENZA VACCINE 01/16/2020 02/15/2018, 03/17/2017 65+ PNEUMOCOCCAL VACCINE Completed 02/15/2018, 01/15/2017 Results Not on fileafter 10/28/2018 Insurance Payer Benefit Plan / Subscriber ID Effective Dates Phone Addre ss Type Group FOR LIFE xxxxxxxxx 2018-Present MCR SUPPLEMENT MEDICARE MEDICARE PART A xxxxxxxxxxx 2006-Present [facility], [place] Medicare AND B Advance Directives For more information, please contact: [phone] Type Date Recorded Patient Supervisory Forester Explanati on Advance Directives, Living Will and Medical Power of Complaint Investigations Officer
--- OUTSIDE RECORDS SUMMARY | 2019-10-29 22:17 | XMS REPORT | Clinical Summary ---
:1940 Author Organization [facility] Address [address] [place] [address] Care Team Providers Name Role Phone Unavailable Primary Care Provider Unavailable Allergies Not on File Medications Not on file Active Problems Not on file Encounters Date Type Specialty Care Team Description 10/11/2019 Lab Requisition Lab 06/22/2019 Telephone Transplant Noam Artis RN Lung Tr ansplant Pre-evaluation after 10/28/2018 Social History Tobacco Use Types Packs/Day Years Used Date Never Assessed Sex Assigned at Date Recorded Not on file Job Start Date Occupation Industry Not on file Not on file Not on file Travel History Travel Start Travel End No recent travel history available. Last Filed Vital Signs Not on file Plan of Treatment Not on file Procedures Procedure Name Priority Date/Time Associated Diagnosis Comme nts SARS-COV2/RT-PCR Routine 10/11/2019 1:25 AM Resu lts for this ([facility]) CDT procedure are in the results section. after 10/28/2018 Results SARS-CoV2/RT-PCR ([facility]) (10/11/2019 1:25 AM CDT) SARS-COV2/RT-PCR Not Detected Not Detected, Negative [facility] SARS-COV-2 PERFORMING LAB [facility] Specimen Other Narrative Performed At Negative results do not preclude SARS-CoV-2 [facility] infection and should not be used as the sole basis for patient management decisions. Negative results must be combined with clinical observations, patient history, and epidemiological information. A false negative result may occur if a specimen is improperly collected, transported or handled. The limit of detection for this assay is 250 copies/mL. This SARS CoV-2 test is a rapid, real-time RT-PCR test intended for the qualitative detection of nucleic acid from SARS-CoV-2 in a nasopharyngeal swab specimen collected from individuals suspected of COVID-19 by their healthcare provider. This test has not been Food and Drug [...] is revoked under Section 564(g) of the Act. Fact Sheet for Healthcare Providers: https://www.Daixe/Documents/Xpert%20Xpre ss%20SARS%20CoV-2/Fact%20Sheets/3023802%20SAR S-COV-2%20HEALTHCARE%20PROVIDERS%20FACT%20SHEE T.pdf Fact Sheet for Healthcare Patients: https://www.Daixe/Documents/Xpert%20Xpre ss%20SARS%20CoV-2/Fact%20Sheets/3023801%20SAR S-COV-2%20PATIENT%20FACT%20SHEET.pdf Performing Laboratory: [address] [place] [address] Performing Organization Address City/State/Zipcode Phone Number [address] [address] CENTER after 10/28/2018 Insurance Payer Benefit Plan / Group Subscriber ID Type Phone A ddress MEDICARE MEDICARE A B xxxxxxxxxxx Medicare FOR LIFE xxxxxxxxx Other Govt (, [place], [facility], etc.)
--- OUTSIDE RECORDS SUMMARY | 2019-10-29 22:19 | XMS REPORT ---
[...] End Status Dosage System Date Date Clonazepam [facility] 00862714629 0.5 MG Orally Active 1 t ablet at Once a day bedtime ProAir [facility] 36263583622 108 (90 Base) Active 2 puff s as RespiClick MCG/ACT needed Inhalation every 6 hrs Albuterol [facility] 91708853568 (2.5 MG/3ML) Active 3 ml as Sulfate 0.083% needed Inhalation Three times a day Diclofenac ND 85594811010 100 MG Orally November 26, Active 1 tablet Sodium ER Once a day 2018 with food or milk Spiriva [facility] 60029009811 18 MCG Active 1 capsule HandiHaler Inhalation Once a day Furosemide ND 88060157967 20 MG Orally Active 1 ta blet Once a day Ipratropium [facility] 13230908512 0.06 % Nasally Active 2 sprays in [place] Four times a each day nostril Vitamin D3 [facility] 08145724709 2000 UNIT Active 1 capsu le Orally Once a day -81 [facility] 57503724795 81 MG Orally Active 1 tabl et Once a day Montelukast ND 06207623946 10 MG Orally November 07, Active 1 t ablet in Sodium Once a day 2018 the evening PredniSONE ND 72021732872 10 MG Orally Active 1 ta blet Once a day Advair Diskus [facility] 62350198379 500-50 MCG/DOSE Active 1 puff Inhalation Twice a day Flutter NDC 0 three times a Active as direc Results No Known Results Summary Purpose eClinicalWorks Submission
[2019-10-29] MEDS ORDERED: LEVALBUTEROL 1.25 MG/3 ML NEB ONE (22:29)
--- OUTSIDE RECORDS SUMMARY | 2019-10-29 22:29 | XMS REPORT | Summary of Care ---
:1940 Author Organization [facility] Address [address] [place] [address] Care Team Providers Name Role Phone MD Lavell Primary Care Provider Reason for Visit Reason Comments Rx Concern/Question PA Required by Insurance Encounter Details Date Type Department Care Team Description 10/14/2019 Telephone [facility] Pediatric Steffen Monte MD Rx Concern/Question and Adult [facility] Required by [address]) [address] [place] [address] [place] [address] [address] [facility] [phone] [place] [address] Allergies Active Allergy Reactions Severity Noted Date Comments Rejiarwood Unknown - See comments 02/05/2018 Codeine Unknown - See comments 02/05/2018 documented as of this encounter (statuses as of 10/16/2019) Medications Medication Sig Dispensed Refills Start Date [...] Supply Dispense # 1 Carlos KitIndications: Respironics ([place] Acute exacerbation for alternative of chronic brand) [...] Subacute maxillary daily. sinusitis fluticasone Use 1 [place] in each 16 g 0 07/02/2019 Active [...] as of this encounter (statuses as of 10/16/2019) Active Problems Problem Noted Date Chronic pain [...] as of this encounter (statuses as of 10/16/2019) Immunizations Name Administration Dates Next Due Influenza [...] Travel End No recent travel history available. COVID-19 Exposure Response Date Recorded In the last month, have you been in contact Unable to assess 10/16/2019 8:46 AM CDT with someone who was confirmed or suspected to have Coronavirus / COVID-19? documented as of this encounter Last Filed Vital Signs Not on filedocumented in this encounter Plan of Treatment Date Type Specialty Care Team Description 10/16/2019 Telemedicine Visit Family Medicine Jordy Monte MD [address] Mcdowell [address] [place], [place] [address] 15 [phone] 11/16/2019 Office Visit Allergy & Immunology: Annia Hernandes Internal Medicine MD [place] [address] [place] [address] 555 Health Maintenance Due Date Last Done Comments DTaP,Tdap,and Td Vaccines (1 1952 - Tdap) Zoster Recombinant Vaccine 11/14/1991 (SHINGRIX) (1 of 2) Medicare Wellness Visit 2006 INFLUENZA VACCINE (Season 06/15/2020 02/15/2018, Postpo mckenzie from Ended) 03/17/2017 02/16/2020 (Alte rnative Guidelines) PNEUMOCOCCAL VACCINES 65+ Completed 02/15/2018, 01/15/2017 LUNG CANCER SCREEN: Discontinued 06/10/2018, Recommended for age 55-80 02/05/2018 with 30 + pack year history documented as of this encounter Results Not on filedocumented in this encounter Insurance Payer Benefit Plan / Subscriber ID Effective Phone Address T [facility] Group Dates MEDICARE MEDICARE PART A xxxxxxxxxxx 2006-Pr [phone] Medicare & B esent -[phone] [id number] ESTHER PADRON [phone] 8 FOR LIFE [id number] 2018-Pr Lanette richardson esent Supplement [employer] [id number] 1998-P HMO/PPO/ POS ADMINISTRATION ADMINISTRATION resent documented as of this encounter
--- OUTSIDE RECORDS SUMMARY | 2019-10-29 22:30 | XMS REPORT | Summary of Care ---
:1940 Author Organization [facility] Address [address] [place] [address] Care Team Providers Name Role Phone MD Lavell Primary Care Provider Reason for Visit Reason Comments Rx Concern/Question Encounter Details Date Type Department Care Team Description 10/22/2019 Telephone [facility] Pediatric Steffen Monte MD Rx Concern/Question and Adult [facility]- [address] [facility] [address] [place] [facility] 205 146 [facility] [place] [address] [address] [place] [address] [phone] Allergies Active Allergy Reactions Severity Noted Date Comments Rejiarwood Unknown - See comments 02/05/2018 Codeine Unknown - See comments 02/05/2018 documented as of this encounter (statuses as of 10/22/2019) Medications Medication Sig Dispensed Refills Start Date [...] Supply Dispense # 1 Carlos KitIndications: Respironics ([place] Acute exacerbation for alternative of chronic brand) [...] Subacute maxillary daily. sinusitis fluticasone Use 1 [place] in each 16 g 0 07/02/2019 Active [...] as of this encounter (statuses as of 10/22/2019) Active Problems Problem Noted Date Chronic pain [...] as of this encounter (statuses as of 10/22/2019) Immunizations Name Administration Dates Next Due Influenza [...] Treatment Date Type Specialty Care Team Description 10/30/2019 Office Visit Family Medicine Steffen Monte MD [address] [place] [address] Dr M[address] [place], [place] [address] 15 [phone] 11/16/2019 Office Visit Allergy & Immunology: Annia Hernandes, Internal Medicine [address] [place] [address] Health Maintenance Due Date Last Done Comments DTaP,Tdap,and Td Vaccines 1951 (1 - Tdap) Zoster Recombinant Vaccine 11/14/1991 (SHINGRIX) (1 of 2) Medicare Wellness Visit 2006 INFLUENZA VACCINE (Season 06/15/2020 02/15/2018, 04/23/2017 , Postponed from Ended) 03/17/2017, Additional 0 history exists (Alternative Guidelines) PNEUMOCOCCAL VACCINES 65+ Completed 02/15/2018, 01/15/2017 LUNG CANCER SCREEN: Discontinued 06/10/2018, 02/05/2018 Recommended for age 55-80 with 30 + pack year history documented as of this encounter Results Not on filedocumented in this encounter Insurance Payer Benefit Plan / Subscriber ID Effective Phone Address T [facility] Group Dates MEDICARE MEDICARE PART A xxxxxxxxxxx 2006-Pr [phone] Medicare & B esent -[phone] [id number] ESTHER PADRON [phone] 8 FOR LIFE [id number] 2018-Pr Lanette richardson esent Supplement [employer] [id number] 1998-P HMO/PPO/ POS ADMINISTRATION ADMINISTRATION resent documented as of this encounter
--- OUTSIDE RECORDS SUMMARY | 2019-10-29 22:30 | XMS REPORT | Summary of Care ---
:1940 Author Organization [facility] Address [address] [place] [address] Care Team Providers Name Role Phone MD Lavell Primary Care Provider Reason for Visit Reason Comments Orders [facility] Encounter Details Date Type Department Care Team Description 10/19/2019 Telephone [facility] Pediatric Steffen Monte MD Orders ([facility] and Adult Primary [address]) [address] [facility] [place] [address] [place] [address] [place] [address] Allergies Active Allergy Reactions Severity Noted Date Comments Yamilet Unknown - See comments 02/05/2018 Codeine Unknown - See comments 02/05/2018 documented as of this encounter (statuses as of 10/20/2019) Medications Medication Sig Dispensed Refills Start Date [...] Supply Dispense # 1 Carlos KitIndications: Respironics ([place] Acute exacerbation for alternative of chronic brand) [...] Subacute maxillary daily. sinusitis fluticasone Use 1 [place] in each 16 g 0 07/02/2019 Active [...] as of this encounter (statuses as of 10/20/2019) Active Problems Problem Noted Date Chronic pain [...] as of this encounter (statuses as of 10/20/2019) Immunizations Name Administration Dates Next Due Influenza [...] Office Visit Family Medicine Steffen Monte MD [address] [place] [address] Dr M[address]owell [address] [place] [address] 15 [phone] 11/16/2019 Office Visit Allergy & Immunology: Annia Hernandes, Internal Medicine [address] [place] [address] Health Maintenance Due Date Last Done [...] / Subscriber ID Effective Phone Address T [facility] Group Dates MEDICARE MEDICARE PART A xxxxxxxxxxx 2006-Pr [phone] Medicare & B esent -[phone] [id number] ESTHER PADRON [phone] 8 FOR LIFE [id number] 2018-Pr Lanette richardson esent Supplement [employer] [id number] 1998-P HMO/PPO/ POS ADMINISTRATION ADMINISTRATION resent documented as of this encounter
--- OUTSIDE RECORDS SUMMARY | 2019-10-29 22:30 | XMS REPORT | Summary of Care ---
:1940 Author Organization [facility] Address [address] [place] [address] Care Team Providers Name Role Phone MD Lavell Primary Care Provider Reason for Visit Reason Comments No Show (DNKA) Encounter Details Date Type Department Care Team Description 10/16/2019 Telemedicine Visit [facility] Steffen Monte NO S HOW (Primary Pediatric and Adult MD Dx) Primary Care- [address] [place] [address] [address] [place] [address] [address] [address], [address] [place] [phone] Allergies Active Allergy Reactions Severity Noted Date [...] Supply Dispense # 1 Carlos KitIndications: Respironics ([place] Acute exacerbation for alternative of chronic brand) [...] Subacute maxillary daily. sinusitis fluticasone Use 1 [place] in each 16 g 0 07/02/2019 Active [...] on filedocumented in this encounter Progress Notes Steffen Monte MD - 10/16/2019 1:00 PM CDTCalled x3, could not leave . Please reschedule. Okay to schedule for [id number] visit in clinic.Thank you! documented in this encounter Plan of Treatment Date Type Specialty Care Team Description 11/16/2019 Office Visit Allergy & Immunology: Annia Hernandes, Internal Medicine [address] [place] [address] 555 [phone] Health Maintenance Due Date Last Done Comments [...] filedocumented in this encounter Visit Diagnoses Diagnosis NO SHOW - Primary documented in this encounter Insurance Payer Benefit Plan / Subscriber ID Effective Phone Address T ype Group Dates MEDICARE MEDICARE PART A xxxxxxxxxxx 2006-Pr [phone] Medicare & B esent -[phone] [id number] ESTHER PADRON [phone] 8 FOR LIFE [id number] 2018-Pr Lanette edicare esent Supplement [employer] [id number] 1998-P HMO/PPO/ POS ADMINISTRATION ADMINISTRATION resent documented as of this encounter
--- OUTSIDE RECORDS SUMMARY | 2019-10-29 22:31 | XMS REPORT | Summary of Care ---
:1940 Author Organization [facility] Address [address] [place] [address] Care Team Providers Name Role Phone MD Lavell Primary Care Provider Reason for Visit Reason Comments Rx Concern/Question Encounter Details Date Type Department Care Team Description 10/22/2019 Telephone [facility] Pediatric Steffen Monte MD Rx Concern/Question and Adult Primary Care- [address] [address] [place] [facility] 205 146 [facility] [place] [address] [address] [place] [address] [phone] Allergies Active Allergy Reactions Severity Noted Date Comments Rejiarwood Unknown - See comments 02/05/2018 Codeine Unknown - See comments 02/05/2018 documented as of this encounter (statuses as of 10/23/2019) Medications Medication Sig Dispensed Refills Start Date [...] Supply Dispense # 1 Carlos KitIndications: Respironics ([place] Acute exacerbation for alternative of chronic brand) [...] Subacute maxillary daily. sinusitis fluticasone Use 1 [place] in each 16 g 0 07/02/2019 Active [...] as of this encounter (statuses as of 10/23/2019) Active Problems Problem Noted Date Chronic pain [...] as of this encounter (statuses as of 10/23/2019) Immunizations Name Administration Dates Next Due Influenza [...] Office Visit Family Medicine Steffen Monte MD [address] [place] [address] Dr [address]owell [address] [place], [place] [address] 15 [phone] 11/16/2019 Office Visit Allergy & Immunology: Annia Hernandes, Internal Medicine [address] [place] [address] Health Maintenance Due Date Last Done [...] / Subscriber ID Effective Phone Address T [facility] Group Dates MEDICARE MEDICARE PART A xxxxxxxxxxx 2006-Pr [phone] Medicare & B esent -[id number] ESTHER PADRON [phone] 8 FOR LIFE [id number] 2018-Pr Lanette richardson esent Supplement [employer] [id number] 1998-P HMO/PPO/ POS ADMINISTRATION ADMINISTRATION resent documented as of this encounter
--- OUTSIDE RECORDS SUMMARY | 2019-10-29 22:31 | XMS REPORT | Summary of Care ---
:1940 Author Organization [facility] - Health Address [address] [place] [address] Care Team Providers Name Role Phone MD Lavell Primary Care Provider Encounter Details Date Type Department Care Team Description 10/20/2019 Orders Only [facility] Doctor Unassigned, No 301 [facility] [place] [address] [address] [place] [address] Allergies Active Allergy Reactions Severity Noted Date Comments [place] Unknown - See comments 02/05/2018 Codeine Unknown - See comments 02/05/2018 documented as of this encounter (statuses as of 10/26/2019) Medications Medication Sig Dispensed Refills Start Date [...] Subacute maxillary daily. sinusitis fluticasone Use 1 [place] in each 16 g 0 07/02/2019 Active [...] as of this encounter (statuses as of 10/26/2019) Active Problems Problem Noted Date Chronic pain [...] as of this encounter (statuses as of 10/26/2019) Immunizations Name Administration Dates Next Due Influenza [...] Treatment Date Type Specialty Care Team Description 10/26/2019 Telemedicine Visit Allergy & Immunology: Tena Hernandes [facility] Internal Medicine MD [place] [address] [facility] [address] [place] [address] 10/30/2019 Office Visit Family Medicine Steffen Monte MD [address] [place] [address] [place] [address] 15 [phone] Health Maintenance Due Date Last Done Comments [...] Comme nts HOME HEALTH - OTHER Routine 10/20/2019 12:01 AM CDT documented in this encounter Results Not on filedocumented in this encounter Insurance Payer Benefit Plan / Subscriber ID Effective Phone Address T ype Group Dates MEDICARE MEDICARE PART A xxxxxxxxxxx 2006-Pr [phone] Medicare & B esent -[id number] ESTHER PADRON [phone] 8 FOR LIFE [id number] 2018-Manas richardson esent Supplement [employer] [id number] 1998-P HMO/PPO/ POS ADMINISTRATION ADMINISTRATION resent documented as of this encounter
--- OUTSIDE RECORDS SUMMARY | 2019-10-29 22:31 | XMS REPORT | Summary of Care ---
:1940 Author Organization [facility] Address [address] [place] [address] Care Team Providers Name Role Phone MD Lavell Primary Care Provider Reason for Visit Reason Comments Medical Records Discharge summary Encounter Details Date Type Department Care Team Description 10/27/2019 Telephone [facility] Pediatric Steffen Monte MD Medical Records and Adult Primary [facility] [place] [address] 146 [facility] [place] [address] [place] [address] [place] [address] Allergies Active Allergy Reactions Severity Noted Date Comments Yamilet Unknown - See comments 02/05/2018 Codeine Unknown - See comments 02/05/2018 documented as of this encounter (statuses as of 10/27/2019) Medications Medication Sig Dispensed Refills Start Date [...] Supply Dispense # 1 Carlos KitIndications: Respironics ([place] Acute exacerbation for alternative of chronic brand) [...] Subacute maxillary daily. sinusitis fluticasone Use 1 [place] in each 16 g 0 07/02/2019 Active [...] as of this encounter (statuses as of 10/27/2019) Active Problems Problem Noted Date Chronic pain [...] as of this encounter (statuses as of 10/27/2019) Immunizations Name Administration Dates Next Due Influenza [...] Office Visit Family Medicine Steffen Monte MD [address] [place] [address] Dr M[address] [place] [address] 15 [phone] Health Maintenance Due Date Last Done Comments [...] O. BOX Medicare & B esent -[id number] ESTHER PADRON [phone] 8 FOR LIFE [id number] 2018-Manas richardson esent Supplement [employer] [id number] 1998-P HMO/PPO/ POS ADMINISTRATION ADMINISTRATION resent documented as of this encounter
--- OUTSIDE RECORDS SUMMARY | 2019-10-29 22:32 | XMS REPORT | Summary of Care ---
:1940 Author Organization [facility] - [facility] Address [address] [place] [address] Care Team Providers Name Role Phone MD Lavell Primary Care Provider Reason for Visit Reason Comments Orders Encounter Details Date Type Department Care Team Description 10/26/2019 Telephone [facility] Pediatric and Steffen Todd MD Orders Adult Primary Care- [address] [facility] [address] [place] 205 [address] [facility] , [place] [address] 205 [place] [address] [phone] Allergies Active Allergy Reactions Severity Noted Date Comments [place] Unknown - See comments 02/05/2018 Codeine Unknown - See comments 02/05/2018 documented as of this encounter (statuses as of 10/28/2019) Medications Medication Sig Dispensed Refills Start Date [...] Supply Dispense # 1 Carlos KitIndications: Respironics ([place] Acute exacerbation for alternative of chronic brand) [...] Subacute maxillary daily. sinusitis fluticasone Use 1 [place] in each 16 g 0 07/02/2019 Active [...] as of this encounter (statuses as of 10/28/2019) Active Problems Problem Noted Date Chronic pain [...] as of this encounter (statuses as of 10/28/2019) Immunizations Name Administration Dates Next Due Influenza [...] Office Visit Family Medicine Steffen Monte MD [address] [place] [address] Dr Mcdowell [address] [place] [address] 15 [phone] Health Maintenance Due Date Last Done Comments [...] O. BOX Medicare & B esent -[id number] ESTHER PADRON [address] 8 FOR LIFE [id number] 2018-Manas richardson esent Supplement [employer] [id number] 1998-P HMO/PPO/ POS ADMINISTRATION ADMINISTRATION resent documented as of this encounter
[2019-10-29] MEDS ORDERED: METHYLPREDNISOLONE 125 MG INJ ONE (22:45)
[2019-10-29 22:57] LABS: Absolute Lymphocytes (CBC) 0.7 K/uL (0.7-4.9); Basophils % 0.3 % (0-1.3); Hematocrit 41.2 % (39.6-49.0); Lymphocytes % 6.1 % (15.3-44.8); MPV 10.6 fL (7.6-11.3); RBC Red Blood Cell Count 4.48 M/uL (4.33-5.43)
[2019-10-29 22:58] LABS: Protime INR 0.94
[2019-10-29 23:22] LABS: Bilirubin Direct 0.1 mg/dL (0-0.2); Bilirubin Total 0.4 mg/dL (0.2-1.0); Magnesium 2.4 mg/dL (1.8-2.4); Troponin (Emerg Dept Use Only) 0.03 ng/mL (0.0-0.045)
[2019-10-29 23:45] LABS: Blood Morphology Comment NOT SEEN (NOT SEEN); Platelet Estimate ADEQ
--- NOTE | 2019-10-29 23:48 | EDPHYS ---
Physician Documentation [facility] Name: Idris San Age: 78 yrs Sex: Male : 1940 Arrival Date: 10/29/2019 Time: 22:21 Bed 3 Private MD: ED Physician Azeem Dai HPI: 10/28 22:28 This 78 yrs old Male presents to ER via EMS with complaints of Shortness Of cp Breath. 22:28 The patient has shortness of breath at rest. Onset: The symptoms/episode began/occurred cp today. Duration: The symptoms are continuous, and are steadily getting worse. 22:28 Associated signs and symptoms: Pertinent negatives: fever. Unable to obtain HPI due to cp patient distress. The patient has experienced similar episodes in the past, multiple times. Historical: - Allergies: 22:29 Codeine; fc 22:29 Morphine; fc - PMHx: 22:29 Anemia; COPD; CHF; Emphysema; femur fracture; Lung Cancer; Pt reports that it cleared fc up; enlarged prostate; Pneumonia; Sleep Apnea; Lung Cancer; - Immunization history:: Last tetanus immunization: unknown, Flu vaccine status is unknown. - Social history:: Smoking status: Patient/guardian denies using tobacco, Patient/guardian denies using alcohol, street drugs. ROS: 22:31 Constitutional: Negative for fever. cp 22:31 Cardiovascular: Negative for chest pain. 22:31 Respiratory: Positive for shortness of breath, at rest. wheezing. 22:31 Unable to obtain ROS due to patient distress. Exam: 22:30 ECG was reviewed by the Attending Physician. cp 22:35 Constitutional: The patient appears alert, awake, non-diaphoretic, well developed, well cp nourished, in obvious distress, moderately distressed. 22:35 Head/Face: Normocephalic, atraumatic. cp 22:35 Eyes: Periorbital structures: appear normal, Pupils: equal, round, and reactive to light and accomodation, Conjunctiva: normal, no exudate, no injection, Sclera: no appreciated abnormality, Lids and lashes: appear normal, bilaterally. 22:35 ENT: External ear(s): are unremarkable, Nose: is normal, Mouth: Lips: dry, Oral mucosa: moist, Posterior pharynx: Airway: no evidence of obstruction, patent. 22:35 Neck: ROM/movement: is normal, is supple, no meningismus, no nuchal rigidity. 22:35 Chest/axilla: Inspection: normal, Palpation: is normal, no crepitus, no tenderness. 22:35 Cardiovascular: Rate: tachycardic, Rhythm: regular, Edema: is not appreciated, JVD: is not appreciated. 22:35 Respiratory: moderate respiratory distress is noted, Respirations: labored breathing, that is moderate, shallow respirations, that is moderate, Breath sounds: decreased breath sounds, that are moderate, throughout, wheezing: that is mild, is heard diffusely. 22:35 Abdomen/GI: Inspection: abdomen appears normal, Bowel sounds: active, all quadrants, Palpation: abdomen is soft and non-tender, in all quadrants. 22:35 Neuro: Orientation: unable to test, respiratory distress, Mentation: responsive to voice able to follow commands, Motor: moves all fours, general weakness without focal deficits. Vital Signs: 22:11 BP 132 / 68; Pulse 112; Resp 28; Temp 98.4(O); Pulse Ox 93% on 100% Non-rebreather fc mask; Weight 72.57 kg (R); Height 5 ft. 9 in. (175.26 cm) (R); Pain 0/10; 23:30 BP 114 / 57; Pulse 91; Resp 22; Pulse Ox 97% on BiPAP; wh 10/29 00:30 BP 105 / 50; Pulse 84; Resp 20; Pulse Ox 97% on BiPAP; wh 01:30 BP 104 / 63; Pulse 78; Resp 20; Pulse Ox 96% on BiPAP; wh 02:15 BP 114 / 60; Pulse 84; Resp 20; Pulse Ox 95% on BiPAP; wh 03:15 BP 105 / 59; Pulse 78; Resp 20; Pulse Ox 97% on BiPAP; 10/28 22:11 Body Mass Index 23.63 (72.57 kg, 175.26 cm) MDM: 10/28 22:32 Patient medically screened. cp 23:45 Data reviewed: vital signs, nurses notes, lab test result(s), EKG, radiologic studies, cp plain films, I have discussed the patient's presentation/case with the attending Emergency Department Physician; and as a result, I will admit patient. 23:45 Test interpretation: by ED physician or midlevel provider: ECG, plain radiologic cp studies. Response to treatment: the patient's symptoms have mildly improved after treatment. Physician consultation: Mj Johnson was called at 23:45, was contacted at 23:45, regarding admission, to the medical/surgical unit. patient's condition. 10/28 22:26 Order name: Basic Metabolic Panel; Complete Time: 23:31 cp 10/28 23:33 Interpretation: Normal except: CO2 40; GLUC 290; BUN 19; GFR 73. cp 10/28 22:26 Order name: CBC with Diff; Complete Time: 00:24 cp 10/28 23:32 Interpretation: Normal except: WBC 12.2; HGB 12.7; MCHC 30.8; RDW 16.4; GLADYS% 89.0; LYM% cp 6.1; NEUT A 10.9. 10/28 22:26 Order name: LFT's; Complete Time: 23:31 cp 10/28 23:45 Interpretation: Normal except: AST 53; ALK 150; ALB 3.0; GLOB 4.0; A/G 0.8. cp 10/28 22:26 Order name: Magnesium; Complete Time: 23:31 cp 10/28 22:26 Order name: NT PRO-BNP; Complete Time: 23:31 cp 10/28 22:26 Order name: PT-INR; Complete Time: 23:31 cp 10/28 22:26 Order name: Troponin (emerg Dept Use Only); Complete Time: 23:31 cp 10/28 22:26 Order name: Influenza Screen (a \T\ B) cp 10/28 22:26 Order name: Lactate; Complete Time: 23:31 cp 10/28 23:36 Interpretation: Abnormal: LAC 3.2. cp 10/28 22:26 Order name: Procalcitonin; Complete Time: 23:40 cp 10/28 23:40 Interpretation: Abnormal: Procalcitonin 154.30. cp 10/28 22:26 Order name: Blood Culture Adult (2) cp 10/28 22:59 Order name: Manual Differential; Complete Time: 00:24 EDMS 10/29 00:40 Order name: ABG Arterial Blood Gas EDMS 10/29 01:31 Order name: Lactate mw2 10/28 22:26 Order name: XRAY Chest (1 view) cp 10/28 22:26 Order name: EKG; Complete Time: 22:27 10/28 22:26 Order name: Cardiac monitoring; Complete Time: 22:43 10/28 22:26 Order name: EKG - Nurse/Tech; Complete Time: 22:43 10/28 22:26 Order name: IV Saline Lock; Complete Time: 22:43 10/28 22:26 Order name: Labs collected and sent; Complete Time: 22:43 10/28 22:26 Order name: O2 Per Protocol; Complete Time: 22:43 10/28 22:26 Order name: O2 Sat Monitoring; Complete Time: 22:43 10/29 02:21 Order name: Lactate Sepsis 2 HR Follow-up EDMS EC:30 Rate is 109 beats/min. Rhythm is regular. DC interval is normal. QRS interval is cp normal. QT interval is normal. Interpreted by me. Reviewed by me. Administered Medications: 22:42 Drug: SOLU-Medrol 125 mg Route: IVP; Site: right antecubital; 10/29 00:37 Follow up: Response: No adverse reaction 10/28 22:42 Drug: Xopenex (3) 1.25 mg {Note: Administered by RT thru BIPAP.} Route: Inhalation; 10/29 00:37 Follow up: Response: No adverse reaction; Wheezing diminished 00:00 Drug: Cefepime 2 grams Route: IVPB; Rate: 200 ml/hr; Infused Over: 30 mins; Site: right forearm; 00:37 Follow up: Response: No adverse reaction; IV Status: Completed infusion 00:01 Drug: NS 0.9% 1000 ml Route: IV; Rate: 1000 ml/hr; Site: right forearm; 00:37 Follow up: Response: No adverse reaction; IV Status: Completed infusion 00:36 Drug: vancoMYCIN 1 grams Route: IVPB; Infused Over: 2 hrs; Site: right antecubital; 02:19 Follow up: Response: No adverse reaction; IV Status: Completed infusion Disposition: 10/28 23:53 Chart complete. cp 23:53 Critical Care:. 10/29 03:26 Co-signature as Attending Physician, Azeem Dai MD I agree with the assessment and [facility] plan of care. Attestation: The patient's history, exam findings, diagnostics, and a summary of any interventions or procedures was reviewed in detail with Azeem Dai MD. Disposition: 10/29/19 23:47 Hospitalization ordered by Mj Johnson for Inpatient Admission. Preliminary diagnosis are Acute and chronic respiratory failure with hypoxia, Chronic obstructive pulmonary disease with (acute) exacerbation. - Bed requested for Intensive Care Unit. - Status is Inpatient Admission. jb4 - Condition is Stable. - Problem is an acute exacerbation. - Symptoms have improved. Critical care time excluding procedures: 10/28 23:53 Critical care time: Bedside Care: 25 minutes, Consultation: 5 minutes. Total time: 30 cp minutes Signatures: Dispatcher [employer] EDNadia Johnson RN RN fc Page, Corey, PA PA cp Garcia, Cindy, RN RN cg Bryson, James, RN RN jb Lilia Steele Azeem Dai MD MD [email or web address] Corrections: (The following items were deleted from the chart) 10/29 01:34 10/28 23:47 Hospitalization Ordered by Mj Johnson for Inpatient Admission. cg Preliminary diagnosis is Acute and chronic respiratory failure with hypoxia; Chronic obstructive pulmonary disease with (acute) exacerbation. Bed requested for Telemetry/MedSurg (Inpatient). Status is Inpatient Admission. Condition is Stable. Problem is an acute exacerbation. Symptoms have improved. 10/29 02:29 01:34 10/29/2019 23:47 Hospitalization Ordered by Mj Johnson for Inpatient cg Admission. Preliminary diagnosis is Acute and chronic respiratory failure with hypoxia; Chronic obstructive pulmonary disease with (acute) exacerbation. Bed requested [facility] ER HOLD. Status is Inpatient Admission. Condition is Stable. Problem is an acute exacerbation. Symptoms have improved. 03:24 02:29 10/29/2019 23:47 Hospitalization Ordered by Mj Johnson for Inpatient jb4 Admission. Preliminary diagnosis is Acute and chronic respiratory failure with hypoxia; Chronic obstructive pulmonary disease with (acute) exacerbation. Bed requested for Intensive Care Unit. Status is Inpatient Admission. Condition is Stable. Problem is an acute exacerbation. Symptoms have improved. cg
--- NOTE | 2019-10-29 23:48 | ER ---
Nurse's Notes [facility] Name: Idris San Age: 78 yrs Sex: Male : 1940 Arrival Date: 10/29/2019 Time: 22:21 Bed 3 Private MD: Diagnosis: Acute and chronic respiratory failure with hypoxia;Chronic obstructive pulmonary disease with (acute) exacerbation Presentation: 10/28 22:11 Chief complaint: EMS states: that pt has been in resp distress all day and using nebs q fc 4 hrs. Upon their arrival pt was 79 % on roomair. Denies any fever. Coronavirus screen: Patient reports a cough. Patient reports shortness of breath or difficulty breathing. Patient denies contact with known and/or suspected case of COVID-19. Ebola Screen: Patient negative for fever greater than or equal to 101.5 degrees Fahrenheit, and additional compatible Ebola Virus Disease symptoms Patient denies exposure to infectious person. Patient denies travel to an Ebola-affected area in the 21 days before illness onset. Initial Sepsis Screen: Does the patient meet any 2 criteria? RR > 20 per min. HR > 90 bpm. Yes Does the patient have a suspected source of infection? No. Patient's initial sepsis screen is negative. Risk Assessment: Do you want to hurt yourself or someone else? Patient reports no desire to harm self or others. Onset of symptoms was October 29, 2019. Care prior to arrival: Medication(s) given: Albuterol Neb x 1, Atrovent Neb x 1. Transition of care: patient was not received from another setting of care. 22:11 Method Of Arrival: EMS: [facility] fc 22:11 Acuity: LISBETH 2 fc Triage Assessment: 22:30 Respiratory: Reports shortness of breath air hunger Onset: The symptoms/episode wh began/occurred gradually, the patient has mild shortness of breath. Historical: - Allergies: 22:29 Codeine; fc 22:29 Morphine; fc - PMHx: 22:29 Anemia; COPD; CHF; Emphysema; femur fracture; Lung Cancer; Pt reports that it cleared fc up; enlarged prostate; Pneumonia; Sleep Apnea; Lung Cancer; - Immunization history:: Last tetanus immunization: unknown, Flu vaccine status is unknown. - Social history:: Smoking status: Patient/guardian denies using tobacco, Patient/guardian denies using alcohol, street drugs. Screenin:26 Abuse screen: Denies threats or abuse. Nutritional screening: No deficits noted. fc Tuberculosis screening: No symptoms or risk factors identified. Fall Risk Fall in past 12 months (25 points). Secondary diagnosis (15 points) impaired mobility, No IV (0 pts). Ambulatory Aid- Crutches/Cane/Walker (15 pts). Gait- Weak (10 pts.). Mental Status- Overestimates/Forgets Limitations (15 pts.). Assessment: 22:30 General: Appears distressed, uncomfortable, Behavior is cooperative. Pain: Denies pain. Neuro: Level of Consciousness is awake, alert, obeys commands, Oriented to person, place, time, situation, Appropriate for age. Cardiovascular: Heart tones S1 S2 Rhythm is regular. Respiratory: Airway is patent Respiratory effort is labored, Respiratory pattern is tachypnea Breath sounds with wheezes bilaterally. GI: Abdomen is flat, non-distended. : No signs and/or symptoms were reported regarding the genitourinary system. EENT: No signs and/or symptoms were reported regarding the EENT system. Derm: Skin is intact, is healthy with good turgor, Skin is pink, warm \T\ dry. normal. 10/29 00:00 Reassessment: Patient appears in no apparent distress at this time. No changes from previously documented assessment. Patient and/or family updated on plan of care and expected duration. Pain level reassessed. Patient is alert, oriented x 3, equal unlabored respirations, skin warm/dry/pink. Pt now breathing more normally via BIPAP. Musculoskeletal: Circulation, motion, and sensation intact. 01:05 Reassessment: Patient appears in no apparent distress at this time. No changes from previously documented assessment. Patient and/or family updated on plan of care and expected duration. Pain level reassessed. Patient is alert, oriented x 3, equal unlabored respirations, skin warm/dry/pink. MD at bedside explained POC need for admit, spoke with with updated plan of care. 02:10 Reassessment: Patient appears in no apparent distress at this time. No changes from previously documented assessment. Patient and/or family updated on plan of care and expected duration. Pain level reassessed. Patient is alert, oriented x 3, equal unlabored respirations, skin warm/dry/pink. Explained POC need for Admit. 03:15 Reassessment: Patient appears in no apparent distress at this time. No changes from previously documented assessment. Patient and/or family updated on plan of care and expected duration. Pain level reassessed. Patient is alert, oriented x 3, equal unlabored respirations, skin warm/dry/pink. Patient states symptoms have improved. Vital Signs: 10/28 22:11 BP 132 / 68; Pulse 112; Resp 28; Temp 98.4(O); Pulse Ox 93% on 100% Non-rebreather fc mask; Weight 72.57 kg (R); Height 5 ft. 9 in. (175.26 cm) (R); Pain 0/10; 23:30 BP 114 / 57; Pulse 91; Resp 22; Pulse Ox 97% on BiPAP; 10/29 00:30 BP 105 / 50; Pulse 84; Resp 20; Pulse Ox 97% on BiPAP; 01:30 BP 104 / 63; Pulse 78; Resp 20; Pulse Ox 96% on BiPAP; 02:15 BP 114 / 60; Pulse 84; Resp 20; Pulse Ox 95% on BiPAP; 03:15 BP 105 / 59; Pulse 78; Resp 20; Pulse Ox 97% on BiPAP; 10/28 22:11 Body Mass Index 23.63 (72.57 kg, 175.26 cm) ED Course: 10/28 22:11 Arm band placed on Patient placed in an exam room, on a stretcher. fc 22:11 Patient has correct armband on for positive identification. Placed in gown. Bed in low fc position. Call light in reach. Side rails up X2. air sampling and monitoring on. Pulse ox on. NIBP on. 22:11 No provider procedures requiring assistance completed. fc 22:21 Patient arrived in ED. fc 22:25 Jeff Henderson PA is PHCP. cp 22:25 Azeem Dai MD is Attending Physician. cp 22:25 Triage completed. fc 22:30 Inserted saline lock: 20 gauge in right forearm, using aseptic technique. Blood wh collected. 22:34 Lilia Steele is Primary Nurse. wh 22:47 XRAY Chest (1 view) In Process Unspecified. EDMS 23:46 Mj Johnson is Hospitalizing Provider. 10/29 03:15 Patient admitted, IV remains in place. Administered Medications: 10/28 22:42 Drug: SOLU-Medrol 125 mg Route: IVP; Site: right antecubital; 10/29 00:37 Follow up: Response: No adverse reaction 10/28 22:42 Drug: Xopenex (3) 1.25 mg {Note: Administered by RT thru BIPAP.} Route: Inhalation; 10/29 00:37 Follow up: Response: No adverse reaction; Wheezing diminished 00:00 Drug: Cefepime 2 grams Route: IVPB; Rate: 200 ml/hr; Infused Over: 30 mins; Site: right wh forearm; 00:37 Follow up: Response: No adverse reaction; IV Status: Completed infusion 00:01 Drug: NS 0.9% 1000 ml Route: IV; Rate: 1000 ml/hr; Site: right forearm; 00:37 Follow up: Response: No adverse reaction; IV Status: Completed infusion 00:36 Drug: vancoMYCIN 1 grams Route: IVPB; Infused Over: 2 hrs; Site: right antecubital; 02:19 Follow up: Response: No adverse reaction; IV Status: Completed infusion Outcome: 10/28 23:47 Decision to Hospitalize by Provider. 10/29 03:15 Admitted to ICU accompanied by nurse, via stretcher, room 6, with oxygen, on monitor, with chart, Report called to Araceli Arias RN Condition: stable Instructed on the need for admit. 03:24 Patient left the ED. jb4 Signatures: Dispatcher [employer] EDMS Nadia Levine RN RN fc Page, Corey, PA PA Jose Martin Ac RN RN jb4 Lilia Steele Corrections: (The following items were deleted from the chart) 02:15 00:00 Reassessment: Patient appears in no apparent distress at this time. No changes wh from previously documented assessment. Patient and/or family updated on plan of care and expected duration. Pain level reassessed. Patient is alert, oriented x 3, equal unlabored respirations, skin warm/dry/pink. 02:16 01:05 Reassessment: Patient appears in no apparent distress at this time. No changes wh from previously documented assessment. Patient and/or family updated on plan of care and expected duration. Pain level reassessed. Patient is alert, oriented x 3, equal unlabored respirations, skin warm/dry/pink. MD at bedside explained POC need for Admit wh
[2019-10-30] MEDS ORDERED: CEFEPIME 2 GM VIAL ONE (00:01)
[2019-10-30] MEDS ORDERED: NA CHLORIDE 0.9% 1,000 ML ONE (00:01)
[2019-10-30] MEDS ORDERED: NA CHLORIDE 0.9% 250 ML ONE (00:01)
[2019-10-30] MEDS ORDERED: NA CHLORIDE 0.9% 100 ML IV ONE (00:01)
[2019-10-30] MEDS ORDERED: VANCOMYCIN 1 GM/VIAL ONE (00:01)
--- NOTE | 2019-10-30 00:40 | P.HP ---
Certification for Inpatient Patient admitted to: Inpatient With expected LOS: >2 Midnights Practitioner: I am a practitioner with admitting privileges, knowledge of patient current condition, hospital course, and medical plan of care. Services: Services provided to patient in accordance with Admission requirements found in Title 42 Section 412.3 of the Code of Federal Regulations Patient History Date of Service: 10/30/19 Reason for admission: Shortness of breath History of Present Illness: 78-year-old gentleman with a history of advanced COPD, lung cancer status post radiation therapy was brought to the emergency department in respiratory distress. Patient reports being short of breath all day. His oxygen saturation was 79% on room air. No reported fever. His blood work showed mild leukocytosis, and elevated bicarbonate which could be compensatory reaction to respiratory acidosis. Patient was given breathing treatment, placed on BiPAP. His arterial blood gas shows CO2 retention. Chest x-ray shows shows bilateral chronic fibrotic changes. Difficult to exclude infiltrate. Patient is admitted for further management. Allergies codeine Allergy (Verified 10/30/19 04:30) AMS morphine Adverse Reaction (Verified 10/30/19 04:30) AMS Home Medications: Aspirin 81 mg PO DAILY 10/30/19 Cetirizine HCl [Zyrtec] 10 mg PO DAILY 10/30/19 Cyanocobalamin (Vitamin B-12) [Vitamin B-12] 100 mcg PO DAILY 10/30/19 Ergocalciferol (Vitamin D2) [Vitamin D2] 1,250 mcg PO DAILY 10/30/19 Ferrous Sulfate [Feosol] 325 mg PO DAILY 10/30/19 Fluticasone Furoate [Veramyst] 10 gm NS DAILY 10/30/19 Fluticasone/Salmeterol [Advair 250-50 Diskus] 1 each IH BID 10/30/19 Furosemide [Lasix] 20 mg PO DAILY 10/30/19 Hydrocodone Bit/Acetaminophen [Hydrocodon-Acetaminophen 5-325] 0.5 tab PO BID 10/30/19 Ipratropium Neb [Atrovent Neb] 0.5 mg IH DAILY 10/30/19 Phenylephrine/Dm/Acetaminop/GG [Mucinex Fast-Max Cold-Flu Cap] 1 each PO DAILY 10/30/19 Polyethylene Glycol 3350 [Miralax] 17 gm PO PRN PRN 10/30/19 Theophylline [Fritz-Dur] 200 mg PO DAILY 10/30/19 Tiotropium [Spiriva Handihaler] 18 mcg IH DAILY 10/30/19 predniSONE [Deltasone] 20 mg PO DAILY 10/30/19 - Past Medical/Surgical History Diabetic: No -: Lung cancer radiation treatments three years ago -: 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 -: Sleep Apnea -: Enlarged prostate -: CHF -: femur Fx -: Appendectomy -: Cataract surgery -: Prostate surgery - Family History Father -: Heart disease, Diabetes Notes: DC Mother -: Lung disease, Cancer Notes: LUng Ca, Breast CA,Brain CA - Social History Alcohol use: No CD- Drugs: No Caffeine use: Yes Review of Systems is unable to be obtained (Patient on BIPAP) Physical Examination - Physical Exam General: Mild distress, Moderate distress, Other (Awake) HEENT: PERRLA, Mucous membr. moist/pink, Sclerae nonicteric Neck: Supple, JVD not distended Respiratory: Diminished Cardiovascular: No edema, Other (Regular rhythm, tachycardia.) Capillary refill: <2 Seconds Gastrointestinal: Normal bowel sounds, Soft and benign, Non-distended, No tenderness Musculoskeletal: No swelling, No erythema Integumentary: No rashes Neurological: Normal strength at 5/5 x4 extr, Other (Awake and communicating meaningfully.) - Studies Laboratory Data (last 24 hrs) 10/29/19 22:35: PT 11.1, INR 0.94 10/29/19 22:35: WBC 12.2 H, Hgb 12.7 L, Hct 41.2, Plt Count 204 10/29/19 22:35: Sodium 144, Potassium 4.0, BUN 19 H, Creatinine 0.99, Glucose 290 H, Magnesium 2.4, Total Bilirubin 0.4, AST 53 H, ALT 43, Alkaline Phosphatase 150 H Assessment and Plan - Problems (Diagnosis) (1) Acute and chronic respiratory failure with hypercapnia Current Visit: Yes Status: Acute (2) Acute and chronic respiratory failure with hypoxia Current Visit: Yes Status: Acute (3) Acute exacerbation of chronic obstructive pulmonary disease (COPD) Onset Date: 12/24/17 Current Visit: No Status: Acute - Plan Patient with hypercapnia with severe PCO2 elevation. He is awake and in only mild respiratory distress on BiPAP. Admit to ICU Continue BiPAP ventilation and titrate to treat hypercapnia. IV steroid Scheduled Duoneb. Brovana and Pulmicort nebs Albuterol p.r.n. Start IV Levaquin. - Advance Directives Does patient have a Living Will: No Does patient have a Durable POA for Healthcare: Yes - Code Status/Comfort Care Code Status Assessed: No (Pt in respiratory distress and on BIPAP)
[2019-10-30 00:41] LABS: Blood Gas Oxyhemoglobin 91.6 % (94-97)
[2019-10-30] MEDS ORDERED: ONDANSETRON 4 MG/2 ML VIAL IV PRN (03:45)
[2019-10-30] MEDS ORDERED: ACETAMINOPHEN 500 MG TAB PO PRN (03:45)
[2019-10-30] MEDS: ALBUTEROL 2.5 MG/3 ML NEB SOL NEB SCH ×4 (03:45→21:15)
[2019-10-30] MEDS: IPRATROPIUM BROM 0.5MG/2.5ML NEB SCH ×5 (04:00→21:15)
[2019-10-30] MEDS: Levofloxacin 750mg IV 750 MG/150 ML BAG IV SCH (04:30)
[2019-10-30] MEDS: METHYLPREDNISOLONE 40 MG INJ IV SCH ×3 (05:04→17:19)
[2019-10-30 06:25] LABS: Arterial Blood Carboxyhemoglob 1.8 % (0-1.5)
[2019-10-30 06:29] LABS: Blood Gas Oxyhemoglobin 91.8 % (94-97); Blood O2 Saturation 92.8 % (92-98.5)
[2019-10-30 07:40] LABS: BUN Blood Urea Nitrogen 15 mg/dL (7-18); Bicarbonate 38 mmol/L (21-32); Glucose Level 187 mg/dL (74-106); Magnesium 2.2 mg/dL (1.8-2.4); Phosphorus 2.6 mg/dL (2.5-4.9); Potassium 4.7 mmol/L (3.5-5.1); Sodium Level 146 mmol/L (136-145)
[2019-10-30 07:47] LABS: Absolute Lymphocytes (CBC) 0.3 K/uL (0.7-4.9); Basophils % 0.1 % (0-1.3); Hematocrit 34.8 % (39.6-49.0); Lymphocytes % 3.4 % (15.3-44.8); MPV 10.6 fL (7.6-11.3); RBC Red Blood Cell Count 3.84 M/uL (4.33-5.43)
[2019-10-30] MEDS ORDERED: POLYETHYL GLY 3350 17 GM/DOSE PO PRN (07:49)
[2019-10-30] MEDS: ARFORMOTEROL TARTRATE 15 MCG/2 ML VIAL.NEB NEB SCH ×2 (07:50→21:15)
[2019-10-30] MEDS: BUDESONIDE 0.5 MG/2 ML NEB NEB SCH ×2 (07:50→21:15)
[2019-10-30] MEDS ORDERED: D50W 25 GM/50 ML SYRINGE/VIAL IV PRN (07:53)
[2019-10-30] MEDS ORDERED: GLUCAGON 1 MG/VIAL IM PRN (07:53)
--- NOTE | 2019-10-30 08:32 | RAD REPORT ---
EXAM DESCRIPTION: RAD - Chest Single View - 10/29/2019 10:47 pm CLINICAL HISTORY: SOB COMPARISON: Portable October 13, 2019, CT chest July 2019 TECHNIQUE: AP portable chest image was obtained 10/29/2019 10:47 pm . FINDINGS: Spiculated parenchyma around the left hilar and suprahilar region has not clearly changed. Chronic pleural and parenchymal opacification in the left base also without substantial change. Ther e are patchy left lower lobe opacities as well. Masslike density in the lateral mid right lung field not clearly different from prior imaging. Right costophrenic angle is blunted. These findings are all similar to comparison. The extent of chronic di sease could mask interstitial edema or infiltrate. Heart and vasculature are normal. No measurable pleural effusion and no pneumothorax. No acute bony abnormality seen. No acute aortic findings suspected. IMPRESSION: No acute cardiopulmonary process. Extensive underlying pleural and parenchymal disease is present not clearly different from October 12 i krishan. Severity of disease could easily mask headache acute edema or infiltrate.
[2019-10-30] MEDS: [UNRECOGNIZED DRUG - OTHER] PO SCH (09:00)
[2019-10-30] MEDS ORDERED: predniSONE 10 MG TAB PO SCH (09:00)
[2019-10-30] MEDS: HOME MED 1 EA UNK (Cyanocobalamin (Vitamin B-12) [Vitamin B-12] 100 MCG) PO SCH (09:00)
[2019-10-30] MEDS ORDERED: IPRATROPIUM BROM 0.5MG/2.5ML IH SCH (09:00)
[2019-10-30] MEDS ORDERED: ERGOCALCIFEROL 1250 MCG PO SCH (09:00)
[2019-10-30] MEDS ORDERED: TIOTROPIUM 5 SPRAYS/INHALER IH SCH (09:00)
[2019-10-30] MEDS: HOME MED 1 EA UNK (Fluticasone/Salmeterol [Advair 250-50 Diskus] 1 EACH) IH SCH ×2 (09:00→21:00)
[2019-10-30] MEDS ORDERED: HYDROCODONE/APAP 5/325 MG TAB PO SCH (09:00)
[2019-10-30] MEDS: FLUTICASONE FUROATE NS SCH (09:00)
[2019-10-30] MEDS ORDERED: THEOPHYLLINE 200 MG PO SCH (09:00)
[2019-10-30] MEDS: CETIRIZINE HCL 5 MG TABLET PO SCH (09:11)
[2019-10-30] MEDS: ASPIRIN 81 MG CHEWABLE TABLET PO SCH (09:12)
[2019-10-30] MEDS: FERROUS SULFATE 325 MG TAB PO SCH (09:12)
[2019-10-30] MEDS: ENOXAPARIN 40 MG/0.4 ML SQ SCH (09:12)
[2019-10-30] MEDS: FUROSEMIDE 20 MG TABLET PO SCH (09:58)
[2019-10-30 10:33] LABS: Arterial Blood Carboxyhemoglob 1.9 % (0-1.5); Blood Gas Oxyhemoglobin 92.4 % (94-97); Blood O2 Saturation 95.2 % (92-98.5)
--- NOTE | 2019-10-30 11:22 | EKG ---
Test Date: 2019-10-29 Test Time: 22:29:00 Semiconductor Technician: BELEM MEASUREMENT RESULTS: Intervals: Rate: 109 AR: 114 QRSD: 76 QT: 334 QTc: 449 Malcolm: P: 68 AR: 114 QRS: -18 T: 69 INTERPRETIVE STATEMENTS: Sinus tachycardia Septal infarct, age undetermined T wave abnormality, consider anterior ischemia Abnormal ECG Compared to ECG 10/11/2019 01:03:32 Myocardial infarct finding now present Sinus rhythm no longer present Atrial premature complex(es) no longer present Right-axis deviation no longer present T-wave abnormality still present Possible ischemia still present Electronically Signed On 10-30-19 11:21:20 CDT by Pepe España
[2019-10-30] MEDS: INSULIN -REGULAR HUMAN 50 UNIT/0.5 ML ML SQ SCH ×3 (11:30→21:00)
[2019-10-31] MEDS: METHYLPREDNISOLONE 40 MG INJ IV SCH ×4 (00:30→17:27)
[2019-10-31] MEDS: ALBUTEROL 2.5 MG/3 ML NEB SOL NEB SCH ×4 (00:30→20:00)
[2019-10-31] MEDS: IPRATROPIUM BROM 0.5MG/2.5ML NEB SCH ×6 (00:30→20:00)
[2019-10-31] MEDS: Levofloxacin 750mg IV 750 MG/150 ML BAG IV SCH (03:20)
[2019-10-31 05:21] LABS: BUN Blood Urea Nitrogen 15 mg/dL (7-18); Bicarbonate 39 mmol/L (21-32); Glucose Level 177 mg/dL (74-106); Magnesium 2.1 mg/dL (1.8-2.4); Phosphorus 2.4 mg/dL (2.5-4.9); Potassium 4.6 mmol/L (3.5-5.1); Sodium Level 141 mmol/L (136-145)
[2019-10-31] MEDS: INSULIN -REGULAR HUMAN 50 UNIT/0.5 ML ML SQ SCH ×4 (07:30→20:40)
[2019-10-31] MEDS: BUDESONIDE 0.5 MG/2 ML NEB NEB SCH ×2 (08:10→20:00)
[2019-10-31] MEDS: ARFORMOTEROL TARTRATE 15 MCG/2 ML VIAL.NEB NEB SCH ×2 (08:10→20:00)
[2019-10-31] MEDS: [UNRECOGNIZED DRUG - OTHER] PO SCH (09:00)
[2019-10-31] MEDS: HOME MED 1 EA UNK (Cyanocobalamin (Vitamin B-12) [Vitamin B-12] 100 MCG) PO SCH (09:00)
[2019-10-31] MEDS: HOME MED 1 EA UNK (Fluticasone/Salmeterol [Advair 250-50 Diskus] 1 EACH) IH SCH ×2 (09:00→20:41)
[2019-10-31] MEDS: FLUTICASONE FUROATE NS SCH (09:00)
[2019-10-31] MEDS ORDERED: TIOTROPIUM 5 SPRAYS/INHALER IH SCH (09:00)
[2019-10-31] MEDS: ENOXAPARIN 40 MG/0.4 ML SQ SCH (09:38)
[2019-10-31] MEDS: POTASS/SODIUM PHOSPHATE 1 PKT POWD.PACK PO SCH ×3 (09:38→13:59)
[2019-10-31] MEDS: FUROSEMIDE 20 MG TABLET PO SCH (09:39)
[2019-10-31] MEDS: ASPIRIN 81 MG CHEWABLE TABLET PO SCH (09:46)
[2019-10-31] MEDS: CETIRIZINE HCL 5 MG TABLET PO SCH (09:46)
[2019-10-31] MEDS: FERROUS SULFATE 325 MG TAB PO SCH (09:46)
[2019-10-31 10:36] LABS: Arterial Blood Carboxyhemoglob 1.4 % (0-1.5); Blood O2 Saturation 95.7 % (92-98.5)
--- NOTE | 2019-10-31 11:59 | P.PN ---
Subjective Date of Service: 10/31/19 Chief Complaint: Shortness of breath Subjective: No new changes (Patient cannot be weaned off BiPAP. Desated into the 70's when transitioned to nasal cannula for meals. During our encounter, patient was comfortable on BiPAP. He is on FiO2 30% on BiPAP. ABG this morning revealed resolution of respiratory acidosis. PaO2 82 mmHg on FiO2 of 45%) Physical Examination - Vital Signs Temperature: 98.4 F Blood Pressure: 111/50 Pulse: 80 Respirations: 22 Pulse Ox (%): 96 - Physical Exam General: In no apparent distress, Cooperative, Other (On BIPAP) HEENT: Atraumatic, Normocephalic, EOMI Neck: Supple Respiratory: Diminished, Other (Diminished throughout, unlabored breathing) Gastrointestinal: Normal bowel sounds, Soft and benign, Non-distended Musculoskeletal: No clubbing, No swelling, No contractures, No erythema, No tenderness, No warmth Integumentary: No rashes, No breakdown, No significant lesion, No tenderness/swelling, No erythema, No warmth, No cyanosis Neurological: Normal speech, Sensation intact, Normal affect Assessment & Plan - Problems (Diagnosis) (1) Acute and chronic respiratory failure with hypercapnia Current Visit: Yes Status: Acute (2) Acute and chronic respiratory failure with hypoxia Current Visit: Yes Status: Acute (3) Abnormal EKG Current Visit: No Status: Acute (4) Acute exacerbation of chronic obstructive pulmonary disease (COPD) Onset Date: 12/24/17 Current Visit: No Status: Acute (5) Anxiety about health Onset Date: 01/24/18 Current Visit: No Status: Acute Physician Review Additional Text: Assessment Patient is a 78 year old male with COPD and chronic respriatory failure on 4 L at home. He was admitted with COPD exacerbation and required ICU stay for BIPAP dependence. He is less dyspneic at this time but still on BiPAP. Acute on chronic respiratory failure COPD exacerbation Hypophosphatemia PLAN Continue ICU stay for BiPAP. Transition to nasal cannula as tolerated Continue levofloxacin, systemic corticosteroids and DuoNebs. Replace phosphate levels Continue management of chronic conditions
[2019-10-31] MEDS ORDERED: SODIUM PHOSPHATE 30 MM in NA CHLORIDE 0.9% 500 ML IV ONE (13:00)
[2019-11-01] MEDS: IPRATROPIUM BROM 0.5MG/2.5ML NEB SCH ×6 (00:13→19:50)
[2019-11-01] MEDS: METHYLPREDNISOLONE 40 MG INJ IV SCH ×4 (00:14→18:10)
[2019-11-01] MEDS: ALBUTEROL 2.5 MG/3 ML NEB SOL NEB SCH ×4 (02:00→19:50)
[2019-11-01] MEDS: Levofloxacin 750mg IV 750 MG/150 ML BAG IV SCH (03:16)
[2019-11-01 05:16] VITALS: BMI 22.1
[2019-11-01 05:18] LABS: BUN Blood Urea Nitrogen 18 mg/dL (7-18); Bicarbonate 39 mmol/L (21-32); Glucose Level 162 mg/dL (74-106); Magnesium 2.2 mg/dL (1.8-2.4); Phosphorus 2.8 mg/dL (2.5-4.9); Potassium 4.5 mmol/L (3.5-5.1); Sodium Level 140 mmol/L (136-145)
[2019-11-01] MEDS: ARFORMOTEROL TARTRATE 15 MCG/2 ML VIAL.NEB NEB SCH ×2 (08:17→19:50)
[2019-11-01] MEDS: BUDESONIDE 0.5 MG/2 ML NEB NEB SCH ×2 (08:17→19:50)
[2019-11-01 08:50] LABS: Absolute Lymphocytes (CBC) 0.3 K/uL (0.7-4.9); Basophils % 0.2 % (0-1.3); Hematocrit 34.9 % (39.6-49.0); Lymphocytes % 2.5 % (15.3-44.8); MPV 10.2 fL (7.6-11.3)
[2019-11-01] MEDS: HOME MED 1 EA UNK (Fluticasone/Salmeterol [Advair 250-50 Diskus] 1 EACH) IH SCH ×2 (09:00→20:38)
[2019-11-01] MEDS: [UNRECOGNIZED DRUG - OTHER] PO SCH (09:00)
[2019-11-01] MEDS: HOME MED 1 EA UNK (Cyanocobalamin (Vitamin B-12) [Vitamin B-12] 100 MCG) PO SCH (09:00)
[2019-11-01] MEDS: FLUTICASONE FUROATE NS SCH (09:00)
[2019-11-01] MEDS: CETIRIZINE HCL 5 MG TABLET PO SCH (10:15)
[2019-11-01] MEDS: FUROSEMIDE 20 MG TABLET PO SCH ×2 (10:15→11:34)
[2019-11-01] MEDS: ENOXAPARIN 40 MG/0.4 ML SQ SCH (10:16)
[2019-11-01] MEDS: ASPIRIN 81 MG CHEWABLE TABLET PO SCH (10:16)
[2019-11-01] MEDS: FERROUS SULFATE 325 MG TAB PO SCH (10:16)
[2019-11-01] MEDS: INSULIN -REGULAR HUMAN 50 UNIT/0.5 ML ML SQ SCH ×4 (10:17→20:48)
--- NOTE | 2019-11-01 11:46 | P.PN ---
Subjective Date of Service: 11/01/19 Chief Complaint: Shortness of breath Subjective: No new changes (Patient seen this morning. BiPAP in place. He is not dyspneic. Afebrile overnight.) Physical Examination - Vital Signs Temperature: 97.4 F Blood Pressure: 106/59 Pulse: 75 Respirations: 18 Pulse Ox (%): 98 - Physical Exam General: Alert, In no apparent distress, Cooperative HEENT: Atraumatic, Normocephalic, EOMI Neck: Supple Respiratory: Crackles/rales Cardiovascular: No edema, Normal pulses, Regular rate/rhythm, Normal S1 S2 Gastrointestinal: Normal bowel sounds, Soft and benign, Non-distended Musculoskeletal: No clubbing, No swelling, No contractures, No erythema, No tenderness, No warmth Integumentary: No rashes, No breakdown, No significant lesion, No tenderness/swelling, No erythema, No warmth, No cyanosis Neurological: Normal speech, Sensation intact, Normal affect Assessment & Plan - Problems (Diagnosis) (1) Acute and chronic respiratory failure with hypercapnia Current Visit: Yes Status: Acute (2) Acute and chronic respiratory failure with hypoxia Current Visit: Yes Status: Acute (3) Abnormal EKG Current Visit: No Status: Acute (4) Acute exacerbation of chronic obstructive pulmonary disease (COPD) Onset Date: 12/24/17 Current Visit: No Status: Acute (5) Anxiety about health Onset Date: 01/24/18 Current Visit: No Status: Acute Physician Review Additional Text: Assessment Patient is a 78 year old male with known PMH of lung cancer s/p radiation therapy, COPD and chronic respiratory failure on 4 L at home. He was admitted with COPD exacerbation and required ICU stay for BIPAP dependence. He is less dyspneic at this time. Stayed in the ICU as he failed to be weaned off BiPAP. Acute on chronic respiratory failure Lung cancer COPD exacerbation Hypophosphatemia PLAN Wean off BIPAP. Transition to nasal cannula as tolerated Continue levofloxacin, systemic corticosteroids and DuoNebs. Replace phosphate levels Continue management of chronic conditions Anticipate discharge tomorrow
[2019-11-01] MEDS ORDERED: IPRATROPIUM BROM 0.5MG/2.5ML NEB PRN (20:51)
[2019-11-01] MEDS ORDERED: ALBUTEROL 2.5 MG/3 ML NEB SOL NEB PRN (20:51)
[2019-11-01] MEDS: predniSONE 20 MG TAB PO SCH (22:07)
[2019-11-02] MEDS: Levofloxacin 750mg IV 750 MG/150 ML BAG IV SCH (03:11)
[2019-11-02] MEDS: INSULIN -REGULAR HUMAN 50 UNIT/0.5 ML ML SQ SCH ×2 (07:30→11:30)
[2019-11-02] MEDS: ARFORMOTEROL TARTRATE 15 MCG/2 ML VIAL.NEB NEB SCH (07:40)
[2019-11-02] MEDS: BUDESONIDE 0.5 MG/2 ML NEB NEB SCH (07:40)
[2019-11-02] MEDS: predniSONE 20 MG TAB PO SCH (08:49)
[2019-11-02] MEDS: ASPIRIN 81 MG CHEWABLE TABLET PO SCH (08:49)
[2019-11-02] MEDS: FERROUS SULFATE 325 MG TAB PO SCH (08:49)
[2019-11-02] MEDS: CETIRIZINE HCL 5 MG TABLET PO SCH (08:49)
[2019-11-02] MEDS: FUROSEMIDE 20 MG TABLET PO SCH (08:50)
[2019-11-02] MEDS: ENOXAPARIN 40 MG/0.4 ML SQ SCH (08:50)
[2019-11-02] MEDS: HOME MED 1 EA UNK (Cyanocobalamin (Vitamin B-12) [Vitamin B-12] 100 MCG) PO SCH (08:50)
[2019-11-02] MEDS: FLUTICASONE FUROATE NS SCH (08:50)
[2019-11-02] MEDS: HOME MED 1 EA UNK (Fluticasone/Salmeterol [Advair 250-50 Diskus] 1 EACH) IH SCH (08:51)
[2019-11-02] MEDS: [UNRECOGNIZED DRUG - OTHER] PO SCH (08:51)
[2019-11-02 08:56] VITALS: O2SAT 96
--- NOTE | 2019-11-02 11:14 | P.DS ---
Admission Date: 10/30/19 Discharge Date: 11/02/19 Primary Care Provider: Dr. Arshad([facility]); Pulmonary-Dr. Arshad([facility]) Disposition: DC HOME/HOME HEALTH CARE Discharge Condition: GOOD Reason for Admission: Shortness of breath Consultations: Pulmonary-Dr. Valdivia Procedures: CXR: FINDINGS: Spiculated parenchyma around the left hilar and suprahilar region has not clearly changed. Chronic pleural and parenchymal opacification in the left base also without substantial change. There are patchy left lower lobe opacities as well. Masslike density in the lateral mid right lung field not clearly different from prior imaging. Right costophrenic angle is blunted. These findings are all similar to comparison. The extent of chronic disease could mask interstitial edema or infiltrate. Heart and vasculature are normal. No measurable pleural effusion and no pneumothorax. No acute bony abnormality seen. No acute aortic findings suspected. IMPRESSION: No acute cardiopulmonary process. Extensive underlying pleural and parenchymal disease is present not clearly different from October 12 imaging. Severity of disease could easily mask headache acute edema or infiltrate. August 2019: PET CT FINDINGS: Skull base and neck show physiologic activity. No suspicious finding. The dominant spiculated mass abutting the pleura in the posterolateral right upper lung field shows a heterogeneous FDG uptake pattern. Along the lateral margin FDG uptake reaches as high as 3.57 mean SUV. Most of this mass shows little or no FDG uptake. There is adjacent pleural fluid and pleural thickening. In the posterior right lower lobe a spiculated mass shows abnormal FDG uptake reaching 3.93 mean SUV. Right hilar granulomatous calcifications are present. No abnormal right hilar activity. In the left hilar region there is a 2.3 centimeter area of increased soft tissue that shows abnormal FDG uptake reaching 9.67 mean SUV. No central mediastinal activity. Focal lung parenchymal opacification in the posterior gutter on the left does not have any abnormal FDG uptake. There is an adjacent small left pleural effusion. The anterior left fourth rib shows abnormal FDG uptake reaching 3.43 mean SUV. There is a subtle expansile change to this rib. No other rib activity confirmed. Abnormal activity is seen in the T6 body, T8 body lateral T10 body and the L3 left pedicle. These are all suspicious for metastatic disease. The liver shows physiologic activity with no finding suspicious for metastatic disease. Normal abnormal adrenal activity. In the fatty tissue lateral to the lower right psoas muscle in the pelvis FDG uptake measuring 4.32 is seen within a 2.4 centimeter soft tissue mass. Physiologic GI and activity is present. IMPRESSION: Dominant mass in the posterior inferior right upper lobe along the major fissure shows a mixed pattern. A small portion shows abnormal FDG uptake of 3.57 mean SUV with most showing little or no activity. Spiculated mass in the posterior right lower lobe shows suspicious activity. Left hilar mass shows abnormal FDG uptake. Multiple bony metastatic sites are identified. Suspicious malignant mass or lymph node 2.4 cm in size adjacent to the right psoas muscle in the pelvis. This shows abnormal FDG uptake. Medical Problem List: Acute on chronic respiratory failure with hypoxia and hypercapnia secondary to COPD exacerbation on chronic steroid and oxygen use History of lung cancer with recent August 2019 PET-CT showing dominant mass in the right inferior right upper lobe, spiculated mass in the right lower lobe, left hilar mass showing abnormal uptake, multiple bony metastasis identified, and suspicious malignant mass/lymph node to the right psoas muscle Diabetes mellitus type 2-diet controlled Anemia of chronic disease Brief History of Present Illness: 78-year-old male with history of lung cancer with prior radiation therapy, COPD on chronic steroids and oxygen. Patient presented with shortness of breath. Patient found to have acute on chronic respiratory failure with hypercapnia and hypoxia. Patient required admission. Patient was started on BiPAP into the ICU. Hospital Course: Patient presented with acute on chronic respiratory failure with hypoxia and hypercapnia secondary to COPD exacerbation. Patient with underlying end-stage COPD with chronic steroid and oxygen use. Patient also has noninvasive ventilator at home. Patient required BiPAP upon admission. Patient was seen by pulmonology. His condition improved. At discharge patient is back to his baseline. Case discussed at length with pulmonology. Patient was seen by pulmonology in [place]. Pulmonology had done a PET-CT scan August 2019. It showed a dominant mass in the right inferior right upper lobe, spiculated mass in the right lower lobe, left hilar mass showing abnormal uptake, multiple bony metastasis identified and suspicious malignant mass/lymph node to the right psoas muscle. Pulmonology recommended hospice at that time. Patient preferred intervention and went to establish care at [facility] (formerly [facility]). Since that time he has establish care with pulmonology-Dr. Arshad at [facility] and primary care-Dr. Montemayor. After speaking to his , the patient was to follow up with [facility] for further workup. At discharge patient will continue with prednisone 20 mg daily and his COPD medication including Advair 1 puff twice daily, Spiriva 1 puff daily and Theodur 200 mg daily. Patient will continue with home oxygen to maintain sats above 93%. Patient will also continue with noninvasive ventilator. Patient will also go home on Levaquin 500 mg daily for 7 days. 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 Patient plans for further evaluation and workup due to abnormal PET-CT scan. If the patient requires further admission in the future, prefers to have him transferred to [facility] for continuity of care and further evaluation. This was discussed with her in detail. Patient with underlying diabetes mellitus type 2. A1c 6.2. Patient is diet co ntrolled. This can be further monitored as an outpatient. Patient with underlying anemia of chronic disease. At discharge he may continue with iron and B12 supplementation. Vital Signs/Physical Exam: Temp Pulse Resp BP Pulse Ox 98.2 F 60 18 106/67 95 11/02/19 08:00 11/02/19 08:50 11/02/19 08:00 11/02/19 08:50 11/02/19 08:00 General: Alert, Cooperative HEENT: Atraumatic Neck: Supple Respiratory: Clear to auscultation bilaterally, Normal air movement Cardiovascular: Normal pulses, Regular rate/rhythm Gastrointestinal: Normal bowel sounds Neurological: Normal speech, Normal strength at 5/5 x4 extr, Normal tone, Normal affect Laboratory Data at Discharge: WBC 13.5 K/uL (4.3-10.9) H D 11/01/19 08:28 Hgb 11.1 g/dL (13.6-17.9) L 11/01/19 08:28 Hct 34.9 % (39.6-49.0) L 11/01/19 08:28 Plt Count 171 K/uL (152-406) 11/01/19 08:28 PT 11.1 SECONDS (9.5-12.5) 10/29/19 22:35 INR 0.94 10/29/19 22:35 Sodium 140 mmol/L (136-145) 11/01/19 04:46 Potassium 4.5 mmol/L (3.5-5.1) 11/01/19 04:46 BUN 18 mg/dL (7-18) 11/01/19 04:46 Creatinine 0.60 mg/dL (0.55-1.3) 11/01/19 04:46 Glucose 162 mg/dL (74-106) H 11/01/19 04:46 Phosphorus 2.8 mg/dL (2.5-4.9) 11/01/19 04:46 Magnesium 2.2 mg/dL (1.8-2.4) 11/01/19 04:46 Total Bilirubin 0.4 mg/dL (0.2-1.0) 10/29/19 22:35 AST 53 U/L (15-37) H 10/29/19 22:35 ALT 43 U/L (12-78) 10/29/19 22:35 Alkaline Phosphatase 150 U/L (45-117) H 10/29/19 22:35 Home Medications: Aspirin 81 mg PO DAILY 10/30/19 Cetirizine HCl [Zyrtec] 10 mg PO DAILY 10/30/19 Cyanocobalamin (Vitamin B-12) [Vitamin B-12] 100 mcg PO DAILY 10/30/19 Ergocalciferol (Vitamin D2) [Vitamin D2] 1,250 mcg PO DAILY 10/30/19 Ferrous Sulfate [Ferrous Sulfate*] 325 mg PO DAILY 10/30/19 Fluticasone Furoate [Veramyst] 10 gm NS DAILY 10/30/19 Fluticasone/Salmeterol [Advair 250-50 Diskus] 1 each IH BID 10/30/19 Furosemide [Lasix*] 20 mg PO DAILY 10/30/19 Hydrocodone Bit/Acetaminophen [Hydrocodon-Acetaminophen 5-325] 0.5 tab PO BID 10/30/19 Ipratropium Neb [Atrovent*] 0.5 mg IH DAILY 10/30/19 Phenylephrine/Dm/Acetaminop/GG [Mucinex Fast-Max Cold-Flu Cap] 1 each PO DAILY 10/30/19 Polyethylene Glycol 3350 [Miralax] 17 gm PO PRN PRN 10/30/19 Theophylline [Fritz-Dur*] 200 mg PO DAILY 10/30/19 Tiotropium [Spiriva Handihaler*] 18 mcg IH DAILY 10/30/19 Levofloxacin [Levaquin] 500 mg PO DAILY #7 tablet 11/02/19 predniSONE [Deltasone*] 20 mg PO DAILY #10 tab 11/02/19 New Medications: predniSONE [Deltasone*] 20 mg PO DAILY #10 tab Levofloxacin [Levaquin] 500 mg PO DAILY #7 tablet Patient Discharge Instructions: 1. Recommend follow up with PCP within 1 week to follow up this hospitalization. 2. Patient presented with acute on chronic respiratory failure with hypoxia and hypercapnia secondary to COPD exacerbation. Patient with underlying end-stage COPD with chronic steroid and oxygen use. Patient also has noninvasive ventilator at home. Patient required BiPAP upon admission. Patient was seen by pulmonology. His condition improved. At discharge patient is back to his baseline. Case discussed at length with pulmonology. Patient was seen by pulmonology in [place]. Pulmonology had done a PET-CT scan August 2019. It showed a dominant mass in the right inferior right upper lobe, spiculated mass in the right lower lobe, left hilar mass showing abnormal uptake, multiple bony metastasis identified and suspicious malignant mass/lymph node to the right psoas muscle. Pulmonology recommended hospice at that time. Patient preferred intervention and went to establish care at [facility] (formerly [facility]). Since that time he has establish care with pulmonology-Dr. Arshad at [facility] and primary care-Dr. Montemayor. After speaking to his , the patient was to follow up with [facility] for further workup. At discharge patient will continue with prednisone 20 mg daily and his COPD medication including Advair 1 puff twice daily, Spiriva 1 puff daily and Theodur 200 mg daily. Patient will continue with home oxygen to maintain sats above 93%. Patient will also continue with noninvasive ventilator. Patient will also go home on Levaquin 500 mg daily for 7 days. 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 Patient plans for further evaluation and workup due to abnormal PET-CT scan. If the patient requires further admission in the future, prefers to have him transferred to [facility] for continuity of care and further evaluation. This was discussed with her in detail. 3. Patient with underlying diabetes mellitus type 2. A1c 6.2. Patient is diet controlled. This can be further monitored as an outpatient. 4. Patient with underlying anemia of chronic disease. At discharge he may continue with iron and B12 supplementation. Diet: AHA Activity: Fall precautions Time spent managing pt's care (in minutes): 55
[2019-11-02 12:26] VITALS: BP 119/73; TEMP 98
--- NOTE | 2019-11-02 12:56 | P.CNS ---
Date of Consult: 11/02/19 Reason for Consult: Respiratory failure Primary Care Provider: Dr. Arshad([facility]); Pulmonary-Dr. Arshad([facility]) Chief Complaint: Acute on chronic respiratory failure History of Present Illness: Patient is a 78 years of age with a history of terminal COPD was brought here to the emergency room with respiratory distress low sats he does have a BiPAP at home is back to his baseline denies any fever or chills currently has a lung mass Patient has been on hospice before recurrent hospital admissions Allergies codeine Allergy (Verified 10/30/19 04:30) AMS morphine Adverse Reaction (Verified 10/30/19 04:30) AMS Home Medications: Aspirin 81 mg PO DAILY 10/30/19 Cetirizine HCl [Zyrtec] 10 mg PO DAILY 10/30/19 Cyanocobalamin (Vitamin B-12) [Vitamin B-12] 100 mcg PO DAILY 10/30/19 Ergocalciferol (Vitamin D2) [Vitamin D2] 1,250 mcg PO DAILY 10/30/19 Ferrous Sulfate [Ferrous Sulfate*] 325 mg PO DAILY 10/30/19 Fluticasone Furoate [Veramyst] 10 gm NS DAILY 10/30/19 Fluticasone/Salmeterol [Advair 250-50 Diskus] 1 each IH BID 10/30/19 Furosemide [Lasix*] 20 mg PO DAILY 10/30/19 Hydrocodone Bit/Acetaminophen [Hydrocodon-Acetaminophen 5-325] 0.5 tab PO BID 10/30/19 Ipratropium Neb [Atrovent*] 0.5 mg IH DAILY 10/30/19 Phenylephrine/Dm/Acetaminop/GG [Mucinex Fast-Max Cold-Flu Cap] 1 each PO DAILY 10/30/19 Polyethylene Glycol 3350 [Miralax] 17 gm PO PRN PRN 10/30/19 Theophylline [Fritz-Dur*] 200 mg PO DAILY 10/30/19 Tiotropium [Spiriva Handihaler*] 18 mcg IH DAILY 10/30/19 Levofloxacin [Levaquin] 500 mg PO DAILY #7 tablet 11/02/19 Theophylline Anhydrous [Fritz-24] 200 mg PO 30 MIN BEFORE HS 30 Days #30 cap.er.24h 11/02/19 predniSONE [Deltasone*] 20 mg PO DAILY #10 tab 11/02/19 - Past Medical/Surgical History Diabetic: No -: Lung cancer radiation treatments three years ago -: 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 -: Sleep Apnea -: Enlarged prostate -: CHF -: femur Fx -: Appendectomy -: Cataract surgery -: Prostate surgery - Family History Father Medical History: Heart disease, Diabetes Notes: NC Mother Medical History: Lung disease, Cancer Notes: LUng Ca, Breast CA,Brain CA - Social History Smoking Status: Unknown if ever smoked Alcohol use: No CD- Drugs: No Caffeine use: Yes Place of Residence: Home Review of Systems 10-point ROS is otherwise unremarkable General: Weakness Respiratory: Shortness of Breath Physical Examination Temp Pulse Resp BP Pulse Ox 98.0 F 79 18 119/73 96 11/02/19 12:00 11/02/19 12:00 11/02/19 12:00 11/02/19 12:00 11/02/19 12:00 General: Alert, In no apparent distress, Oriented x3 Respiratory: Clear to auscultation bilaterally, Diminished Cardiovascular: No edema, Regular rate/rhythm, Normal S1 S2 - Problems (1) Acute and chronic respiratory failure with hypercapnia Current Visit: Yes Status: Acute Plan: Patient is 78 years of age admitted with acute on chronic respiratory failure recurrent hospital admissions he has terminal COPD chest x-ray shows presumed recurrence of lung cancer on the right side is very high risk for biopsy of any treatment patient is an Advair and Spiriva cultures are negative vital signs stable I have advised him to titrate desat down to 90% patient has a pulse oximeter and a BiPAP at home overall his prognosis is very poor recommended trial of theophylline
== END 2019-11-02 14:49 | disposition home health service (06) | DRG 190 ==
LOC: ER 22:14 → ERHOLD 10-30 00:49 → 3RD-ICU 10-30 02:55 → 2ND 11-01 17:40
PROVIDERS: ADMIT Internal Medicine; ATTEND Family Medicine
DX: J44.1 Chronic obstructive pulmonary disease with (acute) exacerbation (principal); J96.22 Acute and chronic respiratory failure with hypercapnia; J96.21 Acute and chronic respiratory failure with hypoxia; E87.2 Acidosis; C79.51 Secondary malignant neoplasm of bone; D72.829 Elevated white blood cell count, unspecified; Z88.5 Allergy status to narcotic agent; Z79.82 Long term (current) use of aspirin; Z79.52 Long term (current) use of systemic steroids; Z79.899 Other long term (current) drug therapy; Z90.49 Acquired absence of other specified parts of digestive tract; Z85.118 Personal history of other malignant neoplasm of bronchus and lung; Z92.3 Personal history of irradiation; F41.9 Anxiety disorder, unspecified; Z99.81 Dependence on supplemental oxygen; E83.39 Other disorders of phosphorus metabolism; E11.9 Type 2 diabetes mellitus without complications; D63.8 Anemia in other chronic diseases classified elsewhere; R91.8 Other nonspecific abnormal finding of lung field
CPT/HCPCS: 36415; 71045; 80048; 80076; 82805; 82947; 83036; 83605; 83735; 83880; 84100; 84145; 84484; 85025; 85610; 87040; 87804; 93005; 94640; 94660; 99285; J1650; J2920; J2930; J7040; J7512; J7605

== ENCOUNTER 2019-11-13 12:48 | Inpatient (IN) | payer OTHER ==
--- OUTSIDE RECORDS SUMMARY | 2019-11-13 12:50 | XMS REPORT | Clinical Summary ---
:1940 Author Organization [facility] Address [address] [place] [address] Care Team Providers Name Role Phone Asked, [...] & Plan: PCIOL OU, monofocal. Done in [facility] ars ago. 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
--- OUTSIDE RECORDS SUMMARY | 2019-11-13 12:50 | XMS REPORT | Clinical Summary ---
:1940 Author Organization [facility] Address [address] [place] [address] Care Team Providers Name Role Phone Unavailable Primary Care Provider Unavailable Allergies Not on File Medications Not on file Active Problems Not on file Encounters Date Type Specialty Care Team Description 10/11/2019 Lab Requisition Lab 06/22/2019 Telephone Transplant Noam Artis RN Lung Tr ansplant Pre-evaluation after 11/12/2018 Social History Tobacco Use Types [...] procedure are in the results section. after 11/12/2018 Results SARS-CoV2/RT-PCR ([facility]) (10/11/2019 1:25 AM CDT) SARS-COV2/RT-PCR Not Detected Not Detected, Negative [facility] SARS-COV-2 PERFORMING LAB [facility] Specimen Other Narrative Performed At Negative results do not preclude SARS-CoV-2 [facility] infection and should not be used [...] the Act. Fact Sheet for Healthcare Providers: https://www.Per Vices/Documents/Xpert%20Xpre ss%20SARS%20CoV-2/Fact%20Sheets/3023802%20SAR S-COV-2%20HEALTHCARE%20PROVIDERS%20FACT%20SHEE T.pdf Fact Sheet for Healthcare Patients: https://www.[employer]/Documents/Xpert%20Xpre ss%20SARS%20CoV-2/Fact%20Sheets/3023801%20SAR S-COV-2%20PATIENT%20FACT%20SHEET.pdf Performing Laboratory: [address] [place] [address] Performing Organization Address City/State/Zipcode Phone Number [address] [address] CENTER after 11/12/2018 Insurance Payer Benefit Plan / Group Subscriber ID Type Phone A ddress MEDICARE MEDICARE A B xxxxxxxxxxx Medicare FOR LIFE xxxxxxxxx Other Govt (, [place], [facility], etc.)
--- OUTSIDE RECORDS SUMMARY | 2019-11-13 12:51 | XMS REPORT ---
:1940 Author Organization [facility] t Address [facility]3 [address] [place] [address] Care Team Providers Name Role Phone Asked, Pcp Primary Care Physician Unavailable Lavell SORIA Attending Clinician Stalin Valentine MD Attending Clinician Gillian Huber MD Attending Clinician Payers Payer Name Policy Policy Number Effective Expiration Source Type Date Date TRICARETRICARE FOR xxxxxxxxx 2018 [place] [facility] 00:00:00 Zoroastrian SUPPLEMENTxxxxxxxxx-[facility] MEDICAREMEDICARE PART xxxxxxxxxxx 2006 [facility] AND 00:00:00 [place]oroast[place] B[place]xxx2006[place] Problems Condition Condition Condition Status Onset Resolution Last Treating Co mments Source Name Details Category Date Date Treatment Clinician Date Pseudophak Pseudophak Disease Active Last [place] 6-24 Assessmen Methodi 00:00: t & Plan: st 00 PCIOL OU, monofocal . Done in [place] years ago. Advanced Advanced Disease Active Last [...] care. At low At low Disease Active [facility] risk for risk for 6-24 Assessmen Met [...] Quantity Comments Source Sex Assigned At [place] Anna Smoking Status Start Date Stop Date Source Current some day smoker 2018-12-31 00:00:00 [place] Medications Ordered Filled Start Stop Current Ordering Indication Dosage Frequency Signature Comments Components Source Medication Medication Date Date Medication? Clinician (SIG) Name Name cyanocobala Yes 100ug Take 100 [place] min 100 MCG 6-24 mcg by Method i tablet 14:26: mouth. st 40 aspirin 81 2019-0 Yes 81mg Chew 81 [place] mg chewable 6-24 mg. Methodi tablet 14:26: st 40 furosemide 2019-0 Yes 20mg Take 20 mg [place] (LASIX) 20 6-24 by mouth. Meth beny mg tablet 14:26: st 40 montelukast 0 Yes 10mg Take 10 mg [place] (SINGULAIR) 6-24 by mouth. Met hodi 10 mg 14:26: st tablet 40 predniSONE 0 Yes 10mg Take 10 mg [place] (DELTASONE) 5-31 by mouth. Met hodi 10 mg 00:00: st tablet 00 budesonide- 2018-0 Yes 2{puff} Inhale 2 [place] formoterol 4-11 puffs. Methodi (SYMBICORT) 00:00: st 160-4.5 00 mcg/actuati on inhaler ipratropium 0 Yes .5mg Inhale 0.5 [place] (ATROVENT) 3-11 mg. Methodi 0.02 % 00:00: st nebulizer 00 solution fluticasone 0 Yes 1{puff} Inhale 1 [place] propion-stiven 3-11 puff. Methodi meterol 00:00: st (ADVAIR 00 DISKUS) 250-50 mcg/dose DISKUS ipratropium 0 Yes 2{spray 2 sprays [place] (ATROVENT) 2-08 } into each Meth beny 42 mcg 00:00: nostril. st (0.06 %) 00 nasal spray azelastine- 0 Yes 1{dose} 1 Dose [place] fluticasone 2-08 into each Met hodi (DYMISTA) 00:00: nostril. st 137-50 00 mcg/spray spray,non-a erosol Diclofenac Diclofenac Yes Te[place] [address] [facility] [address] Sodium ER Sodium ER 6-12 Gray with food [facility] - 00:[facility]: or milk [facility] Montelukast Montelukast 0 Yes Teod[place] [address] [facility] [address] Sodium Sodium 5-24 Gray in the [facility] - 00:00: evening [facility] Spiriva Spiriva Yes [place] [address] HandiHaler HandiHaler Gray Emerald kes - [facility] PredniSONE PredniSONE Yes [place] [address] [facility] ProAir ProAir Yes Te[place] [address] [facility] [address] RespiClick RespiClick Gray needed [facility] Ipratropium Ipratropium Yes Te[place] [address] [facility] [address] [place] Gray in each [facility] - nostril [facility] Vitamin D3 Vitamin D3 Yes Te[place]ora [address] [facility] Advair Advair Yes [place] [address] [address] Diskus Diskus Gray [facility] Furosemide Furosemide Yes Te[place] [address] [facility] Flutter Flutter Yes Teodora as [facility] Gray directed [facility] Aspir-81 Aspir-81 Yes Te[place] [address] [facility] Clonazepam Clonazepam Yes Te[place] [address] [facility] Gray at bedtime [facility] Albuterol Albuterol Yes Te[place] [address] [facility] Sulfate Sulfate Gray needed [facility] Procedures This patient has no known procedures. Plan of Care Planned Activity Planned Date Details Comments Source Future Scheduled 2020-01-16 INFLUENZA VACCINE [place] [facility] Test 00:00:00 [code = INFLUENZA VACCINE] Future Scheduled 1991-11-14 SHINGLES VACCINES [place] [facility] Test 00:00:00 (#1) [code = SHINGLES VACCINES (#1)] Encounters Start End Encounter Admission Attending Care Care Encounter Source Date/Time Date/Time Type Type Clinicians Facility Department ID 2019-11-10 2019-11-10 Telephone [facility] [id number] 00:00:00 00:00:00 Steffen Arroyo [id number] Susan [id number] Delmi [id number] [address] 2019-11-06 2019-11-06 Telephone [facility] [id number] 00:00:00 00:00:00 Steffen Arroyo [id number] Susan [id number] Professio [phone] nal [address] [place] [address] 2019-11-05 2019-11-05 KARY Hall [id number] 00:00:00 00:00:00 Steffen Arroyo [id number] [place] [id number] Professio [phone] nal [address] [place] [address] 2019-04-02 2019-04-02 [facility] [id number] 10:20:00 10:20:00 [facility] 2017-11-26 2017-11-26 [facility] [id number] 16:19:00 16:19:00 [facility] 2017-11-25 2017-11-25 [facility] [id number] 10:30:00 10:30:00 [facility] 2017-11-07 2017-11-07 [facility] [id number] 16:46:00 16:46:00 [facility] 2017-10-31 2017-10-31 [facility] [id number] 13:09:00 13:09:00 [facility] 2017-10-23 2017-10-23 [facility] [id number] 14:30:00 14:30:00 [facility] Results Test Description Test Time Test Comments Results Result Comments Source SARS-COV2/RT-PCR ([facility]) 2019-10-11 11:53:00 Test Item Value Reference Range Interpretation Comme nts SARS-COV2/RT-PCR (test code = 5584643) Not Detected Not Detected, N egative SARS-COV-2 PERFORMING LAB (test code = [facility] [id number]) Negative results do not preclude SARS-CoV-2 infection [...] of the Act.Fact Sheet for Healthcare Pro viders:https://www.[employer]/Documents/Xpert%20Xpress%20SARS%20CoV-2/Fact%20Sh eets/3023802%27PECS-QQS-7%20HEALTHCARE%20PROVIDERS%20FACT%20SHEET.pdfFact Sheet for Healthcare Patients:https://www.[employer]/Documents/Xpert%20Xpress%20SARS%20CoV-2/Fact%20Sheets/302-3801%20SARS-COV -2%20PATIENT%20FACT%20SHEET.pdfPerforming Laboratory:[facility] [place] [address]
--- OUTSIDE RECORDS SUMMARY | 2019-11-13 13:06 | XMS REPORT | Summary of Care ---
:1940 Author Organization [facility] Address [address] [place] [address] Care Team Providers Name Role Phone MD Lavell Primary Care Provider Reason for Visit Reason Comments Orders [facility] Encounter Details Date Type Department Care Team Description 10/30/2019 Telephone [facility] Pediatric Steffen Monte MD Orders ([facility] Care- [address] [place] [address] [address] [place] [address] Allergies Active Allergy Reactions Severity Noted Date Comments Yamilet Unknown - See comments 02/05/2018 Codeine Unknown - See comments 02/05/2018 documented as of this encounter (statuses as of 11/02/2019) Medications Medication Sig Dispensed Refills Start Date [...] 06/01/2019 Active Medical Supply Dispense # 1 Acrlos KitIndications: Respironics (okay Acute exacerbation for alternative [...] Subacute maxillary daily. sinusitis fluticasone Use 1 [place] in each 16 g 0 07/02/2019 Active [...] as of this encounter (statuses as of 11/02/2019) Active Problems Problem Noted Date Chronic pain [...] as of this encounter (statuses as of 11/02/2019) Immunizations Name Administration Dates Next Due Influenza [...] last month, have you been in contact with No / Unsure 10/29/2019 10:01 AM CDT someone who was confirmed or suspected to have Coronavirus / COVID-19? documented as of this encounter Last Filed Vital Signs Not on filedocumented in this encounter Plan of Treatment Health Maintenance Due Date [...] O. BOX Medicare & B esent -[id number] ESTHER PADRON [phone] 8 FOR LIFE [id number] 2018-Manas richardson esent Supplement [facility] [id number] 1998-P HMO/PPO/ POS ADMINISTRATION ADMINISTRATION resent documented as of this encounter
--- OUTSIDE RECORDS SUMMARY | 2019-11-13 13:07 | XMS REPORT | Summary of Care ---
:1940 Author Organization [facility] Address [address] [place] [address] Care Team Providers Name Role Phone MD Lavell Primary Care Provider Reason for Visit Reason Comments Orders Encounter Details Date Type Department Care Team Description 11/05/2019 Telephone [facility] Pediatric and Steffen Todd MD Orders Adult Primary Care- [address] [facility] [place] Jeremias [address] [facility] , [place] [address] 205 [place] [address] [phone] Allergies Active Allergy Reactions Severity Noted Date Comments [place] Unknown - See comments 02/05/2018 Codeine Unknown - See comments 02/05/2018 documented as of this encounter (statuses as of 11/06/2019) Medications Medication Sig Dispensed Refills Start Date End Date Status aspirin 81 mg Take 81 mg by mouth 0 Active chewable tablet daily. IPRATROPIUM BROMIDE Use 0.06 % in each 0 Active NASAL nostril as needed. Ferrous Gluconate Take 324 mg by 0 Active 324 mg (36 mg iron) mouth 2 (two) times tablet daily. famotidine 20 mg Take 1 tablet by 60 tablet 0 02/15/2018 Active tablet mouth 2 (two) times daily. montelukast 10 mg Take 10 mg by 0 Active tablet mouth. ipratropium Use 2 Sprays in 15 mL 3 07/25/2018 A ctive (ATROVENT) 42 mcg each nostril 4 (0.06 %) nasal (four) times daily. sprayIndications: Rhinorrhea vitamin B-12 100 [...] 06/01/2019 Active Medical Supply Dispense # 1 KitIndications: Carlos Respironics Acute exacerbation (okay for of chronic alternative brand) obstructive for nebulizer pulmonary disease treatment (COPD), Hospital discharge follow-up docusate 100 mg [...] Subacute maxillary daily. sinusitis fluticasone Use 1 [place] in each 16 g 0 07/02/2019 Active propionate 50 nostril daily. mcg/actuation nasal sprayIndications: Subacute maxillary sinusitis carbamide peroxide Place 5 Drops in 15 mL 0 07/02/2019 Active 6.5 % otic right ear 2 (two) solutionIndications: times daily. Impacted cerumen of right ear ipratropium 0.02 % Inhale 2.5 mL every 90 Vial 11 07/02/2019 Active nebulizer 4 (four) hours as solutionIndications: needed for Stage 4 very severe Wheezing, Shortness COPD by GOLD of Breath or classification Bronchospasm (Acute on Chronic [...] (three) capsuleIndications: times daily. Chronic pain disorder sodium phosphates Insert 1 Enema into 133 mL 0 11/05/2019 0 (FLEET ENEMA) 19-7 rectum once now for 0 gram/118 mL 1 dose. Follow enemaIndications: package directions Constipation, unspecified constipation type documented as of this encounter (statuses as of 11/06/2019) Active Problems Problem Noted Date Chronic pain [...] as of this encounter (statuses as of 11/06/2019) Immunizations Name Administration Dates Next Due Influenza [...] filedocumented in this encounter Visit Diagnoses Diagnosis Constipation, unspecified constipation t ype - Primary documented in this encounter Insurance Payer Benefit Plan / Subscriber ID Effective Phone Address T ype Group Dates MEDICARE MEDICARE PART A xxxxxxxxxxx 2006-Pr [phone] Medicare & B esent -[phone] [id number] ESTHER PADRON [phone] 8 FOR LIFE [id number] 2018-Manas richardson esent Supplement [employer] [id number] 1998-P HMO/PPO/ POS ADMINISTRATION ADMINISTRATION resent documented as of this encounter
--- OUTSIDE RECORDS SUMMARY | 2019-11-13 13:07 | XMS REPORT | Summary of Care ---
:1940 Author Organization [facility] Address [address] [place] [address] Care Team Providers Name Role Phone MD Lavell Primary Care Provider Reason for Visit Reason Comments Orders Encounter Details Date Type Department Care Team Description 11/05/2019 Telephone [facility] Pediatric and Steffen Todd MD Orders Adult Primary Care- [address] [facility] [address] [place] Jeremias [address] [facility] [place] [address] 205 [place] [address] [phone] Allergies Active Allergy Reactions Severity Noted Date Comments [place] Unknown - See comments 02/05/2018 Codeine Unknown - See comments 02/05/2018 documented as of this encounter (statuses as of 11/05/2019) Medications Medication Sig Dispensed Refills Start Date [...] Supply Dispense # 1 Carlos KitIndications: Respironics ([place] Acute exacerbation for alternative of chronic brand) [...] Subacute maxillary daily. sinusitis fluticasone Use 1 [place] in each 16 g 0 07/02/2019 Active [...] Enema into 133 mL 0 11/05/2019 0 Active (FLEET ENEMA) 19-7 rectum once now for 0 gram/118 mL 1 dose. Follow enemaIndications: package directions Constipation, unspecified constipation type documented as of this encounter (statuses as of 11/05/2019) Active Problems Problem Noted Date Chronic pain [...] as of this encounter (statuses as of 11/05/2019) Immunizations Name Administration Dates Next Due Influenza [...] O. BOX Medicare & B esent -[id number] ESTHER PADRON [phone] 8 FOR LIFE [id number] 2018-Manas richardson esent Supplement [employer] [id number] 1998-P HMO/PPO/ POS ADMINISTRATION ADMINISTRATION resent documented as of this encounter
--- OUTSIDE RECORDS SUMMARY | 2019-11-13 13:08 | XMS REPORT | Summary of Care ---
:1940 Author Organization [facility] Address [address] [place] [address] Care Team Providers Name Role Phone MD Lavell Primary Care Provider Reason for Visit Reason Comments Home Health Encounter Details Date Type Department Care Team Description 11/10/2019 Telephone [facility] Pediatric and Steffen Todd MD [facility] Adult Primary Care- [address] [facility] 205 [address] [facility] , [place] [address] 205 [place] [address] [phone] Allergies Active Allergy Reactions Severity Noted Date Comments [place] Unknown - See comments 02/05/2018 Codeine Unknown - See comments 02/05/2018 documented as of this encounter (statuses as of 11/10/2019) Medications Medication Sig Dispensed Refills Start Date [...] Supply Dispense # 1 Carlos KitIndications: Respironics ([place] Acute exacerbation for alternative of chronic brand) [...] Subacute maxillary daily. sinusitis fluticasone Use 1 [place] in each 16 g 0 07/02/2019 Active [...] as of this encounter (statuses as of 11/10/2019) Active Problems Problem Noted Date Chronic pain [...] as of this encounter (statuses as of 11/10/2019) Immunizations Name Administration Dates Next Due Influenza [...] O. BOX Medicare & B esent -[id number] ESTHER PADRON [phone] 8 FOR LIFE [id number] 2018-Pr Lanette richardson esent Supplement [employer] [id number] 1998-P HMO/PPO/ POS ADMINISTRATION ADMINISTRATION resent documented as of this encounter
--- OUTSIDE RECORDS SUMMARY | 2019-11-13 13:08 | XMS REPORT | Summary of Care ---
:1940 Author Organization [facility] Address [address] [place] [address] Care Team Providers Name Role Phone MD Lavell Primary Care Provider Reason for Visit Reason Comments [facility] [place] Encounter Details Date Type Department Care Team Description 11/06/[address] [facility] Pediatric Steffen Monte MD [facility] and Adult [facility] Care- [address] [facility] [address] [place] 205 146 [facility] [place] [address] [address] [place] [address] [phone] Allergies Active Allergy Reactions Severity Noted Date [...] Subacute maxillary daily. sinusitis fluticasone Use 1 [place] in each 16 g 0 07/02/2019 Active [...] O. BOX Medicare & B esent -[id number] ESTHER PADRON [phone] 8 FOR LIFE [id number] 2018-Pr Lanette richardson esent Supplement [facility] [id number] 1998-P HMO/PPO/ POS ADMINISTRATION ADMINISTRATION resent documented as of this encounter
[2019-11-13 13:23] LABS: Absolute Lymphocytes (CBC) 0.3 K/uL (0.7-4.9); Basophils % 0.3 % (0-1.3); Lymphocytes % 1.4 % (15.3-44.8); MPV 10.8 fL (7.6-11.3); RBC Red Blood Cell Count 4.84 M/uL (4.33-5.43)
[2019-11-13] MEDS ORDERED: NA CHLORIDE 0.9% 1,000 ML ONE (13:25)
[2019-11-13] MEDS ORDERED: LEVALBUTEROL 1.25 MG/3 ML NEB ONE ×2 (13:25→13:41)
[2019-11-13] MEDS ORDERED: Magnesium Sulfate 2gm IVPB 2 G/50 ML BAG IV ONE (13:25)
[2019-11-13] MEDS ORDERED: METHYLPREDNISOLONE 125 MG INJ ONE (13:25)
[2019-11-13 13:26] LABS: Arterial Blood Carboxyhemoglob 2.1 % (0-1.5); Blood O2 Saturation 91.6 % (92-98.5)
[2019-11-13 13:29] LABS: Protime INR 1.02
--- NOTE | 2019-11-13 13:39 | RAD REPORT ---
[facility] 1:20 pm CLINICAL HISTORY: sob COMPARISON: 10/29/2019 FINDINGS: Overall no significant change in the left parahilar and right upper lobe opacities/masses. Small left pleural effusion with left basilar atelectasis. Lungs are hyperaerated. The heart is normal size
[2019-11-13 13:42] LABS: ALT/SGPT 16 U/L (12-78); AST/SGOT 23 U/L (15-37); Albumin 3.3 g/dL (3.4-5.0); Alkaline Phosphatase 133 U/L (45-117); BUN Blood Urea Nitrogen 17 mg/dL (7-18); Bicarbonate 40 mmol/L (21-32); Bilirubin Direct 0.3 mg/dL (0-0.2); Bilirubin Total 0.8 mg/dL (0.2-1.0); Creatine Phosphokinase 49 U/L (39-308); Glucose Level 282 mg/dL (74-106); Lipase 125 U/L (73-393); Magnesium 2.2 mg/dL (1.8-2.4); NT PRO-BNP 3280 pg/mL (<450); Potassium 4.1 mmol/L (3.5-5.1); Protein, Total 7.3 g/dL (6.4-8.2); Sodium Level 141 mmol/L (136-145); Troponin (Emerg Dept Use Only) < 0.02 ng/mL (0.0-0.045)
[2019-11-13] MEDS ORDERED: METOPROLOL TARTRATE 5 MG/5 ML INJ IV ONE (13:53)
[2019-11-13] MEDS ORDERED: VANCOMYCIN/NS 1 gm 1 GM/250 ML BAG IVPB ONE ×2 (14:00)
[2019-11-13] MEDS ORDERED: FENTANYL CITR 100 MCG/2 ML ONE (14:39)
[2019-11-13] MEDS ORDERED: ONDANSETRON 4 MG/2 ML VIAL IV PRN (14:40)
[2019-11-13] MEDS ORDERED: ACETAMINOPHEN 500 MG TAB PO PRN (14:40)
--- NOTE | 2019-11-13 16:45 | P.HP ---
Certification for Inpatient Patient admitted to: Inpatient With expected LOS: >2 Midnights Patient will require the following post-hospital care: Home Health Services Practitioner: I am a practitioner with admitting privileges, knowledge of patient current condition, hospital course, and medical plan of care. Services: Services provided to patient in accordance with Admission requirements found in Title 42 Section 412.3 of the Code of Federal Regulations Patient History Date of Service: 11/13/19 Reason for admission: SOB , AMS History of Present Illness: 78-year-old male with past medical history of lung cancer status post radiation, terminal COPD, sleep apnea, and last prostate, CHF, admitted with chest discomfort and respiratory distress along with altered mental status. At the time of interview patient is on BiPAP and is drowsy hence most of the history is obtained from the Chart review and also talking to the ER physician. Patient was seen in the ER and ABG findings noted and was started on BiPAP and was admitted to the ICU for further management. Allergies codeine Allergy (Verified 10/30/19 04:30) AMS morphine Adverse Reaction (Verified 10/30/19 04:30) AMS Home medications list reviewed: Yes Home Medications: Aspirin 81 mg PO DAILY 10/30/19 Cetirizine HCl [Zyrtec] 10 mg PO DAILY 10/30/19 Cyanocobalamin (Vitamin B-12) [Vitamin B-12] 100 mcg PO DAILY 10/30/19 Ergocalciferol (Vitamin D2) [Vitamin D2] 1,250 mcg PO DAILY 10/30/19 Ferrous Sulfate [Ferrous Sulfate*] 325 mg PO DAILY 10/30/19 Fluticasone Furoate [Veramyst] 10 gm NS DAILY 10/30/19 Fluticasone/Salmeterol [Advair 250-50 Diskus] 1 each IH BID 10/30/19 Furosemide [Lasix*] 20 mg PO DAILY 10/30/19 Hydrocodone Bit/Acetaminophen [Hydrocodon-Acetaminophen 5-325] 0.5 tab PO BID 10/30/19 Ipratropium Neb [Atrovent*] 0.5 mg IH DAILY 10/30/19 Phenylephrine/Dm/Acetaminop/GG [Mucinex Fast-Max Cold-Flu Cap] 1 each PO DAILY 10/30/19 Polyethylene Glycol 3350 [Miralax] 17 gm PO PRN PRN 05/15/20 Theophylline [Fritz-Dur*] 200 mg PO DAILY 10/30/19 Tiotropium [Spiriva Handihaler*] 18 mcg IH DAILY 10/30/19 Levofloxacin [Levaquin] 500 mg PO DAILY #7 tablet 11/02/19 Theophylline Anhydrous [Fritz-24] 200 mg PO 30 MIN BEFORE HS 30 Days #30 cap.er.24h 11/02/19 predniSONE [Deltasone*] 20 mg PO DAILY #10 tab 11/02/19 - Past Medical/Surgical History Diabetic: No Past Medical History: Reviewed- Non-Contributory -: Lung cancer radiation treatments three years ago -: 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 -: Sleep Apnea -: Enlarged prostate -: CHF -: femur Fx Past Surgical History: Reviewed- Non-Contributory -: Appendectomy -: Cataract surgery -: Prostate surgery - Family History Family History: Reviewed- Non-Contributory - Family History Father -: Heart disease, Diabetes Notes: [place] Mother -: Lung disease, Cancer Notes: LUng Ca, Breast CA,Brain CA - Social History Smoking Status: Former smoker Alcohol use: No CD- Drugs: No Caffeine use: Yes Review of Systems is unable to be obtained Physical Examination - Vital Signs Temperature: 97.8 F Blood Pressure: 113/83 Pulse: 88 Respirations: 23 - Physical Exam General: Cachectic, Moderate distress, Confused HEENT: Atraumatic, Normocephalic Neck: Supple Respiratory: Diminished, Crackles/rales, Expiratory wheezes Cardiovascular: Normal S1 S2, Other (Tachycardia ) Capillary refill: <2 Seconds Gastrointestinal: Soft and benign, W/out hepatosplenomegaly Musculoskeletal: No clubbing, Swelling Integumentary: Rash(es), Skin breakdown, Erythema Neurological: Other (Drowsy , moves all limbs ) Lymphatics: Other (No Generalized lymphadenopathy) Rectal: Deferred - Studies Laboratory Data (last 24 hrs) 11/13/19 13:02: PT 12.0, INR 1.02, APTT 30.4 11/13/19 13:02: WBC 19.3 H D, Hgb 13.8 D, Hct 44.0 D, Plt Count 306 D 11/13/19 13:02: Sodium 141, Potassium 4.1, BUN 17, Creatinine 0.89, Glucose 282 H, Magnesium 2.2, Total Bilirubin 0.8, AST 23, ALT 16, Alkaline Phosphatase 133 H, Lipase 125 Laboratory Last Values WBC 19.3 K/uL (4.3-10.9) H D 11/13/19 13:02 RBC 4.84 M/uL (4.33-5.43) D 11/13/19 13:02 Hgb 13.8 g/dL (13.6-17.9) D 11/13/19 13:02 Hct 44.0 % (39.6-49.0) D 11/13/19 13:02 MCV 91.0 fL (80-100) 11/13/19 13:02 MCH 28.6 pg (27.0-35.0) 11/13/19 13:02 MCHC 31.4 g/dL (32.0-36.0) L 11/13/19 13:02 RDW 17.2 % (12.1-15.2) H 11/13/19 13:02 Plt Count 306 K/uL (152-406) D 11/13/19 13:02 MPV 10.8 fL (7.6-11.3) 11/13/19 13:02 Neutrophils % 96.2 % (41.7-73.7) H 11/13/19 13:02 Lymphocytes % 1.4 % (15.3-44.8) L 11/13/19 13:02 Monocytes % 1.9 % (3.3-12.3) L 11/13/19 13:02 Eosinophils % 0.2 % (0-4.4) 11/13/19 13:02 Basophils % 0.3 % (0-1.3) 11/13/19 13:02 Absolute Neutrophils 18.6 K/uL (1.8-8.0) H 11/13/19 13:02 Absolute Lymphocytes 0.3 K/uL (0.7-4.9) L 11/13/19 13:02 Absolute Monocytes 0.4 K/uL (0.1-1.3) 11/13/19 13:02 Absolute Eosinophils 0.0 K/uL (0-0.5) 11/13/19 13:02 Absolute Basophils 0.1 K/uL (0-0.5) 11/13/19 13:02 PT 12.0 SECONDS (9.5-12.5) 11/13/19 13:02 INR 1.02 11/13/19 13:02 APTT 30.4 SECONDS (24.3-36.9) 11/13/19 13:02 pH 7.26 (7.35-7.45) L 11/13/19 13:02 pCO2 95.2 mmHG (35-45) H 11/13/19 13:02 pO2 73.9 mmHG (75-100) L 11/13/19 13:02 HCO3 41.4 mmol/L (22-28) H 11/13/19 13:02 Base Excess 14.0 mmol/L 11/13/19 13:02 Oxyhemoglobin 89.0 % (94-97) L 11/13/19 13:02 ABG O2 Sat (Measured) 91.6 % (92-98.5) L 11/13/19 13:02 ABG Carboxyhemoglobin 2.1 % (0-1.5) H 11/13/19 13:02 ABG Methemoglobin 0.7 % (0-1.5) 11/13/19 13:02 Other Total Hgb 14.0 g/dl (12-18) 11/13/19 13:02 Inspired O2 50.0 % 11/13/19 13:02 Sodium 141 mmol/L (136-145) 11/13/19 13:02 Potassium 4.1 mmol/L (3.5-5.1) 11/13/19 13:02 Chloride 96 mmol/L (98-107) L 11/13/19 13:02 Carbon Dioxide 40 mmol/L (21-32) H 11/13/19 13:02 BUN 17 mg/dL (7-18) 11/13/19 13:02 Creatinine 0.89 mg/dL (0.55-1.3) 11/13/19 13:02 Estimated GFR 83 mL/min (=/>90) L 11/13/19 13:02 Glucose 282 mg/dL (74-106) H 11/13/19 13:02 POC Glucose 261 mg/dL (65-120) H 11/13/19 13:02 Lactic Acid 1.9 mmol/L (0.4-2.0) 11/13/19 13:02 Calcium 9.3 mg/dL (8.5-10.1) 11/13/19 13:02 Magnesium 2.2 mg/dL (1.8-2.4) 11/13/19 13:02 Total Bilirubin 0.8 mg/dL (0.2-1.0) 11/13/19 13:02 Direct Bilirubin 0.3 mg/dL (0-0.2) H 11/13/19 13:02 AST 23 U/L (15-37) 11/13/19 13:02 ALT 16 U/L (12-78) 11/13/19 13:02 Alkaline Phosphatase 133 U/L (45-117) H 11/13/19 13:02 Creatine Kinase 49 U/L (39-308) 11/13/19 13:02 Rapid Troponin I < 0.02 ng/mL (0.0-0.045) 11/13/19 13:02 NT-Pro-B Natriuret Pep 3280 pg/mL (<450) H 11/13/19 13:02 Serum Total Protein 7.3 g/dL (6.4-8.2) 11/13/19 13:02 Albumin 3.3 g/dL (3.4-5.0) L 11/13/19 13:02 Globulin 4.0 g/dL (2.3-3.5) H 11/13/19 13:02 Albumin/Globulin Ratio 0.8 (1.1-1.8) L 11/13/19 13:02 Lipase 125 U/L (73-393) 11/13/19 13:02 Procalcitonin 190.67 ng/mL (<0.50) H 11/13/19 13:02 Assessment and Plan - Problems (Diagnosis) (1) Acute and chronic respiratory failure with hypercapnia Current Visit: No Status: Acute (2) Acute exacerbation of chronic obstructive pulmonary disease (COPD) Onset Date: 12/24/17 Current Visit: No Status: Acute (3) COPD (chronic obstructive pulmonary disease) Onset Date: 11/08/16 Current Visit: No Status: Acute (4) Lung cancer Current Visit: No Status: Chronic Qualifiers: Laterality: right (5) Sepsis Current Visit: No Status: Acute Qualifiers: Sepsis type: sepsis due to unspecified organism Qualified Code(s): A41.9 - Sepsis, unspecified organism - Advance Directives Does patient have a Living Will: Yes Does patient have a Durable POA for Healthcare: Yes Physician Review Additional Text: Acute hypoxic hypercapnic respiratory failure Acute respiratory distress. Acute COPD exacerbation. History of lung cancer History of CHF possibly combined systolic/distal leukocytosis Hyperglycemia Elevated BNP Elevated pro calcitonin Lung mass Pneumonia possibly post obstructive Plan Admit to ICU Monitor under telemetry on BiPAP Start on bronchodilators and steroids Broad-spectrum IV antibiotic Possible post obstructive pneumonia Will get a CT of the head and chest Patient is tachycardic Will change albuterol to Xopenex Mild hydration Will get an echocardiogram Pulmonology consult Continue home medications and titrate as needed GI/DVT prophylaxis Advanced directives full code Time Spent Managing Pts Care (In Minutes): 45
[2019-11-13] MEDS ORDERED: NA CHLORIDE 0.9% 1,000 ML IV SCH (17:00)
[2019-11-13] MEDS: IPRATROPIUM BROM 0.5MG/2.5ML NEB SCH ×3 (17:00→23:55)
[2019-11-13] MEDS: ENOXAPARIN 40 MG/0.4 ML SQ SCH (17:51)
[2019-11-13] MEDS: METHYLPREDNISOLONE 125 MG INJ IV SCH (17:54)
--- NOTE | 2019-11-13 18:02 | RAD REPORT ---
EXAM DESCRIPTION: CT - Head Brain Wo Cont - 11/13/2019 5:50 pm CLINICAL HISTORY: Alteration of awareness/confusion/lung cancer COMPARISON: None TECHNIQUE: Computed axial tomography of the head was obtained. IV contrast was not requested. All CT scans are performed using dose optimization technique as appropriate and may include automated exposure control or mA/KV adjustment according to patient size. FINDINGS: 24 millimeter lesion within the left cerebellum with moderate amount of surrounding vasoge jennifer edema. The medial aspect of the left cerebellum lies to the right of midline. The fourth ventricl e is compressed. There is mild dilatation of third and lateral ventricles. No intracranial bleed IMPRESSION: 24 millimeter lesion within the left cerebellum likely metastasis. Moderate surrounding vasogenic edema
[2019-11-13] MEDS: PIPER/TAZO/NS 3.375gm 3.375 GM/100 ML BAG IVPB SCH (18:06)
--- NOTE | 2019-11-13 19:14 | RAD REPORT ---
EXAM DESCRIPTION: CT - Thorax W/ Con - 11/13/2019 5:50 pm CLINICAL HISTORY: Lung mass/chest pain COMPARISON: September 2019 TECHNIQUE: Computed axial tomography of the chest was obtained. 100 cc Isovue 300 was administered i ntravenously. All CT scans are performed using dose optimization technique as appropriate and may include automated exposure control or mA/KV adjustment according to patient size. FINDINGS: 27 millimeter posterior right upper lobe opacity unchanged. 24 millimeter right lower lobe posterior opacity unchanged. Small right pleural effusion. Small to moderate left pleural effusion. Left lower lobe atelectasis. The left hilar adenopathy without significant change. Mild mediastinal lymphadenopathy unchanged Lesion within the left anterior fourth rib. Sclerotic lesion within the left ninth rib. Moderate compression fracture involves a mid thoracic vertebral body. Moderate compression fracture i nvolves a lower thoracic vertebral body. Mild old compression fracture involves a lower thoracic vert ebral body which is unchanged. The others have developed since the prior exam. The mid thoracic compr ession fracture may be pathologic . Small hepatic metastases IMPRESSION: Lung masses/opacities without significant change Stable left hilar lymphadenopathy. Mild mediastinal lymphadenopathy Skeletal and hepatic metastases
[2019-11-13] MEDS: LEVALBUTEROL 0.63 MG/3 ML NEB NEB SCH (19:40)
[2019-11-14] MEDS: METHYLPREDNISOLONE 125 MG INJ IV SCH ×2 (00:36→05:31)
[2019-11-14] MEDS: PIPER/TAZO/NS 3.375gm 3.375 GM/100 ML BAG IVPB SCH ×2 (00:36→08:52)
[2019-11-14] MEDS: IPRATROPIUM BROM 0.5MG/2.5ML NEB SCH ×4 (03:55→19:25)
[2019-11-14] MEDS: LEVALBUTEROL 0.63 MG/3 ML NEB NEB SCH ×4 (03:55→19:25)
[2019-11-14 05:35] VITALS: BMI 19.3
[2019-11-14] MEDS: ENOXAPARIN 40 MG/0.4 ML SQ SCH (08:52)
[2019-11-14 09:17] LABS: ALT/SGPT 73 U/L (12-78); AST/SGOT 19 U/L (15-37); Albumin 2.6 g/dL (3.4-5.0); Alkaline Phosphatase 97 U/L (45-117); BUN Blood Urea Nitrogen 19 mg/dL (7-18); Bicarbonate 38 mmol/L (21-32); Bilirubin Total 0.4 mg/dL (0.2-1.0); Glucose Level 155 mg/dL (74-106); Potassium 4.4 mmol/L (3.5-5.1); Sodium Level 147 mmol/L (136-145)
[2019-11-14 09:32] LABS: Protime INR 0.91
[2019-11-14 09:33] LABS: Absolute Lymphocytes (CBC) 0.1 K/uL (0.7-4.9); Basophils % 0.1 % (0-1.3); Hematocrit 38.3 % (39.6-49.0); Lymphocytes % 1.8 % (15.3-44.8); MPV 10.9 fL (7.6-11.3); RBC Red Blood Cell Count 4.23 M/uL (4.33-5.43)
--- NOTE | 2019-11-14 10:15 | P.PN ---
Subjective Date of Service: 11/14/19 Chief Complaint: SOB , AMS Subjective: No new changes (Still on BiPAP More awake alert) Review of Systems is unable to be obtained Physical Examination - Vital Signs Temperature: 98.1 F Blood Pressure: 129/63 Pulse: 96 Respirations: 24 Pulse Ox (%): 96 - Physical Exam General: Alert, Cooperative, Mild distress HEENT: Atraumatic, Normocephalic Neck: Supple, 2+ carotid pulse no bruit Respiratory: Diminished, Crackles/rales, Expiratory wheezes Cardiovascular: Regular rate/rhythm, Normal S1 S2 Capillary refill: <2 Seconds Gastrointestinal: Soft and benign, W/out hepatosplenomegaly Musculoskeletal: No clubbing, No swelling Integumentary: Erythema Neurological: Other ( Alert , awake, moves all the limbs) Lymphatics: Other (No generalized lymphadenopathy) Urinary: Other (No bladder distention) Rectal: Deferred - Studies Laboratory Data (last 24 hrs) 11/13/19 13:02: PT 12.0, INR 1.02, APTT 30.4 11/13/19 13:02: WBC 19.3 H D, Hgb 13.8 D, Hct 44.0 D, Plt Count 306 D 11/13/19 13:02: Sodium 141, Potassium 4.1, BUN 17, Creatinine 0.89, Glucose 282 H, Magnesium 2.2, Total Bilirubin 0.8, AST 23, ALT 16, Alkaline Phosphatase 133 H, Lipase 125 Laboratory Last Values WBC 19.3 K/uL (4.3-10.9) H D 11/13/19 13:02 RBC 4.84 M/uL (4.33-5.43) D 11/13/19 13:02 Hgb 13.8 g/dL (13.6-17.9) D 11/13/19 13:02 Hct 44.0 % (39.6-49.0) D 11/13/19 13:02 MCV 91.0 fL (80-100) 11/13/19 13:02 MCH 28.6 pg (27.0-35.0) 11/13/19 13:02 MCHC 31.4 g/dL (32.0-36.0) L 11/13/19 13:02 RDW 17.2 % (12.1-15.2) H 11/13/19 13:02 Plt Count 306 K/uL (152-406) D 11/13/19 13:02 MPV 10.8 fL (7.6-11.3) 11/13/19 13:02 Neutrophils % 96.2 % (41.7-73.7) H 11/13/19 13:02 Lymphocytes % 1.4 % (15.3-44.8) L 11/13/19 13:02 Monocytes % 1.9 % (3.3-12.3) L 11/13/19 13:02 Eosinophils % 0.2 % (0-4.4) 11/13/19 13:02 Basophils % 0.3 % (0-1.3) 11/13/19 13:02 Absolute Neutrophils 18.6 K/uL (1.8-8.0) H 11/13/19 13:02 Absolute Lymphocytes 0.3 K/uL (0.7-4.9) L 11/13/19 13:02 Absolute Monocytes 0.4 K/uL (0.1-1.3) 11/13/19 13:02 Absolute Eosinophils 0.0 K/uL (0-0.5) 11/13/19 13:02 Absolute Basophils 0.1 K/uL (0-0.5) 11/13/19 13:02 PT 12.0 SECONDS (9.5-12.5) 11/13/19 13:02 INR 1.02 11/13/19 13:02 APTT 30.4 SECONDS (24.3-36.9) 11/13/19 13:02 pH 7.26 (7.35-7.45) L 11/13/19 13:02 pCO2 95.2 mmHG (35-45) H 11/13/19 13:02 pO2 73.9 mmHG (75-100) L 11/13/19 13:02 HCO3 41.4 mmol/L (22-28) H 11/13/19 13:02 Base Excess 14.0 mmol/L 11/13/19 13:02 Oxyhemoglobin 89.0 % (94-97) L 11/13/19 13:02 ABG O2 Sat (Measured) 91.6 % (92-98.5) L 11/13/19 13:02 ABG Carboxyhemoglobin 2.1 % (0-1.5) H 11/13/19 13:02 ABG Methemoglobin 0.7 % (0-1.5) 11/13/19 13:02 Other Total Hgb 14.0 g/dl (12-18) 11/13/19 13:02 Inspired O2 50.0 % 11/13/19 13:02 Sodium 141 mmol/L (136-145) 11/13/19 13:02 Potassium 4.1 mmol/L (3.5-5.1) 11/13/19 13:02 Chloride 96 mmol/L (98-107) L 11/13/19 13:02 Carbon Dioxide 40 mmol/L (21-32) H 11/13/19 13:02 BUN 17 mg/dL (7-18) 11/13/19 13:02 Creatinine 0.89 mg/dL (0.55-1.3) 11/13/19 13:02 Estimated GFR 83 mL/min (=/>90) L 11/13/19 13:02 Glucose 282 mg/dL (74-106) H 11/13/19 13:02 POC Glucose 261 mg/dL (65-120) H 11/13/19 13:02 Lactic Acid 1.9 mmol/L (0.4-2.0) 11/13/19 13:02 Calcium 9.3 mg/dL (8.5-10.1) 11/13/19 13:02 Magnesium 2.2 mg/dL (1.8-2.4) 11/13/19 13:02 Total Bilirubin 0.8 mg/dL (0.2-1.0) 11/13/19 13:02 Direct Bilirubin 0.3 mg/dL (0-0.2) H 11/13/19 13:02 AST 23 U/L (15-37) 11/13/19 13:02 ALT 16 U/L (12-78) 11/13/19 13:02 Alkaline Phosphatase 133 U/L (45-117) H 11/13/19 13:02 Creatine Kinase 49 U/L (39-308) 11/13/19 13:02 Rapid Troponin I < 0.02 ng/mL (0.0-0.045) 11/13/19 13:02 NT-Pro-B Natriuret Pep 3280 pg/mL (<450) H 11/13/19 13:02 Serum Total Protein 7.3 g/dL (6.4-8.2) 11/13/19 13:02 Albumin 3.3 g/dL (3.4-5.0) L 11/13/19 13:02 Globulin 4.0 g/dL (2.3-3.5) H 11/13/19 13:02 Albumin/Globulin Ratio 0.8 (1.1-1.8) L 11/13/19 13:02 Lipase 125 U/L (73-393) 11/13/19 13:02 Procalcitonin 190.67 ng/mL (<0.50) H 11/13/19 13:02 Urine RBC Cancelled 11/13/19 12:54 Urine WBC Cancelled 11/13/19 12:54 Ur Squamous Epith Cells Cancelled 11/13/19 12:54 Ur Urothelial Cells Cancelled 11/13/19 12:54 Calcium Oxalate Crystal Cancelled 11/13/19 12:54 Uric Acid Crystals Cancelled 11/13/19 12:54 Triple Phos Crystals Cancelled 11/13/19 12:54 Other Crystals Cancelled 11/13/19 12:54 Amorphous Sediment Cancelled 11/13/19 12:54 Glitter Cells Cancelled 11/13/19 12:54 Urine Bacteria Cancelled 11/13/19 12:54 Hyaline Casts Cancelled 11/13/19 12:54 Fine Granular Casts Cancelled 11/13/19 12:54 Coarse Granular Casts Cancelled 11/13/19 12:54 Waxy Casts Cancelled 11/13/19 12:54 RBC Casts Cancelled 11/13/19 12:54 WBC Casts Cancelled 11/13/19 12:54 Urine Mucus Cancelled 11/13/19 12:54 Urine Other Cancelled 11/13/19 12:54 Urine Trichomonas Cancelled 11/13/19 12:54 Urine Yeast Cancelled 11/13/19 12:54 Ur Yeast w Hyphae Cancelled 11/13/19 12:54 Urine Yeast (Budding) Cancelled 11/13/19 12:54 Urine Sperm Cancelled 11/13/19 12:54 Urine Culture Reflexed Cancelled 11/13/19 12:54 Urine Total Volume Cancelled 11/13/19 12:54 Assessment & Plan - Problems (Diagnosis) (1) Acute and chronic respiratory failure with hypercapnia Current Visit: No Status: Acute (2) Acute exacerbation of chronic obstructive pulmonary disease (COPD) Onset Date: 12/24/17 Current Visit: No Status: Acute (3) COPD (chronic obstructive pulmonary disease) Onset Date: 11/08/16 Current Visit: No Status: Acute (4) Lung cancer Current Visit: No Status: Chronic Qualifiers: Laterality: right (5) Sepsis Current Visit: No Status: Acute Qualifiers: Sepsis type: sepsis due to unspecified organism Qualified Code(s): A41.9 - Sepsis, unspecified organism Physician Review Additional Text: Acute hypoxic hypercapnic respiratory failure Acute respiratory distress. Acute COPD exacerbation. History of lung cancer History of CHF possibly combined systolic/distal leukocytosis Hyperglycemia Elevated BNP Elevated pro calcitonin Lung mass Pneumonia possibly post obstructive Plan Admit to ICU Monitor under telemetry on BiPAP Start on bronchodilators and steroids Broad-spectrum IV antibiotic Possible post obstructive pneumonia Will get a CT of the head and chest Patient is tachycardic Will change albuterol to Xopenex Mild hydration Will get an echocardiogram Pulmonology consult Continue home medications and titrate as needed GI/DVT prophylaxis Advanced directives full code 11/14/2019 still on BiPAP Saturating well More awake and alert Get a repeat ABG Will get a repeat x-ray will transfer the patient to tele Continue antibiotics CT findings noted Patient was supposed to get a biopsy as outpatient Will get a heme oncology consult with Appreciate help from pulmonology Discussed with the in detail regarding the disease condition and about possible metastasis discussed about the options Discussed about hospice but dont want to consider at this time Guarded prognosis was discussed with the family Time Spent Managing Pts Care (In Minutes): 40
--- NOTE | 2019-11-14 10:31 | P.CNS ---
Date of Consult: 11/14/19 Requesting Physician: Dayton Valdivia Chief Complaint: Respiratory failure Allergies codeine Allergy (Verified 10/30/19 04:30) AMS morphine Adverse Reaction (Verified 10/30/19 04:30) AMS Home Medications: Cetirizine HCl [Zyrtec] 10 mg PO DAILY 10/30/19 Cyanocobalamin (Vitamin B-12) [Vitamin B-12] 100 mcg PO DAILY 10/30/19 Fluticasone/Salmeterol [Advair 250-50 Diskus] 1 each IH BID 10/30/19 Furosemide [Lasix*] 20 mg PO DAILY 10/30/19 Ipratropium Neb [Atrovent*] 0.5 mg IH DAILY 10/30/19 Polyethylene Glycol 3350 [Miralax] 17 gm PO PRN PRN 10/30/19 Theophylline [Fritz-Dur*] 200 mg PO DAILY 10/30/19 Tiotropium [Spiriva Handihaler*] 18 mcg IH DAILY 10/30/19 Theophylline Anhydrous [Fritz-24] 200 mg PO 30 MIN BEFORE HS 30 Days #30 cap.er.24h 11/02/19 Pregabalin [Lyrica*] 50 mg PO TID 11/13/19 Tramadol HCl [Ultram] 50 mg PO Q6HP PRN 11/13/19 predniSONE [Deltasone*] 10 mg PO DAILY 11/13/19 - Past Medical/Surgical History Diabetic: No -: Lung cancer radiation treatments three years ago -: 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 -: Sleep Apnea -: Enlarged prostate -: CHF -: femur Fx -: Appendectomy -: Cataract surgery -: Prostate surgery - Family History Father Medical History: Heart disease, Diabetes Notes: [place] Mother Medical History: Lung disease, Cancer Notes: LUng Ca, Breast CA,Brain CA - Social History Smoking Status: Unknown if ever smoked Alcohol use: No CD- Drugs: No Caffeine use: Yes Place of Residence: Home Review of Systems General: Weakness Respiratory: Shortness of Breath Physical Examination Temp Pulse Resp BP Pulse Ox 98.1 F 96 H 24 H 129/63 96 11/14/19 10:21 11/14/19 10:21 11/14/19 10:21 11/14/19 10:21 11/14/19 10:21 General: Alert, Oriented x3 HEENT: Atraumatic Neck: Supple Respiratory: Expiratory wheezes Cardiovascular: No edema, Normal S1 S2 Integumentary: No rashes, No breakdown Neurological: Normal speech, Cranial nerves 3-12 intact Laboratory Data (last 24 hrs) 11/13/19 13:02: PT 12.0, INR 1.02, APTT 30.4 11/13/19 13:02: WBC 19.3 H D, Hgb 13.8 D, Hct 44.0 D, Plt Count 306 D 11/13/19 13:02: Sodium 141, Potassium 4.1, BUN 17, Creatinine 0.89, Glucose 282 H, Magnesium 2.2, Total Bilirubin 0.8, AST 23, ALT 16, Alkaline Phosphatase 133 H, Lipase 125 - Problems (1) Acute and chronic respiratory failure with hypercapnia Current Visit: No Status: Acute Plan: Worse . SOB. On BIPAP. CW BD is a recurrent hospital admissions patient has a left lung mass with hilar adenopathy multiple metastases on PET scan now he has cerebellar metastases is also seeing an oncologist has not had a chance to have a biopsy done he is very disabled discuss with Dr. Hauser. Patient not a candidate and is very high risk for a biopsy is very disabled very poor baseline performance status he will not be a candidate for chemo radiation or surgery CT scan has been done before again confirms multiple metastases he has had recurrent admissions also hypoxic hypercapnic the recently prescribed him some nebulize Perforomist he seems to help discuss with patient is full code is no multiple loculated effusion change him over to p.o. Augmentin Dc IV antibiotics change to p.o. prednisone courage fluid intake transfer to the floor
[2019-11-14] MEDS ORDERED: HYDROCODONE/APAP 5/325 MG TAB PO PRN (10:38)
[2019-11-14 12:27] LABS: Anisocytosis 1+; Blood Morphology Comment NOTED (NOT SEEN); Ovalocytes 1+; Platelet Estimate ADEQ; Urine White Blood Cell Casts OK
[2019-11-14 12:28] LABS: Basophilic Stippling 1+
--- NOTE | 2019-11-14 12:56 | EKG ---
Test Date: 2019-11-13 Test Time: 13:00:39 Crime Scene Evidence Technician: WILLIAM MEASUREMENT RESULTS: Intervals: Rate: 136 FL: 112 QRSD: 70 QT: 314 QTc: 472 [place]: P: 46 FL: 112 QRS: 183 T: 48 INTERPRETIVE STATEMENTS: Sinus tachycardia with premature atrial complexes Right superior axis deviation Right ventricular hypertrophy Abnormal ECG Electronically Signed On 11-14-19 12:56:22 CDT by Pepe España
[2019-11-14] MEDS ORDERED: VANCOMYCIN/NS 1 gm 1 GM/250 ML BAG IVPB SCH (14:00)
[2019-11-14] MEDS: PANTOPRAZOLE 40MG TABLET PO SCH (16:54)
--- NOTE | 2019-11-14 20:14 | PN ---
Reason For Consultation: Probable metastatic lung cancer. Brief History Of Present Illness: Mr. San was seen by me for metastatic lung cancer on September 30 when he presented with a new right lower lobe mass in addition to soft tissue densities in the ri ght upper and middle lobe. PET/CT from 09/10/2019 had revealed significant FDG uptake in the right u pper lobe mass, right lower lobe, left hilar lymph node, and in the left 4th rib along with T6, T8, T 10, and L3 vertebrae as well as in the right psoas. When I saw him in clinic, he was accompanied by his son and wanted to consider palliative therapy. I had explained to them that he would need a biop sy with lung markers to see if he would qualify for targeted therapy since chemotherapy was not an op tion given his condition. He was hospitalized yesterday with worsening shortness of breath, altered mental status, and chest di scomfort. A CT chest done in the emergency room revealed the lung masses and stable left hilar adeno angelika as well as the mediastinal adenopathy with new hepatic metastasis. A CT head revealed a 24 mm lesion in the left cerebellum with vasogenic edema, highly suggestive of metastasis. I am consulted for the metastatic lung cancer. Subjectively, Mr. San was on BiPAP, but alert and talkative when I visited him. He denies any pain or discomfort or shortness of breath at this time. He would like to get rid of the BiPAP and go brian k to nasal cannula because he finds the BiPAP extremely uncomfortable. He denies any headache or diz ziness. Objective: Vital Signs: He has been afebrile. Temperature was 98.6 Fahrenheit at noon today, pulse was 104, respirations 20, blood pressure was 100/68. He is saturating at 95% on an FiO2 of 0.45. General: Reveals that he has lost weight. He appears asthenic. There is no evidence of facial franc ation or lid droop. HEENT: Head is normocephalic. HEENT examination was unremarkable. Neck: There is no palpable lymph nodes in the neck, axilla, or groin. Lungs: Breath sounds reveal bilateral vesicular breath sounds with reduced breath excursion and scat tered expiratory rhonchi. Heart: Sounds reveal normal S1 and S2. No gallops or murmurs. Abdomen: Soft and nontender. Liver and spleen were not palpable. Bowel sounds were present. Neurologic: He is alert and oriented. There is no acute cranial nerve deficits and no acute motor o r sensory deficits. Assessment And Plan: 1.Metastatic lung cancer. a.We did not have tissue diagnosis and at this time, it seems mute since his cancer is progressing a nd his performance status has declined. He is not a candidate for chemotherapy, biopsy, or targeted therapy in my opinion. b.We again discussed that this is not a curable cancer and that in my opinion, it is terminal. I montero ve suggested best supportive care in the setting of hospice upon discharge, his is agreeable to this. I also discussed cardiopulmonary resuscitation, in my opinion, this would be futile given his cancer and prognosis and Mr. San agreed, saying "if it was up to me, I would not want CPR that I wi ll do what my says.". c.I discussed CPR with his , who says that he was desirous of resuscitation in the past, I told her my conversation with him and she will talk to him and hopefully, decided on a DNR as is his wish. 2.Pain. He was in pain when I saw him in clinic 6 weeks ago and was started on hydrocodone and Tyle nol 5/325 one q.4 hours p.r.n. I would continue on that for now. Further pain management would be a s per hospice. 3.Cerebellar metastasis. We will start him on dexamethasone 4 mg b.i.d. for the brain metastasis. I would not taper the prednisone and continue indefinitely. Thank you for asking me to see him. Please do not hesitate to call me if you have any questions. AP/MODL Voice ID: [id number] Report ID: [id number]
[2019-11-14] MEDS ORDERED: predniSONE 20 MG TAB PO SCH (21:00)
[2019-11-14] MEDS: AMOX/K CLAV 500 MG TAB PO SCH (21:31)
[2019-11-14] MEDS: dexAMETHasone 4 MG TAB PO SCH (21:31)
[2019-11-15] MEDS: IPRATROPIUM BROM 0.5MG/2.5ML NEB SCH ×4 (00:55→19:38)
[2019-11-15] MEDS: LEVALBUTEROL 0.63 MG/3 ML NEB NEB SCH ×4 (00:55→19:38)
[2019-11-15] MEDS: PANTOPRAZOLE 40MG TABLET PO SCH (06:32)
[2019-11-15] MEDS: AMOX/K CLAV 500 MG TAB PO SCH ×2 (08:50→21:04)
[2019-11-15] MEDS: dexAMETHasone 4 MG TAB PO SCH ×2 (08:50→21:04)
[2019-11-15] MEDS: ENOXAPARIN 40 MG/0.4 ML SQ SCH (08:50)
--- NOTE | 2019-11-15 16:39 | P.DS ---
Admission Date: 11/13/19 Discharge Date: 11/15/19 Disposition: HOSPICE-HOME Discharge Condition: SERIOUS Reason for Admission: Respiratory failure - Problems (1) Acute and chronic respiratory failure with hypercapnia Current Visit: No Status: Acute Brief History of Present Illness: Patient is 79 years of age admitted with worsening respiratory distress and hypercapnia Hospital Course: Admitted to the hospital was started on conventional therapy with bronchodilators and BiPAP patient has presumed lung cancer it is PET scan is positive mets to the liver and the bones and now has some mets to the cerebellum is not in any discomfort Dr. Hauser discuss with the relatives regarding hospice care in DNR as not a candidate for biopsy or any treatment due to his poor performance status he is dyspneic at rest CT scan shows the left lung mass is bilateral loculated pleural effusions laboratory data mildly hypernatremic patient to continue using his bronchodilators which I prescribed him occluded Perforomist and Yupleri patient to discontinue using Advair and Spiriva and reduces theophylline to once a day Vital Signs/Physical Exam: Temp Pulse Resp BP Pulse Ox 98 F 79 20 108/59 L 95 11/15/19 12:00 11/15/19 12:00 11/15/19 12:00 11/15/19 12:00 11/15/19 12:00 Laboratory Data at Discharge: WBC 8.0 K/uL (4.3-10.9) D 11/14/19 08:46 Hgb 12.1 g/dL (13.6-17.9) L 11/14/19 08:46 Hct 38.3 % (39.6-49.0) L 11/14/19 08:46 Plt Count 221 K/uL (152-406) D 11/14/19 08:46 PT 10.8 SECONDS (9.5-12.5) 11/14/19 08:46 INR 0.91 11/14/19 08:46 APTT 30.4 SECONDS (24.3-36.9) 11/13/19 13:02 Sodium 147 mmol/L (136-145) H 11/14/19 08:46 Potassium 4.4 mmol/L (3.5-5.1) 11/14/19 08:46 BUN 19 mg/dL (7-18) H 11/14/19 08:46 Creatinine 0.64 mg/dL (0.55-1.3) 11/14/19 08:46 Glucose 155 mg/dL (74-106) H 11/14/19 08:46 Magnesium 2.2 mg/dL (1.8-2.4) 11/13/19 13:02 Total Bilirubin 0.4 mg/dL (0.2-1.0) 11/14/19 08:46 AST 19 U/L (15-37) 11/14/19 08:46 ALT 73 U/L (12-78) 11/14/19 08:46 Alkaline Phosphatase 97 U/L (45-117) 11/14/19 08:46 Lipase 125 U/L (73-393) 11/13/19 13:02 Home Medications: Cetirizine HCl [Zyrtec] 10 mg PO DAILY 10/30/19 Furosemide [Lasix*] 20 mg PO DAILY 10/30/19 Ipratropium Neb [Atrovent*] 0.5 mg IH DAILY 10/30/19 Polyethylene Glycol 3350 [Miralax] 17 gm PO PRN PRN 10/30/19 Theophylline Anhydrous [Fritz-24] 200 mg PO 30 MIN BEFORE HS 30 Days #30 cap.er.24h 11/02/19 Pregabalin [Lyrica*] 50 mg PO TID 11/13/19 Tramadol HCl [Ultram] 50 mg PO Q6HP PRN 11/13/19 predniSONE [Deltasone*] 20 mg PO DAILY 11/13/19 Patient Discharge Instructions: Patient to be discharged home he still takes theophylline only once a day 200 mg stop using his inhalers and using the nebulizers that I had prescribed to him Diet: Regular
[2019-11-15 19:26] LABS: Urine Appearance CLEAR; Urine Blood 1+ (NEG); Urine Color DK YELLOW; Urine Glucose NEGATIVE (NEG); Urine Protein TRACE (NEG); Urine Specific Gravity >=1.030 (1.005-1.030); Urine pH 5.5 (5.0-7.0)
[2019-11-15 19:34] LABS: Urine Bilirubin NEGATIVE (NEG); Urine Microscopic Reflex ORDER UMIC
[2019-11-15 19:36] LABS: Calcium Oxalate Crystals- Ur PRESENT (NONE SEEN); Urine Bacteria 20-50 /HPF (NONE SEEN); Urine Culture Reflex Order REFLEXED; Urine RBC 20-50 /HPF (NONE SEEN)
[2019-11-16 00:28] VITALS: O2SAT 93
[2019-11-16] MEDS: LEVALBUTEROL 0.63 MG/3 ML NEB NEB SCH ×3 (01:25→12:35)
[2019-11-16] MEDS: IPRATROPIUM BROM 0.5MG/2.5ML NEB SCH ×3 (01:25→12:35)
[2019-11-16] MEDS: PANTOPRAZOLE 40MG TABLET PO SCH (05:29)
[2019-11-16] MEDS: ENOXAPARIN 40 MG/0.4 ML SQ SCH (08:06)
[2019-11-16] MEDS: dexAMETHasone 4 MG TAB PO SCH (08:06)
[2019-11-16] MEDS: AMOX/K CLAV 500 MG TAB PO SCH (08:06)
--- NOTE | 2019-11-16 10:33 | PN ---
Date of Progress Note: 11/16/2019 Patient seen and examined. Chart reviewed and case discussed with RN. Patient has elected hospice c are, was initially to be set up by [facility], now they have chosen [facility], currently pending t up. Medications: List reviewed. Physical Examination: Vital Signs: Temperature 97.9, heart rate is 68, blood pressure 110/57, respirations 20, O2 of 96% o n 4.5 L via nasal cannula. General: Awake, alert, oriented x3. Elderly male, in some mild respiratory distress. Frail, cachec tic, ill-appearing. CV: S1, S2. Peripheral pulses present. Respiratory: Diminished breath sounds. Rhonchi heard. No wheezing or stridor. Gastrointestinal: Abdomen is soft, nontender, nondistended. Positive bowel sounds. Extremities: No clubbing, cyanosis, or edema. Neurologic: Nonfocal. Code Status: Do not resuscitate. Laboratory Data: Sodium 147, potassium 4.4, chloride 103 on 11/14/2019. Labs not done as the patien t can be sent with hospice. Assessment: 1.Acute on chronic respiratory failure with hypercapnia secondary to chronic obstructive pulmonary d isease, currently on BiPAP and requiring at least 4.5 L via nasal cannula. 2.Acute chronic obstructive pulmonary disease exacerbation. Continue nebulizers and steroids. 3.Lung cancer on the right. 4.Sepsis secondary to above. 5.Congestive heart failure chronic, combined systolic and diastolic. 6.Hyperglycemia. 7.Postobstructive pneumonia. 8.Diffuse metastatic disease including to the liver, bones, and cerebellum. Plan: Discharge to [facility] once arrangements have been made. Overall poor prognosis. SA/MODL Voice ID: [id number] Report ID: [id number]
[2019-11-16 14:27] VITALS: BP 108/56; TEMP 97.5
--- NOTE | 2019-11-16 17:04 | ER ---
Nurse's Notes [facility] Name: Idris San Age: 78 yrs Sex: Male : 1940 Arrival Date: 11/13/2019 Time: 12:49 Bed 2 Private MD: Diagnosis: Acute respiratory failure;Severe sepsis;Chronic obstructive pulmonary disease with (acute) exacerbation Presentation: 11/12 12:50 Chief complaint: EMS states: RESPIRATORY DISTRESS SINCE LAST PM. Coronavirus screen: bp Proceed with normal triage. Ebola Screen: No symptoms or risks identified at this time. Initial Sepsis Screen: Does the patient meet any 2 criteria? RR > 20 per min. HR > 90 bpm. No. Patient's initial sepsis screen is negative. Does the patient have a suspected source of infection? Yes: Productive cough/pneumonia. Risk Assessment: Do you want to hurt yourself or someone else? Patient reports no desire to harm self or others. Onset of symptoms is unknown. Care prior to arrival: Med neb given. Oxygen administered. via CPAP or BiPAP. 12:50 Method Of Arrival: EMS: [facility] bp 12:50 Acuity: LISBETH 2 bp 12:53 Note CODE SEPSIS CALLED. bp Triage Assessment: 12:50 General: Appears distressed, uncomfortable, Behavior is cooperative, appropriate for bp age, anxious. Pain: Denies pain. EENT: No deficits noted. Neuro: Level of Consciousness is alert, obeys commands, lethargic, Oriented to person, place, time, situation, Appropriate for age. Cardiovascular: Rhythm is sinus tachycardia. Respiratory: Reports shortness of breath at rest Patient placed on BiPAP: Onset: The symptoms/episode began/occurred yesterday, the patient has severe shortness of breath. GI: No signs and/or symptoms were reported involving the gastrointestinal system. : No signs and/or symptoms were reported regarding the genitourinary system. Derm: No deficits noted. Musculoskeletal: No deficits noted. 13:00 Respiratory: BIPAP 14/8, 50% FIO2, 14 RATE Patient placed on BiPAP:. bp Historical: - Allergies: 12:58 Codeine; bp 12:58 Morphine; bp - PMHx: 12:58 Anemia; CHF; COPD; Emphysema; enlarged prostate; femur fracture; Lung Cancer; Pt bp reports that it cleared up; Pneumonia; Sleep Apnea; - Immunization history:: Adult Immunizations unknown. - Social history:: Smoking status: unknown. Screenin:53 Abuse screen: Denies threats or abuse. Denies injuries from another. Nutritional bp screening: No deficits noted. Tuberculosis screening: No symptoms or risk factors identified. Fall Risk None identified. Assessment: 12:53 General: SEE TRIAGE NOTE. Cardiovascular: Rhythm is sinus tachycardia. Respiratory: bp Airway is patent Respiratory effort is labored, Respiratory pattern is tachypnea Breath sounds with wheezes bilaterally. 14:00 Reassessment: PT MENTATION IMPROVED. LETHARGIC BUT AOx4. bp 15:00 Reassessment: ICU ADMIT INITIATED. bp 15:28 Reassessment: REPORT TO EMILY EVANS. TRANSPORT PENDING FOR ADMIT. bp Vital Signs: 12:50 BP 140 / 70; Pulse 125; Resp 19; Temp 97.8; Pulse Ox 98% on BiPAP; Weight 58.97 kg; bp 13:00 BP 102 / 76; Pulse 145; Resp 31; Pulse Ox 94% ; bp 13:30 BP 109 / 75; Pulse 140; Resp 30; Pulse Ox 95% ; bp 14:00 BP 110 / 68; Pulse 85; Resp 25; Pulse Ox 94% ; bp 14:30 BP 114 / 64; Pulse 87; Resp 28; Pulse Ox 94% ; bp 15:30 BP 113 / 83; Pulse 88; Resp 23; Pulse Ox 95% ; bp ED Course: 12:49 Patient arrived in ED. bp 12:51 Triage completed. bp 12:53 Arm band placed on. bp 12:53 Patient has correct armband on for positive identification. Bed in low position. Call bp light in reach. Side rails up X2. 12:54 Mike Zayas PA is PHCP. jr8 12:54 Jeff Hanley MD is Attending Physician. jr8 12:55 Leonides Fuentes, CRISTINA is Primary Nurse. bp 13:05 Inserted saline lock: 22 gauge in left antecubital area, using aseptic technique. Blood bp collected. 13:07 EKG done, by ED staff, reviewed by Mike SANTANA. Missed attempt(s): 20 gauge in left em1 hand. Bleeding controlled, band aid applied, catheter tip intact. 13:22 Chest Single View XRAY In Process Unspecified. EDMS 14:51 Saran Keenan MD is Hospitalizing Provider. jr8 15:30 No provider procedures requiring assistance completed. Patient admitted, IV remains in bp place. Administered Medications: 13:15 Drug: SOLU-Medrol 125 mg Route: IVP; Site: left antecubital; bp 14:40 Follow up: Response: No adverse reaction bp 13:20 Drug: NS 0.9% (30 ml/kg) 30 ml/kg Route: IV; Rate: bolus; Site: left antecubital; bp 15:33 Follow up: IV Status: Completed infusion; IV Intake: 1800ml bp 13:20 Drug: Magnesium Sulfate 2 grams Route: IVPB; Infused Over: 2 hrs; Site: left bp antecubital; 15:31 Follow up: IV Status: Completed infusion; IV Intake: 50ml bp 13:20 Drug: Xopenex (3) 1.25 mg Route: Inhalation; bp 13:25 Drug: Metoprolol 5 mg Route: IVP; Site: left antecubital; bp 14:40 Follow up: Response: Marked relief of symptoms bp 13:30 Drug: Cefepime 1 grams Route: IVPB; Rate: 200 ml/hr; Infused Over: 30 mins; Site: left bp antecubital; 15:31 Follow up: IV Status: Completed infusion; IV Intake: 100ml bp 14:00 Drug: vancoMYCIN 1 grams Route: IVPB; Infused Over: 2 hrs; Site: left antecubital; bp 15:32 Follow up: IV Status: Completed infusion; IV Intake: 250ml bp 14:40 Drug: fentaNYL (PF) 25 mcg Route: IVP; Site: left antecubital; bp 15:31 Follow up: Response: Pain is decreased bp Intake: 15:31 IV: 100ml; Total: 100ml. bp 15:31 IV: 50ml; Total: 150ml. bp 15:32 IV: 250ml; Total: 400ml. bp 15:33 IV: 1800ml; Total: 2200ml. bp Outcome: 14:52 Decision to Hospitalize by Provider. jr8 15:29 Admitted to ICU accompanied by nurse, accompanied by melanie, via stretcher, room 6, with bp chart, Report called to EMILY EVANS 15:29 Condition: stable 15:29 Instructed on the need for admit. 15:47 Patient left the ED. jl7 Signatures: Dispatcher [employer] Winston Davis em1 Mike Zayas PA PA jr8 Judy Carlos RN RN jl7 Leonides Fuentes RN RN bp Corrections: (The following items were deleted from the chart) 12:57 12:50 Initial Sepsis Screen: Does the patient meet any 2 criteria? HR > 90 bpm. No. bp Patient's initial sepsis screen is negative. Does the patient have a suspected source of infection? Yes: Productive cough/pneumonia bp 12:59 12:50 BP 140 / 70; Pulse 125bpm; Resp 19bpm; Pulse Ox 98% BiPAP; Temp 97.8F; bp bp
--- NOTE | 2019-11-16 17:04 | EDPHYS ---
Physician Documentation [facility] Name: Idris San Age: 78 yrs Sex: Male : 1940 Arrival Date: 11/13/2019 Time: 12:49 Bed 2 Private MD: ED Physician Jeff Hanley HPI: 11/12 13:54 This 78 yrs old Male presents to ER via EMS with complaints of Shortness Of jr8 Breath. 13:54 The patient has shortness of breath at rest. Onset: The symptoms/episode began/occurred jr8 gradually, 24 hour(s) ago. Duration: The symptoms are continuous, and are steadily getting worse. The patient's shortness of breath is aggravated by talking, walking. Associated signs and symptoms: The patient has no apparent associated signs or symptoms. Severity of symptoms: At their worst the symptoms were moderate in the emergency department the symptoms are unchanged. It is unknown whether or not the patient has had similar symptoms in the past. The patient has not recently seen a physician. Historical: - Allergies: 12:58 Codeine; bp 12:58 Morphine; bp - PMHx: 12:58 Anemia; CHF; COPD; Emphysema; enlarged prostate; femur fracture; Lung Cancer; Pt bp reports that it cleared up; Pneumonia; Sleep Apnea; - Immunization history:: Adult Immunizations unknown. - Social history:: Smoking status: unknown. ROS: 13:54 Eyes: Negative for injury, pain, redness, and discharge, ENT: Negative for injury, jr8 pain, and discharge, Neck: Negative for injury, pain, and swelling, Cardiovascular: Negative for chest pain, palpitations, and edema, Abdomen/GI: Negative for abdominal pain, nausea, vomiting, diarrhea, and constipation, Back: Negative for injury and pain, MS/Extremity: Negative for injury and deformity, Skin: Negative for injury, rash, and discoloration, Neuro: Negative for headache, weakness, numbness, tingling, and seizure. 13:54 Respiratory: Positive for dyspnea on exertion, shortness of breath, wheezing. Exam: 13:54 Eyes: Pupils equal round and reactive to light, extra-ocular motions intact. Lids and jr8 lashes normal. Conjunctiva and sclera are non-icteric and not injected. Cornea within normal limits. Periorbital areas with no swelling, redness, or edema. ENT: Nares patent. No nasal discharge, no septal abnormalities noted. Tympanic membranes are normal and external auditory canals are clear. Oropharynx with no redness, swelling, or masses, exudates, or evidence of obstruction, uvula midline. Mucous membranes moist. Neck: Trachea midline, no thyromegaly or masses palpated, and no cervical lymphadenopathy. Supple, full range of motion without nuchal rigidity, or vertebral point tenderness. No Meningismus. Abdomen/GI: Soft, non-tender, with normal bowel sounds. No distension or tympany. No guarding or rebound. No evidence of tenderness throughout. Back: No spinal tenderness. No costovertebral tenderness. Full range of motion. Skin: Warm, dry with normal turgor. Normal color with no rashes, no lesions, and no evidence of cellulitis. MS/ Extremity: Pulses equal, no cyanosis. Neurovascular intact. Full, normal range of motion. Neuro: Awake and alert, GCS 15, oriented to person, place, time, and situation. Cranial nerves II-XII grossly intact. Motor strength 5/5 in all extremities. Sensory grossly intact. 13:54 Cardiovascular: Rate: tachycardic, Rhythm: irregular, Pulses: Pulses are 2+ in right radial artery and left radial artery. Heart sounds: normal, normal S1and S2, no S3 or S4, no murmur, no rub, no gallop, Edema: is not appreciated, JVD: is not appreciated. 13:54 ECG was reviewed by the Attending Physician. Vital Signs: 12:50 BP 140 / 70; Pulse 125; Resp 19; Temp 97.8; Pulse Ox 98% on BiPAP; Weight 58.97 kg; bp 13:00 BP 102 / 76; Pulse 145; Resp 31; Pulse Ox 94% ; bp 13:30 BP 109 / 75; Pulse 140; Resp 30; Pulse Ox 95% ; bp 14:00 BP 110 / 68; Pulse 85; Resp 25; Pulse Ox 94% ; bp 14:30 BP 114 / 64; Pulse 87; Resp 28; Pulse Ox 94% ; bp 15:30 BP 113 / 83; Pulse 88; Resp 23; Pulse Ox 95% ; bp MDM: 13:00 Patient medically screened. [facility] 13:54 Data reviewed: vital signs, nurses notes, lab test result(s), EKG, radiologic studies, [facility] CT scan, plain films. Data interpreted: Pulse oximetry: on Bipap is 98 %. Interpretation: acceptable. Counseling: I had a detailed discussion with the patient and/or guardian regarding: the historical points, exam findings, and any diagnostic results supporting the discharge/admit diagnosis, lab results, radiology results, the need for further work-up and treatment in the hospital. ED course: Spoke with of patient. Stated that he was taking his Bipap off all night. When he does this gets very behind and will become very hypoxic and hypercapnic. Stated that he is full code as well. 11/12 12:54 Order name: Basic Metabolic Panel; Complete Time: 13:51 11/12 12:54 Order name: Blood Culture Adult (2) 11/12 12:54 Order name: CBC with Diff 11/12 12:54 Order name: CPK; Complete Time: 13: [facility] 11/12 12:54 Order name: Lactate; Complete Time: 13: 11/12 12:54 Order name: LFT's; Complete Time: 13: 11/12 12:54 Order name: Lipase; Complete Time: 13: 11/12 12:54 Order name: Procalcitonin; Complete Time: 14:23 [facility] 11/12 12:54 Order name: Protime (+inr); Complete Time: 13:51 11/12 12:54 Order name: Ptt, Activated; Complete Time: 13: 11/12 12:54 Order name: Troponin (emerg Dept Use Only); Complete Time: 13:51 11/12 12:54 Order name: Urine Microscopic Only 11/12 12:54 Order name: BNP; Complete Time: 13:51 11/12 12:54 Order name: Magnesium; Complete Time: 13:51 11/12 12:54 Order name: Chest Single View XRAY; Complete Time: 13:51 11/12 12:54 Order name: Accucheck; Complete Time: 13:10 11/12 12:54 Order name: Cardiac monitoring; Complete Time: 12:55 [facility] 11/12 13:15 Order name: Glucose, Ancillary Testing; Complete Time: 13:20 EDMS 11/12 13:31 Order name: ABG Arterial Blood Gas [facility] 11/12 14:52 Order name: CONS Physician Consult [facility] 11/12 14:52 Order name: NPO [facility] 11/12 14:52 Order name: Sputum Culture [facility] 11/12 12:54 Order name: EKG - Nurse/Tech; Complete Time: 12:55 [facility] 11/12 12:54 Order name: IV Saline Lock - Large Bore; Complete Time: 13:11 [facility] 11/12 12:54 Order name: Labs collected and sent; Complete Time: 13:11 [facility] 11/12 12:54 Order name: O2 Per Protocol; Complete Time: 12:56 [facility] 11/12 12:54 Order name: O2 Sat Monitoring; Complete Time: 12:55 jr8 EC:54 Rate is 136 beats/min. Rhythm is irregular, Sinus tachycardia with PACs. Right axis jr8 deviation noted. MD interval is normal at 112 msec. QRS interval is normal at 70 msec. QT interval is prolonged at 472 msec. No Q waves. T waves are Inverted in leads V1, V2, V3, V4. No ST changes noted. Clinical impression: Sinus tachycardia. Interpreted by me. Reviewed by me. Administered Medications: 13:15 Drug: SOLU-Medrol 125 mg Route: IVP; Site: left antecubital; bp 14:40 Follow up: Response: No adverse reaction bp 13:20 Drug: NS 0.9% (30 ml/kg) 30 ml/kg Route: IV; Rate: bolus; Site: left antecubital; bp 15:33 Follow up: IV Status: Completed infusion; IV Intake: 1800ml bp 13:20 Drug: Magnesium Sulfate 2 grams Route: IVPB; Infused Over: 2 hrs; Site: left bp antecubital; 15:31 Follow up: IV Status: Completed infusion; IV Intake: 50ml bp 13:20 Drug: Xopenex (3) 1.25 mg Route: Inhalation; bp 13:25 Drug: Metoprolol 5 mg Route: IVP; Site: left antecubital; bp 14:40 Follow up: Response: Marked relief of symptoms bp 13:30 Drug: Cefepime 1 grams Route: IVPB; Rate: 200 ml/hr; Infused Over: 30 mins; Site: left bp antecubital; 15:31 Follow up: IV Status: Completed infusion; IV Intake: 100ml bp 14:00 Drug: vancoMYCIN 1 grams Route: IVPB; Infused Over: 2 hrs; Site: left antecubital; bp 15:32 Follow up: IV Status: Completed infusion; IV Intake: 250ml bp 14:40 Drug: fentaNYL (PF) 25 mcg Route: IVP; Site: left antecubital; bp 15:31 Follow up: Response: Pain is decreased bp Disposition: 11/13 07:45 Co-signature as Attending Physician, Jeff Hanley MD I agree with the assessment and pricilla plan of care. Disposition: 11/13/19 14:52 Hospitalization ordered by Saran Keenan for Inpatient Admission. Preliminary diagnosis are Acute respiratory failure, Severe sepsis, Chronic obstructive pulmonary disease with (acute) exacerbation. - Bed requested for Intensive Care Unit. - Status is Inpatient Admission. jl7 - Condition is Fair. - Problem is new. - Symptoms have improved. Signatures: Dispatcher [employer] EDMS Karrie Palacios Corey, MD MD cha Roszak, Josh, PA PA jr8 Judy Carlos RN RN jl7 Leonides Fuentes RN RN bp Corrections: (The following items were deleted from the chart) 11/12 15:18 14:52 Hospitalization Ordered by Saran Keenan MD for Inpatient Admission. Preliminary bd diagnosis is Acute respiratory failure; Severe sepsis; Chronic obstructive pulmonary disease with (acute) exacerbation. Bed requested for Intensive Care Unit. Status is Inpatient Admission. Condition is Fair. Problem is new. Symptoms have improved. jr8 15:47 15:18 11/13/2019 14:52 Hospitalization Ordered by Saran Keenan MD for Inpatient jl7 Admission. Preliminary diagnosis is Acute respiratory failure; Severe sepsis; Chronic obstructive pulmonary disease with (acute) exacerbation. Bed requested for Intensive Care Unit. Status is Inpatient Admission. Condition is Fair. Problem is new. Symptoms have improved. bd
--- NOTE | 2019-11-18 16:32 | EKG ---
Test Date: 2019-11-13 Test Time: 14:20:55 Head Chopper: WILLIAM MEASUREMENT RESULTS: Intervals: Rate: 87 ME: 114 QRSD: 84 QT: 358 QTc: 430 [place]: P: 71 ME: 114 QRS: 258 T: 65 INTERPRETIVE STATEMENTS: Sinus rhythm with premature supraventricular complexes Right superior axis deviation Pulmonary disease pattern Right ventricular hypertrophy with repolarization abnormality Nonspecific T wave abnormality Abnormal ECG Compared to ECG 11/13/2019 13:00:39 Early repolarization now present T-wave abnormality now present Sinus tachycardia no longer present Electronically Signed On 11-18-19 16:27:52 CDT by Pepe España
== END 2019-11-16 13:59 | disposition hospice, home (50) | DRG 871 ==
LOC: ER 12:48 → 3RD-ICU 14:41 → 2ND 11-14 17:40
PROVIDERS: ADMIT Family Medicine; ATTEND Family Medicine
DX: A41.9 Sepsis, unspecified organism (principal); J96.22 Acute and chronic respiratory failure with hypercapnia; J18.9 Pneumonia, unspecified organism; J44.1 Chronic obstructive pulmonary disease with (acute) exacerbation; J44.0 Chronic obstructive pulmonary disease with (acute) lower respiratory infection; I50.42 Chronic combined systolic (congestive) and diastolic (congestive) heart failure; C34.91 Malignant neoplasm of unspecified part of right bronchus or lung; C78.7 Secondary malignant neoplasm of liver and intrahepatic bile duct; C79.31 Secondary malignant neoplasm of brain; C79.51 Secondary malignant neoplasm of bone; J44.9 Chronic obstructive pulmonary disease, unspecified; Z85.118 Personal history of other malignant neoplasm of bronchus and lung; Z88.5 Allergy status to narcotic agent; Z79.82 Long term (current) use of aspirin; Z79.899 Other long term (current) drug therapy; Z79.52 Long term (current) use of systemic steroids; Z92.3 Personal history of irradiation; Z90.49 Acquired absence of other specified parts of digestive tract; Z87.891 Personal history of nicotine dependence; R73.9 Hyperglycemia, unspecified; R91.8 Other nonspecific abnormal finding of lung field; Z20.828 Contact with and (suspected) exposure to other viral communicable diseases; Z66 Do not resuscitate
CPT/HCPCS: 36415; 70450; 71045; 71260; 80048; 80053; 80076; 81003; 81015; 82550; 82805; 82947; 83605; 83690; 83735; 83880; 84145; 84484; 85025; 85610; 85730; 87040; 87086; 87088; 93005; 94640; 94660; 94760; 96365; 96367; 96368; 96375; 99285; J1650; J2543; J2930; J3010; J3370; J3475; J7030; J8540; Q9967

== ENCOUNTER 2019-11-17 22:48 | Inpatient (IN) | payer OTHER ==
--- OUTSIDE RECORDS SUMMARY | 2019-11-17 22:51 | XMS REPORT | Continuity of Care Document ---
:1940 Author Organization [facility] t Address Formerly [facility] [place] [address] Care Team Providers Name Role Phone Asked, Pcp Primary Care Physician Unavailable Lavell SORIA Attending Clinician Stalin Valentine MD Attending Clinician Gillian Huber MD Attending Clinician Payers Payer Name Policy Policy Number Effective Expiration Source Type Date Date TRICARETRICARE FOR xxxxxxxxx 2018 [place] 00:00:00 Christian SUPPLEMENTxxxxxxxxx-[facility] MEDICAREMEDICARE PART xxxxxxxxxxx 2006 [facility] AND 00:00:00 [place] Bxxxxxxxxxxx2006[place] Problems Condition Condition Condition Status Onset Resolution Last Treating Co mments Source Name Details Category Date Date Treatment Clinician Date Pseudophak Pseudophak Disease Active Last [place] 6-24 Assessmen Methodi 00:00: t & Plan: st 00 PCIOL OU, monofocal . Done in [place] years ago. Advanced Advanced Disease Active Last [...] care. At low At low Disease Active [facility] risk for risk for 6-24 [...] some day smoker 2018-12-31 00:00:00 [place] Medications Ordered Filled Start Stop Current Ordering [...] beny mg tablet 14:26: st 40 montelukast 2018-0 Yes 10mg Take 10 mg [place] (SINGULAIR) 6-24 by mouth. Met hodi 10 mg 14:26: st tablet 40 predniSONE 2018-0 Yes 10mg Take 10 mg [place] (DELTASONE) 5-31 by mouth. Met hodi 10 mg 00:00: st tablet 00 budesonide- 2018-0 Yes 2{puff} Inhale 2 [place] formoterol 4-11 puffs. Methodi (SYMBICORT) 00:00: st 160-4.5 00 mcg/actuati on inhaler ipratropium 0 Yes .5mg Inhale 0.5 [place] (ATROVENT) 3-11 mg. Methodi 0.02 % 00:00: st nebulizer 00 solution fluticasone 0 Yes 1{puff} Inhale 1 [place] propion-stiven 3-11 puff. Methodi meterol 00:00: st (ADVAIR 00 DISKUS) 250-50 mcg/dose DISKUS ipratropium 0 Yes 2{spray 2 sprays [place] (ATROVENT) 2-08 } into each Meth beny [...] - 00:00: or milk [facility]oria 00 l [facility] Montelukast Montelukast 0 Yes [place] [address] [facility] [address] Sodium Sodium 5-24 [facility] in the [facility] - 00:[facility]: evening [facility] 00 [facility] Spiriva Spiriva Yes [place] [address] HandiHaler HandiHaler Gray [facility] kes - [facility] PredniSONE PredniSONE Yes [place] [address] [facility] ProAir ProAir Yes Te[place] [address] [facility] RespiClick RespiClick Gray needed [facility] Ipratropium Ipratropium Yes Te[place] [address] [facility] [address] [facility] Gray in each [facility] - nostril [facility] Vitamin D3 Vitamin D3 Yes [place] [address] [facility] Advair Advair Yes [place] [address] [facility] [address] Diskus Diskus Gray [facility] Furosemide Furosemide Yes [place] [address] [facility] Flutter Flutter Yes Teodora as [facility] directed [facility] Aspir-81 Aspir-81 Yes [place] [address] [facility] Clonazepam Clonazepam Yes [place] [address] [facility] at bedtime [facility] Albuterol Albuterol Yes [place] [address] [facility] Sulfate Sulfate Gray needed [facility] Procedures This patient has no known procedures. Plan of Care Planned Activity Planned Date Details Comments Source Future Scheduled 2020-01-16 INFLUENZA VACCINE [place] Test 00:00:00 [code = INFLUENZA VACCINE] Future Scheduled 1991-11-14 SHINGLES VACCINES [place] Test 00:00:00 (#1) [code = SHINGLES VACCINES (#1)] Encounters Start End Encounter Admission Attending Care Care Encounter Source Date/Time Date/Time Type Type Clinicians Facility Department ID 2019-11-10 2019-11-10 Telephone [facility] [id number] 00:00:00 00:00:00 Steffen Arroyo [id number] Susan [id number] Delmi [id number] [address] 2019-11-06 2019-11-06 Telephone [facility] [id number] 00:00:00 00:00:00 Steffen Arroyo [id number] [place] [id number] Professio [id number] nal [address] [place] [address] 2019-11-05 2019-11-05 KARY [facility] [id number] 00:00:00 00:00:00 Steffen Arroyo [id number] [place] [id number] Professio [id number] [address] 2019-04-02 2019-04-02 [facility] [id number] [facility] [address] 10:20:00 10:20:00 [facility] 2017-11-26 2017-11-26 [facility] [id number] [facility] [address] 16:19:00 16:19:00 [facility] 2017-11-25 2017-11-25 [facility] [id number] 10:30:00 10:30:00 [facility] Outpati ent Clinics 2017-11-07 2017-11-07 [facility] [id number] 16:46:00 16:46:00 [facility] Clin[facility] 2017-10-31 2017-10-31 [facility] [id number] 13:09:00 13:09:00 [facility] Out[facility] Clin[facility] 2017-10-23 2017-10-23 [facility] [id number] 14:30:00 14:30:00 [facility] Out[facility] Clin[facility] Results Test Description Test Time Test Comments Results Result Comments Source SARS-COV2/RT-PCR ([facility]) 2019-10-11 11:53:00 Test Item Value Reference Range Interpretation Comme nts SARS-COV2/RT-PCR (test code = [id number]) Not Detected Not Detected, N egative SARS-COV-2 PERFORMING LAB (test code = [facility] [id number]) Negative results do not preclude SARS-CoV-2 infection [...] of the Act.Fact Sheet for Healthcare Pro viders:https://www.[employer]/Documents/Xpert%20Xpress%20SARS%20CoV-2/Fact%20Sh eets/3023802%67JJDN-ONB-2%20HEALTHCARE%20PROVIDERS%20FACT%20SHEET.pdfFact Sheet for Healthcare Patients:https://www.[employer]/Documents/Xpert%20Xpress%20SARS%20CoV-2/Fact%20Sheets/302-3801%20SARS-COV -2%20PATIENT%20FACT%20SHEET.pdfPerforming Laboratory:[facility] [place] [address]
--- OUTSIDE RECORDS SUMMARY | 2019-11-17 22:51 | XMS REPORT | Clinical Summary ---
:1940 Author Organization [facility] Address [address] [place] [address] Care Team Providers Name Role Phone Unavailable Primary Care Provider Unavailable Allergies Not on File Medications Not on file Active Problems Not on file Encounters Date Type Specialty Care Team Description 10/11/2019 Lab Requisition Lab 06/22/2019 Telephone Transplant Noam Artis RN Lung Tr ansplant Pre-evaluation after 11/16/2018 Social History Tobacco Use Types Packs/Day Years [...] procedure are in the results section. after 11/16/2018 Results SARS-CoV2/RT-PCR ([facility]) (10/11/2019 1:25 AM CDT) SARS-COV2/RT-PCR Not Detected Not Detected, Negative [facility] SARS-COV-2 PERFORMING LAB [facility] Specimen Other Narrative Performed At Negative results do not preclude SARS-CoV-2 [facility] infection and should not be used as [...] the Act. Fact Sheet for Healthcare Providers: https://www.[employer]/Documents/Xpert%20Xpre ss%20SARS%20CoV-2/Fact%20Sheets/3023802%20SAR S-COV-2%20HEALTHCARE%20PROVIDERS%20FACT%20SHEE T.pdf Fact Sheet for Healthcare Patients: https://www.[employer]/Documents/Xpert%20Xpre ss%20SARS%20CoV-2/Fact%20Sheets/3023801%20SAR S-COV-2%20PATIENT%20FACT%20SHEET.pdf Performing Laboratory: [address] [place] [address] Performing Organization Address City/State/Zipcode Phone Number [address] [address] CENTER after 11/16/2018 Insurance Payer Benefit Plan / Group Subscriber ID Type Phone A ddress MEDICARE MEDICARE A B xxxxxxxxxxx Medicare FOR LIFE xxxxxxxxx Other Govt (, [place], [facility], etc.)
--- OUTSIDE RECORDS SUMMARY | 2019-11-17 22:51 | XMS REPORT | Clinical Summary ---
:1940 Author Organization [facility] Address [address] [place] [address] Care Team Providers Name Role Phone Asked, [...] & Plan: PCIOL OU, monofocal. Done in [facility] ars ago. 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
[2019-11-17] MEDS ORDERED: LEVALBUTEROL 1.25 MG/3 ML NEB ONE (23:30)
[2019-11-17 23:32] LABS: Absolute Lymphocytes (CBC) 0.4 K/uL (0.7-4.9); Basophils % 0.5 % (0-1.3); Hematocrit 42.4 % (39.6-49.0); Lymphocytes % 3.1 % (15.3-44.8); RBC Red Blood Cell Count 4.75 M/uL (4.33-5.43)
[2019-11-17 23:36] LABS: Protime INR 0.96
--- NOTE | 2019-11-17 23:44 | ER ---
Nurse's Notes [facility] Name: Idris San Age: 79 yrs Sex: Male : 1940 Arrival Date: 11/17/2019 Time: 22:54 Bed 19 Private MD: Diagnosis: Dyspnea-lung cancer;Chronic obstructive pulmonary disease with (acute) exacerbation;Weakness;Hypoxemia;Respiratory failure, unspecified with hypercapnia;Acidosis-respiratory;Pneumonia, unspecified organism;Elevated white blood cell count;Bandemia Presentation: 11/16 22:55 Chief complaint: EMS states: We were called due to respiratory distress. Pt sating 85% jb4 on home Bi-pap machine. Given Albuterol and Atrovent 1:1 and his sats came up to 95%. Coronavirus screen: Proceed with normal triage. Ebola Screen: No symptoms or risks identified at this time. Initial Sepsis Screen: Does the patient meet any 2 criteria? RR > 20 per min. HR > 90 bpm. Yes Does the patient have a suspected source of infection? Yes: Productive cough/pneumonia. Risk Assessment: Do you want to hurt yourself or someone else? Patient reports no desire to harm self or others. Onset of symptoms was November 17, 2019. Transition of care: patient was not received from another setting of care. 22:55 Method Of Arrival: EMS: [facility] jb4 23:13 Acuity: LISBETH 1 jb4 Triage Assessment: 22:55 General: Appears distressed, uncomfortable, Behavior is calm, cooperative. Respiratory: jb4 Onset: The symptoms/episode began/occurred. Respiratory: Reports shortness of breath at rest labored breathing the patient has severe shortness of breath. Historical: - Allergies: 22:55 Codeine; jb4 22:55 Morphine; jb4 - Home Meds: 22:55 cyanocobalamin (vitamin B-12) 1,000 mcg Oral tab 2 tabs daily [Active]; Flovent Inhl jb4 110 mcg as needed [Active]; hydrocodone-acetaminophen 5-325 mg Oral tab every 6 hours for Pain [Active]; ibuprofen 800 mg Oral tab 1 tab 3 times per day for Chronic pain [Active]; meloxicam 7.5 mg Oral tab 1 tab once daily for Pain [Active]; Stool Softener 50 mg Oral cap 1 cap once daily [Active]; tizanidine 2 mg Oral tab 1 tabs every 8 hours for Muscle Spasm [Active]; tramadol 50 mg Oral tab 1 1-2 tabs every 6-8 hrs PRN [Active]; - PMHx: 22:55 femur fracture; enlarged prostate; Emphysema; Lung Cancer; Pt reports that it cleared jb4 up; COPD; Pneumonia; Sleep Apnea; Anemia; CHF; - Immunization history:: Adult Immunizations up to date. - Social history:: Smoking status: Patient/guardian denies using tobacco, Patient/guardian denies using alcohol, street drugs. Screenin:55 Abuse screen: Denies threats or abuse. Nutritional screening: No deficits noted. jb4 Tuberculosis screening: No symptoms or risk factors identified. Fall Risk Secondary diagnosis (15 points) impaired mobility, IV access (20 points). Gait- Weak (10 pts.). Assessment: 22:55 General: Appears distressed, uncomfortable, Behavior is calm, cooperative, appropriate jb4 for age. Pain: Denies pain. Neuro: Level of Consciousness is awake, alert, obeys commands, Oriented to person, place, time, situation. Cardiovascular: Patient's skin is warm and dry. Rhythm is sinus tachycardia. Respiratory: Airway is patent Respiratory effort is even, labored, Respiratory pattern is symmetrical, tachypnea Breath sounds with crackles bilaterally. Breath sounds with wheezes bilaterally. GI: No signs and/or symptoms were reported involving the gastrointestinal system. : No signs and/or symptoms were reported regarding the genitourinary system. EENT: No signs and/or symptoms were reported regarding the EENT system. Derm: Skin has lesions on Wound to the bridge of the nose due to chronic bipap use Skin is pink, warm \T\ dry. Musculoskeletal: Circulation, motion, and sensation intact. Range of motion: intact in all extremities. 23:45 Reassessment: Pt's heart rate increased to 160 provider notifed, see MAR for orders. jb4 11/17 00:00 Reassessment: Patient appears in no apparent distress at this time. Patient and/or jb4 family updated on plan of care and expected duration. Pain level reassessed. Patient is alert, oriented x 3, equal unlabored respirations, skin warm/dry/pink. 01:00 Reassessment: Patient appears in no apparent distress at this time. Patient and/or jb4 family updated on plan of care and expected duration. Pain level reassessed. Patient is alert, oriented x 3, equal unlabored respirations, skin warm/dry/pink. Pt is resting in bed, denies pain. Appears to be at ease. 01:48 Reassessment: Patient appears in no apparent distress at this time. Patient and/or jb4 family updated on plan of care and expected duration. Pain level reassessed. Patient is alert, oriented x 3, equal unlabored respirations, skin warm/dry/pink. Respiratory: Airway is patent Respiratory effort is even, unlabored, Respiratory pattern is regular, symmetrical, Breath sounds with crackles bilaterally. Breath sounds with wheezes bilaterally. wheezes remain present LISSA but are demished. Vital Signs: 11/16 22:55 BP 130 / 76; Pulse 111; Resp 31; Temp 98.6(TE); Pulse Ox 96% on Nebulizer Mask; Weight 4 58.97 kg (R); Height 5 ft. (152.40 cm) (R); 11/17 01:00 BP 112 / 64; Pulse 89; Resp 21; Temp 97.8(TE); Pulse Ox 97% on BiPAP; Pain 0/10; jb4 11/16 22:55 Body Mass Index 25.39 (58.97 kg, 152.40 cm) [facility] ED Course: 11/16 22:54 Patient arrived in ED. cf2 22:55 Jose Martin Ac, RN is Primary Nurse. jb4 22:55 Arm band placed on right wrist. jb4 22:55 Patient has correct armband on for positive identification. Bed in low position. Call [facility] light in reach. Side rails up X 1. classroom monitor on. Pulse ox on. NIBP on. 23:10 Inserted saline lock: 20 gauge in left forearm, using aseptic technique. Blood jp3 collected. 23:10 Initial lab(s) drawn, by wi, sent to lab. First set of blood cultures drawn by me. jp3 23:13 Triage completed. jb4 23:13 Jeff Hanley MD is Attending Physician. pricilla 23:15 Second set of blood cultures drawn by lab staff. jp3 23:42 Katarzyna Montemayor MD is Hospitalizing Provider. pricilla 11/17 01:23 Notified ED physician of a critical lab result(s). HCO3 41. wh 01:23 No provider procedures requiring assistance completed. Patient admitted, IV remains in jb4 place. Administered Medications: 11/16 23:25 Drug: Xopenex 2.5 mg Route: Inhalation; jb4 11/17 00:00 Follow up: Response: No adverse reaction; Marked relief of symptoms; Wheezing diminishedjb4 00:12 Drug: NS 0.9% 1000 ml Route: IV; Rate: 125 ml/hr; Site: left forearm; jb4 01:36 Follow up: IV Status: Infusion continued upon admission jb4 00:15 Drug: SOLU-Medrol 125 mg Route: IVP; Site: left forearm; jb4 00:45 Follow up: Response: No adverse reaction jb4 00:17 Drug: Pepcid 20 mg Route: IVP; Site: left forearm; jb4 00:45 Follow up: Response: No adverse reaction jb4 00:18 Drug: Lopressor 2.5 mg Route: IVP; Site: left forearm; jb4 00:40 Follow up: Response: No adverse reaction; Marked relief of symptoms jb4 00:24 Drug: Digoxin 0.5 mg Route: IVP; Site: left forearm; jb4 00:40 Follow up: Response: No adverse reaction; Marked relief of symptoms jb4 00:29 Drug: levofloxacin 500 mg Volume: 100 ml; Route: IVPB; Infused Over: 60 mins; Site: jb4 left forearm; 01:29 Follow up: Response: No adverse reaction; IV Status: Completed infusion jb4 Outcome: 11/16 23:44 Decision to Hospitalize by Provider. [facility] 11/17 01:57 Admitted to Med/surg accompanied by [facility], via stretcher, room 206, with oxygen, with jb4 chart, Report called to CRISTINA Garcia Condition: stable Discharge instructions given to patient, Instructed on the need for admit, Demonstrated understanding of instructions. 01:58 Patient left the ED. jb4 Signatures: Jeff Hanley MD MD cha Bryson, James RN RN jb4 Lilia Steele Jacob jp3 Jairo Falcon cf2 Corrections: (The following items were deleted from the chart) 11/16 23:57 23:56 Inserted maira jp3 11/17 17:17 01:48 Respiratory: Airway is patent Respiratory effort is even, unlabored, Respiratory jb4 pattern is regular, symmetrical, Breath sounds are clear in right upper lobe, left upper lobe, left lower lobe, left posterior upper lobe, right posterior upper lobe and left posterior lower lobe Breath sounds with crackles in right middle lobe, right lower lobe, right posterior middle lobe and right posterior lower lobe jb4
--- NOTE | 2019-11-17 23:44 | EDPHYS ---
Physician Documentation [facility] Name: Idris San Age: 79 yrs Sex: Male : 1940 Arrival Date: 11/17/2019 Time: 22:54 Bed 19 Private MD: ED Physician Jeff Hanley HPI: 11/16 23:31 This 79 yrs old Male presents to ER via EMS with complaints of Shortness Of pricilla Breath. 23:31 The patient has shortness of breath at rest, with light activity. Onset: The pricilla symptoms/episode began/occurred 3 day(s) ago. Duration: The symptoms are continuous, and are steadily getting worse. The patient's shortness of breath is aggravated by nothing, is alleviated by nebulizer treatment, pursed lip breathing, sitting up, application of supplemental oxygen. Associated signs and symptoms: Pertinent positives: non-productive cough. Severity of symptoms: At their worst the symptoms were moderate in the emergency department the symptoms are unchanged. The patient has experienced similar episodes in the past, multiple times. Historical: - Allergies: 22:55 Codeine; jb4 22:55 Morphine; jb4 - Home Meds: 22:55 cyanocobalamin (vitamin B-12) 1,000 mcg Oral tab 2 tabs daily [Active]; Flovent Inhl jb4 110 mcg as needed [Active]; hydrocodone-acetaminophen 5-325 mg Oral tab every 6 hours for Pain [Active]; ibuprofen 800 mg Oral tab 1 tab 3 times per day for Chronic pain [Active]; meloxicam 7.5 mg Oral tab 1 tab once daily for Pain [Active]; Stool Softener 50 mg Oral cap 1 cap once daily [Active]; tizanidine 2 mg Oral tab 1 tabs every 8 hours for Muscle Spasm [Active]; tramadol 50 mg Oral tab 1 1-2 tabs every 6-8 hrs PRN [Active]; - PMHx: 22:55 femur fracture; enlarged prostate; Emphysema; Lung Cancer; Pt reports that it cleared jb4 up; COPD; Pneumonia; Sleep Apnea; Anemia; CHF; - Immunization history:: Adult Immunizations up to date. - Social history:: Smoking status: Patient/guardian denies using tobacco, Patient/guardian denies using alcohol, street drugs. ROS: 23:35 Constitutional: Negative for fever, chills, and weight loss, Eyes: Negative for injury, pricilla pain, redness, and discharge, ENT: Negative for injury, pain, and discharge, Neck: Negative for injury, pain, and swelling, Cardiovascular: Negative for chest pain, palpitations, and edema, Abdomen/GI: Negative for abdominal pain, nausea, vomiting, diarrhea, and constipation, Back: Negative for injury and pain, : Negative for injury, bleeding, discharge, and swelling, MS/Extremity: Negative for injury and deformity, Skin: Negative for injury, rash, and discoloration, Neuro: Negative for headache, weakness, numbness, tingling, and seizure, Psych: Negative for depression, anxiety, suicide ideation, homicidal ideation, and hallucinations, Allergy/Immunology: Negative for hives, rash, and allergies, Endocrine: Negative for neck swelling, polydipsia, polyuria, polyphagia, and marked weight changes, Hematologic/Lymphatic: Negative for swollen nodes, abnormal bleeding, and unusual bruising. 23:35 Respiratory: Positive for cough, with no reported sputum, shortness of breath, wheezing, inspiratory, expiratory. Exam: 23:35 Constitutional: This is a well developed, well nourished patient who is awake, alert, pricilla and in no acute distress. Head/Face: Normocephalic, atraumatic. Eyes: Pupils equal round and reactive to light, extra-ocular motions intact. Lids and lashes normal. Conjunctiva and sclera are non-icteric and not injected. Cornea within normal limits. Periorbital areas with no swelling, redness, or edema. ENT: Nares patent. No nasal discharge, no septal abnormalities noted. Tympanic membranes are normal and external auditory canals are clear. Oropharynx with no redness, swelling, or masses, exudates, or evidence of obstruction, uvula midline. Mucous membranes moist. Neck: Trachea midline, no thyromegaly or masses palpated, and no cervical lymphadenopathy. Supple, full range of motion without nuchal rigidity, or vertebral point tenderness. No Meningismus. Chest/axilla: Normal chest wall appearance and motion. Nontender with no deformity. No lesions are appreciated. Abdomen/GI: Soft, non-tender, with normal bowel sounds. No distension or tympany. No guarding or rebound. No evidence of tenderness throughout. Back: No spinal tenderness. No costovertebral tenderness. Full range of motion. Male : Normal genitalia with no discharge or lesions. Skin: Warm, dry with normal turgor. Normal color with no rashes, no lesions, and no evidence of cellulitis. MS/ Extremity: Pulses equal, no cyanosis. Neurovascular intact. Full, normal range of motion. Neuro: Awake and alert, GCS 15, oriented to person, place, time, and situation. Cranial nerves II-XII grossly intact. Motor strength 5/5 in all extremities. Sensory grossly intact. Cerebellar exam normal. Normal gait. Psych: Awake, alert, with orientation to person, place and time. Behavior, mood, and affect are within normal limits. 23:35 Cardiovascular: Rate: tachycardic, Rhythm: regular, Pulses: Pulses are 4+ in bilateral radial, brachial, femoral, popliteal, posterior tibial and and dorsalis pedis arteries.. Heart sounds: normal, Edema: is not appreciated, JVD: is not appreciated. 23:35 Musculoskeletal/extremity: DVT Exam: No signs of deep vein thrombosis. no pain, no swelling, no tenderness, negative Homans' sign noted on exam, no appreciated bluish discoloration, no erythema, no increased warmth. 23:58 Constitutional: The patient appears in obvious distress, mildly distressed. [facility] 23:58 ECG was reviewed by the Attending Physician. [facility] 23:58 ECG was reviewed by the Attending Physician. Vital Signs: 22:55 BP 130 / 76; Pulse 111; Resp 31; Temp 98.6(TE); Pulse Ox 96% on Nebulizer Mask; Weight jb4 58.97 kg (R); Height 5 ft. (152.40 cm) (R); 11/17 01:00 BP 112 / 64; Pulse 89; Resp 21; Temp 97.8(TE); Pulse Ox 97% on BiPAP; Pain 0/10; jb4 / 22:55 Body Mass Index 25.39 (58.97 kg, 152.40 cm) jb4 MDM: 06 23:14 Patient medically screened. pricilla 23:36 Differential diagnosis: asthma, Bronchitis Chronic Obstructive Pulmonary Disease pricilla pneumonia, pulmonary edema, Pulmonary Embolism reactive airway disease, Sepsis. Antibiotic administration: Levaquin given. The patient's Wells Deep Vein Thrombosis Score was calculated as follows: Heart Rate >100 BPM (1.5 Pts) Total Score: 0-2 Pts- Low Risk. Differential Diagnosis: Bronchitis Influenza Upper Respiratory Infection Asthma Exacerbation Pneumonia. The patient's pulmonary embolism risk score was calculated as follows: the patients heart rate is greater than 100 beats per minute (1.5 Pts) Total Score: 0-2 points. This patient was found to be at low risk for a pulmonary embolism by using the Well's assessment criteria. Immunization status: Pneumococcal vaccine: Influenza vaccine: Data reviewed: vital signs, nurses notes, lab test result(s), EKG, radiologic studies, plain films. Data interpreted: surveillance system monitor: rate is 111 beats/min, rhythm is normal sinus rhythm. Test interpretation: by ED physician or midlevel provider: ECG, plain radiologic studies. Counseling: I had a detailed discussion with the patient and/or guardian regarding: the historical points, exam findings, and any diagnostic results supporting the discharge/admit diagnosis, lab results, radiology results, the need for further work-up and treatment in the hospital. Medication response: nebs, steroids, bipap, much improves. ED course: improved to dr puentes tele full, consult dr tam in the am. 23:48 ED course: 7.33/80/58/41.3, felicia puentes, agrees with plan. [facility] 11/16 23:00 Order name: Amylase, Serum [facility] 11/16 23:00 Order name: Basic Metabolic Panel [facility] 11/16 23:00 Order name: Blood Culture Adult (2) [facility] 11/16 23:00 Order name: CBC with Diff; Complete Time: 01:25 [facility] 11/16 23:00 Order name: Ckmb [facility] 11/16 23:00 Order name: CPK [facility] 11/16 23:00 Order name: Lactate; Complete Time: 23:56 [facility] 11/16 23:00 Order name: LFT's [facility] 11/16 23:00 Order name: Lipase [facility] 11/16 23:00 Order name: Procalcitonin; Complete Time: 01:25 [facility] 11/16 23:00 Order name: Protime (+inr); Complete Time: 23:56 [facility] 11/16 23:00 Order name: Ptt, Activated; Complete Time: 23:56 [facility] 11/16 23:00 Order name: Troponin (emerg Dept Use Only) [facility] 11/16 23:00 Order name: Urine Microscopic Only [facility] 11/16 23:00 Order name: Chest Single View XRAY [facility] 11/16 23:01 Order name: Amylase [facility] 11/16 23:01 Order name: Basic Metabolic Panel [facility] 11/16 23:30 Order name: ABG; Complete Time: 23:56 [facility] 11/16 23:36 Order name: Manual Differential; Complete Time: 01:25 [facility] 11/16 23:57 Order name: Thyroid Stimulating Hormone [facility] 11/17 00:04 Order name: CBC with Automated Diff [facility] 11/17 00:04 Order name: CBC with Automated Diff [facility] 11/17 00:04 Order name: Comprehensive Metabolic Panel [facility] 11/17 00:04 Order name: Comprehensive Metabolic Panel [facility] 11/17 00:04 Order name: Protime (+INR) [facility] 11/17 00:05 Order name: Protime (+INR) [facility] 11/17 00:05 Order name: PTT, Activated Partial Thromb [facility] 11/17 00:05 Order name: PTT, Activated Partial Thromb [facility] 11/17 01:26 Order name: BNP [facility] 11/16 23:00 Order name: Accucheck; Complete Time: 01:36 [facility] 11/16 23:00 Order name: Cardiac monitoring; Complete Time: 23:13 [facility] 11/16 23:00 Order name: EKG - Nurse/Tech; Complete Time: 23:13 [facility] 11/16 23:00 Order name: IV Saline Lock - Large Bore; Complete Time: 23:13 [facility] 11/16 23:00 Order name: Labs collected and sent; Complete Time: 01:36 [facility] 11/16 23:00 Order name: O2 Per Protocol; Complete Time: 23:13 [facility] 11/16 23:00 Order name: O2 Sat Monitoring; Complete Time: 23:13 [facility] 11/16 23:30 Order name: BIPAP [facility] 11/16 23:48 Order name: EKG; Complete Time: 23:48 [facility] 11/16 23:48 Order name: EKG - Nurse/Tech; Complete Time: 23:55 [facility] 11/17 00:04 Order name: CONS Pharmacy Consult [facility] 11/17 00:04 Order name: CONS Physician Consult [facility] 11/17 00:04 Order name: Heart Healthy [facility] EC:58 Rate is 107 beats/min. Rhythm is regular. QRS [place] is Normal. CO interval is normal. pricilla QRS interval is normal. QT interval is normal. No Q waves. T waves are Normal. No ST changes noted. Clinical impression: NSR w/ Non-specific ST/T Changes and Sinus tachycardia. Interpreted by me. Reviewed by me. 23:58 Rate is 113 beats/min. Rhythm is regular. QRS [place] is Normal. CO interval is normal. pricilla QRS interval is normal. QT interval is normal. No Q waves. T waves are Normal. No ST changes noted. Clinical impression: Sinus tachycardia and No evidence of ischemia. Interpreted by me. Reviewed by me. Administered Medications: 23:25 Drug: Xopenex 2.5 mg Route: Inhalation; jb4 11/17 00:00 Follow up: Response: No adverse reaction; Marked relief of symptoms; Wheezing diminishedjb4 00:12 Drug: NS 0.9% 1000 ml Route: IV; Rate: 125 ml/hr; Site: left forearm; jb4 01:36 Follow up: IV Status: Infusion continued upon admission jb4 00:15 Drug: SOLU-Medrol 125 mg Route: IVP; Site: left forearm; jb4 00:45 Follow up: Response: No adverse reaction jb4 00:17 Drug: Pepcid 20 mg Route: IVP; Site: left forearm; jb4 00:45 Follow up: Response: No adverse reaction jb4 00:18 Drug: Lopressor 2.5 mg Route: IVP; Site: left forearm; jb4 00:40 Follow up: Response: No adverse reaction; Marked relief of symptoms jb4 00:24 Drug: Digoxin 0.5 mg Route: IVP; Site: left forearm; jb4 00:40 Follow up: Response: No adverse reaction; Marked relief of symptoms jb4 00:29 Drug: levofloxacin 500 mg Volume: 100 ml; Route: IVPB; Infused Over: 60 mins; Site: [facility] left forearm; 01:29 Follow up: Response: No adverse reaction; IV Status: Completed infusion jb4 Disposition: 11/17/19 23:44 Hospitalization ordered by Katarzyna Puentes for Inpatient Admission. Preliminary diagnosis are Dyspnea - lung cancer, Chronic obstructive pulmonary disease with (acute) exacerbation, Weakness, Hypoxemia, Respiratory failure, unspecified with hypercapnia, Acidosis - respiratory, Pneumonia, unspecified organism, Elevated white blood cell count, Bandemia. - Bed requested for Telemetry/MedSurg (Inpatient). - Status is Inpatient Admission. jb4 - Condition is Stable. - Problem is new. - Symptoms have improved. Signatures: Dispatcher [employer] [facility] Jeff Hanley MD MD cha Lasagna, Tonya, RN RN tl1 Jose Martin Ac RN RN jb4 Corrections: (The following items were deleted from the chart) 11/16 23:47 23:44 Hospitalization Ordered by Katarzyna Puentes MD for Inpatient Admission. Preliminary [facility] diagnosis is Dyspnea; Chronic obstructive pulmonary disease with (acute) exacerbation; Weakness. Bed requested for Telemetry/MedSurg (Inpatient). Status is Inpatient Admission. Condition is Stable. Problem is new. Symptoms have improved. [facility] 23:56 23:48 THYROID STIMULAT HORMONE+C.LAB.BRZ ordered. [facility] 23:57 23:47 11/17/2019 23:44 Hospitalization Ordered by Katarzyna Puentes MD for Inpatient pricilla Admission. Preliminary diagnosis is Dyspnea; Chronic obstructive pulmonary disease with (acute) exacerbation; Weakness; Hypoxemia; Respiratory failure, unspecified with hypercapnia; Acidosis - respiratory. Bed requested for Telemetry/MedSurg (Inpatient). Status is Inpatient Admission. Condition is Stable. Problem is new. Symptoms have improved. [facility] 11/17 00:16 06 23:57 11/17/2019 23:44 Hospitalization Ordered by Katarzyna Puentes MD for Inpatient tl1 Admission. Preliminary diagnosis is Dyspnea - lung cancer; Chronic obstructive pulmonary disease with (acute) exacerbation; Weakness; Hypoxemia; Respiratory failure, unspecified with hypercapnia; Acidosis - respiratory; Pneumonia, unspecified organism. Bed requested for Telemetry/MedSurg (Inpatient). Status is Inpatient Admission. Condition is Stable. Problem is new. Symptoms have improved. [facility] 11/17 01:27 00:16 11/17/2019 23:44 Hospitalization Ordered by Katarzyna Puentes MD for Inpatient pricilla Admission. Preliminary diagnosis is Dyspnea - lung cancer; Chronic obstructive pulmonary disease with (acute) exacerbation; Weakness; Hypoxemia; Respiratory failure, unspecified with hypercapnia; Acidosis - respiratory; Pneumonia, unspecified organism. Bed requested for Telemetry/MedSurg (Inpatient). Status is Inpatient Admission. Condition is Stable. Problem is new. Symptoms have improved. tl1 01:58 01:27 11/17/2019 23:44 Hospitalization Ordered by Katarzyna Puentes MD for Inpatient jb4 Admission. Preliminary diagnosis is Dyspnea - lung cancer; Chronic obstructive pulmonary disease with (acute) exacerbation; Weakness; Hypoxemia; Respiratory failure, unspecified with hypercapnia; Acidosis - respiratory; Pneumonia, unspecified organism; Elevated white blood cell count; Bandemia. Bed requested for Telemetry/MedSurg (Inpatient). Status is Inpatient Admission. Condition is Stable. Problem is new. Symptoms have improved. pricilla
[2019-11-17] MEDS ORDERED: NA CHLORIDE 0.9% 1,000 ML IV SCH (23:45)
[2019-11-17 23:47] LABS: Arterial Blood Carboxyhemoglob 2.1 % (0-1.5); Blood Gas Oxyhemoglobin 83.5 % (94-97)
[2019-11-17] MEDS ORDERED: MORPHINE 4 MG/ML SYR IV PRN (23:57)
[2019-11-17] MEDS ORDERED: ACETAMINOPHEN 500 MG TAB PO PRN (23:57)
[2019-11-17] MEDS ORDERED: ONDANSETRON 4 MG/2 ML VIAL IV PRN (23:57)
[2019-11-18] MEDS ORDERED: METOPROLOL TARTRATE 5 MG/5 ML INJ IV ONE (00:06)
[2019-11-18] MEDS ORDERED: DIGOXIN 0.25 MG/ML AMP ONE (00:06)
[2019-11-18] MEDS ORDERED: METHYLPREDNISOLONE 125 MG INJ ONE (00:06)
[2019-11-18] MEDS ORDERED: FAMOTIDINE 20 MG/2 ML VIAL IV ONE (00:07)
[2019-11-18] MEDS ORDERED: NA CHLORIDE 0.9% 1,000 ML ONE (00:07)
[2019-11-18] MEDS ORDERED: Levofloxacin500mg IV 500 MG/100 ML BAG IV ONE (00:07)
[2019-11-18 00:30] LABS: Blood Morphology Comment NOTED (NOT SEEN); Ovalocytes 2+; Platelet Estimate ADEQ
[2019-11-18 00:40] LABS: ALT/SGPT 109 U/L (12-78); AST/SGOT 115 U/L (15-37); Alkaline Phosphatase 105 U/L (45-117); Amylase 79 U/L (25-115); BUN Blood Urea Nitrogen 23 mg/dL (7-18); Bilirubin Direct 0.5 mg/dL (0-0.2); CKMB Creatine Kinase MB 2.6 ng/mL (0.3-3.6); Creatine Phosphokinase 53 U/L (39-308); Glucose Level 164 mg/dL (74-106); Lipase 174 U/L (73-393); Potassium 4.6 mmol/L (3.5-5.1); Protein, Total 6.6 g/dL (6.4-8.2); Sodium Level 143 mmol/L (136-145); Thyroid Stimulating Hormone 0.529 uIU/mL (0.360-3.740); Troponin (Emerg Dept Use Only) 0.02 ng/mL (0.0-0.045)
[2019-11-18 00:41] LABS: Bicarbonate 41 mmol/L (21-32)
[2019-11-18 02:16] LABS: NT PRO-BNP 1445 pg/mL (<450)
[2019-11-18 02:21] VITALS: BMI 17.9
[2019-11-18] MEDS: ALBUTEROL 2.5 MG/3 ML NEB SOL NEB SCH ×4 (02:45→19:25)
[2019-11-18] MEDS: IPRATROPIUM BROM 0.5MG/2.5ML NEB SCH ×4 (02:45→19:25)
[2019-11-18 05:06] LABS: Absolute Lymphocytes (CBC) 0.1 K/uL (0.7-4.9); Hematocrit 37.3 % (39.6-49.0); Lymphocytes % 1.4 % (15.3-44.8); MPV 10.5 fL (7.6-11.3); RBC Red Blood Cell Count 4.18 M/uL (4.33-5.43)
[2019-11-18 05:08] LABS: Protime INR 1.02
[2019-11-18 05:27] LABS: ALT/SGPT 102 U/L (12-78); AST/SGOT 81 U/L (15-37); Albumin 2.6 g/dL (3.4-5.0); Alkaline Phosphatase 88 U/L (45-117); BUN Blood Urea Nitrogen 19 mg/dL (7-18); Bicarbonate 40 mmol/L (21-32); Bilirubin Total 0.7 mg/dL (0.2-1.0); Glucose Level 173 mg/dL (74-106); Potassium 4.8 mmol/L (3.5-5.1); Protein, Total 5.6 g/dL (6.4-8.2); Sodium Level 144 mmol/L (136-145)
[2019-11-18] MEDS: METHYLPREDNISOLONE 125 MG INJ IV SCH ×4 (05:49→18:20)
[2019-11-18] MEDS ORDERED: POLYETHYL GLY 3350 17 GM/DOSE PO PRN (08:23)
[2019-11-18] MEDS ORDERED: TRAMADOL HCL 50 MG TAB PO PRN (08:23)
--- NOTE | 2019-11-18 08:49 | P.HP ---
Certification for Inpatient Patient admitted to: Inpatient With expected LOS: >2 Midnights Patient will require the following post-hospital care: None Practitioner: I am a practitioner with admitting privileges, knowledge of patient current condition, hospital course, and medical plan of care. Services: Services provided to patient in accordance with Admission requirements found in Title 42 Section 412.3 of the Code of Federal Regulations Patient History Date of Service: 11/18/19 Reason for admission: Acute COPD exacerbation; hypercapnic respiratory failure History of Present Illness: Patient is a 79-year-old gentleman who has been under hospice care who presents to the emergency room with difficulty breathing. Patient was found to have hypercapnic respiratory failure. Patient was seen in the emergency room and placed on a BiPAP. Patient was started on nebs, steroids, and given antibiotics. Patient was feeling better and was transferred to the medical floor. Patient has been on hospice care in the past but the family apparently revoked his hospice. At this time patient is doing better and will have to talk with family to figure out what they want going forward. Patient was admitted to the hospital for further evaluation. Allergies codeine Allergy (Verified 10/30/19 04:30) AMS morphine Adverse Reaction (Verified 10/30/19 04:30) AMS Home Medications: Cetirizine HCl [Zyrtec] 10 mg PO DAILY 10/30/19 Furosemide [Lasix*] 20 mg PO DAILY 10/30/19 Ipratropium Neb [Atrovent*] 0.5 mg IH DAILY 10/30/19 Polyethylene Glycol 3350 [Miralax] 17 gm PO PRN PRN 10/30/19 Theophylline Anhydrous [Fritz-24] 200 mg PO 30 MIN BEFORE HS 30 Days #30 cap.er.24h 11/02/19 Pregabalin [Lyrica*] 50 mg PO TID 11/13/19 Tramadol HCl [Ultram] 50 mg PO Q6HP PRN 11/13/19 predniSONE [Deltasone*] 20 mg PO DAILY 11/13/19 Amox/Clavulanate [Augmentin 500-125 mg Tab*] 500 mg PO BID #14 tab 11/16/19 dexAMETHasone [Decadron*] 4 mg PO BID #60 tab 11/16/19 - Past Medical/Surgical History Has patient received pneumonia vaccine in the past: Yes Diabetic: No -: Lung cancer radiation treatments three years ago -: 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 -: Sleep Apnea -: Enlarged prostate -: CHF -: femur Fx -: Appendectomy -: Cataract surgery -: Prostate surgery - Family History Father Medical History: Heart disease, Diabetes Notes: [place] Mother Medical History: Lung disease, Cancer Notes: LUng Ca, Breast CA,Brain CA - Social History Smoking Status: Former smoker Place of Residence: Home Review of Systems 10-point ROS is otherwise unremarkable Physical Examination - Vital Signs Temperature: 96.9 F Blood Pressure: 105/70 Pulse: 84 Respirations: 19 Pulse Ox (%): 96 - Physical Exam General: Alert, In no apparent distress, Oriented x2 HEENT: Atraumatic, PERRLA, Mucous membr. moist/pink, EOMI, Sclerae nonicteric Neck: Supple, 2+ carotid pulse no bruit, No LAD, Without JVD or thyroid abnormality Respiratory: Diminished, Expiratory wheezes Cardiovascular: Regular rate/rhythm, Normal S1 S2, Systolic murmur Gastrointestinal: Normal bowel sounds, Soft and benign, Non-distended, No tenderness Musculoskeletal: No clubbing, No swelling, No tenderness Integumentary: No rashes Neurological: Normal speech, Normal tone, Sensation intact, Cranial nerves 3-12 intact, Normal affect, Abnormal gait, Abnormal strength Lymphatics: No axilla or inguinal lymphadenopathy - Studies Laboratory Data (last 24 hrs) 11/17/19 23:12: PT 11.3, INR 0.96, APTT 26.3 11/17/19 23:12: WBC 11.3 H D, Hgb 13.5 L, Hct 42.4, Plt Count 211 11/17/19 23:12: Sodium 143, Potassium 4.6, BUN 23 H, Creatinine 0.59, Glucose 164 H, Total Bilirubin 1.0, AST 115 H, ALT 109 H, Alkaline Phosphatase 105, Amylase 79, Lipase 174 Assessment & Plan - Problems (Diagnosis) (1) Acute and chronic respiratory failure with hypercapnia Current Visit: No Status: Acute (2) Acute exacerbation of chronic obstructive pulmonary disease (COPD) Onset Date: 12/24/17 Current Visit: No Status: Acute (3) Tobacco abuse counseling Current Visit: No Status: Acute (4) History of lung cancer Current Visit: No Status: Chronic - Plan Plan: 1. Continue with BiPAP support 2. Pulmonary consultation 3. Nebs, steroids, and antibiotics 4. IV hydration 5. Case management consultation for discussion with hospice team regarding placement 6. Strict blood pressure and blood sugar control 7. Repeat labs & ABG in the morning 8. GI and DVT prophylaxis Discharge Plan: Home Plan to discharge in: Greater than 2 days - Advance Directives Does patient have a Living Will: Yes Does patient have a Durable POA for Healthcare: Yes - Code Status/Comfort Care Code Status Assessed: Yes Code Status: Full Code Critical Care: No Time Spent Managing PTS Care (In Minutes): 45
--- NOTE | 2019-11-18 09:50 | RAD REPORT ---
EXAM DESCRIPTION: [facility] Single View11/18/2019 1:47 am CLINICAL HISTORY: Shortness of breath COMPARISON: November 12 FINDINGS: Overall no significant change in the bilateral pleural effusions and bilateral pulmonary o pacities/masses. Heart is normal size
[2019-11-18] MEDS: FUROSEMIDE 20 MG TABLET PO SCH (10:12)
[2019-11-18] MEDS: PREGABALIN 50 MG CAP PO SCH ×3 (10:13→20:43)
[2019-11-18] MEDS: CETIRIZINE HCL 5 MG TABLET PO SCH (10:13)
[2019-11-18] MEDS: PIPER/TAZO/NS 3.375gm 3.375 GM/100 ML BAG IVPB SCH ×2 (10:17→17:00)
[2019-11-18 13:27] LABS: Urine Appearance CLEAR; Urine Blood NEGATIVE (NEG); Urine Color YELLOW; Urine Glucose NEGATIVE (NEG); Urine Protein TRACE (NEG); Urine Specific Gravity 1.025 (1.005-1.030); Urine pH 7.5 (5.0-7.0)
[2019-11-18 13:59] LABS: Urine Bilirubin NEGATIVE (NEG)
[2019-11-18 14:39] LABS: Urine Bacteria <20 /HPF (NONE SEEN); Urine Culture Reflex Order NOT NEEDED; Urine RBC <5 /HPF (NONE SEEN)
--- NOTE | 2019-11-18 16:29 | EKG ---
Test Date: 2019-11-17 Test Time: 23:52:03 Canopy Inspector: CHELSEY MEASUREMENT RESULTS: Intervals: Rate: 113 MA: 122 QRSD: 74 QT: 326 QTc: 447 [place]: P: 71 MA: 122 QRS: 231 T: 66 INTERPRETIVE STATEMENTS: Sinus tachycardia with premature atrial complexes Right superior axis deviation Right ventricular hypertrophy with repolarization abnormality Abnormal ECG Compared to ECG 11/17/2019 23:10:08 Right superior axis now present Right-axis deviation no longer present Electronically Signed On 11-18-19 16:27:32 CDT by Pepe España
--- NOTE | 2019-11-18 16:30 | EKG ---
Test Date: 2019-11-17 Test Time: 23:10:08 Master Tax Advisor: VICKY MEASUREMENT RESULTS: Intervals: Rate: 107 ID: [id number] QRSD: 80 QT: 326 QTc: 435 Meta: P: 62 ID: [id number] QRS: 117 T: 66 INTERPRETIVE STATEMENTS: Sinus tachycardia with premature supraventricular complexes Right axis deviation Right ventricular hypertrophy with repolarization abnormality Abnormal ECG Compared to ECG 11/13/2019 14:20:55 Right-axis deviation now present Sinus rhythm no longer present Right superior axis no longer present T-wave abnormality no longer present Electronically Signed On 11-18-19 16:27:34 CDT by Pepe España
[2019-11-18] MEDS: THEOPHYLLINE SR 100 MG TAB PO SCH (20:43)
[2019-11-18] MEDS: ENSURE ENLIVE 237 ML CAN PO SCH (21:00)
[2019-11-19] MEDS: PIPER/TAZO/NS 3.375gm 3.375 GM/100 ML BAG IVPB SCH ×3 (00:09→16:42)
[2019-11-19] MEDS: METHYLPREDNISOLONE 125 MG INJ IV SCH ×4 (00:09→16:45)
[2019-11-19] MEDS: ALBUTEROL 2.5 MG/3 ML NEB SOL NEB SCH ×4 (00:45→19:35)
[2019-11-19] MEDS: IPRATROPIUM BROM 0.5MG/2.5ML NEB SCH ×4 (00:45→19:35)
[2019-11-19 05:17] LABS: Arterial Blood Carboxyhemoglob 1.7 % (0-1.5); Blood Gas Oxyhemoglobin 91.2 % (94-97); Blood O2 Saturation 93.5 % (92-98.5)
[2019-11-19 05:50] LABS: Absolute Lymphocytes (CBC) 0.3 K/uL (0.7-4.9); Basophils % 0.1 % (0-1.3); Hematocrit 36.3 % (39.6-49.0); Lymphocytes % 2.9 % (15.3-44.8); MPV 10.6 fL (7.6-11.3)
[2019-11-19 06:40] LABS: BUN Blood Urea Nitrogen 18 mg/dL (7-18); Bicarbonate 40 mmol/L (21-32); Glucose Level 163 mg/dL (74-106); Magnesium 2.3 mg/dL (1.8-2.4); Phosphorus 2.8 mg/dL (2.5-4.9); Potassium 4.4 mmol/L (3.5-5.1); Sodium Level 142 mmol/L (136-145)
[2019-11-19] MEDS: FUROSEMIDE 20 MG TABLET PO SCH (08:20)
[2019-11-19] MEDS: CETIRIZINE HCL 5 MG TABLET PO SCH (08:20)
[2019-11-19] MEDS: PREGABALIN 50 MG CAP PO SCH ×3 (08:20→23:03)
[2019-11-19] MEDS: ENSURE ENLIVE 237 ML CAN PO SCH ×2 (08:21→21:00)
--- NOTE | 2019-11-19 17:31 | P.DS ---
Admission Date: 11/17/19 Discharge Date: 11/19/19 Primary Care Provider: Dr. Valdivia Disposition: DC HOME/HOME HEALTH CARE Discharge Condition: GOOD Reason for Admission: Acute COPD exacerbation; hypercapnic respiratory failure Consultations: Pulmonary-Dr. Valdivia Procedures: Medical Problem List: Acute on chronic respiratory failure with hypercan - Problems (Diagnosis) (1) Acute and chronic respiratory failure with hypercapnia Current Visit: No Status: Acute (2) Acute exacerbation of chronic obstructive pulmonary disease (COPD) Onset Date: 12/24/17 Current Visit: No Status: Acute (3) Tobacco abuse counseling Current Visit: No Status: Acute (4) History of lung cancer Current Visit: No Status: Chronic - Plan Plan: 1. Continue with BiPAP support 2. Pulmonary consultation 3. Nebs, steroids, and antibiotics 4. IV hydration 5. Case management consultation for discussion with hospice team regarding placement 6. Strict blood pressure and blood sugar control 7. Repeat labs & ABG in the morning 8. 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 Patient presented with increasing shortness of breath. Patient had hospice at home but rescinded this. He he came to the ER for further evaluation. Patient found to have acute on chronic respiratory failure. Patient admitted for further evaluation and treatment. Hospital Course: Patient presented with acute on chronic respiratory failure secondary to COPD exacerbation. Patient with end-stage COPD on chronic steroids and has non invasive ventilator at home. The patient was treated in the course of his stay. Patient also seen by pulmonology. No further intervention was required. Advanced directives and advanced care planning readdress with the patient. Patient does not desire hospice at this time an wants to be full code. Pulmonology recommends to continue with current medications. Skilled placement was offered. Patient refused. At discharge patient will go home with home health. Patient will continue with non invasive ventilator at home. Patient will also continue with oxygen to maintain sats above 93%. No need for antibiotics at this time as recommended by pulmonology. Patient will continue with his COPD medication and steroid treatment. Patient may follow up with pulmonology in 1 week to further address. Vital Signs/Physical Exam: Temp Pulse Resp BP Pulse Ox 97.4 F 76 16 98/53 L 90 L 11/19/19 16:00 11/19/19 16:00 11/19/19 16:00 11/19/19 16:00 11/19/19 16:00 General: Alert, Cachectic, Other (Patient appears chronically ill) HEENT: Atraumatic Neck: Supple Respiratory: Expiratory wheezes Cardiovascular: Normal pulses, Regular rate/rhythm Gastrointestinal: Normal bowel sounds Neurological: Normal speech, Normal strength at 5/5 x4 extr, Normal tone Laboratory Data at Discharge: WBC 10.8 K/uL (4.3-10.9) D 11/19/19 05:30 Hgb 11.8 g/dL (13.6-17.9) L 11/19/19 05:30 Hct 36.3 % (39.6-49.0) L 11/19/19 05:30 Plt Count 202 K/uL (152-406) 11/19/19 05:30 PT 12.0 SECONDS (9.5-12.5) 11/18/19 04:30 INR 1.02 11/18/19 04:30 APTT 27.2 SECONDS (24.3-36.9) 11/18/19 04:30 Sodium 142 mmol/L (136-145) 11/19/19 05:30 Potassium 4.4 mmol/L (3.5-5.1) 11/19/19 05:30 BUN 18 mg/dL (7-18) 11/19/19 05:30 Creatinine 0.48 mg/dL (0.55-1.3) L 11/19/19 05:30 Glucose 163 mg/dL (74-106) H 11/19/19 05:30 Phosphorus 2.8 mg/dL (2.5-4.9) 11/19/19 05:30 Magnesium 2.3 mg/dL (1.8-2.4) 11/19/19 05:30 Total Bilirubin 0.7 mg/dL (0.2-1.0) 11/18/19 04:30 AST 81 U/L (15-37) H 11/18/19 04:30 ALT 102 U/L (12-78) H 11/18/19 04:30 Alkaline Phosphatase 88 U/L (45-117) 11/18/19 04:30 Amylase 79 U/L (25-115) 11/17/19 23:12 Lipase 174 U/L (73-393) 11/17/19 23:12 Home Medications: Cetirizine HCl [Zyrtec] 10 mg PO DAILY 10/30/19 Furosemide [Lasix*] 20 mg PO DAILY 10/30/19 Ipratropium Neb [Atrovent*] 0.5 mg IH DAILY 10/30/19 Polyethylene Glycol 3350 [Miralax] 17 gm PO PRN PRN 10/30/19 Theophylline Anhydrous [Fritz-24] 200 mg PO 30 MIN BEFORE HS 30 Days #30 cap.er.24h 11/02/19 Pregabalin [Lyrica*] 50 mg PO TID 11/13/19 Tramadol HCl [Ultram] 50 mg PO Q6HP PRN 11/13/19 predniSONE [Deltasone*] 20 mg PO DAILY 11/13/19 Patient Discharge Instructions: Patient be discharged home with home health. Patient will oxygen to maintain sats above 93%. Patient will continue with noninvasive ventilator to maintain oxygenation. Pulmonology recommends no antibiotics at this time. Patient will continue with current COPD and current medications. Diet: AHA Activity: Bedrest Time spent managing pt's care (in minutes): 55
[2019-11-19] MEDS: THEOPHYLLINE SR 100 MG TAB PO SCH (23:03)
[2019-11-19] MEDS: predniSONE 20 MG TAB PO SCH (23:03)
[2019-11-20] MEDS: PIPER/TAZO/NS 3.375gm 3.375 GM/100 ML BAG IVPB SCH ×2 (00:14→08:55)
[2019-11-20] MEDS: ALBUTEROL 2.5 MG/3 ML NEB SOL NEB SCH ×3 (01:30→12:47)
[2019-11-20] MEDS: IPRATROPIUM BROM 0.5MG/2.5ML NEB SCH ×3 (01:30→12:47)
--- NOTE | 2019-11-20 01:58 | P.PN ---
Date of Service: 11/20/19 Patient was discharged today. EMS took patient home but when they arrived no one was able to operate the BiPAP machine, and they did not know how to set it up. The family was not aware on how to work the machine. and [facility] was notified. They stated they have no one there to set it up and they do not even think patient has been accepted to their service. They were not even sure if they will accept patient onto home health because of prior issues with compliance. Spoke with housekeeping/laundry, and we decided to not have patient go to the ER. Instead we decided to admit patient to the floor; spoke with administration. They notified director of medical-surgical floor, and she was in agreement to have patient brought back to the room. I did accept patient back to our service, and will continue current treatment plan as mentioned prior to discharge.
[2019-11-20] MEDS: CETIRIZINE HCL 5 MG TABLET PO SCH (08:54)
[2019-11-20] MEDS: FUROSEMIDE 20 MG TABLET PO SCH (08:55)
[2019-11-20] MEDS: ENSURE ENLIVE 237 ML CAN PO SCH (08:55)
[2019-11-20] MEDS: predniSONE 20 MG TAB PO SCH (08:55)
[2019-11-20] MEDS: PREGABALIN 50 MG CAP PO SCH ×2 (08:55→13:00)
--- NOTE | 2019-11-20 14:09 | P.PN ---
Subjective Date of Service: 11/20/19 Primary Care Provider: Dr. Valdivia Chief Complaint: Acute COPD exacerbation; hypercapnic respiratory failure Subjective: Improving, Doing well Physical Examination - Vital Signs Temperature: 97 F Blood Pressure: 101/50 Pulse: 91 Respirations: 18 Pulse Ox (%): 87 - Physical Exam General: Alert, Cooperative HEENT: Atraumatic Neck: Supple Respiratory: Expiratory wheezes, Other (Patient on BiPAP) Cardiovascular: Normal pulses, Regular rate/rhythm Gastrointestinal: No guarding Neurological: Normal speech, Normal strength at 5/5 x4 extr, Normal tone, Normal affect - Studies Medications List Reviewed: Yes Assessment & Plan Discharge Plan: Other (Home with home health with special services to addressed non invasive ventilator) Plan to discharge in: 24 Hours Physician Review Additional Text: Impression: Acute on chronic respiratory failure with end-stage COPD on chronic steroids/with non invasive ventilator at home complicated with lung cancer Plan: Patient had to be readmitted last night as the patient was discharged home but family had difficulty in getting home health. Addressed plan of care with pulmonology, patient and . Will have a long discussion about pre addressing advanced directives and advance care planning. Patient refused hospice recently. If this is so, best option is for the patient to go to a long-term acute care facility. Patient does not desire to go to a skilled facility. Last option would be to go home with home health. If this is done that will need to make sure patient/ can operate noninvasive ventilator. Will also have brain the machine to the our facility to evaluate. Will also have her brain all his medications from home. Will reassess this afternoon to determine plan of care. Time Spent Managing Pts Care (In Minutes): 55
--- NOTE | 2019-11-20 14:57 | P.PN ---
Subjective Date of Service: 11/20/19 Primary Care Provider: Dr. Valdivia Chief Complaint: Acute COPD exacerbation; hypercapnic respiratory failure Patient states that he has oxygen level had dropped came here to back to the emergency room his and recurrent hospital admissions discuss with the patient he feels fine denies any worsening shortness of breath is nebulizers are helping him is compliant with his BiPAP patient states that is why checks his pulse ox a lot Review of Systems General: Weakness Respiratory: Shortness of Breath Physical Examination - Vital Signs Temperature: 97 F Blood Pressure: 101/50 Pulse: 91 Respirations: 18 Pulse Ox (%): 87 - Physical Exam General: Alert, In no apparent distress Respiratory: Clear to auscultation bilaterally, Diminished, Inspiratory wheezes Cardiovascular: No edema, Regular rate/rhythm, Normal S1 S2 - Studies Medications List Reviewed: Yes Assessment & Plan - Problems (Diagnosis) (1) COPD (chronic obstructive pulmonary disease) Current Visit: Yes Status: Acute Plan: Patient is 79 years of age recurrent hospital admissions does have terminal COPD with metastatic presumed lung cancer not a candidate for any treatment he is on maximum bronchodilators at home including 2 long-acting nebulizers and a noninvasive ventilator I have advised the patient to bring his noninvasive ventilator here in the hospital the respiratory to start the patient on his own noninvasive ventilator been no change in his condition his pro calcitonin is persistently elevated prognosis is very poor patient has refused hospice care Dc antibiotic Physician Review Additional Text: Impression: Acute on chronic respiratory failure with end-stage COPD on chronic steroids/with non invasive ventilator at home complicated with lung cancer Plan: Patient had to be readmitted last night as the patient was discharged home but family had difficulty in getting home health. Addressed plan of care with pulmonology, patient and . Will have a long discussion about pre addressing advanced directives and advance care planning. Patient refused hospice recently. If this is so, best option is for the patient to go to a long-term acute care facility. Patient does not desire to go to a skilled facility. Last option would be to go home with home health. If this is done that will need to make sure patient/ can operate noninvasive ventilator. Will also have brain the machine to the our facility to evaluate. Will also have her brain all his medications from home. Will reassess this afternoon to determine plan of care.
[2019-11-20 15:37] VITALS: O2SAT 91
[2019-11-20 16:18] VITALS: BP 108/52; TEMP 97.8
--- NOTE | 2019-11-20 16:27 | P.DS ---
Admission Date: 11/17/19 Discharge Date: 11/20/19 Primary Care Provider: Dr. Valdivia Disposition: DC HOME/HOME HEALTH CARE Discharge Condition: GOOD Reason for Admission: Acute COPD exacerbation; hypercapnic respiratory failure Consultations: Pulmonary-Dr. 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 Patient presented with increasing shortness of breath. Patient was recently discharged yesterday. Apparently when they arrived at home, home health could not come in until 24 hr. The patient had to return to the hospital due to shortness of breath. Hospital Course: Patient with acute on chronic respiratory failure with hypercapnia as secondary to COPD exacerbation with end-stage COPD with chronic oxygen/non invasive ventilator/steroid treatment. This is further complicated with history of lung cancer. The patient had been discharge. Home health had been arranged but was not available at the time of discharge when the patient arrived at home. Therefore patient return to the hospital. The patient continued with COPD treatment. Social work help to arrange for home health. Apparently the home [facility] agency that was to start declined in taking him back as the patient had multiple medical issues that they were not able to handle. Other arrangements have been made with another home health agency that has palliative care and hospice. The plan will be to discharge the patient with his home health agency with palliative care to be set up. This can be transition to hospice when the patient desires. His invasive ventilator was re-evaluated. Advanced care planning and advanced directives were addressed in detail with the patient and . The prefers that the make all decisions. Advanced directives addressed. At this time wants him to be full code. If his condition continues to decline she will decide when to may can do not resuscitate. At which point patient can be transition to hospice. This will be further addressed as an outpatient with the home health agency. At discharge patient will continue with his current COPD medications and treatment. Vital Signs/Physical Exam: Temp Pulse Resp BP Pulse Ox 97.8 F 93 H 16 108/52 L 91 11/20/19 16:00 11/20/19 16:00 11/20/19 16:00 11/20/19 16:00 11/20/19 16:00 General: Alert, In no apparent distress, Oriented x3, Cooperative HEENT: Atraumatic Neck: Supple Respiratory: Expiratory wheezes Cardiovascular: Normal pulses, Regular rate/rhythm Gastrointestinal: Normal bowel sounds, No masses, No rebound, No guarding Integumentary: No warmth, No cyanosis Neurological: Normal speech, Normal strength at 5/5 x4 extr, Normal tone, Normal affect, Other (Patient bed-bound) Laboratory Data at Discharge: WBC 10.8 K/uL (4.3-10.9) D 11/19/19 05:30 Hgb 11.8 g/dL (13.6-17.9) L 11/19/19 05:30 Hct 36.3 % (39.6-49.0) L 11/19/19 05:30 Plt Count 202 K/uL (152-406) 11/19/19 05:30 PT 12.0 SECONDS (9.5-12.5) 11/18/19 04:30 INR 1.02 11/18/19 04:30 APTT 27.2 SECONDS (24.3-36.9) 11/18/19 04:30 Sodium 142 mmol/L (136-145) 11/19/19 05:30 Potassium 4.4 mmol/L (3.5-5.1) 11/19/19 05:30 BUN 18 mg/dL (7-18) 11/19/19 05:30 Creatinine 0.48 mg/dL (0.55-1.3) L 11/19/19 05:30 Glucose 163 mg/dL (74-106) H 11/19/19 05:30 Phosphorus 2.8 mg/dL (2.5-4.9) 11/19/19 05:30 Magnesium 2.3 mg/dL (1.8-2.4) 11/19/19 05:30 Total Bilirubin 0.7 mg/dL (0.2-1.0) 11/18/19 04:30 AST 81 U/L (15-37) H 11/18/19 04:30 ALT 102 U/L (12-78) H 11/18/19 04:30 Alkaline Phosphatase 88 U/L (45-117) 11/18/19 04:30 Amylase 79 U/L (25-115) 11/17/19 23:12 Lipase 174 U/L (73-393) 11/17/19 23:12 Home Medications: Cetirizine HCl [Zyrtec] 10 mg PO DAILY 10/30/19 Furosemide [Lasix*] 20 mg PO DAILY 10/30/19 Ipratropium Neb [Atrovent*] 0.5 mg IH DAILY 10/30/19 Polyethylene Glycol 3350 [Miralax] 17 gm PO PRN PRN 10/30/19 Theophylline Anhydrous [Fritz-24] 200 mg PO 30 MIN BEFORE HS 30 Days #30 cap.er.24h 11/02/19 Pregabalin [Lyrica*] 50 mg PO TID 11/13/19 Tramadol HCl [Ultram] 50 mg PO Q6HP PRN 11/13/19 predniSONE [Deltasone*] 20 mg PO DAILY 11/13/19 Patient Discharge Instructions: Patient be discharged home with home health/palliative care. Patient will continue with his current COPD medications, noninvasive ventilator, steroid treatment, and home oxygen. Diet: AHA Activity: Bedrest Time spent managing pt's care (in minutes): 55
== END 2019-11-20 18:18 | disposition home health service (06) | DRG 190 ==
LOC: ER 22:48 → ERHOLD 23:57 → 2ND 11-18 00:34 → UNDODISIN 11-19 20:50
PROVIDERS: ADMIT Family Medicine; ATTEND Family Medicine
DX: J44.1 Chronic obstructive pulmonary disease with (acute) exacerbation (principal); J96.22 Acute and chronic respiratory failure with hypercapnia; R64 Cachexia; Z68.1 Body mass index [BMI] 19.9 or less, adult; Z99.81 Dependence on supplemental oxygen; Z79.52 Long term (current) use of systemic steroids; Z79.899 Other long term (current) drug therapy; Z85.118 Personal history of other malignant neoplasm of bronchus and lung; Z71.6 Tobacco abuse counseling; Z88.5 Allergy status to narcotic agent; Z92.3 Personal history of irradiation; Z90.49 Acquired absence of other specified parts of digestive tract; Z87.891 Personal history of nicotine dependence; Z20.828 Contact with and (suspected) exposure to other viral communicable diseases
CPT/HCPCS: 36415; 71045; 80048; 80053; 80076; 81001; 82150; 82550; 82553; 82805; 83605; 83690; 83735; 83880; 84100; 84145; 84443; 84484; 85025; 85610; 85730; 87040; 93005; 94640; 94660; 94760; 96365; 96375; 99291; J2543; J2930; J7030; J7512; U0002

== ENCOUNTER 2019-11-28 15:07 | Inpatient (IN) | payer OTHER ==
--- OUTSIDE RECORDS SUMMARY | 2019-11-28 15:10 | XMS REPORT | Clinical Summary ---
:1940 Author Organization [facility] Address [address] [place] [address] Care Team Providers Name Role Phone Asked, [...] & Plan: PCIOL OU, monofocal. Done in [facility][1] ars ago. 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
--- OUTSIDE RECORDS SUMMARY | 2019-11-28 15:10 | XMS REPORT | Clinical Summary ---
:1940 Author Organization [facility] Address [address] [place] [address] Care Team Providers Name Role Phone Unavailable Primary Care Provider Unavailable Allergies Not on File Medications Not on file Active Problems Not on file Encounters Date Type Specialty Care Team Description 10/11/2019 Lab Requisition Lab 06/22/2019 Telephone Transplant Noam Artis RN Lung Tr ansplant Pre-evaluation after 11/27/2018 Social History Tobacco Use Types [...] procedure are in the results section. after 11/27/2018 Results SARS-CoV2/RT-PCR ([facility]) (10/11/2019 1:25 AM CDT) SARS-COV2/RT-PCR Not Detected Not Detected, Negative [facility] SARS-COV-2 PERFORMING LAB [facility] Specimen Other Narrative Performed At Negative results do not preclude SARS-CoV-2 [facility] infection and should not be used [...] the Act. Fact Sheet for Healthcare Providers: https://www.[employer]Documents/Xpert%20Xpre ss%20SARS%20CoV-2/Fact%20Sheets/3023802%20SAR S-COV-2%20HEALTHCARE%20PROVIDERS%20FACT%20SHEE T.pdf Fact Sheet for Healthcare Patients: https://www.[employer]Documents/Xpert%20Xpre ss%20SARS%20CoV-2/Fact%20Sheets/3023801%20SAR S-COV-2%20PATIENT%20FACT%20SHEET.pdf Performing Laboratory: [address] [place] [address] Performing Organization Address City/State/Zipcode Phone Number [address] [address] CENTER after 11/27/2018 Insurance Payer Benefit Plan / Group Subscriber ID Type Phone A ddress MEDICARE MEDICARE A B xxxxxxxxxxx Medicare FOR LIFE xxxxxxxxx Other Govt (, [place], [facility], etc.)
--- OUTSIDE RECORDS SUMMARY | 2019-11-28 15:11 | XMS REPORT | Continuity of Care Document ---
:1940 Author Organization [facility] t Address [facility] [place] [address] Care Team Providers Name Role Phone Asked, Pcp Primary Care Physician Unavailable Lavell SORIA Attending Clinician Chandra EVANS Attending Clinician Unavailable Stalin Valentine MD Attending Clinician Gillian Huber MD Attending Clinician Payers Payer Name Policy Policy Number Effective Expiration Source Type Date Date MEDICAREMEDICARE A xxxxxxxxxxx [facility] BxxxxxxxxxxxMedicare - De dical Center TRICARETRICARE FOR xxxxxxxxx [facility] LIFExxxxxxxxxOther Govt - Medical (, [place], [facility], [facility] etc.) TRICARETRICARE FOR LIFE xxxxxxxxx [facility] SUPPLEMENTxxxxxxxxx2017-PresentMilitary MEDICAREMEDICARE PART A xxxxxxxxxxx 2006 [place] AND 00:00:00 [facility] Bxxxxxxxxxxx2006-Pre [place] Problems Condition Condition Condition Status Onset Resolution Last Treating Co mments Source Name Details Category Date Date Treatment Clinician Date 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 Done in [place] years ago. 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 At low At low Disease Active [facility] risk for risk for 6-24 Assessmen [...] Quantity Comments Source Sex Assigned At Lucero austinbridgette Anna Smoking Status Start Date Stop Date Source Current some day smoker 2018-12-31 00:00:00 [place] [facility] Medications Ordered Filled Start Stop Current Ordering Indication Dosage Frequency Signature Comments Components Source Medication Medication Date Date Medication? Clinician (SIG) Name Name daniel 2019-0 Yes 100ug Take 100 [place] min 100 MCG 6-24 mcg by Method i tablet 14:26: mouth. st 40 aspirin 81 2019-0 Yes 81mg Chew 81 [place] mg chewable 6-24 mg. Methodi tablet 14:26: st 40 furosemide 2018-0 Yes 20mg Take 20 mg [place] (LASIX) 20 6-24 by mouth. Meth beny mg tablet 14:26: st 40 montelukast Yes 10mg Take 10 mg [place] (SINGULAIR) 6-24 by mouth. Met hodi 10 mg 14:26: st tablet 40 predniSONE 0 Yes 10mg Take 10 mg [place] (DELTASONE) 5-31 by mouth. Met hodi 10 mg 00:00: st tablet 00 budesonide- 0 Yes 2{puff} Inhale 2 [place] formoterol 4-11 puffs. Methodi (SYMBICORT) 00:00: st 160-4.5 00 mcg/actuati on inhaler ipratropium Yes .5mg Inhale 0.5 [place] (ATROVENT) 3-11 mg. Methodi 0.02 % 00:00: st nebulizer 00 solution fluticasone 0 Yes 1{puff} Inhale 1 [place] propion-stiven 3-11 puff. Methodi meterol 00:00: st (ADVAIR 00 DISKUS) 250-50 mcg/dose DISKUS ipratropium Yes 2{spray 2 sprays [place] (ATROVENT) 2-08 } into each Meth beny [...] 00 l Outpati ent Clinics Montelukast Montelukast Yes [place] [address] [facility] [address] Sodium Sodium 5-24 [facility] Spiriva Spiriva Yes [place] [address] HandiHaler HandiHaler [facility] PredniSONE PredniSONE Yes [place] [address] [facility] ProAir ProAir Yes [place] [address] [facility] [facility] RespiClick RespiClick [facility] needed [facility] Ipratropium Ipratropium Yes [place] [address] [facility] in each [facility] nostril [facility] Vitamin D3 Vitamin D3 Yes [place] [address] [facility] Advair Advair Yes [place] [address] Diskus Diskus [facility] Furosemide Furosemide Yes [place] [address] [facility] Flutter Flutter Yes [place] as [facility] Aspir-81 Aspir-81 Yes [place] [address] [facility] Clonazepam Clonazepam Yes [place] [address] [facility] [address] [facility] at bedtime [facility] Albuterol Albuterol Yes [place] [address] [facility] Sulfate Sulfate [facility] needed [facility] Procedures Procedure Date / Time Performed Performing Clinician Sourc e SARS-COV2/RT-PCR ([facility] 2019-10-11 01:25:00 [facility] Plan of Care Planned Activity Planned Date Details Comments Source Future Scheduled 2020-01-16 INFLUENZA VACCINE [place] [facility] Test 00:00:00 [code = INFLUENZA VACCINE] Future Scheduled 1991-11-14 SHINGLES VACCINES [place] [facility] Test 00:00:00 (#1) [code = SHINGLES VACCINES (#1)] Encounters Start End Encounter Admission Attending Care Care Encounter Source Date/Time Date/Time Type Type Clinicians Facility Department ID 2019-11-24 2019-11-24 [facility] [id number] 00:00:00 00:00:00 Steffen Arroyo [id number] [place] [id number] Professio [id number] [address] 2019-11-10 2019-11-10 [facility] [id number] 00:00:00 00:00:00 Steffen Arroyo [id number] [place] [id number] Professio [id number] [address] 2019-11-06 2019-11-06 [facility] [id number] 00:00:00 00:00:00 Steffen Arroyo [id number] [place] [id number] Professio [id number] [address] 2019-11-05 2019-11-05 [facility] [id number] 00:00:00 00:00:00 Steffen Arroyo [id number] [place] [id number] Professio [id number] [address] 2019-04-02 2019-04-02 [facility] [id number] 10:20:00 10:20:00 [facility] 2017-11-26 2017-11-26 [facility] [id number] 16[facility]19:00 16:19:00 [facility] Outpati ent Clinics 2017-11-25 2017-11-25 [facility] [id number] 10:30:00 10:30:00 [facility] Outpati ent Clinics 2017-11-07 2017-11-07 [facility] [id number] 16:46:00 16:46:00 [facility] Outpati ent Clinics 2017-10-31 2017-10-31 Outpatient Kely Osman [id number] [facility] [facility] St 13:09:00 13:09:00 [facility] 2017-10-23 2017-10-23 Outpatient Kely Osman [id number] [facility] [facility] St 14:30:00 14:30:00 [facility] Results Test Description Test Time Test Comments Results Result Comments Source SARS-CoV2/RT-PCR ([facility] Ref Labs) 2019-10-11 11:53:00 Test Item Value Reference Range Interpretation Comme nts SARS-COV2/RT-PCR (test code = Not Detected Not Detected, Negative [id number]) SARS-COV-2 PERFORMING LAB [facility] (test code = 1596593) BANG (test code = BANG) Negative results do not preclude SARS-CoV-2 infection [...] of the Act. Fact Sheet for Healthcare Providers:https://www.VendorStack .Dreamscape Blue/Documents/Xpert%20Xpress %20SARS%20CoV-2/Fact%20Sheets /302-3802%19SMED-CDF-8%20HEAL THCARE%20PROVIDERS%20FACT%20S HEET.pdf Fact Sheet for Healthcare Patients:https://www.Fitfu/Documents/Xpert%20Xpress% 20SARS%20CoV-2/Fact%20Sheets/ 3023801%90FXSI-ZCS-5%20PATIE NT%20FACT%20SHEET.pdf Performing Laboratory:[facility] [place] [address] [facility])2019-10-11 11:53:00 Test Item Value Reference Range Interpretation Comments SARS-COV2/RT-PCR (test Not Detected Not Detected, Negative code = [id number]) SARS-COV-2 PERFORMING LAB [facility] (test code = [id number]) Negative results do not preclude SARS-CoV-2 infection [...] of the Act.Fact Sheet for Healthcare Pro viders:https://www.VendorStack.Dreamscape Blue/Documents/Xpert%20Xpress%20SARS%20CoV-2/Fact%20Sh eets/3023802%82TBHB-WPJ-8%20HEALTHCARE%20PROVIDERS%20FACT%20SHEET.pdfFact Sheet for Healthcare Patients:https://www.Clipyoo/Documents/Xpert%20Xpress%20SARS%20CoV-2/Fact%20Sheets/3023801%20SARS-COV -2%20PATIENT%20FACT%20SHEET.pdfPerforming Laboratory:[facility] [place] [address]
[2019-11-28] MEDS ORDERED: NA CHLORIDE 0.9% 1,000 ML ONE ×2 (15:23→16:17)
--- OUTSIDE RECORDS SUMMARY | 2019-11-28 15:26 | XMS REPORT | Summary of Care ---
:1940 Author Organization [facility] Address [address] [place] [id number] Care Team Providers Name Role Phone MD Lavell Primary Care Provider Reason for Visit Reason Comments Refill Request Encounter Details Date Type Department Care Team Description 11/24/2019 Refill [facility] Pediatric and Steffen Todd MD Refill Request Adult Primary Care- [address] [facility] [address] [place] [address] [address] [place] [address] [phone] Allergies Active Allergy Reactions Severity Noted Date Comments [place] Unknown - See comments 02/05/2018 Codeine Unknown - See comments 02/05/2018 documented as of this encounter (statuses as of 11/26/2019) Medications Medication Sig Dispensed Refills Start End Date Status Date aspirin 81 mg Take 81 mg by 0 Ac tive chewable tablet mouth daily. IPRATROPIUM Use 0.06 % in each 0 Active BROMIDE NASAL nostril as needed. Ferrous Gluconate Take 324 mg by 0 Active 324 mg (36 mg mouth 2 (two) iron) tablet times daily. famotidine 20 mg Take 1 tablet by 60 tablet 0 Active tablet mouth 2 (two) 8 times daily. montelukast 10 mg Take 10 mg by 0 Active tablet mouth. ipratropium Use 2 Sprays in 15 mL 3 Ac tive (ATROVENT) 42 mcg each nostril 4 9 (0.06 %) nasal (four) times sprayIndications: daily. Rhinorrhea vitamin B-12 100 Take 100 mcg by 0 Active mcg tablet mouth daily. benzonatate 100 mg Take 1 capsule by 90 capsule 0 Active capsuleIndications mouth 3 (three) 9 : Acute times daily. exacerbation of chronic obstructive pulmonary disease (COPD) amoxicillin-pot Take 1 tablet by 14 tablet 0 Active clavulanate 500 mg mouth 2 (two) 9 (AUGMENTIN) times daily. 500-125 mg tabletIndications: Acute exacerbation of chronic obstructive pulmonary disease (COPD) Lactobacillus Take 1 tablet by 20 capsule 0 Active acidophilus 1 mouth 2 (two) 9 billion cell times daily. CapIndications: Acute exacerbation of chronic obstructive pulmonary disease (COPD) Miscellaneous J40: Brochitis - 1 Kit 0 Active Medical Supply Dispense # 1 9 KitIndications: Carlos Acute exacerbation Respironics ([facility] brand) for pulmonary disease nebulizer (COPD), Hospital treatment discharge follow-up docusate 100 mg Take 1 capsule by 90 capsule 3 Active capsuleIndications mouth daily. 9 : Constipation, unspecified constipation type sennosides-docusat Take 1 tablet by 90 tablet 3 Active e sodium mouth daily. 9 (SENOKOT-S) 8.6-50 mg per tabletIndications: Constipation, unspecified constipation type fluticasone Inhale 1 Puff 180 Each 3 Acti ve propion-salmeterol every 12 (twelve) 9 250-50 mcg/dose hours. inhalation diskIndications: Acute exacerbation of chronic obstructive pulmonary disease (COPD) tiotropium 18 mcg Inhale 1 capsule 90 capsule 3 Active inhalationIndicati daily. 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 0 guaiFENesin Take 1 tablet by 60 tablet 1 A ctive (MUCINEX) 600 mg mouth every 12 0 tablet (twelve) hours. doxycycline 100 mg Take 1 tablet by 20 tablet 0 Active tabletIndications: mouth 2 (two) 0 Subacute maxillary times daily. sinusitis fluticasone Use 1 [place] in 16 g 0 Act carmela propionate 50 each nostril 0 mcg/actuation daily. nasal sprayIndications: Subacute maxillary sinusitis carbamide peroxide Place 5 Drops in 15 mL 0 Active 6.5 % otic right ear 2 (two) 0 solutionIndication times daily. s: Impacted cerumen of right ear ipratropium 0.02 % Inhale 2.5 mL 90 Vial 11 Active nebulizer every 4 (four) 0 solutionIndication hours as needed s: Stage 4 very for Wheezing, severe COPD by Shortness of GOLD Breath or classification Bronchospasm (Acute on Chronic COPD Exacerbation). albuterol 2.5 mg Inhale 3 mL every 90 Vial 11 Active /3 mL (0.083 %) 4 (four) hours as 0 nebulizer needed for solutionIndication Wheezing or s: Stage 4 very Shortness of severe COPD by Breath. GOLD classification furosemide 20 mg Take 1 tablet by 30 tablet 5 Active tablet mouth daily. 0 ibuprofen 800 mg Take 1 tablet by 30 tablet 0 Active tabletIndications: mouth every 8 0 Chronic pain (eight) hours as disorder needed for Pain (scale 4-6) (Chronic Pain). tiZANidine 2 mg Take 1 tablet by 30 tablet 1 Active tabletIndications: mouth every 8 0 Chronic pain (eight) hours as disorder, Muscle needed (muscle spasm spasms). acetaminophen 650 Take 1 tablet by 20 tablet 0 Active mg CR mouth every 8 0 tabletIndications: (eight) hours as Chronic pain needed for Pain or disorder, Muscle Fever. spasm pregabalin Take 1 capsule by 90 capsule 0 Active (LYRICA) 50 mg mouth 3 (three) 0 capsuleIndications times daily. : Chronic pain disorder CETIRIZINE 10 mg TAKE ONE (1) 30 tablet 0 Active tabletIndications: TABLET(S) BY MOUTH 0 Seasonal allergic ONCE A DAY. rhinitis, unspecified trigger cetirizine Take 1 tablet by 30 tablet 1 11/26/19 Di scontinued (ZYRTEC) 10 mg mouth daily. 0 20 tabletIndications: Seasonal allergic rhinitis, unspecified trigger documented as of this encounter (statuses as of 11/26/2019) Active Problems Problem Noted Date Chronic pain [...] as of this encounter (statuses as of 11/26/2019) Immunizations Name Administration Dates Next Due Influenza [...] (1 of 2) Medicare Wellness Visit 2006 Depression Screening 06/04/2020 06/04/2019 INFLUENZA VACCINE (Season 06/15/2020 02/15/2018, 04/23/2017 , Postponed from Ended) 03/17/2017, Additional 0 history exists (Alternative Guidelines) PNEUMOCOCCAL VACCINES 65+ Completed 02/15/2018, 01/15/2017 LUNG CANCER SCREEN: Discontinued 06/10/2018, 02/05/2018 Recommended for age 55-80 with 30 + pack year history documented as of this encounter Results Not on filedocumented in this encounter Visit Diagnoses Diagnosis Seasonal allergic rhinitis, unspecified trigger documented in this encounter Insurance Payer Benefit Plan / Subscriber ID Effective Phone Address T e Group Dates MEDICARE MEDICARE PART A xxxxxxxxxxx 2006-Pr [phone] Medicare & B esent [phone] ESTHER PADRON [phone] FOR LIFE [id number] 2018-Pr Lanette richardson esent Supplement [employer] [id number] 1998-P HMO/PPO/ POS ADMINISTRATION ADMINISTRATION resent documented as of this encounter
[2019-11-28 15:46] LABS: Arterial Blood Carboxyhemoglob 2.5 % (0-1.5); Blood Gas Oxyhemoglobin 93.6 % (94-97); Blood O2 Saturation 96.7 % (92-98.5)
[2019-11-28 16:09] LABS: Protime INR 0.95
[2019-11-28] MEDS ORDERED: propofoL 1,000 MG/100 ML VIAL IV ONE (16:11)
[2019-11-28 16:18] LABS: Absolute Lymphocytes (CBC) 0.2 K/uL (0.7-4.9)
[2019-11-28] MEDS ORDERED: METOPROLOL TARTRATE 5 MG/5 ML INJ IV ONE (16:20)
[2019-11-28] MEDS ORDERED: NOREPINEPHRINE 4mg/D5W 250mL 4 MG/250 ML BAG IV ONE ×2 (16:20→22:59)
[2019-11-28] MEDS ORDERED: ENOXAPARIN 60 MG/0.6 ML SQ ONE (16:26)
[2019-11-28 16:38] LABS: Albumin 2.8 g/dL (3.4-5.0); Bilirubin Direct 0.3 mg/dL (0-0.2); Bilirubin Total 0.7 mg/dL (0.2-1.0); CKMB Creatine Kinase MB 1.9 ng/mL (0.3-3.6); Potassium 4.2 mmol/L (3.5-5.1); Protein, Total 6.4 g/dL (6.4-8.2); Troponin (Emerg Dept Use Only) 0.03 ng/mL (0.0-0.045)
[2019-11-28 16:45] LABS: Basophils % 0.4 % (0-1.3); Hematocrit 44.2 % (39.6-49.0); Lymphocytes % 0.8 % (15.3-44.8); MPV 11.5 fL (7.6-11.3); RBC Red Blood Cell Count 4.77 M/uL (4.33-5.43)
--- NOTE | 2019-11-28 16:45 | ER ---
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 Unable to obtain. Onset rb1 of symptoms is unknown. 15:08 Coronavirus screen: unable to obtain. Ebola Screen: Unable to complete the Ebola rb1 screening because: Patient is unresponsive. Initial Sepsis Screen: Does the patient have a suspected source of infection? Yes:. 15:15 Chief complaint: EMS states: 79 yr. old male, A \T\ O x 4, called out for Respiratory rb1 distress. EMS put the pt. on C-PAP and his O2 sat was 75%. reports that she has breathing treatments for him, Atrovent and Albuterol, but she only does one medication at a time. Was on hospice for two days and the took him off hospice. told EMS that she has POA, but no paperwork was sent with the pt. Pt. told EMS that he did not want to come to the hospital but the insisted saying she had POA. Diagnosed with Stage 4 Lung Cancer last year and has not had any treatment. BGL 244, BP 98/58, P 90-110's. Allergic to Codeine and Morphine. 15:15 Initial Sepsis Screen: Does the patient meet any 2 criteria? RR > 20 per min. HR > 90 rb1 bpm. No. Patient's initial sepsis screen is negative. 15:15 Method Of Arrival: EMS: [facility] rb1 15:15 Acuity: LISBETH 2 rb1 Triage Assessment: 15:15 General: Appears slender. Neuro: Level of Consciousness is lethargic, Oriented to none. rb1 Cardiovascular: Capillary refill is > 3 seconds. Respiratory: EMS had pt on CPAP Patient placed CPAP:. 15:15 General: Appears Behavior is lethargic. Able to open eyes to tactile stimuli.. Pain: rb1 Unable to use pain scale. Does not appear to understand pain scale. EENT: Teeth absent. Cardiovascular: Heart tones S1 S2 present Rhythm is sinus tachycardia. Respiratory: Airway is patent Respiratory effort is shallow, weak, Respiratory pattern is symmetrical, tachypnea GI: Abdomen is non-distended. : No deficits noted. Derm: Skin is dry, Skin is pale, Skin temperature is cool. Musculoskeletal: Range of motion: intact in all extremities. Historical: - Allergies: 15:08 Codeine; rb1 15:08 Morphine; rb1 - PMHx: 15:08 Anemia; CHF; COPD; Emphysema; enlarged prostate; femur fracture; Lung Cancer; Pt rb1 reports that it cleared up; - Immunization history:: Adult Immunizations unknown. - Social history:: Smoking status: unknown. Screenin:08 Abuse screen: Denies threats or abuse. Nutritional screening: unable to obtain. rb1 Tuberculosis screening: unable to obtain. 19:37 Fall Risk None identified. ea Assessment: 15:20 Neuro: Level of Consciousness is intubated and sedated.. Respiratory: Airway via oral rb1 intubation Respiratory effort is assisted via ET tube/ventilator. Derm: Skin is dry, Skin is pink, Skin temperature is cool. 15:30 Reassessment: Patient appears in no apparent distress at this time. Pt. is intubated. rb1 16:00 Reassessment: Patient appears in no apparent distress at this time. intubated and rb1 sedated. 16:52 Reassessment: BP 151/139, Dr. Hanley notified. Received verbal order to discontinue rb1 the Levophed. 100% verbal read back. Pt. is intubated and sedated. 17:00 Reassessment: BP 83/53 notified Marquez. Received verbal order for Levophed 2.5 mcg/min. rb1 100% verbal read back. 17:00 Reassessment: Pt. is intubated and sedated. rb1 17:09 Reassessment: BP 81/60 notified Marquez. Received verbal order to increase Levophed to 5 rb1 mcg/min. 100% verbal read back. pt. intubated and sedated. 17:54 Reassessment:. Derm: Skin is pink, warm \T\ dry. rb1 18:12 Reassessment: pt. moving all four extremities, notified Dr. Hanley. Received verbal rb1 order for Versed 2 mg IVP, repeat if necessary. 100% read back. Pt. movement decreased after receiving the Versed 2 mg IVP. 18:40 Reassessment: Called Dr. Blackman and notified him of BP 87/55 MAP of 65. Received rb1 telephone order to Titrate Levophed to keep MAP from going below 65 and to repeat Lactate. 100% telephone read back. 18:41 Reassessment: Levophed increased to 10 mcg/min, BP 85/49 MAP 60. Pt. intubated and rb1 sedated. 19:33 General: Appears in no apparent distress. General: Pt resting with eyes closed, ETT in ea place respirations assisted. NG tube in place to low intermittent suction. Nolasco catheter in place to BSD, IV sites intact and patent with fluids infusing. . Pain: Unable to use pain scale. FLACC scale score is 0 out of 10. Neuro: Pt sedated and intubated. Cardiovascular: Patient's skin is warm and dry. Respiratory: Airway via oral intubation. 19:50 Reassessment: repeat lactate per sepsis protocol. rr5 20:22 Reassessment: Pt resting with eyes closed, ETT in place, respirations assisted. NG tube ea in place. Nolasco catheter in place to BSD, IV sites intact and patent with fluids infusing. Pt transferred to ICU via stretcher per tech, respiratory and ED nurse. Pt stable. Vital Signs: 15:09 BP 102 / 59; Pulse 109; Resp 32; Temp 97.7(R); Pulse Ox 85% on CPAP; Weight 54.43 kg; rb1 Height 5 ft. 5 in. (165.10 cm); 15:16 BP 94 / 58; Pulse 106; Resp 20; Pulse Ox 97% on BVM; rb1 15:30 BP 129 / 82; Pulse 123; Resp 16; Pulse Ox 96% on 80% FiO2 ETT vent; rb1 15:45 BP 138 / 86; Pulse 122; Resp 16; Pulse Ox 95% on 80% FiO2 ETT vent; rb1 16:00 BP 146 / 83; Pulse 116; Resp 16; Temp 97.5(C); Pulse Ox 96% on 80% FiO2 ETT vent; rb1 16:15 BP 95 / 57; Pulse 106; Resp 18; Pulse Ox 95% on 80% FiO2 ETT vent; rb1 16:27 BP 101 / 60; Pulse 97; Resp 16; Temp 97.7(C); Pulse Ox 88% on 80% FiO2 ETT vent; rb1 16:39 BP 116 / 64; Pulse 103; Resp 16; Pulse Ox 92% on 80% FiO2 ETT vent; rb1 16:51 BP 121 / 107; Pulse 96; Resp 16; Pulse Ox 92% on 80% FiO2 ETT vent; rb1 16:52 BP 151 / 139; Pulse 96; Resp 16; Pulse Ox 92% on ETT vent; rb1 16:58 BP 97 / 52; Pulse 98; Resp 16; Pulse Ox 93% on 80% FiO2 ETT vent; rb1 17:00 BP 83 / 53; Pulse 99; Resp 16; Temp 97.8(C); Pulse Ox 94% on 80% FiO2 ETT vent; rb1 17:03 BP 88 / 54; Pulse 99; Resp 16; Pulse Ox 94% on 80% FiO2 ETT vent; rb1 17:06 BP 92 / 62; Pulse 103; Resp 16; Pulse Ox 93% on 80% FiO2 ETT vent; rb1 17:09 BP 81 / 60; Pulse 98; Resp 16; Pulse Ox 94% on 80% FiO2 ETT vent; rb1 17:12 BP 116 / 75; Pulse 96; Resp 16; Pulse Ox 96% on 80% FiO2 ETT vent; rb1 17:30 BP 92 / 63; Pulse 91; Resp 16; Temp 98.2(C); Pulse Ox 100% on 80% FiO2 ETT vent; rb1 17:42 BP 92 / 68; Pulse 89; Resp 16; Temp 98.5(C); Pulse Ox 100% on 80% FiO2 ETT vent; rb1 17:54 BP 100 / 76; Pulse 92; Resp 16; Temp 98.7; Pulse Ox 100% on 80% FiO2 ETT vent; rb1 18:04 BP 106 / 60; Pulse 92; Resp 17; Pulse Ox 100% on 80% FiO2 ETT vent; rb1 18:15 BP 84 / 55; Pulse 92; Resp 16; Temp 99.1(C); Pulse Ox 100% on 80% FiO2 ETT vent; rb1 18:31 BP 87 / 59; Pulse 91; Resp 16; Pulse Ox 100% on 80% FiO2 ETT vent; rb1 19:05 BP 105 / 67; Pulse 94; Resp 16; Temp 100.1; Pulse Ox 100% on ETT vent; rr5 19:38 BP 105 / 68; Pulse 93; Resp 16; Temp 100.1; Pulse Ox 100% on ETT vent; ea 20:07 BP 102 / 58; Pulse 92; Resp 16; Temp 100.6; Pulse Ox 100% on ETT vent; rr5 20:15 BP 115 / 59; Pulse 84; Resp 18; Pulse Ox 100% on ETT vent; ea 15:09 Body Mass Index 19.97 (54.43 kg, 165.10 cm) rb1 16:27 Pt. was suctioned. rb1 16:[address] Hanley of , Received verbal order to discontinue the Levophed. 100 % rb1 verbal read back 17:00 Notified Marquez of . Received verbal order to start the Levophed on 2.5 mcg/min. 100% rb1 verbal read back. 17:09 Notified Marquez. Received verbal order to increase Levophed to 5 mcg/min. 100% verbal rb1 read back. 18:15 Removed a blanket rb1 [place] Coma Score: 15:43 Eye Response: none(1). Verbal Response: none(1). Motor Response: none(1). Modifying jr8 Factors: Intubated. Total: 3. ED Course: 15:10 Missed attempt(s): 20 gauge in left EJ. Attempted by Mike Zayas.. rb1 15:11 Patient arrived in ED. aa5 15:12 Missed attempt(s): 20 gauge in right EJ, attempted by Mike Zayas.. rb1 15:15 Inserted saline lock: 22 gauge in left wrist, using aseptic technique. ,using aseptic rb1 technique. Inserted by MASHA Vines. 15:15 Arm band placed on right wrist. rb1 15:18 Jeff Hanley MD is Attending Physician. [facility] 15:20 Assisted provider with intubation using 7.5 mm ETT via oral route. ET tube secured at rb1 24.5cm at the lips. Set up intubation tray. Intubated by Mike SANTANA Placement verified by auscultating bilateral breath sounds, Patient tolerated well. 15:32 Assisted provider with central line placement. Set up central line tray. Triple lumen rb1 line placed in right femoral. Line placed by Mike SANTANA Placement verified by blood return, Dressed with Tape, Tegaderm, Blood was collected. Patient tolerated well. Patient \T\ family education about procedure, CLABSI prevention and S/S of infection? No. Time-out/Briefing performed prior to start of procedure? No. Was handwashing/sanitizing done immediately prior to procedure? Yes. Was patient positioned to in a way to prevent air embolism? Yes. Was procedure site sterilized? Yes, with chlorhexidine. Was the site allowed to dry? Yes. Was local anesthetic and/or sedation utilized? No. During the procedure, did the Practitioner(s) maintain a sterile field? Yes. Were unused ports clamped during insertion? Yes. Was a 2nd qualified MD obtained after 3 unsuccessful insertion attempts? No. Was blood aspirated from each lumen? Yes. After the procedure, did the Practitioner(s) clean the site and apply a sterile dressing?. 15:42 Mike Zayas PA is PHCP. 8 15:50 NGT: inserted 14 Fr. other Mouth, Inserted by Judy. verified placement of air over rb1 stomach, to intermittent suction. Patient tolerated well. 15:55 COVID swab obtained. rb1 16:00 Nolasco cath inserted, using sterile technique, 16 Fr., by ga, balloon inflated, to rb1 gravity drainage. 16:04 Missed attempt(s): 20 gauge in right antecubital area. mh5 16:05 Amylase, Serum Sent. mh5 16:05 Basic Metabolic Panel Sent. mh5 16:05 Blood Culture Adult (2) Sent. 5 16:05 CBC with Diff Sent. mh5 16:05 Ckmb Sent. 5 16:05 CPK Sent. mh5 16:05 Patient has correct armband on for positive identification. Placed in gown. Bed in low mh5 position. Call light in reach. Side rails up X2. Warm blanket given. Pillow given. monitor tech on. Pulse ox on. NIBP on. 16:06 Lactate Sent. mh5 16:06 LFT's Sent. 5 16:06 Lipase Sent. 5 16:06 Procalcitonin Sent. 5 16:06 Protime (+inr) Sent. 5 16:06 Ptt, Activated Sent. 5 16:06 Troponin (emerg Dept Use Only) Sent. 5 16:07 Initial lab(s) drawn, by ED staff, EKG done, by ED staff, reviewed by Jeff Hanley MD.5 16:43 Austin Blackman MD is Hospitalizing Provider. jr8 16:45 Triage completed. rb1 16:50 Chest Single View XRAY In Process Unspecified. EDMS 17:27 Cely Dunham RN is Primary Nurse. rb1 17:57 Urine collected: Nolasco catheter specimen, cloudy. Nolasco cath inserted, using sterile mh5 technique, 16 Fr., by ED staff. 17:59 Urine Microscopic Only Sent. mh5 18:56 Report given to CRISTINA Payne. rb1 19:36 Patient admitted, IV remains in place. ea Administered Medications: 15:17 Drug: Etomidate 10 mg Route: IVP; Site: left wrist; rb1 15:17 Drug: Rocuronium 50 mg Route: IVP; Site: left wrist; rb1 15:30 Drug: NS 0.9% (30 ml/kg) 30 ml/kg Route: IV; Rate: bolus; Site: left wrist; rb1 17:10 Follow up: IV Status: Completed infusion rb1 16:11 Drug: Propofol 5 mcg/kg/min Route: IV; Rate: calculated rate; Site: right femoral; rb1 19:37 Follow up: Response: No adverse reaction; IV Status: Infusion continued upon admission ea 16:30 Drug: Levophed (4 mg/250 mL D5W 4 mcg/min Route: IV; Rate: calculated rate; Site: right rb1 femoral; 19:37 Follow up: Response: No adverse reaction; IV Status: Infusion continued upon admission ea 17:30 Drug: Cefepime 1 grams Route: IVPB; Rate: 200 ml/hr; Infused Over: 30 mins; Site: left rb1 wrist; 18:07 Follow up: Response: No adverse reaction; IV Status: Completed infusion rb1 17:50 Drug: vancoMYCIN 1 grams Route: IVPB; Infused Over: 2 hrs; Site: right femoral; rb1 19:38 Follow up: Response: No adverse reaction; IV Status: Completed infusion ea 18:12 Drug: Versed 2 mg Route: IVP; Site: left wrist; rb1 19:22 Drug: Versed 2 mg Route: IVP; Site: left hand; ea 19:38 Follow up: Response: No adverse reaction ea 19:47 Drug: Tylenol Suppository 650 mg Route: WV; ea 20:30 Follow up: Response: No adverse reaction rr5 Output: 20:20 Urine: 250ml (Nolasco); Total: 250ml. rr5 Outcome: 16:44 Decision to Hospitalize by Provider. jr8 19:32 Instructed on Pt sedated and intubated ea 20:00 Admitted to ICU accompanied by nurse, accompanied by tech, via stretcher, room icu 7, rr5 with oxygen, on monitor, with chart, Report called to kimberlee 20:00 Condition: stable 20:25 Patient left the ED. ea Signatures: Dispatcher [employer] EDMS Jeff Hanley MD MD cha Calderon, Audri, RN RN aa5 Mike Zayas PA PA jr8 Cely Dunham, RN RN rb1 Zandra Metz 5 Kerry De La Torre RN RN ea Roque, Raymond RN RN rr5 Corrections: (The following items were deleted from the chart) 16:45 15:58 Chief complaint: EMS states: 79 yr. old male, A \T\ O x 4, called out for rb1 Respiratory distress. EMS put the pt. on C-PAP and his O2 sat was 75%. reports that she has breathing treatments for him, Atrovent and Albuterol, but she only does one medication at a time. Was on hospice for two days and the took him off hospice. told EMS that she has POA, but no paperwork was sent with the pt. Pt. rb1 17:14 16:51 BP 121 / 107; Pulse 96bpm; Resp 16bpm; Pulse Ox 92% FiO2 80% vent; rb1 rb1 17:49 17:00 BP 83 / 53; Pulse 99bpm; Resp 16bpm; Pulse Ox 94% FiO2 80% vent; Notified Marquez chatterjee of BP. Received verbal order to start the Levophed on 2.5 mcg/min. 100% verbal read back.; rb1 17:49 16:00 BP 146 / 83; Pulse 116bpm; Resp 16bpm; Pulse Ox 96% FiO2 80% vent; rb1 rb1 17:49 16:27 BP 101 / 60; Pulse 97bpm; Resp 16bpm; Pulse Ox 88% FiO2 80% vent; Pt. was rb1 suctioned.; rb1 17:49 17:30 BP 92 / 63; Pulse 91bpm; Resp 16bpm; Pulse Ox 100% FiO2 80% vent; rb1 rb1 19:31 15:08 Risk Assessment: Do you want to hurt yourself or someone else? Patient reports no rb1 desire to harm self or others. rb1 19:42 16:52 Reassessment: BP 151/139, Dr. Hanley notified. Received verbal order to rb1 discontinue the Levophed. 100% verbal read back. rb1 19:42 17:00 Reassessment: BP 81/60 notified Marquez. Received verbal order to increase rb1 Levophed to 5 mcg/min. 100% verbal read back. rb1 19: 16:00 Reassessment: Patient appears in no apparent distress at this time. rb1 rb1 19:44 18:41 Reassessment: Levophed increased to 10 mcg/min, BP 85/49 MAP 60 rb1 rb1
--- NOTE | 2019-11-28 16:45 | EDPHYS ---
Physician Documentation [facility] Name: Idris San Age: 79 yrs Sex: Male : 1940 Arrival Date: 11/28/2019 Time: 15:11 Bed 3 Private MD: ED Physician Jeff Hanley HPI: 11/27 15:43 This 79 yrs old Male presents to ER via Unassigned with complaints of jr8 Respiratory Failure. 15:43 The patient has shortness of breath at rest. Onset: The symptoms/episode began/occurred jr8 and became worse today, 3 hour(s) ago, chronic. Duration: The symptoms are continuous. The patient's shortness of breath has no apparent modifying factors. Associated signs and symptoms: The patient has no apparent associated signs or symptoms. Severity of symptoms: At their worst the symptoms were severe in the emergency department the symptoms are unchanged. It is unknown whether or not the patient has had similar symptoms in the past. It is unknown whether or not the patient has recently seen a physician. EMS called out to patient in respiratory distress. Family notified EMS that patient has stage 4 lung cancer but is not on hospice as of yet and does not have DNR. Wants everything done at this time. Patient in respiratory arrest upon arrival with saturation in the 60s. Unconscious and unresponsive . Historical: - Allergies: 15:08 Codeine; rb1 15:08 Morphine; rb1 - PMHx: 15:08 Anemia; CHF; COPD; Emphysema; enlarged prostate; femur fracture; Lung Cancer; Pt rb1 reports that it cleared up; - Immunization history:: Adult Immunizations unknown. - Social history:: Smoking status: unknown. ROS: 15:43 Unable to obtain ROS due to obtunded state, patient is on ventilator. jr8 Exam: 15:43 Eyes: Pupils equal round and reactive to light but sluggish to respond. Lids and jr8 lashes normal. Conjunctiva and sclera are non-icteric and not injected. Cornea within normal limits. Periorbital areas with no swelling, redness, or edema. ENT: Nares patent. No nasal discharge, no septal abnormalities noted. Oropharynx with no redness, swelling, or masses, exudates, or evidence of obstruction, uvula midline. Mucous membranes dry. Cardiovascular: Tachycardia present with a normal S1 and S2. No gallops, murmurs, or rubs. Normal PMI, no JVD. No pulse deficits. Respiratory: Patient with wheezing diffusely. RR of 14 via ventilator. Equal bilaterally. Abdomen/GI: Soft with normal bowel sounds. No distension or tympany. Skin: Cool, dry with increased turgor. Mottled in appearance MS/ Extremity: Pulses equal, no cyanosis. Neurovascular intact. Full, normal range of motion. Vital Signs: 15:09 BP 102 / 59; Pulse 109; Resp 32; Temp 97.7(R); Pulse Ox 85% on CPAP; Weight 54.43 kg; rb1 Height 5 ft. 5 in. (165.10 cm); 15:16 BP 94 / 58; Pulse 106; Resp 20; Pulse Ox 97% on BVM; rb1 15:30 BP 129 / 82; Pulse 123; Resp 16; Pulse Ox 96% on 80% FiO2 ETT vent; rb1 15:45 BP 138 / 86; Pulse 122; Resp 16; Pulse Ox 95% on 80% FiO2 ETT vent; rb1 16:00 BP 146 / 83; Pulse 116; Resp 16; Temp 97.5(C); Pulse Ox 96% on 80% FiO2 ETT vent; rb1 16:15 BP 95 / 57; Pulse 106; Resp 18; Pulse Ox 95% on 80% FiO2 ETT vent; rb1 16:27 BP 101 / 60; Pulse 97; Resp 16; Temp 97.7(C); Pulse Ox 88% on 80% FiO2 ETT vent; rb1 16:39 BP 116 / 64; Pulse 103; Resp 16; Pulse Ox 92% on 80% FiO2 ETT vent; rb1 16:51 BP 121 / 107; Pulse 96; Resp 16; Pulse Ox 92% on 80% FiO2 ETT vent; rb1 16:52 BP 151 / 139; Pulse 96; Resp 16; Pulse Ox 92% on ETT vent; rb1 16:58 BP 97 / 52; Pulse 98; Resp 16; Pulse Ox 93% on 80% FiO2 ETT vent; rb1 17:00 BP 83 / 53; Pulse 99; Resp 16; Temp 97.8(C); Pulse Ox 94% on 80% FiO2 ETT vent; rb1 17:03 BP 88 / 54; Pulse 99; Resp 16; Pulse Ox 94% on 80% FiO2 ETT vent; rb1 17:06 BP 92 / 62; Pulse 103; Resp 16; Pulse Ox 93% on 80% FiO2 ETT vent; rb1 17:09 BP 81 / 60; Pulse 98; Resp 16; Pulse Ox 94% on 80% FiO2 ETT vent; rb1 17:12 BP 116 / 75; Pulse 96; Resp 16; Pulse Ox 96% on 80% FiO2 ETT vent; rb1 17:30 BP 92 / 63; Pulse 91; Resp 16; Temp 98.2(C); Pulse Ox 100% on 80% FiO2 ETT vent; rb1 17:42 BP 92 / 68; Pulse 89; Resp 16; Temp 98.5(C); Pulse Ox 100% on 80% FiO2 ETT vent; rb1 17:54 BP 100 / 76; Pulse 92; Resp 16; Temp 98.7; Pulse Ox 100% on 80% FiO2 ETT vent; rb1 18:04 BP 106 / 60; Pulse 92; Resp 17; Pulse Ox 100% on 80% FiO2 ETT vent; rb1 18:15 BP 84 / 55; Pulse 92; Resp 16; Temp 99.1(C); Pulse Ox 100% on 80% FiO2 ETT vent; rb1 18:31 BP 87 / 59; Pulse 91; Resp 16; Pulse Ox 100% on 80% FiO2 ETT vent; rb1 19:05 BP 105 / 67; Pulse 94; Resp 16; Temp 100.1; Pulse Ox 100% on ETT vent; rr5 19:38 BP 105 / 68; Pulse 93; Resp 16; Temp 100.1; Pulse Ox 100% on ETT vent; ea 20:07 BP 102 / 58; Pulse 92; Resp 16; Temp 100.6; Pulse Ox 100% on ETT vent; rr5 20:15 BP 115 / 59; Pulse 84; Resp 18; Pulse Ox 100% on ETT vent; ea 15:09 Body Mass Index 19.97 (54.43 kg, 165.10 cm) rb1 16:27 Pt. was suctioned. rb1 16:[address] Hanley of , Received verbal order to discontinue the Levophed. 100 % rb1 verbal read back 17:00 Notified Marquez of . Received verbal order to start the Levophed on 2.5 mcg/min. 100% rb1 verbal read back. 17:09 Notified Marquez. Received verbal order to increase Levophed to 5 mcg/min. 100% verbal rb1 read back. 18:15 Removed a blanket rb1 [place] Coma Score: 15:43 Eye Response: none(1). Verbal Response: none(1). Motor Response: none(1). Modifying jr8 Factors: Intubated. Total: 3. Procedures: 15:43 Intubation: Intubated orally using # 4 Cathy blade with 7.5 mm ETT. was successful jr8 on first attempt. Ventilated with Ambu bag. ventilator. Tube secured with ETT amato at center of mouth measured 23 cm at lip. Placement verified by CXR, CO2 detector with (+) color change, auscultating bilateral breath sounds, O2 saturation after procedure was 97 %. Patient tolerated well. Central Line: the site was prepped with Betadine, in sterile fashion, a triple lumen catheter was inserted, in the right femoral vein, in 1 attempts. placement was verified, by blood return, the site was dressed with Tegaderm, using sterile technique, the patient tolerated the procedure, well. MDM: 15:18 Patient medically screened. [facility] 16:42 Data reviewed: vital signs, nurses notes, lab test result(s), EKG, radiologic studies, jr8 plain films. Data interpreted: Pulse oximetry: on ventilator is 97 %. Interpretation: acceptable. Counseling: I had a detailed discussion with the patient and/or guardian regarding: the historical points, exam findings, and any diagnostic results supporting the discharge/admit diagnosis, lab results, radiology results, the need for further work-up and treatment in the hospital. Physician consultation: Austin Blackman MD was called at 16:43, was contacted at 16:43, regarding admission, to the ICU. 11/27 15:38 Order name: ABG; Complete Time: 16:21 11/27 15:38 Order name: Amylase, Serum; Complete Time: 17:05 [facility] 11/27 15:38 Order name: Basic Metabolic Panel; Complete Time: 17:05 11/27 15:38 Order name: Blood Culture Adult (2) 11/27 15:38 Order name: CBC with Diff 11/27 15:38 Order name: Ckmb; Complete Time: 17:05 11/27 15:38 Order name: CPK; Complete Time: 17:05 11/27 15:38 Order name: Lactate; Complete Time: 16:34 jl11/27 15:38 Order name: LFT's; Complete Time: 17:05 [facility] 11/27 15:38 Order name: Lipase; Complete Time: 17:05 11/27 15:38 Order name: Procalcitonin; Complete Time: 18:01 11/27 15:38 Order name: Protime (+inr); Complete Time: 16:21 [facility] 11/27 15:38 Order name: Ptt, Activated; Complete Time: 16:21 11/27 15:38 Order name: Troponin (emerg Dept Use Only); Complete Time: 17:05 [facility] 11/27 15:38 Order name: Urine Microscopic Only [facility] 11/27 15:38 Order name: Chest Single View XRAY; Complete Time: 17:31 [facility] 11/27 16:23 Order name: COVID-19 [facility] 11/27 18:10 Order name: Manual Differential [facility] 11/27 19:20 Order name: Urine Dipstick--Ancillary (enter results) aa5 11/27 19:22 Order name: Thyroid Stimulating Hormone [facility] 11/27 15:38 Order name: Cath; Complete Time: 16:06 [facility] 11/27 15:38 Order name: Cardiac monitoring; Complete Time: 16:06 [facility] 11/27 15:38 Order name: EKG - Nurse/Tech; Complete Time: 16:06 [facility] 11/27 15:38 Order name: IV Saline Lock - Large Bore; Complete Time: 16:07 [facility] 11/27 15:38 Order name: Labs collected and sent; Complete Time: 16:07 [facility] 11/27 15:38 Order name: O2 Per Protocol; Complete Time: 16:38 [facility] 11/27 15:38 Order name: O2 Sat Monitoring; Complete Time: 16:38 11/27 15:38 Order name: Urine Dipstick-Ancillary (obtain specimen); Complete Time: 17:58 jl Administered Medications: 15:17 Drug: Etomidate 10 mg Route: IVP; Site: left wrist; rb1 15:17 Drug: Rocuronium 50 mg Route: IVP; Site: left wrist; rb1 15:30 Drug: NS 0.9% (30 ml/kg) 30 ml/kg Route: IV; Rate: bolus; Site: left wrist; rb1 17:10 Follow up: IV Status: Completed infusion rb1 16:11 Drug: Propofol 5 mcg/kg/min Route: IV; Rate: calculated rate; Site: right femoral; rb1 19:37 Follow up: Response: No adverse reaction; IV Status: Infusion continued upon admission ea 16:30 Drug: Levophed (4 mg/250 mL D5W 4 mcg/min Route: IV; Rate: calculated rate; Site: right rb1 femoral; 19:37 Follow up: Response: No adverse reaction; IV Status: Infusion continued upon admission ea 17:30 Drug: Cefepime 1 grams Route: IVPB; Rate: 200 ml/hr; Infused Over: 30 mins; Site: left rb1 wrist; 18:07 Follow up: Response: No adverse reaction; IV Status: Completed infusion rb1 17:50 Drug: vancoMYCIN 1 grams Route: IVPB; Infused Over: 2 hrs; Site: right femoral; rb1 19:38 Follow up: Response: No adverse reaction; IV Status: Completed infusion ea 18:12 Drug: Versed 2 mg Route: IVP; Site: left wrist; rb1 19:22 Drug: Versed 2 mg Route: IVP; Site: left hand; ea 19:38 Follow up: Response: No adverse reaction ea 19:47 Drug: Tylenol Suppository 650 mg Route: ME; ea 20:30 Follow up: Response: No adverse reaction rr5 Disposition: 16:45 Critical Care:. kenneth 11/28 16:53 Co-signature as Attending Physician, Jeff Hanley MD I agree with the assessment and pricilla plan of care. Disposition: 11/28/19 16:44 Hospitalization ordered by Austin Blackman for Inpatient Admission. 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 - Bed requested for Intensive Care Unit. - Status is Inpatient Admission. ea - Condition is Serious. - Problem is an acute exacerbation. - Symptoms have improved. Critical care time excluding procedures: 11/27 16:45 Critical care time: Bedside Care: 20 minutes, Consultation: 10 minutes, Family jr8 Intervention: 10 minutes. Total time: 40 minutes Signatures: Dispatcher [employer] Jeff Davidson MD MD cha Roszak, Josh, PA PA jr8 Cherry Cm RN RN Cely Dunham RN RN rb1 Judy Carlos RN RN jl7 Kerry De La Torre RN RN ea Anderson Najera RN rr5 Corrections: (The following items were deleted from the chart) 16:45 16:44 Hospitalization Ordered by Austin Blackman MD for Inpatient Admission. Preliminary jr8 diagnosis is Acute respiratory failure with hypercapnia; Chronic obstructive pulmonary disease with (acute) exacerbation. Bed requested for Intensive Care Unit. Status is Inpatient Admission. Condition is Serious. Problem is an acute exacerbation. Symptoms have improved. jr8 18:46 16:45 11/28/2019 16:44 Hospitalization Ordered by Austin Blackman MD for Inpatient cg Admission. 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 Bed requested for Intensive Care Unit. Status is Inpatient Admission. Condition is Serious. Problem is an acute exacerbation. Symptoms have improved. jr8 19:16 15:38 Accucheck ordered. jl7 rb1 20:25 18:46 11/28/2019 16:44 Hospitalization Ordered by Austin Blackman MD for Inpatient ea Admission. 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 Bed requested for Intensive Care Unit. Status is Inpatient Admission. Condition is Serious. Problem is an acute exacerbation. Symptoms have improved. cg
--- NOTE | 2019-11-28 17:29 | RAD REPORT ---
EXAM DESCRIPTION: Aida Single View11/28/2019 4:50 pm CLINICAL HISTORY: Shortness of breath COMPARISON: November 16 FINDINGS: Endotracheal tube has tip well above the stephani. Nasogastric tube is present within the s tomach. No significant change in the bilateral pulmonary opacities. Pleural effusions are unchanged The heart is normal size
[2019-11-28] MEDS ORDERED: VANCOMYCIN/NS 1 gm 1 GM/250 ML BAG IV ONE (17:45)
[2019-11-28 18:09] LABS: Anisocytosis 1+; Blood Morphology Comment NOTED (NOT SEEN); Ovalocytes 1+; Platelet Estimate ADEQ; Poikilocytosis 1+; Polychromasia 1+
[2019-11-28] MEDS ORDERED: MIDAZOLAM HCL 2 MG/2 ML INJ ONE ×2 (18:17→19:23)
[2019-11-28 18:20] LABS: Calcium Oxalate Crystals- Ur FEW (NONE SEEN); Urine Bacteria <20 /HPF (NONE SEEN); Urine Culture Reflex Order REFLEXED; Urine RBC <5 /HPF (NONE SEEN)
[2019-11-28] MEDS ORDERED: ONDANSETRON 4 MG/2 ML VIAL IV PRN (19:50)
[2019-11-28] MEDS ORDERED: HALOPERIDOL LACT 5 MG/ML INJ IV PRN (19:50)
[2019-11-28] MEDS ORDERED: ACETAMINOPHEN 500 MG TAB PO PRN (19:50)
[2019-11-28] MEDS ORDERED: propofoL 1,000 MG/100 ML VIAL IV PRN (19:50)
[2019-11-28] MEDS ORDERED: NA CHLORIDE 0.9% 250 ML IV PRN (19:50)
[2019-11-28] MEDS ORDERED: ACETAMINOPHEN 650MG/RECT SUPP PR ONE (19:53)
[2019-11-28] MEDS ORDERED: CEFEPIME 2 GM VIAL IV SCH (21:00)
[2019-11-28] MEDS ORDERED: CEFEPIME 1 GM in NA CHLORIDE 0.9% 100 ML IV ONE (22:00)
--- NOTE | 2019-11-28 22:11 | HP ---
Date of Admission: 11/28/2019 Chief Complaint: Shortness of breath. Code Status: Full code. Consultants: 1. Dr. Valdivia with Pulmonology. 2. Dr. Barclay with Cardiology. History Of Present Illness: Patient is a 79-year-old male who has been in and out of the hospital recently for respiratory failure and COPD exacerbation, who had been back and forth with hospice, comes in with difficulty breathing. Patient was recently discharged on 11/20/2019, with similar issues. He was sent home on palliative care with noninvasive ventilator and was to be transitioned to hospice care if his condition warranted. However, patient came into the ER for further evaluation. He had sudden onset of worsening shortness of breath, worse than his baseline. There was no fevers or chills. Patient's symptoms are constant, moderate, progressively worsening. He also has stage IV lung cancer with diffuse metastases to the liver and bones. Patient was found to have O2 saturations in 60s, unconscious and unresponsive, therefore was intubated in the ER. Patient was also started on IV antibiotics, Lovenox and as well as Levophed for hypotension. Patient's workup including ABG did not reveal significant hypoxia or acidosis. The pH was 7.39, pCO2 was 68, pO2 was 81. White blood cell count was 20,000 with left shift. CO2 was 43. Lactate was 2.1. Procalcitonin was 175. Chest x-ray showed pleural effusions, bilateral pulmonary opacities unchanged from November 16. He had repeat testing for COVID. Patient was negative on November 17. Patient was then referred for admission. When seen in the ER, he was intubated, responsive. No family at the bedside. Past Medical History: Stage IV lung cancer with diffuse metastases of the liver and bones, follows with local oncologist; terminal COPD, on noninvasive ventilator; sleep apnea; enlarged prostate; congestive heart failure; COPD, end- stage, on oxygen. Past Surgical History: Femur fracture, appendectomy, cataract surgery, prostate surgery. Allergies: TO CODEINE AND MORPHINE. Medications: List reviewed. Social History: Patient is a former smoker. Lives at home. Has good social support. No current alcohol use. Family History: Father had heart disease and diabetes as well as PA. Mother had lung disease, lung cancer, breast cancer, and brain cancer. Physical Examination: Vital Signs: Blood pressure 102/59, respirations are 32, heart rate 109, temperature 97.7. O2 was as low as 60s with 85% on CPAP. Patient's weight is 54 kg. General: Intubated, not sedated, elderly male in respiratory distress, ill- appearing. HEENT: Normocephalic, atraumatic. PERRLA. Patient is intubated. ET tube in place. Neck: Supple. Trachea midline. CV: S1, S2, irregularly irregular. Rapid rate. Peripheral pulses weak. Respiratory: Diminished breath sounds, rhonchi heard. Patient is tachypneic with use of accessory muscles. Gastrointestinal: Abdomen is soft, nontender, nondistended. Positive bowel sounds. Extremities: No clubbing, cyanosis, or edema. Neuro: Intubated, not sedated. Does respond to sternal rub. Babinski normal upgoing. Moves all 4 extremities. Skin: No rashes. Normal skin turgor. Laboratory Data: Sodium 142, potassium 4.2, chloride 93, CO2 of 43, BUN 28, creatinine 0.86, glucose 221, lactate 2.1, calcium 8.9, AST 24, ALT 31, CK is 50, troponin 0.03, albumin 2.8, amylase 28, procalcitonin is 175. WBC 20,000, H and H of 13.3 and 44.2, platelets 238, neutrophils 95%. INR 0.95. ABG; pH 7.39, pCO2 of 68.5, pO2 of 81.2, bicarb 40.6. Chest x-ray personally reviewed shows ET tube well above the stephani. An NG tube in the stomach. No significant change in bilateral pulmonary opacities. Pleural effusions are unchanged. Heart is normal size. Assessment: 79-year-old male with: 1. Acute respiratory failure with hypoxia and hypercapnia. Patient is on mechanical ventilation likely secondary to his lung cancer and chronic obstructive pulmonary disease. We will place in the ICU. Obtain Pulmonology consultation. 2. Acute chronic obstructive pulmonary disease exacerbation. We will start on steroids, albuterol p.r.n. Pulmonology on board. 3. Hypotensive shock. Patient currently on Levophed. We will continue and titrate to a mean arterial pressure of 65. 4. New onset Afib w RVR. Start on anti-coagulation. Rate has improved w resuscitation. Cardiology consult. Echo. 5. Pneumonia likely nosocomial. Patient has bilateral pulmonary opacities that have not changed much from November 16 x-ray. Procalcitonin is elevated at 175. Hypotensive. White count of 20,000. Lactate elevated at 2.1. We will cover with broad-spectrum IV antibiotics with vancomycin and cefepime. We will obtain blood cultures.. 6. Metabolic acidosis. 7. History of lung cancer stage IV with diffuse metastases to the liver, bone, and brain apparently. 8. Patient under investigation for coronavirus disease 2018. Screening from November 17 was negative. Has been rescreened in the ED. We will continue on droplet isolation. Plan: Admit patient to ICU on droplet isolation. Overall poor prognosis. According to his son, patient is full code. They do not want hospice care at this time. We will touch base with the patient's oncologist, Dr. Hauser. Overall poor prognosis. If patient does survive this hospitalization, would recommend placement in LTAC. Patient has failed home therapy with home health and noninvasive ventilator. /CAITLYN Voice ID: [id number] MTDD
[2019-11-28] MEDS: D5 0.45 NS 1,000 ML IV SCH (22:25)
[2019-11-28] MEDS: ENOXAPARIN 60 MG/0.6 ML SQ SCH (22:25)
[2019-11-28] MEDS: NOREPINEPHRINE 4 MG in D5W 250 ML IV PRN (23:00)
[2019-11-28] MEDS: MIDAZOLAM HCL 2 MG/2 ML INJ IV PRN (23:07)
[2019-11-29] MEDS: METHYLPREDNISOLONE 40 MG INJ IV SCH ×3 (00:56→17:23)
[2019-11-29] MEDS: MIDAZOLAM HCL 2 MG/2 ML INJ IV PRN (02:31)
[2019-11-29 05:23] LABS: Absolute Lymphocytes (CBC) 0.2 K/uL (0.7-4.9); Hematocrit 34.6 % (39.6-49.0); Lymphocytes % 0.9 % (15.3-44.8); MPV 11.3 fL (7.6-11.3); RBC Red Blood Cell Count 3.89 M/uL (4.33-5.43)
[2019-11-29] MEDS: FENTANYL CITR 100 MCG/2 ML IV PRN ×2 (05:37→17:26)
[2019-11-29 05:49] LABS: ALT/SGPT 115 U/L (12-78); AST/SGOT 23 U/L (15-37); Albumin 2.2 g/dL (3.4-5.0); Alkaline Phosphatase 84 U/L (45-117); BUN Blood Urea Nitrogen 23 mg/dL (7-18); Bicarbonate 37 mmol/L (21-32); Bilirubin Total 0.7 mg/dL (0.2-1.0); Glucose Level 242 mg/dL (74-106); Potassium 3.7 mmol/L (3.5-5.1); Protein, Total 5.2 g/dL (6.4-8.2); Sodium Level 141 mmol/L (136-145)
[2019-11-29] MEDS: ENOXAPARIN 60 MG/0.6 ML SQ SCH (08:09)
[2019-11-29] MEDS: PANTOPRAZOLE 40 MG INJ IVP SCH (08:09)
[2019-11-29] MEDS: CEFEPIME/SWI 2gm 2 GM/20 ML SYR IVP SCH ×2 (08:09→19:45)
[2019-11-29] MEDS: NOREPINEPHRINE 4 MG in D5W 250 ML IV PRN (08:18)
[2019-11-29] MEDS: D5 0.45 NS 1,000 ML IV SCH ×3 (08:25→17:44)
[2019-11-29] MEDS ORDERED: CEFEPIME 2 GM VIAL IV SCH (09:00)
[2019-11-29] MEDS ORDERED: HOME MED 1 EA UNK (Cetirizine Hcl [Zyrtec] 10 MG) PO SCH (09:00)
[2019-11-29] MEDS ORDERED: IPRATROPIUM BROM 0.5MG/2.5ML IH SCH (09:00)
[2019-11-29] MEDS ORDERED: POLYETHYL GLY 3350 17 GM/DOSE PO SCH (09:00)
[2019-11-29] MEDS ORDERED: ROCURONIUM 50 MG/5 ML VIAL IV ONE (09:09)
[2019-11-29] MEDS ORDERED: ETOMIDATE 20 MG/10 ML VIAL IV ONE (09:09)
--- NOTE | 2019-11-29 09:59 | PN ---
Date of Progress Note: 11/29/2019 Patient seen and examined. Chart reviewed and case discussed with RN. Patient still intubated, on L evophed. Had temperature spike of 101 overnight. Medications: List reviewed. Code Status: Full. Physical Examination: Vital Signs: Temperature T-max 101, T-current 100.1, blood pressure 105/64, respirations 16, heart r ate 79, O2 97% on 50% FiO2 via ET tube. General: Intubated, sedated, does respond somewhat to sternal rub. Moves all 4 extremities. CV: S1, S2. Regular rate and rhythm. Peripheral pulses weak. Respiratory: Diminished breath sounds. Rhonchi heard. Minimal wheezing. Gastrointestinal: Abdomen is distended. Positive bowel sounds. Extremities: No clubbing, cyanosis, pedal edema. Neuro: Moves all 4 extremities. Does respond to sternal rub. Currently intubated and sedated. Laboratory Data: Sodium 141, potassium 3.7, chloride 98, CO2 of 37, BUN 23, creatinine 0.67, glucose 242, calcium 7.9, albumin 2.2, lactate 2. TSH is 1.7. WBC 19.6, H and H 10.8 and 34.6, platelets 2 27, neutrophils 98.2%. COVID screening from [facility] is negative. Blood cultures are pen ding. Assessment: 79-year-old male with: 1.Acute respiratory failure with hypoxia and hypercapnia, likely secondary to chronic obstructive pu lmonary disease and pneumonia. Patient also has underlying stage IV lung cancer. Patient is on [facility] anical ventilation, 50% FiO2. Appreciate Pulmonology input. 2.Acute chronic obstructive pulmonary disease exacerbation. Continue steroids. We will add Xopenex and Atrovent. Patient has end-stage chronic obstructive pulmonary disease, is oxygen dependent. 3.Hypotensive shock, currently on Levophed. We will try to wean as tolerated. Titrate to a mean ar terial pressure of 65. 4.New-onset atrial fibrillation with rapid ventricular response, now back in sinus rhythm with multi ple premature atrial contractions. Cardiology consultation is pending. We will obtain echocardiogra m once available. 5.Nosocomial pneumonia. Patient is febrile. Blood pressure of 101 and hypotensive. White blood ce ll count still elevated minimally, declining at 19.6 from yesterday. Repeat lactate was normal. We will continue with broad-spectrum intravenous antibiotics. Follow up on blood cultures. Coronavirus disease screening was negative. 6.Metabolic acidosis. 7.History of stage IV lung cancer with diffuse metastases to liver, bone, and brain. Follows with Dayami Hauser. 8.Person under investigation for coronavirus disease 2019 negative. May discontinue droplet isolati on. 9.Deep vein thrombosis prophylaxis. Patient is on Lovenox therapeutic dose for new-onset atrial fib rillation. Overall poor prognosis. We will discuss with family. Currently full code. Continue mon itoring in intensive care unit setting. /CAITLYN Voice ID: [id number] Report ID: [id number]
[2019-11-29] MEDS: ASPIRIN 81 MG CHEWABLE TABLET PO SCH (10:07)
[2019-11-29] MEDS: LORazepam 2 MG/ML VIAL IV PRN ×2 (10:38→19:48)
[2019-11-29] MEDS: LEVALBUTEROL 1.25 MG/3 ML NEB NEB SCH ×2 (14:03→19:40)
[2019-11-29] MEDS: IPRATROPIUM BROM 0.5MG/2.5ML IH SCH ×2 (14:03→19:40)
[2019-11-29] MEDS: VANCOMYCIN 1 GM in NA CHLORIDE 0.9% 250 ML IVPB SCH (17:23)
[2019-11-29] MEDS ORDERED: HOME MED 1 EA UNK (Theophylline Anhydrous [Theo-24] 200 MG) PO SCH (20:30)
[2019-11-30] MEDS: METHYLPREDNISOLONE 40 MG INJ IV SCH ×3 (00:40→17:02)
[2019-11-30] MEDS: LEVALBUTEROL 1.25 MG/3 ML NEB NEB SCH ×4 (01:40→20:10)
[2019-11-30] MEDS: IPRATROPIUM BROM 0.5MG/2.5ML IH SCH ×4 (01:40→20:10)
[2019-11-30] MEDS: D5 0.45 NS 1,000 ML IV SCH (03:57)
[2019-11-30] MEDS: FENTANYL CITR 100 MCG/2 ML IV PRN (04:15)
[2019-11-30 05:24] LABS: Absolute Lymphocytes (CBC) 0.1 K/uL (0.7-4.9); Basophils % 0.1 % (0-1.3); Hematocrit 31.2 % (39.6-49.0); Lymphocytes % 0.7 % (15.3-44.8); MPV 11.2 fL (7.6-11.3); RBC Red Blood Cell Count 3.55 M/uL (4.33-5.43)
[2019-11-30 05:28] LABS: ALT/SGPT 95 U/L (12-78); AST/SGOT 16 U/L (15-37); Albumin 2.1 g/dL (3.4-5.0); Alkaline Phosphatase 80 U/L (45-117); BUN Blood Urea Nitrogen 19 mg/dL (7-18); Bicarbonate 36 mmol/L (21-32); Bilirubin Total 0.5 mg/dL (0.2-1.0); Glucose Level 248 mg/dL (74-106); Potassium 3.4 mmol/L (3.5-5.1); Sodium Level 137 mmol/L (136-145)
[2019-11-30] MEDS ORDERED: NA CHLORIDE 0.9% 500 ML IV ONE (07:25)
[2019-11-30] MEDS: KCL 20 MEQ/100 mL IVPB 20 MEQ/100 ML BAG IV SCH ×2 (07:44→09:07)
[2019-11-30] MEDS: ASPIRIN 81 MG CHEWABLE TABLET PO SCH (08:04)
[2019-11-30] MEDS: ENOXAPARIN 40 MG/0.4 ML SQ SCH (08:04)
[2019-11-30] MEDS: PANTOPRAZOLE 40 MG INJ IVP SCH (08:05)
[2019-11-30] MEDS: NOREPINEPHRINE 4 MG in D5W 250 ML IV PRN (08:26)
[2019-11-30] MEDS: CEFEPIME/SWI 2gm 2 GM/20 ML SYR IVP SCH ×2 (08:37→21:43)
[2019-11-30] MEDS: CETIRIZINE HCL 5 MG TABLET PO SCH (08:44)
--- NOTE | 2019-11-30 08:54 | P.PN ---
Subjective Date of Service: 11/30/19 Primary Care Provider: Dr. Valdivia Chief Complaint: Shortness of breath Subjective: Other (Patient remains intubated, sedated. Patient on vasopressor.) Physical Examination - Vital Signs Temperature: 98.5 F Blood Pressure: 97/45 Pulse: 69 Respirations: 14 Pulse Ox (%): 97 - Physical Exam General: Cachectic, Other (Patient intubated and sedated.) HEENT: Atraumatic Neck: Supple Respiratory: Clear to auscultation bilaterally, Normal air movement Cardiovascular: Normal pulses, Regular rate/rhythm Gastrointestinal: Normal bowel sounds Neurological: Other (Patient intubated) Other Physical/Emotional Findings: Muscle wasting to the extremities and torso. - Studies Medications List Reviewed: Yes Assessment & Plan Discharge Plan: LTAC Plan to discharge in: 24 Hours Physician Review Additional Text: Impression: Acute on chronic respiratory failure with hypoxia and hypercapnia secondary to COPD exacerbation with bilateral pneumonia, end-stage COPD on chronic steroids and non invasive ventilator Septic shock secondary to pneumonia Paroxysmally atrial fibrillation not on chronic anti coagulation therapy Nosocomial bilateral pneumonia Metabolic acidosis Diabetes mellitus type 2 History of stage IV lung cancer with diffuse mets to the liver, bone and brain Plan: Acute on chronic respiratory failure with hypoxia and hypercapnia secondary to COPD exacerbation with bilateral pneumonia, end-stage COPD on chronic steroids and non invasive ventilator: Patient remains intubated and sedated. Continue IV antibiotic therapy, IV steroids and COPD treatment. Will discuss further with pulmonology. Will also need to discuss with who is making decisions. Will need to address advanced directives and a advance care planning. If wants to continue with treatment will need to consider long-term acute care facility placement verses withdrawal of care and hospice. This has been addressed in detail in the past, on prior hospitalization. Patient with poor prognosis. Patient remains on IV vasopressor. Will consult social work administrator to help in this process. Await further recommendations from pulmonology. Septic shock secondary to pneumonia: Continue antibiotic therapy. Paroxysmally atrial fibrillation not on chronic anti coagulation therapy: Continue with DVT prophylaxis. Patient in normal sinus rhythm. Cardiology consulted. Anticipate no chronic anti coagulation therapy due to multiple risk factors. Nosocomial bilateral pneumonia: Continue antibiotic therapy. Blood cultures negative. Metabolic acidosis: Continue IV fluids Diabetes mellitus type 2: Will adjust IV fluids. Continue Accu-Cheks and sliding scale. 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 Patient with poor prognosis. Oncology has recommended hospice. Time Spent Managing Pts Care (In Minutes): 55
[2019-11-30] MEDS ORDERED: GLUCAGON 1 MG/VIAL IM PRN (08:57)
[2019-11-30] MEDS ORDERED: D50W 25 GM/50 ML SYRINGE/VIAL IV PRN (08:57)
[2019-11-30] MEDS: NACHLORIDE 0.45% 1,000 ML IV SCH ×2 (09:09→17:02)
[2019-11-30] MEDS: LORazepam 2 MG/ML VIAL IV PRN ×2 (11:00→16:01)
[2019-11-30] MEDS: INSULIN -REGULAR HUMAN 50 UNIT/0.5 ML ML SQ SCH ×3 (11:30→17:11)
--- NOTE | 2019-11-30 12:47 | P.CNS ---
Date of Consult: 11/30/19 Primary Care Provider: Dr. Valdivia Chief Complaint: Respiratory failure shock History of Present Illness: Patient is 79 years of age recurrent hospital admissions admitted with worsening respiratory distress and currently hypotensive he has cut terminal COPD metastatic lung cancer refused hospice care patient has bronchodilators at home with oxygen also has a noninvasive ventilator Allergies codeine Allergy (Verified 10/30/19 04:30) AMS morphine Adverse Reaction (Verified 10/30/19 04:30) AMS Home Medications: Cetirizine HCl [Zyrtec] 10 mg PO DAILY 10/30/19 Furosemide [Lasix*] 20 mg PO DAILY 10/30/19 Ipratropium Neb [Atrovent*] 0.5 mg IH DAILY 10/30/19 Polyethylene Glycol 3350 [Miralax] 17 gm PO PRN PRN 10/30/19 Theophylline Anhydrous [Fritz-24] 200 mg PO 30 MIN BEFORE HS 30 Days #30 cap. er.24h 11/02/19 Pregabalin [Lyrica*] 50 mg PO TID 11/13/19 Tramadol HCl [Ultram] 50 mg PO Q6HP PRN 11/13/19 predniSONE [Deltasone*] 30 mg PO DAILY 11/13/19 Aspirin 81 mg PO DAILY 11/29/19 - Past Medical/Surgical History Diabetic: No -: Lung cancer radiation treatments three years ago -: Terminal COPD patient is on bipap, 6L NC Oxygen -: Sleep Apnea -: Enlarged prostate -: CHF -: femur Fx -: Appendectomy -: Cataract surgery -: Prostate surgery - Family History Father Medical History: Heart disease, Diabetes Notes: MD Mother Medical History: Lung disease, Cancer Notes: LUng Ca, Breast CA,Brain CA - Social History Smoking Status: Unknown if ever smoked Alcohol use: No CD- Drugs: No Caffeine use: No Place of Residence: Home Review of Systems is unable to be obtained Physical Examination Temp Pulse Resp BP Pulse Ox 98.0 F 79 14 98/58 L 94 11/30/19 10:15 11/30/19 10:15 11/30/19 10:15 11/30/19 10:15 11/30/19 10:15 General: Unresponsive Respiratory: Clear to auscultation bilaterally, Diminished Cardiovascular: No edema, Regular rate/rhythm Gastrointestinal: Normal bowel sounds, Soft and benign - Problems (1) Acute and chronic respiratory failure ([id number]) Current Visit: No Status: Acute Plan: Patient is 79 years of age with terminal COPD and metastatic lung cancer refuses to go on hospice care recurrent admissions is full code patient is chronically hypoxic hypercapnic is white count is elevated patient has chronically elevated pro calcitonin level cultures so far negative sputum cultures are pending patient's chest x-ray shows some bilateral haziness left-sided lung mass prognosis is very poor at risk for resistant infection agree with cefepime and vancomycin due to his recurrent admissions consider trach with a PEG tube and referral to a chronic vent facility sputum cultures are pending patient no fever patient has refused hospice care seen by our Oncology use had a long discussion family members regarding referral to hospice care patient has a pulse oximeter that he continuously monitors at home Dc theophylline Qualifiers: Respiratory failure complication: hypoxia and hypercapnia Qualified Code(s): J96.21 - Acute and chronic respiratory failure with hypoxia; J96.22 - Acute and chronic respiratory failure with hypercapnia
[2019-11-30] MEDS: VITAL AF 1,000 ML BOT RTH SCH (14:44)
[2019-11-30 15:36] LABS: Arterial Blood Carboxyhemoglob 1.8 % (0-1.5); Blood Gas Oxyhemoglobin 87.8 % (94-97); Blood O2 Saturation 90.3 % (92-98.5)
--- NOTE | 2019-11-30 16:09 | CON ---
Date of Consultation: 11/29/2019 Reason For Consultation: Tachycardia possible. History Of Present Illness: This is a 79-year-old male with history of COPD, lung cancer, back and f orth with hospice, was recently discharged on palliative care, came back to the ER with sudden onset of worsening shortness of breath and requested imaging to be done. Patient is being intubated a nd admitted to ICU. Initially required pressors. It was felt by the treating physician that the pat ient was in atrial fibrillation with RVR, so I was consulted. Reviewed old EKGs atrial fi brillation. 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 Medications: Refer to reconciliation sheet for detailed list. Past Surgical History: Appendectomy, cataract surgery, prostate surgery, femur fracture. Allergies: CODEINE AND MORPHINE. Social History: He is a former smoker. Does not drink or use drugs. Review of Systems: All systems reviewed and are negative, except for mentioned in the HPI. Physical Examination: Vital Signs: Temperature is 98.4, heart rate 109, breathing at 32, pressure 109/59. General: Pleasant elderly male, sedated on the vent, in no apparent distress. Head and Neck: Pupils reactive to light. No JVD. No cervical lymph. Neck is supple. No nodes. T hyroid is not enlarged. LUNGS: Decreased breathing sounds bilaterally. No rhonchi, rales, or crackles. No accessory muscle use. Heart: Regular rate and rhythm. Tachycardic. Abdomen: Soft, nontender. Bowel sounds positive. No organomegaly. No masses or hernia. No rigidi ty or rebound. EXTREMITIES: No edema, clubbing, or cyanosis. Intact pulses. Skin: No rashes. Neurologic: Alert, wake, and oriented x3. No acute focal deficits appreciated. Investigations: Sodium 141, BUN is 23, creatinine 0.76, procalcitonin is 175. Assessment And Plan: 1.Tachycardia, narrow complex. This is sinus tachycardia. There is no evidence of atrial fibrillat ion. Continue to monitor on telemetry. Obtain echocardiogram. This is likely in response to his [place] respiratory failure. 2.Acute respiratory failure due to chronic obstructive pulmonary disease exacerbation. Intubated, b eing managed by the primary hospitalist. Continue supportive care. There is no cardiac intervention recommended at this point. As patient totally has poor prognosis with stage IV advanced lung cancer and as the patient is not exhibiting any signs of cardiac decompensation at this point, I appreciate you letting me care for this patient. SORAYA Voice ID: [id number] Report ID: [id number]
[2019-11-30] MEDS: VANCOMYCIN 1 GM in NA CHLORIDE 0.9% 250 ML IVPB SCH (17:08)
[2019-11-30] MEDS ORDERED: THEOPHYLLINE SR 100 MG TAB PO SCH (20:30)
[2019-12-01] MEDS: IPRATROPIUM BROM 0.5MG/2.5ML IH SCH ×4 (01:55→19:40)
[2019-12-01] MEDS: LEVALBUTEROL 1.25 MG/3 ML NEB NEB SCH ×4 (01:55→19:40)
[2019-12-01 04:46] LABS: Absolute Lymphocytes (CBC) 0.2 K/uL (0.7-4.9); Hematocrit 32.1 % (39.6-49.0); Lymphocytes % 1.1 % (15.3-44.8); RBC Red Blood Cell Count 3.62 M/uL (4.33-5.43)
[2019-12-01 05:06] LABS: ALT/SGPT 77 U/L (12-78); AST/SGOT 13 U/L (15-37); Alkaline Phosphatase 84 U/L (45-117); BUN Blood Urea Nitrogen 12 mg/dL (7-18); Bicarbonate 34 mmol/L (21-32); Bilirubin Total 0.5 mg/dL (0.2-1.0); Glucose Level 206 mg/dL (74-106); Magnesium 1.8 mg/dL (1.8-2.4); Sodium Level 138 mmol/L (136-145)
[2019-12-01] MEDS: METHYLPREDNISOLONE 40 MG INJ IV SCH ×3 (06:42→17:33)
[2019-12-01] MEDS: INSULIN -REGULAR HUMAN 50 UNIT/0.5 ML ML SQ SCH ×4 (06:44→17:30)
[2019-12-01 07:08] VITALS: O2SAT 94
--- NOTE | 2019-12-01 07:18 | RAD REPORT ---
EXAM DESCRIPTION: RAD - Chest Single View - 12/01/2019 5:25 am CLINICAL HISTORY: Follow up COPD/pneumonia COMPARISON: Portable November 27 TECHNIQUE: AP portable chest image was obtained 12/01/2019 5:25 am . FINDINGS: Endotracheal tube remains in place with the tip mid aortic arch level. NG tube extends bel ow the diaphragm, off the field of view. Resuscitation paddles have been removed since the prior stud y. Infiltrative changes in the mid and lower right lung field along with right pleural effusion are s till present. Left base opacification has not changed. Heart size is normal range and stable. No pneumothorax. Spiculated parenchyma and masslike density a t the left hilum again noted. No acute bony abnormality seen. No acute aortic findings suspected. IMPRESSION: Bilateral pleural and parenchymal opacification from infiltrate and pleural effusion. Left greater than right hilar fullness with spiculated parenchyma at the left hilum. ET tube and NG tube in good position. Overall no significant change from November 27 imaging.
--- NOTE | 2019-12-01 07:58 | ECHO ---
HEIGHT: 5 ft 5 in WEIGHT: 129 lb 0 oz DATE OF STUDY: 11/30/[address]: Austin Blackman MD 2-DIMENSIONAL: YES M.MODE: YES DOPPLER: YES COLOR FLOW: YES TDS: YES PORTABLE: YES DEFINITY: NO BUBBLE STUDY: NO DIAGNOSIS: ATRIAL FIBRILLATION CARDIAC HISTORY: CATHERIZATION: NO SURGERY: NO PROSTHETIC VALVE: NO PACEMAKER: NO MEASUREMENTS (cm) DIASTOLIC (NORMALS) SYSTOLIC (NORMALS) IVSd 0.7 (0.6-1.2) LA Diam 2.9 (1.9-4.0) LVEF 55-60% LVIDd 4.0 (3.5-5.7) LVIDs 2.1 (2.0-3.5) %FS 48% LVPWd 1.0 (0.6-1.2) Ao Diam 2.9 (2.0-3.7) 2 DIMENSIONAL ASSESSMENT: RIGHT ATRIUM: NORMAL LEFT ATRIUM: NORMAL RIGHT VENTRICLE: NOT WELL SEEN LEFT VENTRICLE: NORMAL TRICUSPID VALVE: MILD TRICUSPID REGURGITATION MITRAL VALVE: NORMAL PULMONIC VALVE: NOT WELL SEEN AORTIC VALVE: NORMAL PERICARDIAL EFFUSION: NONE AORTIC ROOT: NORMAL LEFT VENTRICULAR WALL MOTION: NORMAL. DOPPLER/COLOR FLOW: COMMENTS: NORMAL LEFT VENTRICULAR EJECTION FRACTION 55-60% WITH NORMAL WALL MOTION. POOR QUALITY ECHO TO EVALUATE THE RIGHT VENTRICLE. TECHNOLOGIST: LUIS QUEVEDO
[2019-12-01] MEDS: NACHLORIDE 0.45% 1,000 ML IV SCH ×2 (08:03→17:30)
[2019-12-01] MEDS: ASPIRIN 81 MG CHEWABLE TABLET PO SCH (08:12)
[2019-12-01] MEDS: ENOXAPARIN 40 MG/0.4 ML SQ SCH (08:12)
[2019-12-01] MEDS: CETIRIZINE HCL 5 MG TABLET PO SCH (08:13)
[2019-12-01] MEDS: CEFEPIME/SWI 2gm 2 GM/20 ML SYR IVP SCH ×2 (08:13→20:10)
--- NOTE | 2019-12-01 14:00 | P.PN ---
Subjective Date of Service: 12/01/19 Primary Care Provider: Dr. Valdivia Chief Complaint: Respiratory failure shock Subjective: Other (Patient remains intubated but alert.) Physical Examination - Vital Signs Temperature: 97.8 F Blood Pressure: 112/57 Pulse: 84 Respirations: 19 Pulse Ox (%): 94 - Physical Exam General: Alert, Other (Patient remains intubated) HEENT: Atraumatic Neck: Supple Respiratory: Clear to auscultation bilaterally Cardiovascular: Normal pulses, Regular rate/rhythm Neurological: Normal strength at 5/5 x4 extr, Normal tone Other Physical/Emotional Findings: Muscle wasting to the extremities and torso. - Studies Medications List Reviewed: Yes Assessment & Plan Discharge Plan: LTAC Plan to discharge in: 24 Hours Physician Review Additional Text: Impression: Acute on chronic respiratory failure with hypoxia and hypercapnia secondary to COPD exacerbation with bilateral pneumonia, end-stage COPD on chronic steroids and non invasive ventilator Septic shock secondary to pneumonia Paroxysmally atrial fibrillation not on chronic anti coagulation therapy Nosocomial bilateral pneumonia Metabolic acidosis Diabetes mellitus type 2 History of stage IV lung cancer with diffuse mets to the liver, bone and brain Plan: Acute on chronic respiratory failure with hypoxia and hypercapnia secondary to COPD exacerbation with bilateral pneumonia, end-stage COPD on chronic steroids and non invasive ventilator: Patient remains intubated. Continue current medications at this time. Case discussed at length with pulmonology. Advanced care planning address in detail again with son and . Pulmonology recommends long-term acute care facility placement versus hospice verses trach with long- term care. After further discussion with and son, will pursue long-term acute facility placement. There hopefully there will tried to maximize therapy. If not trach can always be place there and further issues can be addressed. Will discuss with social worker psychiatric. Care discussed at length with . Continue with current medications. Advance care planning-20 min. Septic shock secondary to pneumonia: Continue antibiotic therapy. Wean off vasopressor. Paroxysmally atrial fibrillation not on chronic anti coagulation therapy: Continue with DVT prophylaxis. Patient in normal sinus rhythm. Cardiology consulted. Anticipate no chronic anti coagulation therapy due to multiple risk factors. Nosocomial bilateral pneumonia: Continue antibiotic therapy. Blood cultures negative. Metabolic acidosis: Continue IV fluids Diabetes mellitus type 2: Will adjust IV fluids. Continue Accu-Cheks and sliding scale. 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 Patient with poor prognosis. Oncology has recommended hospice. Time Spent Managing Pts Care (In Minutes): 55
--- NOTE | 2019-12-01 16:22 | PN ---
Date of Progress Note: 12/01/2019 Mr. San was seen by Dr. Barclay yesterday for sinus tachycardia, shortness of breath. He is on vent ilatory support. Patient remains intubated with a pO2 of 54, pCO2 of 50, pH of 7.44. His white coun t is 17,000. He has stage IV lung cancer. He is on inhalers, Levophed, antibiotics, and Lovenox. T monty's rhythm is sinus at 75. Echocardiogram is pending. No changes in medical therapy for now. We will see what the echocardiogram shows. HEMALATHA/CAITLYN Voice ID: [id number] Report ID: [id number]
[2019-12-01] MEDS: FENTANYL CITR 100 MCG/2 ML IV PRN (17:29)
[2019-12-01] MEDS: VANCOMYCIN 1 GM in NA CHLORIDE 0.9% 250 ML IVPB SCH (17:33)
[2019-12-01] MEDS: LORazepam 2 MG/ML VIAL IV PRN (19:35)
[2019-12-01] MEDS: VITAL AF 1,000 ML BOT RTH SCH (20:02)
[2019-12-02] MEDS: METHYLPREDNISOLONE 40 MG INJ IV SCH ×2 (00:19→08:25)
[2019-12-02] MEDS: LEVALBUTEROL 1.25 MG/3 ML NEB NEB SCH ×3 (02:40→14:00)
[2019-12-02] MEDS: IPRATROPIUM BROM 0.5MG/2.5ML IH SCH ×3 (02:40→14:00)
[2019-12-02 04:26] VITALS: BMI 22.9
[2019-12-02] MEDS: NACHLORIDE 0.45% 1,000 ML IV SCH (04:55)
[2019-12-02 05:13] LABS: Absolute Lymphocytes (CBC) 0.1 K/uL (0.7-4.9); Basophils % 0.1 % (0-1.3); Hematocrit 32.8 % (39.6-49.0); MPV 11.4 fL (7.6-11.3); RBC Red Blood Cell Count 3.65 M/uL (4.33-5.43)
[2019-12-02 05:26] LABS: ALT/SGPT 60 U/L (12-78); AST/SGOT 13 U/L (15-37); Albumin 2.1 g/dL (3.4-5.0); Alkaline Phosphatase 86 U/L (45-117); BUN Blood Urea Nitrogen 13 mg/dL (7-18); Bicarbonate 34 mmol/L (21-32); Bilirubin Total 0.4 mg/dL (0.2-1.0); Glucose Level 254 mg/dL (74-106); Magnesium 2.2 mg/dL (1.8-2.4); Potassium 4.2 mmol/L (3.5-5.1); Protein, Total 4.9 g/dL (6.4-8.2); Sodium Level 138 mmol/L (136-145)
[2019-12-02] MEDS: FENTANYL CITR 100 MCG/2 ML IV PRN (06:20)
[2019-12-02] MEDS: INSULIN -REGULAR HUMAN 50 UNIT/0.5 ML ML SQ SCH ×3 (06:29→12:08)
[2019-12-02 06:48] LABS: Anisocytosis 1+; Blood Morphology Comment NOTED (NOT SEEN); Ovalocytes 1+; Platelet Estimate ADEQ
[2019-12-02] MEDS: ENOXAPARIN 40 MG/0.4 ML SQ SCH (08:24)
[2019-12-02] MEDS: CETIRIZINE HCL 5 MG TABLET PO SCH (08:25)
[2019-12-02] MEDS: ASPIRIN 81 MG CHEWABLE TABLET PO SCH (08:25)
[2019-12-02] MEDS: CEFEPIME/SWI 2gm 2 GM/20 ML SYR IVP SCH (08:30)
[2019-12-02] MEDS ORDERED: NACHLORIDE 0.45% 1,000 ML IV SCH (09:34)
[2019-12-02 11:29] VITALS: TEMP 97.6
--- NOTE | 2019-12-02 11:33 | P.DS ---
Admission Date: 11/28/19 Discharge Date: 12/02/19 Primary Care Provider: Dr. Valdivia Disposition: CARE HOME ACUTE CARE FACILITY Discharge Condition: FAIR Reason for Admission: Respiratory failure shock Consultations: Pulmonary-Dr. Valdivia Cardiology-Dr. España Procedures: CXR: FINDINGS: Endotracheal tube remains in place with the tip mid aortic arch le merry. NG tube extends below the diaphragm, off the field of view. Resuscitation paddles have been removed since the prior study. Infiltrative changes in the mid and lower right lung field along with right pleural effusion are still present. Left base opacification has not changed. Heart size is normal range and stable. No pneumothorax. Spiculated parenchyma and masslike density at the left hilum again noted. No acute bony abnormality seen. No acute aortic findings suspected. IMPRESSION: Bilateral pleural and parenchymal opacification from infiltrate and pleural effusion. Left greater than right hilar fullness with spiculated parenchyma at the left hilum. ET tube and NG tube in good position. Overall no significant change from November 27 imaging. ECHO: Ejection fraction 55% LEFT VENTRICULAR WALL MOTION: NORMAL. DOPPLER/COLOR FLOW: COMMENTS: NORMAL LEFT VENTRICULAR EJECTION FRACTION 55-60% WITH NORMAL WALL MOTION. POOR QUALITY ECHO TO EVALUATE THE RIGHT VENTRICLE. Medical Problem List: Acute on chronic respiratory failure with hypoxia and hypercapnia secondary to COPD exacerbation with bilateral pneumonia, end-stage COPD on chronic steroids and non invasive ventilator Septic shock secondary to pneumonia Paroxysmally atrial fibrillation not on chronic anti coagulation therapy Nosocomial bilateral pneumonia Metabolic acidosis Diabetes mellitus type 2 History of stage IV lung cancer with diffuse mets to the liver, bone and brain Brief History of Present Illness: 79-year-old male with history of chronic respiratory failure with end- stage COPD complicated with stage IV lung cancer with metastasis. Patient recently hospitalized and discharge for acute on chronic respiratory failure. Patient has end-stage COPD on non invasive ventilator and chronic steroids. Patient with recurrent admissions. Patient previously on hospice. Patient no longer on hospice. Patient found to have acute respiratory failure with hypotension. Patient was admitted for further evaluation and treatment. Hospital Course: Patient presented with acute on chronic respiratory failure with hypoxia and hypercapnia. Patient with multiple medical problems and multiple admissions. Patient with end-stage COPD complicated with stage IV lung cancer with diffuse mets to the liver, bone and brain. Patient previously on hospice. Patient no longer on hospice at this time. Patient has non invasive ventilator at home/ home oxygen and chronic steroids. Patient required intubation. Patient remains on the ventilator. Septic shock with pneumonia also identified. Patient was on vasopressor therapy. This has been weaned off. Case discussed at length with and son. Multiple options covered including long-term acute care facility placement, tracheostomy with vent support at a facility, or hospice. not r veto for hospice. Therefore long-term care facility placement was discussed and agreed by family. Case discussed at length with pulmonology who agrees with long-term acute facility placement. At facility will recommend to maximize his therapy. Pulmonology recommends that the patient will require tracheostomy due to his multiple admissions. Other options would include if his condition continues to decline and then hospice should be offered. Oncology has discussed with patient and family at length on prior visits. Recommended hospice in the past. Patient approved for long-term acute facility patient. Patient will be transferred. Patient with history of paroxysmally atrial fibrillation not on chronic anti coalition therapy. Continue DVT prophylaxis. As mentioned above patient with bilateral pneumonia. Continue IV antibiotic therapy. Patient has been weaned off Levophed. Vital Signs/Physical Exam: Temp Pulse Resp BP Pulse Ox 98.0 F 75 14 114/55 L 93 12/02/19 04:00 12/02/19 06:00 12/02/19 06:00 12/02/19 06:00 12/02/19 06:00 General: Other (Patient alert. Patient still intubated.) HEENT: Atraumatic Neck: Supple Respiratory: Expiratory wheezes Cardiovascular: Normal pulses, Regular rate/rhythm Gastrointestinal: Normal bowel sounds Integumentary: No tenderness/swelling Neurological: Other (Patient alert and intubated.) Other Physical/Emotional Findings: Muscle wasting to the extremities and torso. Laboratory Data at Discharge: WBC 13.5 K/uL (4.3-10.9) H D 12/02/19 04:50 Hgb 10.2 g/dL (13.6-17.9) L 12/02/19 04:50 Hct 32.8 % (39.6-49.0) L 12/02/19 04:50 Plt Count 163 K/uL (152-406) 12/02/19 04:50 PT 11.2 SECONDS (9.5-12.5) 11/28/19 15:44 INR 0.95 11/28/19 15:44 APTT 26.3 SECONDS (24.3-36.9) 11/28/19 15:44 Sodium 138 mmol/L (136-145) 12/02/19 04:50 Potassium 4.2 mmol/L (3.5-5.1) 12/02/19 04:50 BUN 13 mg/dL (7-18) 12/02/19 04:50 Creatinine 0.37 mg/dL (0.55-1.3) L 12/02/19 04:50 Glucose 254 mg/dL (74-106) H 12/02/19 04:50 Magnesium 2.2 mg/dL (1.8-2.4) 12/02/19 04:50 Total Bilirubin 0.4 mg/dL (0.2-1.0) 12/02/19 04:50 AST 13 U/L (15-37) L 12/02/19 04:50 ALT 60 U/L (12-78) 12/02/19 04:50 Alkaline Phosphatase 86 U/L (45-117) 12/02/19 04:50 Amylase 98 U/L (25-115) 11/28/19 15:44 Lipase 130 U/L (73-393) 11/28/19 15:44 Home Medications: Cetirizine HCl [Zyrtec] 10 mg PO DAILY 10/30/19 Furosemide [Lasix*] 20 mg PO DAILY 10/30/19 Ipratropium Neb [Atrovent*] 0.5 mg IH DAILY 10/30/19 Polyethylene Glycol 3350 [Miralax] 17 gm PO PRN PRN 10/30/19 Theophylline Anhydrous [Fritz-24] 200 mg PO 30 MIN BEFORE HS 30 Days #30 cap.er.24h 11/02/19 Pregabalin [Lyrica*] 50 mg PO TID 11/13/19 Tramadol HCl [Ultram] 50 mg PO Q6HP PRN 11/13/19 predniSONE [Deltasone*] 30 mg PO DAILY 11/13/19 Aspirin 81 mg PO DAILY 11/29/19 Patient Discharge Instructions: Continue current medication. Patient to be transferred to long-term acute facility. Diet: NPO Activity: Bedrest Time spent managing pt's care (in minutes): 55
--- NOTE | 2019-12-02 12:06 | P.PN ---
Subjective Date of Service: 12/02/19 Primary Care Provider: Dr. Valdivia Chief Complaint: Respiratory failure Subjective: Improving (Patient's condition is improving he is more alert tolerating tube feeds) Review of Systems is unable to be obtained Physical Examination - Vital Signs Temperature: 97.6 F Blood Pressure: 117/53 Pulse: 81 Respirations: 15 Pulse Ox (%): 93 - Physical Exam General: Alert, Cooperative Respiratory: Clear to auscultation bilaterally, Diminished, Expiratory wheezes Cardiovascular: No edema, Regular rate/rhythm, Normal S1 S2 Gastrointestinal: Normal bowel sounds, Soft and benign Other Physical/Emotional Findings: Muscle wasting to the extremities and torso. - Studies Medications List Reviewed: Yes Assessment & Plan - Problems (Diagnosis) (1) Acute and chronic respiratory failure ([id number]) Current Visit: No Status: Acute Plan: Patient is currently stable on a ventilator vital signs stable oxygenation satisfactory no evidence of sepsis white count is declining Patient has terminal COPD with the terminal metastatic cancer he has refused hospice care wanted him to be evaluated MD Casanova patient has been accepted at LTAC prognosis is overall poor consider trach and a PEG tube as not able to tolerate is noninvasive ventilator at home Ms. very hypoxic Qualifiers: Respiratory failure complication: hypoxia and hypercapnia Qualified Code(s): J96.21 - Acute and chronic respiratory failure with hypoxia; J96.22 - Acute and chronic respiratory failure with hypercapnia Discharge Plan: LTAC Physician Review Additional Text: Impression: Acute on chronic respiratory failure with hypoxia and hypercapnia secondary to COPD exacerbation with bilateral pneumonia, end-stage COPD on chronic steroids and non invasive ventilator Septic shock secondary to pneumonia Paroxysmally atrial fibrillation not on chronic anti coagulation therapy Nosocomial bilateral pneumonia Metabolic acidosis Diabetes mellitus type 2 History of stage IV lung cancer with diffuse mets to the liver, bone and brain Plan: Acute on chronic respiratory failure with hypoxia and hypercapnia secondary to COPD exacerbation with bilateral pneumonia, end-stage COPD on chronic steroids and non invasive ventilator: Patient remains intubated. Continue current medications at this time. Case discussed at length with pulmonology. Advanced care planning address in detail again with son and . Pulmonology recommends long-term acute care facility placement versus hospice verses trach with long- term care. After further discussion with and son, will pursue long-term acute facility placement. There hopefully there will tried to maximize therapy. If not trach can always be place there and further issues can be addressed. Will discuss with social science teacher. Care discussed at length with . Continue with current medications. Advance care planning-20 min. Septic shock secondary to pneumonia: Continue antibiotic therapy. Wean off vasopressor. Paroxysmally atrial fibrillation not on chronic anti coagulation therapy: Continue with DVT prophylaxis. Patient in normal sinus rhythm. Cardiology consulted. Anticipate no chronic anti coagulation therapy due to multiple risk factors. Nosocomial bilateral pneumonia: Continue antibiotic therapy. Blood cultures negative. Metabolic acidosis: Continue IV fluids Diabetes mellitus type 2: Will adjust IV fluids. Continue Accu-Cheks and sliding scale. 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 Patient with poor prognosis. Oncology has recommended hospice.
[2019-12-02 13:07] VITALS: BP 118/52
[2019-12-02] MEDS ORDERED: VANCOMYCIN 1.25 GM in NA CHLORIDE 0.9% 250 ML IVPB SCH (18:00)
== END 2019-12-02 14:00 | DRG 871 ==
LOC: ER 15:07 → ERHOLD 17:15 → 3RD-ICU 19:43
PROVIDERS: ADMIT Family Medicine; ATTEND Family Medicine
PROC: 5A1945Z Respiratory Ventilation, 24-96 Consecutive Hours (ICD-10-PCS; principal; 2019-11-28)
PROC: 0BH17EZ Insertion of Endotracheal Airway into Trachea, Via Natural or Artificial Opening (ICD-10-PCS; 2019-11-28)
PROC: 06HY33Z Insertion of Infusion Device into Lower Vein, Percutaneous Approach (ICD-10-PCS; 2019-11-28)
PROC: 8E0ZXY6 Isolation (ICD-10-PCS; 2019-11-28)
DX: A41.9 Sepsis, unspecified organism (principal); J18.9 Pneumonia, unspecified organism; J96.21 Acute and chronic respiratory failure with hypoxia; J96.22 Acute and chronic respiratory failure with hypercapnia; R65.21 Severe sepsis with septic shock; J44.1 Chronic obstructive pulmonary disease with (acute) exacerbation; E87.2 Acidosis; C78.7 Secondary malignant neoplasm of liver and intrahepatic bile duct; C79.51 Secondary malignant neoplasm of bone; C79.31 Secondary malignant neoplasm of brain; R64 Cachexia; J44.0 Chronic obstructive pulmonary disease with (acute) lower respiratory infection; Z20.828 Contact with and (suspected) exposure to other viral communicable diseases; Z90.49 Acquired absence of other specified parts of digestive tract; Z85.118 Personal history of other malignant neoplasm of bronchus and lung; Z88.5 Allergy status to narcotic agent; Z87.891 Personal history of nicotine dependence; I95.9 Hypotension, unspecified; R00.0 Tachycardia, unspecified; Z79.82 Long term (current) use of aspirin; Z79.52 Long term (current) use of systemic steroids; Z79.899 Other long term (current) drug therapy; Z68.20 Body mass index [BMI] 20.0-20.9, adult; I48.0 Paroxysmal atrial fibrillation; E11.9 Type 2 diabetes mellitus without complications
CPT/HCPCS: 31500; 36415; 51702; 71045; 80048; 80053; 80076; 80202; 81015; 82150; 82550; 82553; 82805; 83605; 83690; 83735; 84132; 84145; 84443; 84484; 85025; 85610; 85730; 87040; 87070; 87086; 87088; 87205; 93005; 93306; 94002; 94003; 94640; 99291; C9113; J0692; J1630; J1650; J2250; J2704; J2920; J3010; J3370; J7030; J7040; J7060; J7799; U0002